=== PATIENT | female | born 1960 | race Caucasian/White ===

== ENCOUNTER 2018-12-11 20:33 | Emergency (ER) | payer OTHER, SELFPAY ==
--- OUTSIDE RECORDS SUMMARY | 2018-12-11 20:36 | XMS REPORT | Clinical Summary ---
:1960 Author Organization [facility] Address [address] [place] [address] Care Team Providers Name Role Phone Asked, No Pcp Primary Care Provider Unavailable Allergies No Known Allergies Medications Medication Sig Dispensed Refills Start Date End Date Status LORAZepam (ATIVAN) 1 Take 1 mg by mouth 0 Active MG tablet every 6 (six) hours as needed for anxiety. hydromorPHONE Take 2 mg by mouth 0 Active (DILAUDID) 2 MG tablet every 4 (four) hours as needed. gabapentin (NEURONTIN) Take 300 mg by 0 Active 300 mg capsule mouth 3 (three) times a day. miscellaneous medical 1 Units take as 1 each 0 06/19/2018 Active supply misc directed (for ambulation). DISPENSE WHEELCHAIR Active Problems Not on file Encounters Date Type Specialty Care Team Description 06/19/2018 Emergency Emergency Medicine Irene Rayo, Injury of head, initial encounter (Primary Dx); Abrasion of face, initial encounter; Fall, initial encounter; Contusion of face, initial encounter; Anemia, unspecified type; Thrombocytosis after 12/10/2017 Social History Tobacco Use Types Packs/Day Years Used Date Former Smoker Smokeless Tobacco: Never Used Alcohol Use Drinks/Week oz/Week Comments No Sex Assigned at Date Recorded Not on file Job Start Date Occupation Industry Not on file Not on file Not on file Travel History Travel Start Travel End No recent travel history available. Last Filed Vital Signs Vital Sign Reading Time Taken Blood Pressure 105/56 06/19/2018 3:45 PM CDT Pulse 89 06/19/2018 3:45 PM CDT Temperature 36.5 C (97.7 F) 06/19/2018 3:45 PM CDT Respiratory Rate 18 06/19/2018 3:45 PM CDT Oxygen Saturation 98% 06/19/2018 3:45 PM CDT Inhaled Oxygen Concentration - - Weight 34 kg (75 lb) 06/19/2018 11:58 AM CDT Height 162.6 cm (5' 4") 06/19/2018 11:58 AM CDT Body Mass Index 12.87 06/19/2018 11:58 AM CDT Plan of Treatment Health Maintenance Due Date Last Done Comments CERVICAL CANCER SCREENING 1980 BREAST CANCER SCREENING 2009 COLON CANCER SCREENING 2009 SHINGLES VACCINES (#1) 2009 INFLUENZA VACCINE 05/19/2018 Procedures Procedure Name Priority Date/Time Associated Comments Diagnosis CT CERVICAL SPINE WO STAT 06/19/2018 1:10 Results for this CONTRAST PM CDT procedure are in the results section. CT HEAD WO CONTRAST STAT 06/19/2018 1:09 Results for this PM CDT procedure are in the results section. XR PELVIS 1 OR 2 VW STAT 06/19/2018 1:02 Results for this PM CDT procedure are in the results section. ZZESTIMATED GFR STAT 06/19/2018 12:40 Results for this PM CDT procedure are in the results section. CREATINE KINASE, TOTAL STAT 06/19/2018 12:40 Results for this (CPK) PM CDT procedure are in the results section. TROPONIN STAT 06/19/2018 12:40 Results for this PM CDT procedure are in the results section. COMPREHENSIVE METABOLIC STAT 06/19/2018 12:40 Results for this PANEL PM CDT procedure are in the results section. PARTIAL THROMBOPLASTIN STAT 06/19/2018 12:40 Results for this TIME (PTT) PM CDT procedure are in the results section. PROTHROMBIN TIME WITH STAT 06/19/2018 12:40 Results for this INR PM CDT procedure are in the results section. HC COMPLETE BLD COUNT STAT 06/19/2018 12:40 Results for this W/AUTO DIFF PM CDT procedure are in the results section. ECG ED PRELIMINARY Routine 06/19/2018 12:17 Results for this INTERPRETATION PM CDT procedure are in the results section. ECG 12-LEAD STAT 06/19/2018 12:01 Results for this PM CDT procedure are in the results section. after 12/10/[address] Cervical Spine Wo Contrast (06/19/2018 1:10 PM CDT) Narrative Performed At EXAMINATION:CT CERVICAL SPINE WO CONTRAST [facility] CLINICAL HISTORY:fall injury COMPARISON:None. TECHNIQUE: Axial helical CT images throughout the cervical spine were performed without IV contrast. Sagittal and coronal reformatted images were generated. All CT images were acquired using low-dose technique with automated exposure control. FINDINGS: There is no evidence of acute fracture, traumatic subluxation, or dislocation. There is normal cervical lordosis and alignment. Vertebral bodies are preserved. There is no evidence of paraspinal hematoma. No significant cervical spondylosis is appreciated. 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 IMPRESSION: No acute cervical spine bony abnormality. [id number] Procedure Note Interface, Radiology Results Incoming - 06/19/2018 1:19 PM CDT EXAMINATION: CT CERVICAL SPINE WO CONTRAST CLINICAL HISTORY: fall injury COMPARISON: None. TECHNIQUE: Axial helical CT images throughout the cervical spine were performed without IV contrast. Sagittal and coronal reformatted images were generated. All CT images were acquired using low-dose technique with automated exposure control. FINDINGS: There is no evidence of acute fracture, traumatic subluxation, or dislocation. There is normal cervical lordosis and alignment. Vertebral bodies are preserved. There is no evidence of paraspinal hematoma. No significant cervical spondylosis is appreciated. 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 IMPRESSION: No acute cervical spine bony abnormality. [id number] Performing Organization Address City/State/Zipcode Phone Number [employer] [address] [place] [address] CT Head Wo Contrast (06/19/2018 1:09 PM CDT) Narrative Performed At EXAMINATION:[facility]:head injury COMPARISON:None. FINDINGS: There is no evidence of acute hemorrhage, mass lesion, or midline shift. The mendoza-white matter differentiation is preserved with no evidence of acute territorial infarction. Ventricles, sulci, and cisterns are age-appropriate in size and configuration. There is no extra-axial fluid collection. Visualized paranasal sinuses and mastoid air cells are clear. Bones, orbits, and soft tissues are unremarkable All CT images were acquired using low-dose technique with automated exposure control. IMPRESSION: No acute intracranial hemorrhage or mass effect. [id number] Procedure Note Interface, Radiology Results Incoming - 06/19/2018 1:16 PM CDT EXAMINATION: CT HEAD WO CONTRAST CLINICAL HISTORY: head injury COMPARISON: None. FINDINGS: There is no evidence of acute hemorrhage, mass lesion, or midline shift. The mendoza-white matter differentiation is preserved with no evidence of acute territorial infarction. Ventricles, sulci, and cisterns are age-appropriate in size and configuration. There is no extra-axial fluid collection. Visualized paranasal sinuses and mastoid air cells are clear. Bones, orbits, and soft tissues are unremarkable All CT images were acquired using low-dose technique with automated exposure control. IMPRESSION: No acute intracranial hemorrhage or mass effect. [id number] Performing Organization Address [facility] Phone Number [employer] [address] [place] [address] XR Pelvis 1 Or 2 Vw (06/19/2018 1:02 PM CDT) Narrative Performed At EXAMINATION:XR PELVIS 1 OR 2 VW [facility] CLINICAL HISTORY:fallfrail elderly COMPARISON:None. IMPRESSION: Minimal degenerative changes are present in the hips. There is no evidence of acute pelvic or hip fracture. There is no evidence of dislocation. Multiple phleboliths are noted in the pelvis. Procedure Note Interface, Radiology Results Incoming - 06/19/2018 1:07 PM CDT EXAMINATION: XR PELVIS 1 OR 2 VW CLINICAL HISTORY: fall frail elderly COMPARISON: None. IMPRESSION: Minimal degenerative changes are present in the hips. There is no evidence of acute pelvic or hip fracture. There is no evidence of dislocation. Multiple phleboliths are noted in the pelvis. Performing Organization Address [facility] Phone Number [facility] [address] [place] [address] Estimated GFR (06/19/2018 12:40 PM CDT) GFR Non Af Amer >90 mL/min/1.73 m2 [facility] PATHOLOGY AND GENOMIC MEDICINE GFR Af Amer >90 mL/min/1.73 m2 [facility] DEPARTMENT OF Comment: PATHOLOGY AND GENOMIC Chronic kidney disease: <60 mL/min/1.73m2 MEDICINE Kidney failure: <15 mL/min/1.73m2 The estimated GFR is calculated from the IDMS-traceable Modification of Diet in Renal Disease Equation. The accuracy of the calculation is poor when the creatinine is normal. Calculated values >90 mL/min/1.73m2 are not reported. This equation has not been validated in children (<18 years), women, the elderly (>70 years), or ethnic groups other than Caucasians and Americans. Specimen Plasma specimen Performing Organization Address City/State/Zipcode Phone Number [facility] DEPART[facility] OF PATHOLOGY [id number] [place] [address]. [place] [address] AND [employer] Troponin (06/19/2018 12:40 PM CDT) Troponin <0.30 0.00 - 0.30 ng/mL [facility] OF PATHOLOGY Comment: AND GENOMIC MEDICINE 0.11 - 1.49 ng/mlMay indicate increased risk of acute coronary syndrome. >=1.5 ng/mlConsistent with acute myocardial infarction. The diagnostic value of a single normal or non-diagnostic result is questionable.Serial samples at 2-6 hour intervals are required to rule out acute myocardial injury. Specimen Plasma specimen Performing Organization Address City/[facility] Phone Number [facility] DE[facility] OF PATHOLOGY [id number] [place] [address]. [place] [address] AND [employer] [facility] Partial thromboplastin time, activated (06/19/2018 12:40 PM CDT) PTT 37.6 (H) 23.0 - 36.0 sec [facility] DEPARTMENT OF Comment: PATHOLOGY AND [employer] PTT therapeutic range for unfractionated heparin is MEDICINE 61.0-112.0 seconds which corresponds to Anti-Xa 0.3-0.7 U/ml. Specimen Blood Performing Organization Address City/[facility]/Zipcode Phone Number [facility] DEPARTMENT OF PATHOLOGY [address] [place] [address] AND [employer] [facility] Prothrombin time with INR (06/19/2018 12:40 PM CDT) Prothrombin time 13.3 12.0 - 15.0 sec [facility] DEPART[facility] OF PATHOLOGY AND [employer] MEDICINE INR 1.0 [facility] DEPARTMENT OF Comment: PATHOLOGY AND GENOMIC The International Normalized Ratio (INR) is a therapeutic MEDICINE monitoring tool for patients who are stable on oral anticoagulant therapy. An INR of 2.0-3.0 is suggested for deep vein thrombosis/pulmonary embolism. Specimen Blood Performing Organization Address City/[facility]/Zipcode Phone Number [facility]MENT OF PATHOLOGY [id number] [place] [address]. [place] [address] AND [employer] CBC with platelet and differential (06/19/2018 12:40 PM CDT) WBC 12.3 (H) 4.5 - 11.0 k/uL [facility] PATHOLOGY AND GENOMIC MEDICINE RBC 2.66 (L) 4.20 - 5.50 m/uL [facility] PATHOLOGY AND GENOMIC MEDICINE HGB 7.9 (L) 12.0 - 16.0 g/dL [facility] OF PATHOLOGY AND GENOMIC MEDICINE HCT 24.8 (L) 37.0 - 47.0 % [facility] OF PATHOLOGY AND GENOMIC MEDICINE MCV 93.2 82.0 - 100.0 fL [facility] OF PATHOLOGY AND GENOMIC MEDICINE MCH 29.7 27.0 - 34.0 pg [facility] OF PATHOLOGY AND GENOMIC MEDICINE MCHC 31.9 31.0 - 37.0 g/dL [facility] OF PATHOLOGY AND GENOMIC MEDICINE RDW - SD 51.5 37.0 - 55.0 fL [facility] OF PATHOLOGY AND GENOMIC MEDICINE MPV 9.7 6.9 - 11.0 fL [facility] OF PATHOLOGY AND GENOMIC MEDICINE Platelet count 688 (H) 150 - 400 K/uL [facility] OF PATHOLOGY AND GENOMIC MEDICINE Nucleated RBC 0.00 /100 WBC [facility] OF PATHOLOGY AND GENOMIC MEDICINE Neutrophils 80.5 (H) 39.0 - 69.0 % [facility] OF PATHOLOGY AND GENOMIC MEDICINE Lymphocytes 9.2 (L) 25.0 - 45.0 % [facility] OF [facility]OLOGY AND GENOMIC MEDICINE Monocytes 6.5 0.0 - 10.0 % [facility] OF PATHOLOGY AND GENOMIC MEDICINE Eosinophils 2.8 0.0 - 5.0 % [facility] OF PATHOLOGY AND GENOMIC MEDICINE Basophils 0.6 0.0 - 1.0 % [facility] OF PATHOLOGY AND GENOMIC MEDICINE Immature granulocytes 0.4 0.0 - 1.0 % [facility] OF PATHOLOGY AND GENOMIC MEDICINE Specimen Blood Performing Organization Address [facility] Phone Number [facility] DE[facility] OF PATHOLOGY [address] [place] [address] AND [facility] Creatine kinase, total (CPK) (06/19/2018 12:40 PM CDT) Creatine kinase 40 26 - 192 U/L [facility] DEPART[facility] OF PATHOLOGY AND GENOMIC MEDICINE Specimen Plasma specimen Performing Organization Address [facility]/Zipcode Phone Number [facility] PATHOLOG[facility] [address] [place] [address] AND [facility] Comprehensive metabolic panel (06/19/2018 12:40 PM CDT) Sodium 133 (L) 135 - 148 mEq/L [facility] OF PATHOLOGY AND GENOMIC MEDICINE Potassium 4.5 3.5 - 5.0 mEq/L [facility] OF PATHOLOGY AND GENOMIC MEDICINE Chloride 95 (L) 98 - 112 mEq/L [facility] OF PATHOLOGY AND GENOMIC MEDICINE CO2 28 24 - 31 mEq/L [facility] OF PATHOLOGY AND GENOMIC MEDICINE Anion gap 10@ANIO 7 - 15 mEq/L [facility] OF PATHOLOGY AND GENOMIC MEDICINE BUN 13 6 - 20 mg/dL [facility]OLOGY AND GENOMIC MEDICINE Creatinine 0.5 0.5 - 0.9 mg/dL [facility] OF PATHOLOGY AND GENOMIC MEDICINE Glucose 107 (H) 65 - 99 mg/dL [facility] OF PATHOLOGY AND GENOMIC MEDICINE Calcium 9.2 8.3 - 10.2 mg/dL [facility] OF PATHOLOGY AND GENOMIC MEDICINE Protein 6.2 (L) 6.3 - 8.3 g/dL [facility] OF PATHOLOGY AND GENOMIC MEDICINE Albumin 2.9 (L) 3.5 - 5.0 g/dL [facility] OF PATHOLOGY AND GENOMIC MEDICINE A/G ratio 0.9 0.7 - 3.8 [facility]OLOGY AND GENOMIC MEDICINE Alkaline phosphatase 79 35 - 104 U/L [facility] OF PATHOLOGY AND GENOMIC MEDICINE AST 16 10 - 35 U/L [facility] OF PATHOLOGY AND GENOMIC MEDICINE ALT 8 5 - 50 U/L [facility] OF PATHOLOGY AND GENOMIC MEDICINE Total bilirubin <0.2 0.2 - 1.2 mg/dL [facility] OF PATHOLOGY AND GENOMIC MEDICINE Specimen Plasma specimen Performing Organization Address City/State/Zipcode Phone Number [facility] DEPARTMENT OF PATHOLOGY [address] [place] [address] AND [employer] MEDICINE ECG ED Preliminary Interpretation - NOT AN ORDER (06/19/2018 12:17 PM CDT) Narrative Performed At Perry Frenandez PA-C 06/19/20185:35 PM ECG ED Preliminary Interpretation - Not an Order Performed by: PERRY FERNANDEZ Authorized by: IRENE RAYO ECG reviewed by ED 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 Rate: ECG rate:97 ECG rate assessment: normal Rhythm: Rhythm: sinus rhythm QRS: QRS intervals:Normal Conduction: Conduction: normal ST segments: ST segments:Normal T waves: T waves: normal ECG 12 lead (06/19/2018 12:01 PM CDT) Ventricular rate 97 [facility] Atrial rate 97 [facility] DE interval 178 [facility] QRSD interval 76 [facility] QT interval 348 [facility] QTC interval 441 [facility] P axis 1 60 [facility] QRS axis 1 70 [facility] T wave axis 65 [facility] EKG impression Normal sinus rhythm-Possible Left atrial H MUSE enlargement-Borderline ECG-No previous ECGs available- Performing Organization Address City/State/[facility] Phone Number [facility] [address] [place] [address] after 12/10/2017 Insurance Payer Benefit Plan / Group Subscriber ID Type Phone Address [employer] [facility] xxxxxxxxx O Advance Directives Patient has advance care planning documents on file. For more information, please contact:Sky [address] [place] [address]
--- OUTSIDE RECORDS SUMMARY | 2018-12-11 20:36 | XMS REPORT ---
:1960 [facility] Organization [facility] Address [address] [place] [address] [place] [address] Care Team Providers Name Role Phone Unavailable Unavailable Unavailable Problems This patient has no known problems. Allergies, Adverse Reactions, Alerts This patient has no known allergies or adverse reactions. Medications This patient has no known medications.
--- NOTE | 2018-12-11 21:11 | RAD REPORT ---
EXAM DESCRIPTION: RAD - Chest Single View - 12/11/2018 9:04 pm CLINICAL HISTORY: possible tracheostomy dislodgement Chest pain. COMPARISON: Chest Pa And Lat (2 Views) dated 03/21/2017; Chest Single View dated 03/21/2017; Chest Singl e View dated 05/01/2016; CHEST SINGLE VIEW dated 06/05/2014; Neck Soft Tissue dated 12/11/2018 FINDINGS: Portable technique limits examination quality. The lungs are emphysematous with linear atelectasis in left lung base. The heart is normal in size. N o tracheostomy tube is clearly visualized on study.
--- NOTE | 2018-12-11 21:12 | RAD REPORT ---
EXAM DESCRIPTION: RAD - Neck Soft Tissue - 12/11/2018 9:04 pm CLINICAL HISTORY: eval tracheostomy Neck pain COMPARISON: No comparisons FINDINGS: Tracheostomy tubing is seen in the soft tissues of the anterior neck. The tip location is not clearly defined. Prevertebral soft tissues are normal in thickness. CT imaging of the neck would be recommended if further assessment is clinically needed.
--- NOTE | 2018-12-12 00:57 | ER ---
Nurse's Notes [facility] Name: Julissa Hicks Age: 58 yrs Sex: Female : 1960 Arrival Date: 12/11/2018 Time: 20:34 Bed 2 Private MD: Diagnosis: Esophageal Perforation of tracheostomy device Presentation: 12/11 20:43 Presenting complaint: EMS states: Patient was admitted to [facility] yesterday aj1 for IV therapy, she fell shortly after she arrived to the facility. They noticed this morning at 0930 that her "voicebox" was gone. A plastic tab is sticking out of the patient's stoma. Respirations are even and unlabored, patient denies shortness of breath. Transition of care: patient was not received from another setting of care. Onset of symptoms was December 11, 2018 at 09:30. Risk Assessment: Do you want to hurt yourself or someone else? Patient reports no desire to harm self or others. Initial Sepsis Screen: Does the patient meet any 2 criteria? No. Patient's initial sepsis screen is negative. Does the patient have a suspected source of infection? No. Patient's initial sepsis screen is negative. Care prior to arrival: None. 20:43 Method Of Arrival: EMS: [facility] aj1 20:43 Acuity: KHOA 3 aj1 Triage Assessment: 20:55 General: Appears in no apparent distress. comfortable, Behavior is calm, cooperative, aj1 appropriate for age. Pain: Complains of pain in face and chest. Neuro: Level of Consciousness is awake, alert. Cardiovascular: Patient's skin is warm and dry. Respiratory: Airway is patent Respiratory effort is even, unlabored, Respiratory pattern is regular, symmetrical. Historical: - Allergies: 20:55 No Known Allergies; aj1 - Home Meds: 20:55 Doxycycline Oral [Active]; gabapentin oral oral [Active]; hydromorphone Oral [Active]; aj1 Mylanta Double-Strength Oral [Active]; GlycoLax oral oral [Active]; meropenem intravenous intravenous [Active]; Senokot Oral [Active]; Tramadol Oral [Active]; - PMHx: 20:55 malignant neoplasm of larynx; COPD; subarachnoid bleed; aj1 - Immunization history:: Adult Immunizations up to date. - Social history:: Smoking status: unknown. - Ebola Screening: : No symptoms or risks identified at this time. - Family history:: not pertinent. - Hospitalizations: : No recent hospitalization is reported. Screenin:02 Abuse screen: Denies threats or abuse. Denies injuries from another. Nutritional aj1 screening: No deficits noted. Tuberculosis screening: No symptoms or risk factors identified. 22:04 Fall Risk Gait- Weak (10 pts.). tl2 Assessment: 21:02 General: Appears in no apparent distress. comfortable, Behavior is calm, cooperative, aj1 appropriate for age. Pain: Complains of pain in chest and face. Neuro: Level of Consciousness is awake, alert, obeys commands. Cardiovascular: Patient's skin is warm and dry. Respiratory: Airway is patent Respiratory effort is even, unlabored, Respiratory pattern is regular, symmetrical. GI: No signs and/or symptoms were reported involving the gastrointestinal system. : No signs and/or symptoms were reported regarding the genitourinary system. EENT: No signs and/or symptoms were reported regarding the EENT system. Derm: Skin is pink, warm \\T\\ dry. normal. Musculoskeletal: Circulation, motion, and sensation intact. 22:04 General: Appears in no apparent distress. comfortable, Behavior is calm, cooperative, tl2 appropriate for age. Pain: Complains of pain in face. Neuro: Level of Consciousness is awake, alert, obeys commands. Cardiovascular: Patient's skin is warm and dry. Respiratory: Airway is patent Respiratory effort is even, unlabored, Respiratory pattern is regular, symmetrical, tag like object sticking out of trach stoma. GI: No signs and/or symptoms were reported involving the gastrointestinal system. Derm: Skin is pink, warm \\T\\ dry. 23:00 Reassessment: Patient and/or family updated on plan of care and expected duration. Pain ea level reassessed. Patient is alert, oriented x 3, equal unlabored respirations, skin warm/dry/pink. 12/12 00:00 Reassessment: Patient and/or family updated on plan of care and expected duration. Pain ea level reassessed. Patient is alert, oriented x 3, equal unlabored respirations, skin warm/dry/pink. 01:20 Reassessment: Report called to Ana ASCENCIO at [facility]. ea 02:00 Reassessment: Patient appears in no apparent distress at this time. Patient and/or tl2 family updated on plan of care and expected duration. Pain level reassessed. Patient is alert, oriented x 3, equal unlabored respirations, skin warm/dry/pink. awaiting transport. Vital Signs: 12/11 20:55 BP 115 / 64; Pulse 56; Resp 20; Temp 98.4; Pulse Ox 98% on R/A; aj1 22:04 BP 111 / 65; Pulse 66; Resp 18; Pulse Ox 94% on R/A; tl2 22:57 BP 97 / 67; Pulse 60; Resp 18; Pulse Ox 97% on R/A; tl2 12/12 00:15 BP 93 / 67; Pulse 55; Resp 18; Pulse Ox 96% on R/A; tl2 02:00 BP 99 / 66; Pulse 57; Resp 18; Pulse Ox 96% on R/A; tl2 ED Course: 12/11 20:34 Patient arrived in ED. ds1 20:36 Grant Paul MD is Attending Physician. rn 20:42 Ana Rizo, SONU is Primary Nurse. aj1 20:49 Triage completed. aj1 20:55 Arm band placed on. aj1 21:02 Patient has correct armband on for positive identification. Bed in low position. Call aj1 light in reach. 21:02 No provider procedures requiring assistance completed. aj1 21:05 XRAY Neck Soft Tissue In Process Unspecified. EDMS 21:05 XRAY Chest (1 view) In Process Unspecified. EDMS 22:29 CT completed. Patient tolerated procedure well. Patient moved back from CT. kw1 12/12 01:22 Patient transferred, IV remains in place. ea 01:22 IV is patent, with fluids infusing freely, with good blood return, IV placed at nursing tl2 home for IV therapy. 18 g R upper arm. Administered Medications: 01:22 Drug: D5-NS 1000 ml Route: IV; Rate: 125 ml/hr; Site: right upper arm; tl2 02:07 Follow up: IV Status: Infusion continued upon transfer tl2 Outcome: 00:56 ER care complete, transfer ordered by . rn 01:21 Instructed on the need for transfer. ea 02:06 Transferred by ground EMS Transfer form completed. Note: Hayes Chapin tl2 02:06 Condition: stable 02:08 Patient left the ED. tl2 Signatures: Dispatcher [employer] EDMS Ana Rizo RN RN aj1 Mandi Blount ds1 Grant Paul MD MD rn Knox, Taylor, RN RN tl2 Nadiya Iraheta RN RN Yaritza Conroy kw1
--- NOTE | 2018-12-12 00:57 | EDPHYS ---
Physician Documentation [facility] Name: Julissa Hicks Age: 58 yrs Sex: Female : 1960 Arrival Date: 12/11/2018 Time: 20:34 Bed 2 Private MD: ED Physician Grant Paul HPI: 12/11 22:36 This 58 yrs old Female presents to ER via EMS with complaints of displacement rn of tracheostomy device. 22:36 Called by alf, told that since 0900 today had displacement of "voice box", rn patient reports mild throat pain but no SOB, doesnot know what happened.. Onset: The symptoms/episode began/occurred this morning. Severity of symptoms: At their worst the symptoms were mild in the emergency department the symptoms are unchanged. It is unknown whether or not the patient has had similar symptoms in the past. The patient has not recently seen a physician. Historical: - Allergies: 20:55 No Known Allergies; aj1 - Home Meds: 20:55 Doxycycline Oral [Active]; gabapentin oral oral [Active]; hydromorphone Oral [Active]; aj1 Mylanta Double-Strength Oral [Active]; GlycoLax oral oral [Active]; meropenem intravenous intravenous [Active]; Senokot Oral [Active]; Tramadol Oral [Active]; - PMHx: 20:55 malignant neoplasm of larynx; COPD; subarachnoid bleed; aj1 - Immunization history:: Adult Immunizations up to date. - Social history:: Smoking status: unknown. - Ebola Screening: : No symptoms or risks identified at this time. - Family history:: not pertinent. - Hospitalizations: : No recent hospitalization is reported. ROS: 22:36 Constitutional: Negative for fever, chills, and weight loss, Eyes: Negative for injury, rn pain, redness, and discharge, Neck: + neck pain, mild at stoma Cardiovascular: Negative for chest pain, palpitations, and edema, Respiratory: Negative for shortness of breath, cough, wheezing, and pleuritic chest pain, Abdomen/GI: Negative for abdominal pain, nausea, vomiting, diarrhea, and constipation, MS/Extremity: Negative for injury and deformity, Skin: Negative for injury, rash, and discoloration, Neuro: Negative for headache, weakness, numbness, tingling, and seizure. Exam: 22:36 Constitutional: Thin female, no acute distress Neck: + clear soft plastic device rn protruding from stoma with circular object in trachea, no respiratory distress Cardiovascular: Regular rate and rhythm, No pulse deficits. Respiratory: Lungs have equal breath sounds bilaterally, clear to auscultation. No increased work of breathing, no retractions or nasal flaring. Abdomen/GI: soft, non-tender Skin: Warm, dry MS/ Extremity: Pulses equal, no cyanosis. Neurovascular intact. Full, normal range of motion. Equal circumference. Neuro: Awake and alert, GCS 15 Vital Signs: 20:55 BP 115 / 64; Pulse 56; Resp 20; Temp 98.4; Pulse Ox 98% on R/A; aj1 22:04 BP 111 / 65; Pulse 66; Resp 18; Pulse Ox 94% on R/A; tl2 22:57 BP 97 / 67; Pulse 60; Resp 18; Pulse Ox 97% on R/A; tl2 12/12 00:15 BP 93 / 67; Pulse 55; Resp 18; Pulse Ox 96% on R/A; tl2 02:00 BP 99 / 66; Pulse 57; Resp 18; Pulse Ox 96% on R/A; tl2 MDM: 12/11 20:36 Patient medically screened. rn 12/12 00:42 ED course: Pt with erosion of tracheal object into esophagus, no ENT here, surgery done rn at [facility] per alf 2 months ago, arranging transfer for higher level of care and no specialty services. . 00:49 Differential Diagnosis tracheal/esophageal perforation. Data reviewed: vital signs, rn nurses notes, radiologic studies, CT scan, plain films, and as a result, I will admit patient. Counseling: I had a detailed discussion with the patient and/or guardian regarding: the historical points, exam findings, and any diagnostic results supporting the discharge/admit diagnosis, radiology results, the need to transfer to another facility. Admission orders: after a detailed discussion of the patient's condition and case, the admit orders are written by me. ED course: Pt accepted for transfer to [facility] for further eval.. 12/11 20:37 Order name: XRAY Neck Soft Tissue; Complete Time: 21:30 rn 12/11 20:37 Order name: XRAY Chest (1 view); Complete Time: 21:30 rn 12/11 21:55 Order name: CT Soft Tissue Neck W/contr rn 12/12 01:09 Order name: IV Start; Complete Time: 01:11 rn Administered Medications: 01:22 Drug: D5-NS 1000 ml Route: IV; Rate: 125 ml/hr; Site: right upper arm; tl2 02:07 Follow up: IV Status: Infusion continued upon transfer tl2 Disposition: 12/12/18 00:56 Transfer ordered to [facility]. Diagnosis is Esophageal Perforation of tracheostomy device. - Reason for transfer: Higher level of care. - Accepting physician is Dr. Rendon. - Condition is Stable. - Problem is new. - Symptoms have improved. Signatures: Dispatcher [employer] Ana Ta RN RN aj1 Grant Paul MD MD rn Knox, Taylor, RN RN tl2 Corrections: (The following items were deleted from the chart) 02:08 00:56 12/12/2018 00:56 Transfer ordered to [facility]. Diagnosis is Esophageal tl2 Perforation of tracheostomy device. Reason for transfer: Higher level of care. Accepting physician is Dr. Rendon. Condition is Stable. Problem is new. Symptoms have improved. rn
[2018-12-12] MEDS ORDERED: D5 0.9 NS 1,000 ML IV ONE (01:25)
[2018-12-12 02:19] VITALS: TEMP 98.4
[2018-12-12 02:23] VITALS: O2SAT 96
[2018-12-12 02:25] VITALS: BP 99/66
--- NOTE | 2018-12-13 11:06 | RAD REPORT ---
EXAM DESCRIPTION: CT - Soft Tissue Neck Wo Contr - 12/11/2018 10:45 pm CLINICAL HISTORY: 58 years Female no contrast, eval for tracheostomy displacement COMPARISON: None. TECHNIQUE: Contiguous axial images obtained through the neck without IV contrast. Reformatted images obtained. This exam was performed according to our department optimization program which includes automated exp osure control, adjustment of the mA and/or kv according to patient size and/or use of iterative recon struction technique. FINDINGS: There is a tracheostomy defect in the skin overlying the upper trachea. A portion of the t racheostomy tube projects through the skin defect. The other end of the tube projects into the upper esophagus. There are postsurgical changes from laryngectomy. There is soft tissue thickening and stranding in th e fatty tissues in the lower neck which may be postsurgical. CT following IV contrast could be obtain ed to better evaluate for residual tumor. There is fluid in the pharynx above the level of the surger y. There are atherosclerotic calcifications of the carotid bifurcations. Mild scarring in the upper lungs. Calcified granuloma in the left upper lung. Mucosal thickening and possibly small amount of fluid in the sphenoid sinuses. There is opacification of the left mastoid air cells. There are mild degenerative changes in the spine. At C3-4, there is central disc protrusion which res ults in moderate narrowing of the central spinal canal. IMPRESSION: There is a tracheostomy defect in the skin overlying the upper trachea. A portion of the tracheostomy tube projects through this defect. The other end of the tube projects into the upper es ophagus. The findings were discussed with Dr. Grant Paul at 12:01 AM. There are changes from previous laryngectomy. There is soft tissue thickening and stranding in the fa tty tissues in the lower neck which may be postsurgical. CT following IV contrast could be obtained t o better evaluate for residual tumor. Mucosal thickening possibly with a small amount of fluid in the sphenoid sinuses. Central disc protrusion at C3-4 with moderate narrowing of the spinal canal. Electronically signed by: Dayday Meyers MD 12/12/2018 12:06 AM [employer] Due to temporary technical issues with the PACS/Fluency reporting system, reports are being signed by the in house radiologist as a courtesy to ensure prompt reporting. The interpreting radiologist is f ully responsible for the content of the report.
== END 2018-12-12 02:08 | disposition short-term general hospital (02) ==
LOC: ER 20:33
DX: J95.09 Other tracheostomy complication (principal); C32.9 Malignant neoplasm of larynx, unspecified; J44.9 Chronic obstructive pulmonary disease, unspecified
CPT/HCPCS: 70360; 70490; 71045; 96365; 99285

== ENCOUNTER 2018-12-15 21:56 | Emergency (ER) | payer OTHER ==
--- OUTSIDE RECORDS SUMMARY | 2018-12-15 21:59 | XMS REPORT | Clinical Summary ---
:1960 Author Organization [facility] Address [address] [place] [address] Care Team Providers Name Role Phone Asked, [...] initial encounter; Anemia, unspecified type; Thrombocytosis after 12/14/2017 Social History Tobacco Use Types Packs/Day Years [...] procedure are in the results section. after 12/14/[address] Cervical Spine Wo Contrast (06/19/2018 [...] IMPRESSION: No acute cervical spine bony abnormality. [facility]-[id number] Procedure Note Interface, Radiology Results Incoming - [...] IMPRESSION: No acute cervical spine bony abnormality. [facility]-[id number] Performing Organization Address City/State/Zipcode Phone Number [facility] [address] [place] [address] CT Head Wo Contrast (06/19/2018 1:09 PM CDT) Narrative Performed At EXAMINATION:CT HEAD WO [facility]AST [facility] CLINICAL HISTORY:head injury COMPARISON:None. FINDINGS: There is [...] No acute intracranial hemorrhage or mass effect. [facility]-[id number] Procedure Note Interface, Radiology Results Incoming - [...] No acute intracranial hemorrhage or mass effect. [facility]-[id number] Performing Organization Address [facility] Phone Number [facility] [address] [place] [address] XR Pelvis 1 Or 2 Vw (06/19/2018 [...] noted in the pelvis. Performing Organization Address [facility] Phone Number [facility] [address] [place] [address] Estimated GFR (06/19/2018 12:40 PM CDT) GFR Non Af Amer >90 mL/min/1.73 m2 [facility] DEPARTMENT OF PATHOLOGY AND GENOMIC MEDICINE GFR Af Amer >90 mL/min/1.73 m2 [facility] DEPARTMENT OF Comment: PATHOLOGY AND GENOMIC [...] specimen Performing Organization Address City/State/Zipcode Phone Number [facility] DEPARTMENT OF PATHOLOGY [id number] [place] [address]. [place] [address] AND [employer] Troponin (06/19/2018 12:40 PM CDT) Troponin <0.30 0.00 - 0.30 ng/mL [facility] DEPARTMENT OF PATHOLOGY Comment: AND GENOMIC MEDICINE 0.11 - 1.49 ng/mlMay indicate increased risk of acute coronary syndrome. >=1.5 ng/mlConsistent with acute myocardial infarction. The diagnostic value of a single normal or non-diagnostic result is questionable.Serial samples at 2-6 hour intervals are required to rule out acute myocardial injury. Specimen Plasma specimen Performing Organization Address City/[facility] Phone Number [facility] DEPARTMENT OF PATHOLOGY [id number] [place] [address]. [place] [address] AND [employer] [facility] Partial thromboplastin time, activated (06/19/2018 12:40 PM CDT) PTT 37.6 (H) 23.0 - 36.0 sec [facility] DEPARTMENT OF Comment: PATHOLOGY AND [employer] PTT therapeutic range for unfractionated heparin is MEDICINE 61.0-112.0 seconds which corresponds to Anti-Xa 0.3-0.7 U/ml. Specimen Blood Performing Organization Address City/[facility]/Zipcode Phone Number [facility] DEPARTMENT OF PATHOLOGY [address] [facility] [place] [address] AND [employer] [facility] Prothrombin time with INR (06/19/2018 12:40 PM CDT) Prothrombin time 13.3 12.0 - 15.0 sec [facility] DEPARTMENT OF PATHOLOGY AND [employer] MEDICINE INR 1.0 [facility] DEPARTMENT OF Comment: PATHOLOGY AND GENOMIC The International Normalized Ratio (INR) is a therapeutic MEDICINE monitoring tool for patients who are stable on oral anticoagulant therapy. An INR of 2.0-3.0 is suggested for deep vein thrombosis/pulmonary embolism. Specimen Blood Performing Organization Address City/[facility]/Zipcode Phone Number [facility] DEPARTMENT OF PATHOLOGY [id number] [place] [address]. [place] [address] AND [employer] CBC with platelet and differential (06/19/2018 12:40 PM CDT) WBC 12.3 (H) 4.5 - 11.0 k/uL [facility] DEPARTMENT OF PATHOLOGY AND GENOMIC MEDICINE RBC 2.66 (L) 4.20 - 5.50 m/uL [facility] OF PATHOLOGY AND GENOMIC MEDICINE HGB 7.9 (L) 12.0 - 16.0 g/dL [facility] OF PATHOLOGY AND GENOMIC MEDICINE HCT 24.8 (L) 37.0 - 47.0 % [facility] OF PATHOLOGY AND GENOMIC MEDICINE MCV 93.2 82.0 - 100.0 fL [facility] OF PATHOLOGY AND GENOMIC MEDICINE MCH 29.7 27.0 - 34.0 pg [facility]PARTMENT OF PATHOLOGY AND GENOMIC MEDICINE MCHC 31.9 31.0 - 37.0 g/dL [facility] DEPARTMENT OF PATHOLOGY AND GENOMIC MEDICINE RDW - SD 51.5 37.0 - 55.0 fL [facility] DEPARTMENT OF PATHOLOGY AND GENOMIC MEDICINE MPV 9.7 6.9 - 11.0 fL [facility] OF PATHOLOGY AND GENOMIC MEDICINE Platelet count 688 (H) 150 - 400 K/uL [facility] DEPARTMENT OF PATHOLOGY AND GENOMIC MEDICINE Nucleated RBC 0.00 /100 WBC [facility] DEPARTMENT OF PATHOLOGY AND GENOMIC MEDICINE Neutrophils 80.5 (H) 39.0 - 69.0 % [facility] OF PATHOLOGY AND GENOMIC MEDICINE Lymphocytes 9.2 (L) 25.0 - 45.0 % [facility] OF PATHOLOGY AND GENOMIC MEDICINE Monocytes 6.5 0.0 - 10.0 % [facility] DEPART[facility] OF PATHOLOGY AND GENOMIC MEDICINE Eosinophils 2.8 0.0 - 5.0 % [facility] DEPART[facility] OF PATHOLOGY AND GENOMIC MEDICINE Basophils 0.6 0.0 - 1.0 % [facility] DEPARTMENT OF PATHOLOGY AND GENOMIC MEDICINE Immature granulocytes 0.4 0.0 - 1.0 % [facility] DEPARTMENT OF PATHOLOGY AND GENOMIC MEDICINE Specimen Blood Performing Organization Address [facility] Phone Number [facility] DEPARTMENT OF PATHOLOGY [address] [place] [address] AND [facility] Creatine kinase, total (CPK) (06/19/2018 12:40 PM CDT) Creatine kinase 40 26 - 192 U/L [facility] DEPARTMENT OF PATHOLOGY AND GENOMIC MEDICINE Specimen Plasma specimen Performing Organization Address [facility]/Zipcode Phone Number [facility] DEPARTMENT PATHOLOGY [address] [place] [address] AND [facility] Comprehensive metabolic panel (06/19/2018 12:40 PM CDT) Sodium 133 (L) 135 - 148 mEq/L [facility] OF PATHOLOGY AND GENOMIC MEDICINE Potassium 4.5 3.5 - 5.0 mEq/L [facility] DE[facility]MENT OF PATHOLOGY AND GENOMIC MEDICINE Chloride 95 (L) 98 - 112 mEq/L [facility] DEPARTMENT OF PATHOLOGY AND GENOMIC MEDICINE CO2 28 24 - 31 mEq/L [facility] OF PATHOLOGY AND GENOMIC MEDICINE Anion gap 10@ANIO 7 - 15 mEq/L [facility]PART[facility] OF PATHOLOGY AND GENOMIC MEDICINE BUN 13 6 - 20 mg/dL [facility] OF PATHOLOGY AND GENOMIC MEDICINE Creatinine 0.5 0.5 - 0.9 mg/dL [facility] OF PATHOLOGY AND GENOMIC MEDICINE Glucose 107 (H) 65 - 99 mg/dL [facility]PART[facility] OF PATHOLOGY AND GENOMIC MEDICINE Calcium 9.2 8.3 - 10.2 mg/dL [facility] OF PATHOLOGY AND GENOMIC MEDICINE Protein 6.2 (L) 6.3 - 8.3 g/dL [facility] OF PATHOLOGY AND GENOMIC MEDICINE Albumin 2.9 (L) 3.5 - 5.0 g/dL [facility]PART[facility] OF PATHOLOGY AND GENOMIC MEDICINE A/G ratio 0.9 0.7 - 3.8 [facility] OF PATHOLOGY AND GENOMIC MEDICINE Alkaline phosphatase 79 35 - 104 U/L [facility]PART[facility] OF PATHOLOGY AND GENOMIC MEDICINE AST 16 10 - 35 U/L [facility]PARTMENT OF PATHOLOGY AND GENOMIC MEDICINE ALT 8 5 - 50 U/L [facility]PART[facility] OF PATHOLOGY AND GENOMIC MEDICINE Total bilirubin <0.2 0.2 - 1.2 mg/dL [facility] DEPARTMENT OF PATHOLOGY AND GENOMIC MEDICINE Specimen Plasma specimen Performing Organization Address City/State/Zipcode Phone Number [facility] DEPARTMENT OF PATHOLOGY [address] [place] [address] AND [employer] [facility]IC[facility] ECG ED Preliminary Interpretation - NOT AN ORDER (06/19/2018 12:17 PM CDT) Narrative Performed At Perry Fernandez PA-C 06/19/20185:35 PM ECG ED Preliminary Interpretation - Not an Order Performed by: PERRY FERNANDEZ Authorized by: IRENE RAYO ECG reviewed by ED Physician in the absence of a dental receptionist: yes Rate: ECG rate:97 ECG rate assessment: normal Rhythm: Rhythm: sinus rhythm QRS: QRS intervals:Normal Conduction: Conduction: normal ST segments: ST segments:Normal T waves: T waves: normal ECG 12 lead (06/19/2018 12:01 PM CDT) Ventricular rate 97 [facility] Atrial rate 97 [facility] HI interval 178 [facility] QRSD interval 76 [facility] QT interval 348 [facility] QTC interval 441 [facility] P axis 1 60 [facility] QRS axis 1 70 [facility] T wave axis 65 [facility] EKG impression Normal sinus rhythm-Possible Left atrial H MUSE enlargement-Borderline ECG-No previous ECGs available- Performing Organization Address City/State/[facility] Phone Number [facility] [address] [place] [address] after 12/14/2017 Insurance Payer Benefit Plan / Group Subscriber ID Type Phone Address [facility] [id number] xxxxxxxxx O Advance Directives Patient has advance care planning documents on file. For more information, please contact:Sky Valencia[address] [place] [address]
--- OUTSIDE RECORDS SUMMARY | 2018-12-15 21:59 | XMS REPORT ---
:1960 [facility] Address [address] [place] [address] [place] [address] Care Team Providers Name Role Phone Unavailable Unavailable Unavailable Problems This patient has no known problems. Allergies, Adverse Reactions, Alerts This patient has no known allergies or adverse reactions. Medications This patient has no known medications.
[2018-12-15 22:34] LABS: Absolute Lymphocytes (CBC) 1.7 K/uL (0.7-4.9); Absolute Monocytes 0.8 K/uL (0.1-1.3); Absolute Neutrophil 5.5 K/uL (1.8-8.0); Basophils % 0.8 % (0-1.3); Eosinophils % 5.9 % (0-4.4); Hematocrit 34.9 % (36.0-45.0); Lymphocytes % 19.6 % (15.3-44.8); MPV 8.4 fL (7.6-11.3); Monocytes % 8.9 % (3.3-12.3); RBC Red Blood Cell Count 3.95 M/uL (3.86-4.86)
[2018-12-15 22:36] LABS: Protime INR 1.09
[2018-12-15 23:04] LABS: ALT/SGPT 19 U/L (12-78); AST/SGOT 27 U/L (15-37); Albumin 2.5 g/dL (3.4-5.0); Alkaline Phosphatase 58 U/L (45-117); BUN Blood Urea Nitrogen 7 mg/dL (7-18); Bicarbonate 24 mmol/L (21-32); Bilirubin Direct 0.1 mg/dL (0-0.2); Bilirubin Total 0.4 mg/dL (0.2-1.0); CKMB Creatine Kinase MB 2.8 ng/mL (0.3-3.6); Creatine Phosphokinase 206 U/L (26-192); Glucose Level 91 mg/dL (74-106); Lipase 44 U/L (73-393); NT PRO-BNP 71 pg/mL (<125); Protein, Total 5.7 g/dL (6.4-8.2); Sodium Level 143 mmol/L (136-145); Troponin (Emerg Dept Use Only) < 0.02 ng/mL (0.0-0.045)
[2018-12-15 23:05] LABS: Magnesium 1.3 mg/dL (1.8-2.4); Potassium 2.9 mmol/L (3.5-5.1)
[2018-12-16] MEDS ORDERED: POTASSIUM 25 MEQ EFFERV TAB ONE (00:55)
[2018-12-16] MEDS ORDERED: MAGNESIUM SULFATE 1 gm IVPB 1 GM/100 ML BAG IV ONE (00:55)
--- NOTE | 2018-12-16 01:52 | ER ---
Nurse's Notes [facility] Name: Julissa Hicks Age: 58 yrs Sex: Female : 1960 Arrival Date: 12/15/2018 Time: 21:57 Bed 2 Private MD: Diagnosis: Acute bronchitis;Hypokalemia;Hypomagnesemia Presentation: 12/15 21:58 Presenting complaint: EMS states: Per custodial staff, patient had O2 sat lp1 fluctuating the past few hours; On arrival of EMS, patient was 83% on 4L NC; Placed on NRB blow by to trach by EMS, O2 at 94-96%. Transition of care: patient was received from another setting of care (long-term care facility), [facility]. Onset of symptoms was December 15, 2018. Risk Assessment: Do you want to hurt yourself or someone else? Patient reports no desire to harm self or others. Initial Sepsis Screen: Does the patient meet any 2 criteria?. Care prior to arrival: Oxygen administered. via a non-rebreather mask. 21:58 Method Of Arrival: EMS: [facility] lp1 21:58 Acuity: KHOA 3 lp1 22:00 Initial Sepsis Screen: Does the patient have a suspected source of infection? No. lp1 Patient's initial sepsis screen is negative. Historical: - Allergies: 22:12 No Known Allergies; lp1 - Home Meds: 22:12 gabapentin 600 mg oral tab twice a day [Active]; GlycoLax 17 gram/dose oral powd once lp1 daily [Active]; Mylanta Double-Strength Oral 30 mL every 6 hours [Active]; Senokot 8.6 mg oral tab 2 tabs twice a day [Active]; tramadol 50 mg oral tab every 4 hours [Active]; - PMHx: 22:12 COPD; malignant neoplasm of larynx; subarachnoid bleed; ADD/ADHD; lp1 - PSHx: 22:12 Tracheostomy; lp1 - Immunization history:: Adult Immunizations unknown. - Social history:: Smoking status: unknown. - Ebola Screening: : No symptoms or risks identified at this time. Screenin:13 Abuse screen: Denies threats or abuse. Denies injuries from another. Nutritional lp1 screening: On Mechanical soft diet. Tuberculosis screening: No symptoms or risk factors identified. Fall Risk Total Modi Fall Scale indicates High Risk Score (45 or more points). Fall prevention measures have been instituted. Side Rails Up X 2 Frequent Obs/Assessments Occuring. Assessment: 22:15 General: Appears comfortable, Behavior is calm, cooperative, Respiratory at bedside to ed1 suction pt. . Pain: Denies pain. Neuro: Level of Consciousness is awake, alert, Oriented to unable to assess, pt unable to speak. Cardiovascular: Denies chest pain, Heart tones S1 S2 present Rhythm is regular. Respiratory: Airway via trache Respiratory effort is even, unlabored, Respiratory pattern is regular, symmetrical, Breath sounds are coarse bilaterally. 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 GI: Abdomen is non-distended, PEG tube in place, clamped. Site clean. Bowel sounds present X 4 quads. Abd is soft and non tender X 4 quads. : No signs and/or symptoms were reported regarding the genitourinary system. EENT: Oral mucosa is dry. Derm: Skin is intact, is fragile, is thin, with poor turgor Skin is dry, Skin is normal, Skin temperature is warm. Musculoskeletal: Circulation, motion, and sensation intact. 23:07 Reassessment: Patient appears in no apparent distress at this time. Patient and/or ed1 family updated on plan of care and expected duration. Pain level reassessed. Pt responsive to verbal stimuli. Pt unable to speak but nods head to yes and no questions. 12/16 00:22 Reassessment: Patient appears in no apparent distress at this time. Pt lying supine in ed1 bed, eyes closed. Resp even and unlabored. 01:20 Reassessment: Patient appears in no apparent distress at this time. No changes from ed1 previously documented assessment. Pt lying in bed, eyes closed, resp even and unlabored. 02:20 Reassessment: Received call from Lakisha at [facility], she stated that it would ed1 be around 5 or 5:30am before transportation arrives to pick out hand the pt. Pt currently resting in bed, eyes closed, resp even and unlabored. Cardiovascular: Rhythm is regular. 04:19 Reassessment: Patient appears in no apparent distress at this time. No changes from ed1 previously documented assessment. 06:12 Reassessment: Patient appears in no apparent distress at this time. Patient and/or ed1 family updated on plan of care and expected duration. Pain level reassessed. Pt unable to speak but nods to yes and no questions. Denies pain. Resp even and unlabored. Vital Signs: 12/15 22:05 BP 126 / 69; Pulse 64; Resp 13; Temp 97.9(A); Pulse Ox 98% on Non-rebreather mask; lp1 Weight 45.36 kg; Pain 0/10; 22:15 BP 115 / 66; Pulse 63; Resp 15; Pulse Ox 96% on R/A; Pain 0/10; ed1 23:07 BP 102 / 60; Pulse 65; Resp 13; Pulse Ox 93% on R/A; Pain 0/10; ed1 23:41 BP 93 / 74; Pulse 68; Resp 14; Pulse Ox 94% on R/A; mt 12/16 00:22 BP 109 / 69; Pulse 65; Resp 13; Pulse Ox 91% on R/A; ed1 01:20 BP 103 / 71; Pulse 62; Resp 13; Pulse Ox 91% on R/A; ed1 04:19 BP 94 / 64; Pulse 60; Resp 14; Pulse Ox 92% on R/A; ed1 06:12 BP 107 / 77; Pulse 64; Resp 17; Pulse Ox 93% on R/A; Pain 0/10; ed1 ED Course: 12/15 21:57 Patient arrived in ED. fc 21:58 Ganesh Abrams MD is Attending Physician. tw4 22:02 Triage completed. lp1 22:02 Arm band placed on left wrist. lp1 22:09 María Mckee, RN is Primary Nurse. ed1 22:24 Inserted saline lock: 22 gauge in right antecubital area, using aseptic technique. dc Blood collected. 22:38 Notified ED physician of a critical lab result(s). D-Dimer 750. ed1 22:41 XRAY CXR (1 view) In Process Unspecified. EDMS 23:04 Notified ED physician of a critical lab result(s). mag 1.3, potassium of 2.9. fc 23:09 Patient has correct armband on for positive identification. Placed in gown. Bed in low ed1 position. Call light in reach. Side rails up X2. on site services specialist on. Pulse ox on. NIBP on. 12/16 02:20 No apparent distress. Appears to be sleeping. Awaiting transportation. ed1 02:20 No provider procedures requiring assistance completed. ed1 04:19 No apparent distress. Appears to be sleeping. Awaiting transportation. ed1 04:21 Blood Culture Sent. ed1 04:21 Blood Culture Adult (2) Sent. ed1 04:53 Warm blanket given. Cleaned of incontinence. ed1 04:54 Awaiting transportation. ed1 06:12 IV discontinued, intact, bleeding controlled, No redness/swelling at site. Pressure ed1 dressing applied. Administered Medications: 00:54 CANCELLED (Other Intervention Used): Potassium Chloride 40 mEq PO once ed1 00:56 Drug: Magnesium Sulfate 1 grams Route: IVPB; Infused Over: 1 hrs; Site: right forearm; ed1 01:52 Follow up: Response: No adverse reaction; IV Status: Completed infusion ed1 00:56 Drug: Potassium Effervescent Tablet 50 mEq Route: PO; ed1 01:52 Follow up: Response: No adverse reaction ed1 Outcome: 01:51 Discharge ordered by . tw4 06:12 Discharged to correction. Report called to [facility] Transfer form completed. ed1 06:12 Condition: good 06:12 Discharge instructions given to correction, Instructed on discharge instructions, follow up and referral plans. medication usage, Demonstrated understanding of instructions, follow-up care, medications, Prescriptions given X 1. 06:17 Patient left the ED. ed1 Signatures: Dispatcher [employer] EDMS Raya Marino RN RN María Mckee RN RN ed1 Grace Tian RN RN lp1 Jodie Cartagena mt, Terrence, MD MD tw4 Corrections: (The following items were deleted from the chart) 12/15 22:13 22:05 BP 126 / 69; Pulse 64bpm; Resp 13bpm; Pulse Ox 98% Non-rebreather mask; 45.36 kg; lp1 Pain 0/10; lp1 23:06 22:15 GI: Abdomen is non-distended, Bowel sounds present X 4 quads. Abd is soft and non ed1 tender X 4 quads. ed1 23:14 21:58 Transition of care: patient was not received from another setting of care. lp1 lp1
--- NOTE | 2018-12-16 01:52 | EDPHYS ---
Physician Documentation [facility] Name: Julissa Hicks Age: 58 yrs Sex: Female : 1960 Arrival Date: 12/15/2018 Time: 21:57 Bed 2 Private MD: ED Physician Ganesh Abrams HPI: 12/16 02:35 This 58 yrs old Female presents to ER via EMS with complaints of Shortness Of tw4 Breath. 02:35 The patient has shortness of breath at rest. Onset: The symptoms/episode began/occurred tw4 today. Duration: The symptoms are chronic. The patient's shortness of breath has no apparent modifying factors. Associated signs and symptoms: Pertinent positives: productive cough. Severity of symptoms: At their worst the symptoms were moderate in the emergency department the symptoms have improved. Unable to obtain HPI due to a language barrier being present. patient is on ventilator. The patient has not experienced similar symptoms in the past. Historical: - Allergies: 12/15 22:12 No Known Allergies; lp1 - Home Meds: 22:12 gabapentin 600 mg oral tab twice a day [Active]; GlycoLax 17 gram/dose oral powd once lp1 daily [Active]; Mylanta Double-Strength Oral 30 mL every 6 hours [Active]; Senokot 8.6 mg oral tab 2 tabs twice a day [Active]; tramadol 50 mg oral tab every 4 hours [Active]; - PMHx: 22:12 COPD; malignant neoplasm of larynx; subarachnoid bleed; ADD/ADHD; lp1 - PSHx: 22:12 Tracheostomy; lp1 - Immunization history:: Adult Immunizations unknown. - Social history:: Smoking status: unknown. - Ebola Screening: : No symptoms or risks identified at this time. ROS: 12/16 02:35 Constitutional: Negative for fever, chills, and weight loss, Cardiovascular: Negative tw4 for chest pain, palpitations, and edema, Abdomen/GI: Negative for abdominal pain, nausea, vomiting, diarrhea, and constipation, Back: Negative for injury and pain, MS/Extremity: Negative for injury and deformity. Neuro: Negative for headache, weakness, numbness, tingling, and seizure. Exam: 02:35 Head/Face: Normocephalic, atraumatic. Chest/axilla: Normal chest wall appearance and tw4 motion. Nontender with no deformity. No lesions are appreciated. 02:35 Cardiovascular: Regular rate and rhythm with a normal S1 and S2. No gallops, murmurs, or rubs. Normal PMI, no JVD. No pulse deficits. 02:35 Abdomen/GI: Soft, non-tender, with normal bowel sounds. No distension or tympany. No guarding or rebound. No evidence of tenderness throughout. Back: No spinal tenderness. No costovertebral tenderness. Full range of motion. MS/ Extremity: Pulses equal, no cyanosis. Neurovascular intact. Full, normal range of motion. Neuro: Awake and alert, GCS 15, oriented to person, place, time, and situation. Cranial nerves II-XII grossly intact. Motor strength 5/5 in all extremities. Sensory grossly intact. Cerebellar exam normal. Normal gait. 02:35 Constitutional: The patient appears frail. 02:35 Neck: Trachea: trach stoma with foreign body present. 02:35 Respiratory: the patient does not display signs of respiratory distress. Vital Signs: 12/15 22:05 BP 126 / 69; Pulse 64; Resp 13; Temp 97.9(A); Pulse Ox 98% on Non-rebreather mask; lp1 Weight 45.36 kg; Pain 0/10; 22:15 BP 115 / 66; Pulse 63; Resp 15; Pulse Ox 96% on R/A; Pain 0/10; ed1 23:07 BP 102 / 60; Pulse 65; Resp 13; Pulse Ox 93% on R/A; Pain 0/10; ed1 23:41 BP 93 / 74; Pulse 68; Resp 14; Pulse Ox 94% on R/A; mt 12/16 00:22 BP 109 / 69; Pulse 65; Resp 13; Pulse Ox 91% on R/A; ed1 01:20 BP 103 / 71; Pulse 62; Resp 13; Pulse Ox 91% on R/A; ed1 04:19 BP 94 / 64; Pulse 60; Resp 14; Pulse Ox 92% on R/A; ed1 06:12 BP 107 / 77; Pulse 64; Resp 17; Pulse Ox 93% on R/A; Pain 0/10; ed1 MDM: 12/15 21:58 Patient medically screened. tw4 12/16 02:35 Differential diagnosis: Anemia Anxiety Reaction reactive airway disease, Sepsis. tw4 Antibiotic administration: Not indicated. Data reviewed: vital signs, nurses notes. Data interpreted: Pulse oximetry: Interpretation: normal. Counseling: I had a detailed discussion with the patient and/or guardian regarding: the historical points, exam findings, and any diagnostic results supporting the discharge/admit diagnosis. Special discussion: I discussed with the patient/guardian in detail that at this point there is no indication for admission to the hospital. It is understood, however, that if the symptoms persist or worsen the patient needs to return immediately for re-evaluation. 12/15 22:09 Order name: Blood Culture Adult (2) 12/15 22:09 Order name: BMP 12/15 22:09 Order name: CBC with Diff 12/15 22:09 Order name: Ckmb 12/15 22:09 Order name: CPK 12/15 22:09 Order name: D-Dimer 12/15 22:09 Order name: Hepatic Function 12/15 22:09 Order name: Lipase 12/15 22:09 Order name: Magnesium 12/15 22:09 Order name: NT PRO-BNP 12/15 22:09 Order name: PT-INR 12/15 22:09 Order name: Ptt, Activated 12/15 22:09 Order name: Troponin (emerg Dept Use Only) 12/15 22:10 Order name: Blood Culture [facility] 12/15 22:09 Order name: XRAY CXR (1 view) 12/15 22:09 Order name: EKG; Complete Time: 22:10 12/15 22:09 Order name: Cardiac monitoring; Complete Time: 22:25 12/15 22:09 Order name: EKG - Nurse/Tech; Complete Time: 22:25 12/15 22:09 Order name: IV Saline Lock; Complete Time: 22:25 12/15 22:09 Order name: Labs collected and sent; Complete Time: 22:25 12/15 22:09 Order name: O2 Per Protocol; Complete Time: 22:25 12/15 22:09 Order name: O2 Sat Monitoring; Complete Time: 22:25 tw Administered Medications: 00:54 CANCELLED (Other Intervention Used): Potassium Chloride 40 mEq PO once ed1 00:56 Drug: Magnesium Sulfate 1 grams Route: IVPB; Infused Over: 1 hrs; Site: right forearm; ed1 01:52 Follow up: Response: No adverse reaction; IV Status: Completed infusion ed1 00:56 Drug: Potassium Effervescent Tablet 50 mEq Route: PO; ed1 01:52 Follow up: Response: No adverse reaction ed1 Disposition: 12/16/18 01:51 Discharged to Home. Impression: Acute bronchitis, Hypokalemia, Hypomagnesemia. - Condition is Stable. - Discharge Instructions: Acute Bronchitis, Adult, Hypomagnesemia, Hypokalemia. - Prescriptions for Zithromax Z- Giovani 250 mg Oral Tablet - take 1 tablet by ORAL route as directed for 5 days Day 1 - take two (2) tablets one time. Day 2, 3, 4 , 5 take one (1) tablet once daily.; 6 tablet. - Medication Reconciliation Form, Thank You Letter, Antibiotic Education, Prescription Opioid Use form. - Follow up: Private Physician; When: Today; Reason: Recheck today's complaints, Continuance of care. - Problem is new. - Symptoms have improved. Signatures: Dispatcher [employer] EDMS María Mckee RN RN ed1 Grace Tian RN RN lp1 Ganesh Abrams MD MD tw4 Corrections: (The following items were deleted from the chart) 00:54 00:37 Potassium Chloride Liquid 40 mEq PO once ordered. ed1 ed1 02:13 01:51 12/16/2018 01:51 Discharged to Home. Impression: Acute bronchitis. Condition is tw4 Stable. Forms are Medication Reconciliation Form, Thank You Letter, Antibiotic Education, Prescription Opioid Use. Follow up: Private Physician; When: Today; Reason: Recheck today's complaints, Continuance of care. Problem is new. Symptoms have improved. tw4 06:17 02:13 12/16/2018 01:51 Discharged to Home. Impression: Acute bronchitis; Hypokalemia; ed1 Hypomagnesemia. Condition is Stable. Discharge Instructions: Acute Bronchitis, Adult. Prescriptions for Zithromax Z-Giovani 250 mg Oral Tablet - take 1 tablet by ORAL route as directed for 5 days Day 1 - take two (2) tablets one time. Day 2, 3, 4 , 5 take one (1) tablet once daily.; 6 tablet. and Forms are Medication Reconciliation Form, Thank You Letter, Antibiotic Education, Prescription Opioid Use. Follow up: Private Physician; When: Today; Reason: Recheck today's complaints, Continuance of care. Problem is new. Symptoms have improved. tw4
[2018-12-16 06:29] VITALS: TEMP 97.9
[2018-12-16 06:41] VITALS: BP 107/77; O2SAT 93
--- NOTE | 2018-12-16 08:04 | RAD REPORT ---
EXAM DESCRIPTION: Michael Single View12/15/2018 10:41 pm CLINICAL HISTORY: Shortness of breath COMPARISON: December 11 FINDINGS: A few areas of subsegmental atelectasis are present within the lung bases. The upper lobes appear clear of acute infiltrate. The heart is normal size
--- NOTE | 2018-12-16 08:44 | EKG ---
Test Date: 2018-12-15 Test Time: 22:22:59 Executive Compensation Analyst: LORE MEASUREMENT RESULTS: Intervals: Rate: 72 SC: 210 QRSD: 76 QT: 430 QTc: 470 [place]: P: 39 SC: 210 QRS: 47 T: 68 INTERPRETIVE STATEMENTS: Sinus rhythm with 1st degree AV block with occasional premature ventricular complexes Otherwise normal ECG Compared to ECG 03/22/2017 06:30:02 Ventricular premature complex(es) now present First degree AV block now present Sinus arrhythmia no longer present Electronically Signed On 12-16-18 08:43:42 ACCOUNTING REPRESENTATIVE by Jalen Causey
== END 2018-12-16 06:17 | disposition home or self-care (01) ==
LOC: ER 21:56
DX: J20.9 Acute bronchitis, unspecified (principal); E87.6 Hypokalemia; E83.42 Hypomagnesemia; J44.9 Chronic obstructive pulmonary disease, unspecified; Z85.21 Personal history of malignant neoplasm of larynx; Z99.11 Dependence on respirator [ventilator] status
CPT/HCPCS: 36415; 71045; 80048; 80076; 82550; 82553; 83690; 83735; 83880; 84484; 85025; 85379; 85610; 85730; 87040; 93005; 96365; 99285; J3475

== ENCOUNTER 2018-12-20 10:40 | Emergency (ER) | payer OTHER ==
--- OUTSIDE RECORDS SUMMARY | 2018-12-20 10:43 | XMS REPORT | Clinical Summary ---
:1960 Author Organization [facility] Address [address] [place] [address] Care Team Providers Name Role Phone Asked, [...] initial encounter; Anemia, unspecified type; Thrombocytosis after 12/19/2017 Social History Tobacco Use Types Packs/Day Years [...] procedure are in the results section. after 12/19/[address] Cervical Spine Wo Contrast (06/19/2018 [...] IMPRESSION: No acute cervical spine bony abnormality. [facility]-[id number] Procedure Note Interface, Radiology Results Incoming - [...] IMPRESSION: No acute cervical spine bony abnormality. [facility]-[id number] Performing Organization Address City/State/Zipcode Phone Number [facility] [address] [place] [address] CT Head Wo Contrast (06/19/2018 1:09 PM CDT) Narrative Performed At [facility]AMINATION[facility]:head injury COMPARISON:None. FINDINGS: There [...] No acute intracranial hemorrhage or mass effect. [facility]-[id number] Procedure Note Interface, Radiology Results Incoming - [...] No acute intracranial hemorrhage or mass effect. [facility]-[id number] Performing Organization Address [facility] Phone Number [facility] [address] [place] [address] XR Pelvis 1 Or 2 Vw (06/19/2018 [...] noted in the pelvis. Performing Organization Address [facility] Phone Number [facility] [address] [place] [address] Estimated GFR (06/19/2018 12:40 PM CDT) GFR Non Af Amer >90 mL/min/1.73 m2 [facility]PART[facility] OF PATHOLOGY AND GENOMIC MEDICINE GFR Af Amer >90 mL/min/1.73 m2 [facility] DEPARTMENT OF Comment: PATHOLOGY AND GENOMIC [...] specimen Performing Organization Address City/State/Zipcode Phone Number [facility] DEPARTMENT OF PATHOLOGY [id number] [place] [address]. [place] [address] AND [id number] Troponin (06/19/2018 12:40 PM CDT) Troponin <0.30 0.00 - 0.30 ng/mL [facility] DEPARTMENT OF PATHOLOGY Comment: AND GENOMIC MEDICINE 0.11 - 1.49 ng/mlMay indicate increased risk of acute coronary syndrome. >=1.5 ng/mlConsistent with acute myocardial infarction. The diagnostic value of a single normal or non-diagnostic result is questionable.Serial samples at 2-6 hour intervals are required to rule out acute myocardial injury. Specimen Plasma specimen Performing Organization Address City/[facility] Phone Number [facility] PATHOLOGY [id number] [place] [address]. [place] [address] AND L2C [facility] Partial thromboplastin time, activated (06/19/2018 12:40 PM CDT) PTT 37.6 (H) 23.0 - 36.0 sec [facility] DEPARTMENT OF Comment: PATHOLOGY AND L2C PTT therapeutic range for unfractionated heparin is MEDICINE 61.0-112.0 seconds which corresponds to Anti-Xa 0.3-0.7 U/ml. Specimen Blood Performing Organization Address City/[facility]/Zipcode Phone Number [facility] DEPARTMENT OF PATHOLOGY [address] [place] [address] AND L2C [facility] Prothrombin time with INR (06/19/2018 12:40 PM CDT) Prothrombin time 13.3 12.0 - 15.0 sec [facility] DEPARTMENT OF PATHOLOGY AND L2C MEDICINE INR 1.0 [facility] DEPARTMENT OF Comment: PATHOLOGY AND GENOMIC The International Normalized Ratio (INR) is a therapeutic MEDICINE monitoring tool for patients who are stable on oral anticoagulant therapy. An INR of 2.0-3.0 is suggested for deep vein thrombosis/pulmonary embolism. Specimen Blood Performing Organization Address City/[facility]/Zipcode Phone Number [facility] OF PATHOLOGY [id number] [place] [address]. [place] [address] AND [id number] CBC with platelet and differential (06/19/2018 12:40 PM CDT) WBC 12.3 (H) 4.5 - 11.0 k/uL [facility] PATHOLOGY AND GENOMIC MEDICINE RBC 2.66 (L) 4.20 - 5.50 m/uL [facility]OLOGY AND GENOMIC MEDICINE HGB 7.9 (L) 12.0 - 16.0 g/dL [facility]OLOGY AND GENOMIC MEDICINE HCT 24.8 (L) 37.0 - 47.0 % [facility] PATHOLOGY AND GENOMIC MEDICINE MCV 93.2 82.0 - 100.0 fL [facility]OLOGY AND GENOMIC MEDICINE MCH 29.7 27.0 - 34.0 pg [facility] OF PATHOLOGY AND GENOMIC MEDICINE MCHC 31.9 31.0 - 37.0 g/dL [facility] OF PATHOLOGY AND GENOMIC MEDICINE RDW - SD 51.5 37.0 - 55.0 fL [facility] OF PATHOLOGY AND GENOMIC MEDICINE MPV 9.7 6.9 - 11.0 fL [facility]OLOGY AND GENOMIC MEDICINE Platelet count 688 (H) 150 - 400 K/uL [facility] OF PATHOLOGY AND GENOMIC MEDICINE Nucleated RBC 0.00 /100 WBC [facility] OF PATHOLOGY AND GENOMIC MEDICINE Neutrophils 80.5 (H) 39.0 - 69.0 % [facility] OF PATHOLOGY AND GENOMIC MEDICINE Lymphocytes 9.2 (L) 25.0 - 45.0 % [facility]OLOGY AND GENOMIC MEDICINE Monocytes 6.5 0.0 - 10.0 % [facility] OF PATHOLOGY AND GENOMIC MEDICINE Eosinophils 2.8 0.0 - 5.0 % [facility] OF PATHOLOGY AND GENOMIC MEDICINE Basophils 0.6 0.0 - 1.0 % [facility] OF PATHOLOGY AND GENOMIC MEDICINE Immature granulocytes 0.4 0.0 - 1.0 % [facility] OF PATHOLOGY AND GENOMIC MEDICINE Specimen Blood Performing Organization Address [facility] Phone Number [facility] PATHOLOGY [address] [place] [address] AND [facility] Creatine kinase, total (CPK) (06/19/2018 12:40 PM CDT) Creatine kinase 40 26 - 192 U/L [facility] OF PATHOLOGY AND GENOMIC MEDICINE Specimen Plasma specimen Performing Organization Address [facility]/Zipcode Phone Number [facility] DEPART[facility] PATHOLOGY [address] [place] [address] AND [facility] Comprehensive metabolic panel (06/19/2018 12:40 PM CDT) Sodium 133 (L) 135 - 148 mEq/L [facility] OF PATHOLOGY AND GENOMIC MEDICINE Potassium 4.5 3.5 - 5.0 mEq/L [facility] OF PATHOLOGY AND GENOMIC MEDICINE Chloride 95 (L) 98 - 112 mEq/L [facility] OF PATHOLOGY AND GENOMIC MEDICINE CO2 28 24 - 31 mEq/L [facility] OF [facility]OLOGY AND GENOMIC MEDICINE Anion gap 10@ANIO 7 - 15 mEq/L [facility] OF PATHOLOGY AND GENOMIC MEDICINE BUN 13 6 - 20 mg/dL [facility] OF [facility]OLOGY AND GENOMIC MEDICINE Creatinine 0.5 0.5 - 0.9 mg/dL [facility] OF PATHOLOGY AND GENOMIC MEDICINE Glucose 107 (H) 65 - 99 mg/dL [facility] OF PATHOLOGY AND GENOMIC MEDICINE Calcium 9.2 8.3 - 10.2 mg/dL [facility] OF PATHOLOGY AND GENOMIC MEDICINE Protein 6.2 (L) 6.3 - 8.3 g/dL [facility] OF PATHOLOGY AND GENOMIC MEDICINE Albumin 2.9 (L) 3.5 - 5.0 g/dL [facility] OF PATHOLOGY AND GENOMIC MEDICINE A/G ratio 0.9 0.7 - 3.8 [facility] OF PATHOLOGY AND GENOMIC MEDICINE Alkaline phosphatase 79 35 - 104 U/L [facility] OF PATHOLOGY AND GENOMIC MEDICINE AST 16 10 - 35 U/L [facility] OF PATHOLOGY AND GENOMIC MEDICINE ALT 8 5 - 50 U/L [facility] OF PATHOLOGY AND GENOMIC MEDICINE Total bilirubin <0.2 0.2 - 1.2 mg/dL [facility]PART[facility] OF PATHOLOGY AND GENOMIC MEDICINE Specimen Plasma specimen Performing Organization Address City/State/Zipcode Phone Number [facility] DEPARTMENT OF PATHOLOGY [address] [place] [address] AND L2C MEDICINE ECG ED Preliminary Interpretation - NOT AN ORDER (06/19/2018 12:17 PM CDT) Narrative Performed At Perry Fernandez PA-C 06/19/20185:35 PM ECG ED Preliminary Interpretation - Not an Order Performed by: PERRY FERNANDEZ Authorized by: IRENE RAYO ECG reviewed by ED Physician in the absence of a flitch hanger: yes Rate: ECG rate:97 ECG rate assessment: normal Rhythm: Rhythm: sinus rhythm QRS: QRS intervals:Normal Conduction: Conduction: normal ST segments: ST segments:Normal T waves: T waves: normal ECG 12 lead (06/19/2018 12:01 PM CDT) Ventricular rate 97 [facility] Atrial rate 97 [facility] ID interval 178 [facility] QRSD interval 76 [facility] QT interval 348 [facility] QTC interval 441 [facility] P axis 1 60 [facility] QRS axis 1 70 [facility] T wave axis 65 [facility] EKG impression Normal sinus rhythm-Possible Left atrial H MUSE enlargement-Borderline ECG-No previous ECGs available- Performing Organization Address City/State/[facility] Phone Number [facility] [address] [place] [address] after 12/19/2017 Insurance Payer Benefit Plan / Group Subscriber ID Type Phone Address [facility] [employer] [facility] xxxxxxxxx O Advance Directives Patient has advance care planning documents on file. For more information, please contact:Sky Valencia[address] [place] [address]
--- OUTSIDE RECORDS SUMMARY | 2018-12-20 10:43 | XMS REPORT ---
:1960 Author Organization [facility] Address [address] [place] [address] [place] [address] Care Team Providers Name Role Phone Unavailable Unavailable Unavailable Problems This patient has no known problems. Allergies, Adverse Reactions, Alerts This patient has no known allergies or adverse reactions. Medications This patient has no known medications.
--- NOTE | 2018-12-20 11:42 | RAD REPORT ---
EXAM DESCRIPTION: CT - [id number] - 12/20/2018 11:27 am CLINICAL HISTORY: Trauma, head and neck injury. PAIN COMPARISON: Soft Tissue Neck Wo Contr dated 12/11/2018; Soft Tissue Neck W/Contr dated 05/01/2016 TECHNIQUE: Axial 5 mm thick images of the head were obtained. Axial 2 mm thick images of the cervical spine were obtained with sagittal and coronal reconstruction images generated and reviewed. All CT scans are performed using dose optimization technique as appropriate and may include automated exposure control or mA/KV adjustment according to patient size. FINDINGS: CT HEAD WITHOUT CONTRAST: A large acute on chronic subdural hematoma seen along the left convexity measuring up to 20 mm in thi ckness.There is [id number] midline shift present of approximately 14 mm. A left frontal scalp hematoma is seen.No calvarial fracture present. Mild fluid is seen in right sphe noid sinus and left maxillary sinus. Fluid is also present in the left mastoid air cell. CT CERVICAL SPINE WITHOUT CONTRAST: No fracture or subluxation.No prevertebral soft tissues swelling is identified. Tracheostomy noted. IMPRESSION: A large acute on chronic left-sided subdural hematoma with significant [id number] mid line shift as detailed. The findings were discussed with Dr. Willson in the ER 11:36 a.m. 12/20/2018 by telephone.
--- NOTE | 2018-12-20 11:59 | ER ---
Nurse's Notes [facility] Name: Julissa Hicks Age: 58 yrs Sex: Female : 1960 Arrival Date: 12/20/2018 Time: 10:44 Bed 15 Private MD: Katie Murray F Diagnosis: Traumatic subdural hemorrhage Presentation: 12/20 10:47 Presenting complaint: EMS states: CALLED TO [facility] FOR PT FALL. PT HAS ls4 HEMATOMA TO LEFT FOREHEAD. DENIES LOSS OF CONCIOUS. PT ALERT AND ORIENTED X 3. EMS REPORTS LOW O2 SATURATION UPON ARRIVAL. PT HAS HISTORY OF LARNYX CA AND COPD. Care prior to arrival: Medication(s) given: Albuterol Neb x 1, Mechanism of Injury: Fall from standing position. Trauma event details: Injury occurred in the [facility], Injury occurred: [facility]. 10:47 Acuity: KHOA 3 ls4 10:47 Method Of Arrival: EMS: [facility] ls4 13:33 Transition of care: [facility]. Onset of symptoms was December 20, ls4 2018. Risk Assessment: Do you want to hurt yourself or someone else? Patient reports no desire to harm self or others. Initial Sepsis Screen: Does the patient meet any 2 criteria? No. Patient's initial sepsis screen is negative. Does the patient have a suspected source of infection? No. Patient's initial sepsis screen is negative. Triage Assessment: 12:42 General: Appears in no apparent distress. Neuro: Level of Consciousness is awake, ls4 alert, obeys commands, Oriented to person, place, time, situation, Dry Room Attendant are equal bilaterally Moves all extremities. Respiratory: Airway is patent suctioned tracheostomy, large amount of thick green mucous removed. pt respiratory status improved. GI: No deficits noted. Injury Description: Bruise sustained to forehead. Trauma Activation: Consult Physician: ED Physician; Name: COLTON; Notified At: ; Arrived At: Physician: General Surgeon; Name: ; Notified At: ; Arrived At: Physician: Radiology; Name: ; Notified At: ; Arrived At: Physician: Respiratory; Name: ; Notified At: ; Arrived At: Physician: Lab; Name: ; Notified At: ; Arrived At: Historical: - Allergies: 10:59 No Known Allergies; ls4 - PMHx: 10:59 ADD/ADHD; COPD; malignant neoplasm of larynx; subarachnoid bleed; ls4 - PSHx: 10:59 Tracheostomy; ls4 - Immunization history: Last tetanus immunization: - up to date. - Social history:: Patient/guardian denies using alcohol, street drugs, The patient lives with family, Smoking status: Patient uses tobacco products, FORMERLY . - Family history:: not pertinent. - Ebola Screening: : Patient negative for fever greater than or equal to 101.5 degrees Fahrenheit, and additional compatible Ebola Virus Disease symptoms Patient denies exposure to infectious person Patient denies travel to an Ebola-affected area in the 21 days before illness onset. Screenin:51 Abuse screen: Denies threats or abuse. Denies injuries from another. Tuberculosis ls4 screening: No symptoms or risk factors identified. 13:34 Nutritional screening: No deficits noted. Fall Risk None identified. ls4 Primary Survey: 10:51 NO uncontrolled hemorrhage observed. Breathing/Chest: Respiratory pattern: regular, ls4 Respiratory effort: spontaneous, unlabored, Breath sounds: diminished, bilaterally. rales, bilaterally. Chest inspection: symmetrical rise and fall of the chest. Circulation: Pulses: palpable right radial artery, right dorsalis pedis artery, left radial artery and left dorsalis pedis artery. Disability Alert. Exposure/Environment: There is no evidence of uncontrolled external bleeding. Obvious injury(ies) are noted at this time: HEMATOMA HEAD. 13:32 Reassessment Breathing/Chest Respiratory pattern Regular Respiratory effort Spontaneous ls4 Unlabored. Secondary Survey: 12:41 HEENT: No deficits noted. Gastrointestinal: No deficits noted. : No deficits noted. ls4 Musculoskeletal: Circulation, motion, and sensation intact. Capillary refill < 3 seconds, Range of motion: intact in all extremities, Swelling present in forehead. Assessment: 10:51 General: Appears in no apparent distress. Behavior is calm, cooperative. Pain: ls4 Complains of pain in forehead Pain currently is 5 out of 10 on a pain scale. Neuro: No deficits noted. Respiratory: Airway is patent Respiratory effort is even, unlabored. Musculoskeletal: No deficits noted. 11:15 Neuro: Level of Consciousness is awake, alert, obeys commands, Oriented to person, ls4 place, time, situation. 11:45 Neuro: Level of Consciousness is awake, alert, obeys commands, Dry Room Attendant are equal ls4 bilaterally Moves all extremities. 12:45 Reassessment: No changes from previously documented assessment. Patient and/or family ls4 updated on plan of care and expected duration. Pain level reassessed. Patient is alert, oriented x 3, equal unlabored respirations, skin warm/dry/pink. 13:52 General: Appears in no apparent distress. Behavior is calm, cooperative. Neuro: Level ls4 of Consciousness is awake, alert, obeys commands, Oriented to person, place, time, situation. Vital Signs: 11:00 BP 123 / 77; Pulse 85; Resp 20; Temp 98.0; Pulse Ox 81% on Nebulizer Mask; Pain 5/10; ls4 12:00 BP 128 / 78; Pulse 85; Resp 20; Temp 98.1; Pulse Ox 94% on 3% Nebulizer Mask; Pain 0/10;ls4 13:00 BP 126 / 77; Pulse 84; Resp 20; Temp 98.1; Pulse Ox 93% on 3% Nebulizer Mask; Pain 3/10;ls4 14:10 BP 122 / 76; Pulse 82; Resp 16; Temp 98.3(O); Pulse Ox 94% on 4% Nebulizer Mask; Pain ls4 3/10; 12:00 MASK PLACED OVER TRACHEOSTOMY ls4 Andriy Coma Score: 10:51 Eye Response: spontaneous(4). Verbal Response: oriented(5). Motor Response: obeys ls4 commands(6). Total: 15. Trauma Score (Adult): 10:51 Eye Response: spontaneous(1); Verbal Response: oriented(1); Motor Response: obeys ls4 commands(2); Systolic BP: > 89 mm Hg(4); Respiratory Rate: 10 to 29 per min(4); [place] Score: 15; Trauma Score: 12 ED Course: 10:44 Patient arrived in ED. ls4 10:45 Katie Murray MD is Private Physician. ls4 10:46 Violeta Almeida, SONU is Primary Nurse. ls4 10:51 Triage completed. ls4 10:51 Patient has correct armband on for positive identification. Bed in low position. Call ls4 light in reach. Side rails up X 1. 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 Pulse ox on. NIBP on. 10:51 Oxygen administration administration via face mask PT SUCTIONED. OXYGEN SATURATION ls4 IMPROVED AND PT STATES SHE FEELS BETTER AFTER SUCTIONING. O2 via PT O2 78 PER CENT UPON EMS ARRIVAL. 10:51 Patient maintains SpO2 saturation greater than 95% on room air. ls4 10:52 Arm band placed on. ls4 11:03 Rose Willson MD is Attending Physician. ma2 11:27 CT Head C Spine In Process Unspecified. EDMS 11:27 CT completed. Patient tolerated procedure well. Patient moved to CT via stretcher. jg6 Patient moved back from CT. 12:30 EKG done, by biomedical technician. reviewed by Rose Willson MD. at1 12:44 Initial lab(s) drawn, by me, sent to lab. Inserted saline lock: 20 gauge in right ls4 forearm, using aseptic technique. Blood collected. 13:06 No provider procedures requiring assistance completed. ls4 13:18 Lab(s) recollected, by me, sent to lab. dh3 13:35 Thermoregulation: warm blanket given to patient. ls4 14:37 Patient transferred, IV remains in place. ls4 Administered Medications: No medications were administered Intake: 10:51 PO: 0ml; Total: 0ml. ls4 Output: 10:51 Urine: 0ml; Total: 0ml. ls4 Outcome: 11:59 ER care complete, transfer ordered by . ma2 13:24 Transferred Note: report called to [facility]. [phone] DR HERNANDEZ 7 ls4 [place] [id number] BED 2 13:34 PT TRANSFER TO [facility] Patient's length of stay extended due to ls4 13:35 Condition: unchanged ls4 14:38 Patient left the ED. ls4 Signatures: Dispatcher [employer] EDMS Cassandra Morocho, terrazzo roller EKG Tat1 Olga Wilson dh3 Rose Willson MD MD ma2 Garcia, Jessica jg6 Violeta Almeida RN RN ls4 Corrections: (The following items were deleted from the chart) 13:04 10:51 BP 123 / 77; Pulse 85bpm; Resp 20bpm; Pulse Ox 81% Nebulizer Mask; Pain 5/10; ls4 ls4 13:05 12:00 BP 123 / 77; Pulse 85bpm; Resp 20bpm; Pulse Ox 81% Nebulizer Mask; Temp 98.0F; ls4 Pain 5/10; ls4 13:50 12:00 BP 128 / 78; Pulse 85bpm; Resp 20bpm; Pulse Ox 94% RA; Temp 98.1F; Pain 0/10; ls4 ls4
--- NOTE | 2018-12-20 11:59 | EDPHYS ---
Physician Documentation [facility] Name: Julissa Hicks Age: 58 yrs Sex: Female : 1960 Arrival Date: 12/20/2018 Time: 10:44 Bed 15 Private MD: Katie Murray F ED Physician Rose Willson HPI: 12/20 11:54 This 58 yrs old Female presents to ER via EMS with complaints of Fall Injury. ma2 11:54 Onset: The symptoms/episode began/occurred suddenly, 2 hour(s) ago. Associated ma2 injuries: The patient sustained injury to the head. Severity of symptoms: At their worst the symptoms were moderate, in the emergency department the symptoms are unchanged. The patient has experienced a previous episode. fell hit her left forehead has scalp hematoma, no neck pain or any other symptoms . Historical: - Allergies: 10:59 No Known Allergies; ls4 - PMHx: 10:59 ADD/ADHD; COPD; malignant neoplasm of larynx; subarachnoid bleed; ls4 - PSHx: 10:59 Tracheostomy; ls4 - Immunization history: Last tetanus immunization: - up to date. - Social history:: Patient/guardian denies using alcohol, street drugs, The patient lives with family, Smoking status: Patient uses tobacco products, FORMERLY . - Family history:: not pertinent. - Ebola Screening: : Patient negative for fever greater than or equal to 101.5 degrees Fahrenheit, and additional compatible Ebola Virus Disease symptoms Patient denies exposure to infectious person Patient denies travel to an Ebola-affected area in the 21 days before illness onset. ROS: 11:54 Constitutional: Negative for fever, chills, and weight loss. ma2 11:54 ENT: Positive for injury or acute deformity, contusion, Negative for foreign body sensation, difficulty swallowing, hoarseness. 11:54 All other systems are negative. Exam: 11:54 Constitutional: This is a well developed, well nourished patient who is awake, alert, ma2 and in no acute distress. 11:54 Chest/axilla: Normal chest wall appearance and motion. Nontender with no deformity. No lesions are appreciated. Cardiovascular: Regular rate and rhythm with a normal S1 and S2. No gallops, murmurs, or rubs. Normal PMI, no JVD. No pulse deficits. Respiratory: Lungs have equal breath sounds bilaterally, clear to auscultation and percussion. No rales, rhonchi or wheezes noted. No increased work of breathing, no retractions or nasal flaring. Abdomen/GI: Soft, non-tender, with normal bowel sounds. No distension or tympany. No guarding or rebound. No evidence of tenderness throughout. Back: No spinal tenderness. No costovertebral tenderness. Full range of motion. MS/ Extremity: Pulses equal, no cyanosis. Neurovascular intact. Full, normal range of motion. Neuro: Awake and alert, GCS 15, oriented to person, place, time, and situation. Cranial nerves II-XII grossly intact. Motor strength 5/5 in all extremities. Sensory grossly intact. Cerebellar exam normal. Normal gait. 11:54 Head/face: Noted is contusion, that is superficial, of the forehead. 11:54 ENT: Mouth: has trach d/t laryngeal cancer . Vital Signs: 11:00 BP 123 / 77; Pulse 85; Resp 20; Temp 98.0; Pulse Ox 81% on Nebulizer Mask; Pain 5/10; ls4 12:00 BP 128 / 78; Pulse 85; Resp 20; Temp 98.1; Pulse Ox 94% on 3% Nebulizer Mask; Pain 0/10;ls4 13:00 BP 126 / 77; Pulse 84; Resp 20; Temp 98.1; Pulse Ox 93% on 3% Nebulizer Mask; Pain 3/10;ls4 14:10 BP 122 / 76; Pulse 82; Resp 16; Temp 98.3(O); Pulse Ox 94% on 4% Nebulizer Mask; Pain ls4 3/10; 12:00 MASK PLACED OVER TRACHEOSTOMY ls4 Andriy Coma Score: 10:51 Eye Response: spontaneous(4). Verbal Response: oriented(5). Motor Response: obeys ls4 commands(6). Total: 15. Trauma Score (Adult): 10:51 Eye Response: spontaneous(1); Verbal Response: oriented(1); Motor Response: obeys ls4 commands(2); Systolic BP: > 89 mm Hg(4); Respiratory Rate: 10 to 29 per min(4); Coventry Score: 15; Trauma Score: 12 MDM: 11:03 Patient medically screened. mn2 11:54 Differential diagnosis: abrasion, closed head injury, contusion, multiple trauma, ma2 sprain, strain. Data reviewed: vital signs, nurses notes, lab test result(s), radiologic studies. Counseling: I had a detailed discussion with the patient and/or guardian regarding: the historical points, exam findings, and any diagnostic results supporting the discharge/admit diagnosis, the presence of at least one elevated blood pressure reading (>120/80) during this emergency department visit, the need to transfer to another facility. ED course: has large 2 cm left subural w 17 mm shift, she is aox4 with no deficit or headache, plt pending not taking blood thinners, bp wnl, will transfer for higher level of care as no NSGY available here.. accepted by dr. Garcia. 12/20 11:04 Order name: Basic Metabolic Panel [facility] 12/20 11:04 Order name: CBC with Diff [facility] 12/20 11:04 Order name: CT Head C Spine; Complete Time: 11:51 [facility] 12/20 11:04 Order name: Creatinine for Radiology [facility] 12/20 11:04 Order name: Type And Screen [facility] 12/20 11:04 Order name: Labs collected and sent; Complete Time: 13:19 [facility] 12/20 12:55 Order name: Labs - recollect needed; Complete Time: 13:19 bd Administered Medications: No medications were administered Disposition: 12/20/18 11:59 Transfer ordered to [facility]. Diagnosis is Traumatic subdural hemorrhage. - Reason for transfer: Higher level of care. - Accepting physician is Dr. Garcia. - Condition is Critical. - Problem is new. - Symptoms are unchanged. Critical care time excluding procedures: 11:54 Critical care time: Bedside Care: 20 minutes, Consultation: 10 minutes, Family ma2 Intervention: 10 minutes. Total time: 40 minutes Signatures: Dispatcher [employer] EDMS Petra Matias Mohammad, MD MD ma2 Violeta Almeida, RN RN ls4 Corrections: (The following items were deleted from the chart) 14:38 11:59 12/20/2018 11:59 Transfer ordered to [facility]. Diagnosis is ls4 Traumatic subdural hemorrhage. Reason for transfer: Higher level of care. Accepting physician is Dr. Garcia. Condition is Critical. Problem is new. Symptoms are unchanged. ma2
[2018-12-20 12:53] LABS: Absolute Lymphocytes (CBC) 0.9 K/uL (0.7-4.9); Absolute Monocytes 1.2 K/uL (0.1-1.3); Absolute Neutrophil 12.8 K/uL (1.8-8.0); Basophils % 0.6 % (0-1.3); Eosinophils % 0.3 % (0-4.4); Hematocrit 33.5 % (36.0-45.0); Lymphocytes % 6.3 % (15.3-44.8); MPV 8.6 fL (7.6-11.3); Monocytes % 7.9 % (3.3-12.3); RBC Red Blood Cell Count 3.81 M/uL (3.86-4.86)
[2018-12-20 13:46] LABS: Potassium 3.9 mmol/L (3.5-5.1)
[2018-12-20 15:06] VITALS: BP 122/76; TEMP 98.3; O2SAT 94
--- NOTE | 2018-12-21 06:46 | EKG ---
Test Date: 2018-12-20 Test Time: 12:14:20 Post Doctoral Fellow: SHELDON MEASUREMENT RESULTS: Intervals: Rate: 90 NJ: 146 QRSD: 80 QT: 370 QTc: 452 Ironside: P: 39 NJ: 146 QRS: 47 T: 40 INTERPRETIVE STATEMENTS: Sinus rhythm with occasional premature ventricular complexes Possible Left atrial enlargement Borderline ECG Compared to ECG 12/15/2018 22:22:59 First degree AV block no longer present Electronically Signed On 12-21-18 06:45:35 [employer] by Gee Esquivel
== END 2018-12-20 14:38 | disposition short-term general hospital (02) ==
LOC: ER 10:40
DX: S00.03XA Contusion of scalp, initial encounter (principal); S06.5X9A Traumatic subdural hemorrhage with loss of consciousness of unspecified duration, initial encounter; W19.XXXA Unspecified fall, initial encounter; F90.9 Attention-deficit hyperactivity disorder, unspecified type; J44.9 Chronic obstructive pulmonary disease, unspecified; Z87.891 Personal history of nicotine dependence
CPT/HCPCS: 36415; 70450; 72125; 80048; 85025; 86850; 86900; 86901; 93005; 99285

== ENCOUNTER 2019-03-02 15:53 | Inpatient (IN) | payer OTHER ==
--- OUTSIDE RECORDS SUMMARY | 2019-03-02 15:57 | XMS REPORT | Clinical Summary ---
:1960 Author Organization [facility] Address [address] [place] [address] Care Team Providers Name Role Phone Asked, [...] initial encounter; Anemia, unspecified type; Thrombocytosis after 03/01/2018 Social History Tobacco Use Types Packs/Day Years [...] 2009 SHINGLES VACCINES (#1) 2009 INFLUENZA VACCINE 05/19/2019 Procedures Procedure Name Priority Date/Time Associated Comments [...] procedure are in the results section. after 03/01/[address] Cervical Spine Wo Contrast (06/19/2018 [...] IMPRESSION: No acute cervical spine bony abnormality. [facility]-[id number] Procedure Note Interface, Radiology Results Incoming - [...] IMPRESSION: No acute cervical spine bony abnormality. [id number] Performing Organization Address City/State/Zipcode Phone Number [facility] [address] [place] [address] CT Head Wo Contrast (06/19/2018 1:09 PM CDT) Narrative Performed At [facility]AMIN[facility] CL[facility]ICAL H[facility]ORY:head injury COMPARISON:None. FINDINGS: There is [...] No acute intracranial hemorrhage or mass effect. [facility]-[id number] Procedure Note Interface, Radiology Results Incoming - [...] No acute intracranial hemorrhage or mass effect. [facility]-[id number] Performing Organization Address [facility] Phone Number [facility] [address] [place] [address] XR Pelvis 1 Or 2 Vw (06/19/2018 [...] noted in the pelvis. Performing Organization Address [facility] Phone Number [facility] [address] [place] [address] Estimated GFR (06/19/2018 12:40 PM CDT) GFR Non Af Amer >90 mL/min/1.73 m2 [facility] DEPARTMENT OF PATHOLOGY AND GENOMIC MEDICINE GFR Af Amer >90 mL/min/1.73 m2 [facility] DEPARTMENT OF Comment: PATHOLOGY AND GENOMIC Chronic [...] specimen Performing Organization Address City/State/Zipcode Phone Number [facility] DEPARTMENT OF PATHOLOGY [id number] [place] [address]. [place] [address] AND [employer] Troponin (06/19/2018 12:40 PM CDT) Troponin <0.30 0.00 - 0.30 ng/mL [facility] DEPARTMENT OF PATHOLOGY Comment: AND GENOMIC MEDICINE 0.11 - 1.49 ng/mlMay indicate increased risk of acute coronary syndrome. >=1.5 ng/mlConsistent with acute myocardial infarction. The diagnostic value of a single normal or non-diagnostic result is questionable.Serial samples at 2-6 hour intervals are required to rule out acute myocardial injury. Specimen Plasma specimen Performing Organization Address City/[facility] Phone Number [facility] DEPARTMENT OF PATHOLOGY [id number] [place] [address]. [place] [address] AND [employer] [facility] Partial thromboplastin time, activated (06/19/2018 12:40 PM CDT) PTT 37.6 (H) 23.0 - 36.0 sec [facility] DEPARTMENT OF Comment: PATHOLOGY AND [employer] PTT therapeutic range for unfractionated heparin is MEDICINE 61.0-112.0 seconds which corresponds to Anti-Xa 0.3-0.7 U/ml. Specimen Blood Performing Organization Address City/[facility]/Zipcode Phone Number [facility] DEPARTMENT OF PATHOLOGY [address] [facility] [place] [address] AND [employer] [facility] Prothrombin time with INR (06/19/2018 12:40 PM CDT) Prothrombin time 13.3 12.0 - 15.0 sec [facility] DEPARTMENT OF PATHOLOGY AND [employer] MEDICINE INR 1.0 [facility] DEPARTMENT OF Comment: PATHOLOGY AND GENOMIC The International Normalized Ratio (INR) is a therapeutic MEDICINE monitoring tool for patients who are stable on oral anticoagulant therapy. An INR of 2.0-3.0 is suggested for deep vein thrombosis/pulmonary embolism. Specimen Blood Performing Organization Address City/[facility]/Zipcode Phone Number [facility] DEPARTMENT OF PATHOLOGY [id number] [place] [address]. [place] [address] AND [employer] CBC with platelet and differential (06/19/2018 12:40 PM CDT) WBC 12.3 (H) 4.5 - 11.0 k/uL [facility] DEPARTMENT OF PATHOLOGY AND GENOMIC MEDICINE RBC 2.66 (L) 4.20 - 5.50 m/uL [facility] DEPARTMENT OF PATHOLOGY AND GENOMIC MEDICINE HGB 7.9 (L) 12.0 - 16.0 g/dL [facility] DEPARTMENT OF PATHOLOGY AND GENOMIC MEDICINE HCT 24.8 (L) 37.0 - 47.0 % [facility] DEPARTMENT OF PATHOLOGY AND GENOMIC MEDICINE MCV 93.2 82.0 - 100.0 fL [facility] DEPARTMENT OF PATHOLOGY AND GENOMIC MEDICINE MCH 29.7 27.0 - 34.0 pg [facility] DEPARTMENT OF PATHOLOGY AND GENOMIC MEDICINE MCHC 31.9 31.0 - 37.0 g/dL [facility] DEPARTMENT OF PATHOLOGY AND GENOMIC MEDICINE RDW - SD 51.5 37.0 - 55.0 fL [facility] DEPARTMENT OF PATHOLOGY AND GENOMIC MEDICINE MPV 9.7 6.9 - 11.0 fL [facility] DEPARTMENT OF PATHOLOGY AND GENOMIC MEDICINE Platelet count 688 (H) 150 - 400 K/uL [facility] DEPARTMENT OF PATHOLOGY AND GENOMIC MEDICINE Nucleated RBC 0.00 /100 WBC [facility] DEPARTMENT OF PATHOLOGY AND GENOMIC MEDICINE Neutrophils 80.5 (H) 39.0 - 69.0 % [facility] DEPARTMENT OF PATHOLOGY AND GENOMIC MEDICINE Lymphocytes 9.2 (L) 25.0 - 45.0 % [facility] DEPARTMENT OF PATHOLOGY AND GENOMIC MEDICINE Monocytes 6.5 0.0 - 10.0 % [facility] DEPARTMENT OF PATHOLOGY AND GENOMIC MEDICINE Eosinophils 2.8 0.0 - 5.0 % [facility] DEPARTMENT OF PATHOLOGY AND GENOMIC MEDICINE Basophils 0.6 0.0 - 1.0 % [facility] DEPARTMENT OF PATHOLOGY AND GENOMIC MEDICINE Immature granulocytes 0.4 0.0 - 1.0 % [facility] DEPARTMENT OF PATHOLOGY AND GENOMIC MEDICINE Specimen Blood Performing Organization Address [facility] Cent[facility]ode Phone Number [facility] DEPARTMENT OF PATHOLOGY [address] [place] [address] AND [facility] Creatine kinase, total (CPK) (06/19/2018 12:40 PM CDT) Creatine kinase 40 26 - 192 U/L [facility] DEPARTMENT OF PATHOLOGY AND GENOMIC MEDICINE Specimen Plasma specimen Performing Organization Address [facility]/Zipcode Phone Number [facility] DEPARTMENT PATHOLOGY [address] [place] [address] AND [facility] Comprehensive metabolic panel (06/19/2018 12:40 PM CDT) Sodium 133 (L) 135 - 148 mEq/L [facility] DEPARTMENT OF PATHOLOGY AND GENOMIC MEDICINE Potassium 4.5 3.5 - 5.0 mEq/L [facility] DEPARTMENT OF PATHOLOGY AND GENOMIC MEDICINE Chloride 95 (L) 98 - 112 mEq/L [facility] DEPARTMENT OF PATHOLOGY AND GENOMIC MEDICINE CO2 28 24 - 31 mEq/L [facility] DEPARTMENT OF PATHOLOGY AND GENOMIC MEDICINE Anion gap 10@ANIO 7 - 15 mEq/L [facility] DEPARTMENT OF PATHOLOGY AND GENOMIC MEDICINE BUN 13 6 - 20 mg/dL [facility] DEPARTMENT OF PATHOLOGY AND GENOMIC MEDICINE Creatinine 0.5 0.5 - 0.9 mg/dL [facility] DEPARTMENT OF PATHOLOGY AND GENOMIC MEDICINE Glucose 107 (H) 65 - 99 mg/dL [facility] DEPARTMENT OF PATHOLOGY AND GENOMIC MEDICINE Calcium 9.2 8.3 - 10.2 mg/dL [facility] DEPARTMENT OF PATHOLOGY AND GENOMIC MEDICINE Protein 6.2 (L) 6.3 - 8.3 g/dL [facility] DEPARTMENT OF PATHOLOGY AND GENOMIC MEDICINE Albumin 2.9 (L) 3.5 - 5.0 g/dL [facility] DEPARTMENT OF PATHOLOGY AND GENOMIC MEDICINE A/G ratio 0.9 0.7 - 3.8 [facility] DEPARTMENT OF PATHOLOGY AND GENOMIC MEDICINE Alkaline phosphatase 79 35 - 104 U/L [facility] DEPARTMENT OF PATHOLOGY AND GENOMIC MEDICINE AST 16 10 - 35 U/L [facility] DEPARTMENT OF PATHOLOGY AND GENOMIC MEDICINE ALT 8 5 - 50 U/L [facility] DEPARTMENT OF PATHOLOGY AND GENOMIC MEDICINE Total bilirubin <0.2 0.2 - 1.2 mg/dL [facility] DEPARTMENT OF PATHOLOGY AND GENOMIC MEDICINE Specimen Plasma specimen Performing Organization Address City/State/Zipcode Phone Number [facility] DEPARTMENT OF PATHOLOGY [address] [place] [address] AND [employer] MEDICINE ECG ED Preliminary Interpretation - NOT AN ORDER (06/19/2018 12:17 PM CDT) Narrative Performed At Perry Fernandez PA-C 06/19/20185:35 PM ECG ED Preliminary Interpretation - Not an Order Performed by: PERRY FERNANDEZ Authorized by: IRENE RAYO ECG reviewed by ED Physician in the absence of a in service educator: yes Rate: ECG rate:97 ECG rate assessment: normal Rhythm: Rhythm: sinus rhythm QRS: QRS intervals:Normal Conduction: Conduction: normal ST segments: ST segments:Normal T waves: T waves: normal ECG 12 lead (06/19/2018 12:01 PM CDT) Ventricular rate 97 [facility] Atrial rate 97 [facility] VT interval 178 [facility] QRSD interval 76 [facility] QT interval 348 [facility] QTC interval 441 [facility] P axis 1 60 [facility] QRS axis 1 70 [facility] T wave axis 65 [facility] EKG impression Normal sinus rhythm-Possible Left atrial H MUSE enlargement-Borderline ECG-No previous ECGs available- Performing Organization Address City/State/[facility]ode Phone Number [facility] MUSE [address] [place] [address] after 03/01/2018 Insurance Payer Benefit Plan / Group Subscriber ID Type Phone Address [facility] xxxxxxxxx O Advance Directives Patient has advance care planning documents on file. For more information, please contact:Sky Valencia[address] [place] [address]
--- OUTSIDE RECORDS SUMMARY | 2019-03-02 15:58 | XMS REPORT | Clinical Summary ---
:1960 Author Organization [facility] Address [address] [place] [address] Care Team Providers Name Role Phone Pcp, No Primary Care Provider Unavailable Allergies No Known Allergies Medications Medication Sig Dispensed Refills Start Date End Date Status albuterol HFA Inhale 2 puffs 0 01/22/2018 Active (PROVENTIL HFA) 90 by mouth via mcg/actuation inhaler every inhaler 4 (four) hours as needed . docusate sodium Take 100 mg by 0 11/17/2017 Active (COLACE) 100 MG mouth. capsule gabapentin Take 900 mg by 0 11/15/2018 Active (NEURONTIN) 300 MG mouth 3 capsule (three) times daily . HYDROmorphone Take 4 mg by 0 11/15/2018 Active (DILAUDID) 4 MG mouth every 6 tablet (six) hours as needed . fluticasone-salmete Inhale 1 puff 0 01/22/2018 Active rol (ADVAIR DISKUS) by mouth via 250-50 mcg/dose inhaler 2 diskus inhaler (two) times daily . food supplemt, Take 2 0 07/23/2017 Active lactose-reduced Packages by (BOOST) 0.04 gram- mouth 2 (two) 1 kcal/mL Liqd times daily . polyethylene glycol Add lukewarm 0 11/30/2018 Active (GOLYTELY,NULYTELY) drinking water [id number] to the fill -5.86 gram solution gaurang (4 liters) and shake. Drink as directed by your doctor.. mirtazapine Take 15 mg by 0 10/18/2018 Active (REMERON) 15 MG mouth nightly tablet . lactulose Take 20 g by 0 11/15/2018 Active (CONSTULOSE) 10 mouth as gram/15 mL solution needed . LORazepam (ATIVAN) Take 1 mg by 0 11/15/2018 12/29/2018 Discontinued 1 MG tablet mouth every 8 (eight) hours as needed . levoFLOXacin Take 1 tablet 7 tablet 0 12/29/2018 01/05/2019 (LEVAQUIN) 500 MG (500 mg total) tablet by mouth daily for 7 days. 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, init 12/21/2018 Subdural hematoma 12/20/2018 Encounters Date Type Specialty Care Team Description 01/19/2019 Hospital Encounter Radiology L[place]in[place], Subdural hematoma Kenan Green (HCC) LIVESTOCK [place] 01/07/2019 Outside Orders Central [place], Subdural hematoma Scheduling Kenan Green (HCC) (Primary Dx) [facility]STOCK [place] 12/22/2018 Anesthesia Event Jay Sheikh MD 12/22/2018 Surgery Virtual, Surgeon PROCEDURE DONE OUTSIDE OR 12/22/2018 Orders Only General Internal Medicine 12/21/2018 Anesthesia Event Griselda Courtney CRNA 12/21/2018 Surgery Mayte, CRANIOTOMY MD Oswaldo 12/20/2018 - Hospital Encounter Intensive Care Dereck Garcia, Subdural hematoma (HCC); 12/29/2018 Chean 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 Last Filed Vital Signs Vital Sign Reading Time Taken Blood Pressure 116/68 12/29/2018 10:35 AM CDT Pulse 97 12/29/2018 1:15 PM CDT Temperature 36.7 C (98.1 F) 12/29/2018 10:35 AM CDT Respiratory Rate 14 12/29/2018 1:15 PM CDT Oxygen Saturation 99% 12/29/2018 1:15 PM CDT Inhaled Oxygen Concentration 28% 12/29/2018 9:11 AM CDT Weight 44.5 kg (98 lb 1.7 oz) 12/29/2018 5:00 AM CDT Height 160 cm (5' 3") 12/20/2018 4:09 PM SERVICE CONSULTANT Body Mass Index 17.38 12/29/2018 5:00 AM CDT Plan of Treatment Not on file Implants Implanted Type Area Leather Scraper Device Shelf Model / Identifier Expiration Serial / Date Lot Plt Str Un3 2h W/Tab [id number] - [id number] Fracture/Fix Left: DANNY: CRANIOM [id number] / Implanted: Qty: 3 on 12/21/2018 by Oswaldo Hu MD [facility] Head AXILLOFACIAL / Scr Un3 [place] Self Drl 1.5x4mm [id number] - [id number] Fracture/Fix Left: DANNY:CRANIOM [id number] / Implanted: Qty: 6 on 12/21/2018 by Oswaldo Hu MD [facility] Head AXILLOFACIAL / Cath Lumen Evd Bactisealclr [id number] - [id number] IMPLANTS Left: J &J: CODMAN & 06/18/2019 [id number] / Implanted: Qty: 1 on 12/21/2018 by Oswaldo Hu MD Head SHURTLE / [id number] Procedures Procedure Name Priority Date/Time Associated Comments Diagnosis CT BRAIN WITHOUT IV Routine 01/19/2019 11:10 Subdural hematoma Results for this CONTRAST AM CDT (HCC) procedure are in the results section. RHYTHM STRIP - SCAN 12/31/2018 12:21 PM CDT CBC W/PLT COUNT & Routine 12/29/2018 4:51 Results for this AUTO DIFFERENTIAL AM CDT procedure are in the results section. MAGNESIUM Routine 12/29/2018 4:51 Results for this AM CDT procedure are in the results section. CBC W/PLT COUNT & Routine 12/29/2018 4:51 Results for this AUTO DIFFERENTIAL AM CDT procedure are in the results section. PHOSPHORUS Routine 12/29/2018 4:51 Results for this AM CDT procedure are in the results section. CALCIUM, IONIZED Routine 12/29/2018 4:51 Results for this AM CDT procedure are in the results section. BASIC METABOLIC PANEL Routine 12/29/2018 4:51 Results for this (7) AM CDT procedure are in the results section. MAGNESIUM Routine 12/27/2018 4:11 Results for this AM CDT procedure are in the results section. PHOSPHORUS Routine 12/27/2018 4:11 Results for this AM CDT procedure are in the results section. CALCIUM, IONIZED Routine 12/27/2018 4:11 Results for this AM CDT procedure are in the results section. BASIC METABOLIC PANEL Routine 12/27/2018 4:11 Results for this (7) AM CDT procedure are in the results section. CBC W/PLT COUNT & Routine 12/26/2018 4:52 Results for this AUTO DIFFERENTIAL AM CDT procedure are in the results section. BASIC METABOLIC PANEL Routine 12/26/2018 4:52 Results for this (7) AM CDT procedure are in the results section. CBC W/PLT COUNT & Routine 12/26/2018 4:52 Results for this AUTO DIFFERENTIAL AM CDT procedure are in the results section. CALCIUM, IONIZED Routine 12/26/2018 4:52 Results for this AM CDT procedure are in the results section. CT BRAIN WITHOUT IV Routine 12/26/2018 12:37 Results for this CONTRAST AM SERVICE CONSULTANT procedure are in the results section. POCT-GLUCOSE METER Routine 12/25/2018 6:15 Results for this PM SERVICE CONSULTANT procedure are in the results section. SPUTUM CULTURE + GRAM Routine 12/25/2018 5:25 Results for this STAIN PM SERVICE CONSULTANT procedure are in the results section. XR CHEST 1 VIEW WALLY 12/25/2018 11:42 Results for this PORTABLE/BEDSIDE AM SERVICE CONSULTANT procedure are in the results section. POCT-GLUCOSE METER Routine 12/25/2018 8:25 Results for this AM SERVICE CONSULTANT procedure are in the results section. CBC W/PLT COUNT & Routine 12/25/2018 8:23 Results for this AUTO DIFFERENTIAL AM SERVICE CONSULTANT procedure are in the results section. BASIC METABOLIC PANEL Routine 12/25/2018 8:23 Results for this (7) AM SERVICE CONSULTANT procedure are in the results section. CBC W/PLT COUNT & Routine 12/25/2018 8:23 Results for this AUTO DIFFERENTIAL AM SERVICE CONSULTANT procedure are in the results section. POCT-GLUCOSE METER Routine 12/24/2018 5:09 Results for this PM SERVICE CONSULTANT procedure are in the results section. MAGNESIUM Routine 12/24/2018 4:19 Results for this PM SERVICE CONSULTANT procedure are in the results section. POTASSIUM Routine 12/24/2018 4:19 Results for this PM SERVICE CONSULTANT procedure are in the results section. POCT-GLUCOSE METER Routine 12/24/2018 12:08 Results for this PM SERVICE CONSULTANT procedure are in the results section. POCT-GLUCOSE METER Routine 12/24/2018 7:48 Results for this AM SERVICE CONSULTANT procedure are in the results section. CBC W/PLT COUNT & Routine 12/24/2018 4:29 Results for this AUTO DIFFERENTIAL AM SERVICE CONSULTANT procedure are in the results section. PHOSPHORUS Routine 12/24/2018 4:29 Results for this AM SERVICE CONSULTANT procedure are in the results section. MAGNESIUM Routine 12/24/2018 4:29 Results for this AM SERVICE CONSULTANT procedure are in the results section. CBC W/PLT COUNT & Routine 12/24/2018 4:29 Results for this AUTO DIFFERENTIAL AM SERVICE CONSULTANT procedure are in the results section. BASIC METABOLIC PANEL Routine 12/24/2018 4:29 Results for this (7) AM SERVICE CONSULTANT procedure are in the results section. CT BRAIN WITHOUT IV Routine 12/24/2018 2:45 Results for this CONTRAST AM SERVICE CONSULTANT procedure are in the results section. POCT-GLUCOSE METER Routine 12/23/2018 9:58 Results for this PM SERVICE CONSULTANT procedure are in the results section. POCT-GLUCOSE METER Routine 12/23/2018 5:42 Results for this PM SERVICE CONSULTANT procedure are in the results section. POCT-GLUCOSE METER Routine 12/23/2018 12:04 Results for this PM SERVICE CONSULTANT procedure are in the results section. POCT-GLUCOSE METER Routine 12/23/2018 6:23 Results for this AM SERVICE CONSULTANT procedure are in the results section. CBC W/PLT COUNT & Routine 12/23/2018 3:05 Results for this AUTO DIFFERENTIAL AM SERVICE CONSULTANT procedure are in the results section. BASIC METABOLIC PANEL Routine 12/23/2018 3:05 Results for this (7) AM SERVICE CONSULTANT procedure are in the results section. CBC W/PLT COUNT & Routine 12/23/2018 3:05 Results for this AUTO DIFFERENTIAL AM SERVICE CONSULTANT procedure are in the results section. POCT-GLUCOSE METER Routine 12/23/2018 12:51 Results for this AM SERVICE CONSULTANT procedure are in the results section. TRANSFUSION SERVICE 12/22/2018 6:26 REPORT - SCAN PM SERVICE CONSULTANT POCT-GLUCOSE METER Routine 12/22/2018 6:17 Results for this PM SERVICE CONSULTANT procedure are in the results section. NV EMBOLIZATION Routine 12/22/2018 3:55 Results for this EXTENSIVE PM SERVICE CONSULTANT procedure are in the results section. POCT-GLUCOSE METER Routine 12/22/2018 12:35 Results for this PM SERVICE CONSULTANT procedure are in the results section. BASIC METABOLIC PANEL Routine 12/22/2018 12:34 Results for this (7) PM SERVICE CONSULTANT procedure are in the results section. PROCEDURE DONE 12/22/2018 12:00 Subdural hematoma OUTSIDE OR PM SERVICE CONSULTANT (HCC) Special Needs REQ:12PM ECG 12-LEAD Routine 12/22/2018 11:58 AM SERVICE CONSULTANT Procedure Note - Interface, External Ris In - 12/22/2018 12:04 PM SERVICE CONSULTANT Ventricular Rate 57 BPM Atrial Rate 57 BPM P-R Interval 186 ms QRS Duration 74 ms Q-T Interval 450 ms QTC Calculation(Bazett) 438 ms P [place] 39 degrees R [place] 39 degrees T [place] 53 degrees Sinus bradycardia Otherwise normal ECG No previous ECGs available ECG 12-LEAD Routine 12/22/2018 11:58 AM Results for this SERVICE CONSULTANT procedure are in the results section. ECG 12-LEAD Routine 12/22/2018 11:38 AM Results for this SERVICE CONSULTANT procedure are in the results section. ECG 12-LEAD Routine 12/22/2018 11:37 AM Results for this SERVICE CONSULTANT procedure are in the results section. PT/APTT STAT 12/22/2018 7:50 AM Results for this SERVICE CONSULTANT procedure are in the results section. POCT-GLUCOSE METER Routine 12/22/2018 6:43 AM Results for this SERVICE CONSULTANT procedure are in the results section. CT BRAIN WITHOUT IV Routine 12/22/2018 5:22 AM Results for this CONTRAST SERVICE CONSULTANT procedure are in the results section. CBC W/PLT COUNT & Routine 12/22/2018 3:49 AM Results for this AUTO DIFFERENTIAL SERVICE CONSULTANT procedure are in the results section. BASIC METABOLIC PANEL Routine 12/22/2018 3:49 AM Results for this (7) SERVICE CONSULTANT procedure are in the results section. CBC W/PLT COUNT & Routine 12/22/2018 3:49 AM Results for this AUTO DIFFERENTIAL SERVICE CONSULTANT procedure are in the results section. POCT-GLUCOSE METER Routine 12/22/2018 3:48 AM Results for this SERVICE CONSULTANT procedure are in the results section. POCT-GLUCOSE METER Routine 12/21/2018 5:49 PM Results for this SERVICE CONSULTANT procedure are in the results section. TISSUE EXAM AP Routine 12/21/2018 3:32 PM Results for this SERVICE CONSULTANT procedure are in the results section. CRANIOTOMY 12/21/2018 1:35 PM Subdural hematoma SERVICE CONSULTANT (HCC) Special Needs REQ TF POCT-GLUCOSE METER Routine 12/21/2018 12:23 PM SERVICE CONSULTANT POCT-GLUCOSE METER Routine 12/21/2018 7:49 AM SERVICE CONSULTANT POCT-GLUCOSE METER Routine 12/21/2018 5:38 AM SERVICE CONSULTANT ABORH, MANUAL STAT 12/21/2018 3:38 AM SERVICE CONSULTANT CBC W/PLT COUNT & AUTO Routine 12/21/2018 3:14 AM SERVICE CONSULTANT Results for this DIFFERENTIAL procedure are in the results section. TYPE AND SCREEN, AUTOMATED Routine 12/21/2018 3:14 AM SERVICE CONSULTANT CBC W/PLT COUNT & AUTO Routine 12/21/2018 3:14 AM SERVICE CONSULTANT Results for this DIFFERENTIAL procedure are in the results section. PHOSPHORUS Routine 12/21/2018 3:14 AM SERVICE CONSULTANT MAGNESIUM Routine 12/21/2018 3:14 AM SERVICE CONSULTANT BASIC METABOLIC PANEL (7) Routine 12/21/2018 3:[address] BRAIN WITHOUT IV Routine 12/21/2018 12:53 AM SERVICE CONSULTANT Results for this CONTRAST procedure are in the results section. POCT-GLUCOSE METER Routine 12/20/2018 11:56 PM SERVICE CONSULTANT POCT-GLUCOSE METER Routine 12/20/2018 6:49 PM SERVICE CONSULTANT BASIC METABOLIC PANEL (7) Routine 12/20/2018 5:01 PM SERVICE CONSULTANT PHOSPHORUS Routine 12/20/2018 5:01 PM SERVICE CONSULTANT MAGNESIUM Routine 12/20/2018 5:01 PM SERVICE CONSULTANT APTT Routine 12/20/2018 5:01 PM SERVICE CONSULTANT PROTHROMBIN TIME/INR Routine 12/20/2018 5:01 PM SERVICE CONSULTANT HEPATIC FUNCTION PANEL Routine 12/20/2018 5:01 PM SERVICE CONSULTANT after 03/01/[address] Brain without IV Contrast (01/19/2019 11:10 AM CDT)Only the most recent of5 resultswithin the time period is included. Specimen Narrative Performed At FINAL REPORT [facility] CT Head without contrast CLINICAL HISTORY: S06.5X9A TECHNIQUE: Contiguous axial CT images through the head without contrast. This exam was performed according to the departmental dose optimization program which includes automated exposure control, adjustment of the mA and/or kV according to the patient size, and/or use of an iterative reconstruction technique. COMPARISON: 12/26/2018 FINDINGS: A high left cerebral craniotomy is again seen with near complete resolution of the underlying subdural hematoma which now measures 0.3 cm in maximal thickness, previously 1.3 cm. Previous mass effect and rightward midline shift has resolved. Generalized sulcal prominence is again seen without hydrocephalus. There are atherosclerotic calcifications of the intracranial circulation. Pneumocephalus has resolved. Air-fluid level is again seen in the right sphenoid sinus. Note is again seen in the left tympanomastoid air cells. IMPRESSION: Since 12/26/2018, the left cerebral hemispheric subdural hematoma has nearly completely resolved. Midline shift has resolved. Signed: Mt Valente MD Report Verified Date/Time:01/19/2019 11:41:54 Reading Location: [facility] [id number] Neuro Reading Room Procedure Note Interface, External Ris In - 01/19/2019 11:44 AM CDT FINAL REPORT CT Head without contrast CLINICAL HISTORY: S06.5X9A TECHNIQUE: Contiguous axial CT images through the head without contrast. This exam was performed according to the departmental dose optimization program which includes automated exposure control, adjustment of the mA and/or kV according to the patient size, and/or use of an iterative reconstruction technique. COMPARISON: 12/26/2018 FINDINGS: A high left cerebral craniotomy is again seen with near complete resolution of the underlying subdural hematoma which now measures 0.3 cm in maximal thickness, previously 1.3 cm. Previous mass effect and rightward midline shift has resolved. Generalized sulcal prominence is again seen without hydrocephalus. There are atherosclerotic calcifications of the intracranial circulation. Pneumocephalus has resolved. Air-fluid level is again seen in the right sphenoid sinus. Note is again seen in the left tympanomastoid air cells. IMPRESSION: Since 12/26/2018, the left cerebral hemispheric subdural hematoma has nearly completely resolved. Midline shift has resolved. Signed: tM Valente MD Report Verified Date/Time: 01/19/2019 11:41:54 Reading Location: [facility] [id number] Neuro Reading Room Performing Organization Address City/[facility]/Zipcode Phone Number GE RIS RHYTHM STRIP - SCAN (12/31/2018 12:21 PM CDT) Narrative Performed At Calcium, Ionized (12/29/2018 4:51 AM CDT)Only the most recent of3 resultswithin the time period is included. Calcium, Ion 1.08 (L) 1.12 - 1.27 mmol/L [facility] pH, Blood 7.47 [facility] Specimen Blood Performing Organization Address [facility]/[place] Phone Number [address] [address] CENTER CBC with platelet count + automated diff (12/29/2018 4:51 AM CDT)Only the most recent of7 resultswithin the time period is included. WBC 9.7 3.5 - 10.5 K/L [facility] RBC 3.14 (L) 3.93 - 5.22 M/L [facility] Hemoglobin 8.8 (L) 11.2 - 15.7 GM/DL [facility] Hematocrit 27.5 (L) 34.1 - 44.9 % [facility] MCV 87.6 79.4 - 94.8 fL [facility] MCH 28.0 25.6 - 32.2 pg [facility] MCHC 32.0 (L) 32.2 - 35.5 GM/DL [facility] RDW 18.3 (H) 11.7 - 14.4 % [facility] Platelets 585 (H) 150 - 450 K/CU MM [facility] MPV 9.3 (L) 9.4 - 12.3 fL [facility] nRBC 0 0 - 0 /100 WBC [facility] % Neutros 68 % [facility] % Lymphs 16 % [facility] % Monos 9 % [facility] % Eos 4 % [facility] % Baso 1 % [facility] # Neutros 6.54 (H) 1.56 - 6.13 K/L [facility] # Lymphs 1.55 1.18 - 3.74 K/L [facility] # Monos 0.87 (H) 0.24 - 0.36 K/L [facility] # Eos 0.40 (H) 0.04 - 0.36 K/L [facility] # Baso 0.06 0.01 - 0.08 K/L [facility] Immature Granulocytes-Relative 2 (H) 0 - 1 % [facility] Specimen Blood Performing Organization Address City/State/Zipcode Phone Number [address] [address] CENTER Phosphorus (12/29/2018 4:51 AM CDT)Only the most recent of5 resultswithin the time period is included. Phosphorus 4.3 2.3 - 4.7 mg/dL [facility] Specimen Blood Performing Organization Address City/State/Zipcode Phone Number [address] [address] CENTER Magnesium (12/29/2018 4:51 AM CDT)Only the most recent of6 resultswithin the time period is included. Magnesium 1.9 1.6 - 2.6 mg/dL [facility] Specimen Blood Performing Organization Address City/[facility]/Zipcode Phone Number [address] [address] [place] Basic Metabolic Panel (12/29/2018 4:51 AM CDT)Only the most recent of10 resultswithin the time period is included. Sodium 135 (L) 136 - 145 meq/L [facility] Potassium 4.4 3.5 - 5.1 meq/L [facility] Chloride 98 98 - 107 meq/L [facility] CO2 27 22 - 29 meq/L [facility] BUN 11 7 - 21 mg/dL [facility] Creatinine 0.67 0.57 - 1.25 mg/dL [facility] Glucose 89 70 - 105 mg/dL [facility] Calcium 9.8 8.4 - 10.2 mg/dL [facility] EGFR 90Comment: ESTIMATED GFR IS mL/min/1.73 sq m [facility] NOT ACCURATE CREATININE [facility] CENTER CLEARANCE IN PREDICTING GLOMERULAR FILTRATION RATE. ESTIMATED GFR IS NOT APPLICABLE FOR DIALYSIS PATIENTS. Specimen Blood Performing Organization Address [facility]/[employer] Phone Number [address] [address] [phone] [place] POC-Glucose meter (12/25/2018 6:15 PM SERVICE CONSULTANT)Only the most recent of20 resultswithin the time period is included. POC-Glucose Meter 137 (H)Comment: TESTED AT 70 - 110 mg/dL [facility] [address] [place] [id number] Specimen Blood Performing Organization Address City/[facility]/Zipcode Phone Number [address] [address] [place] Sputum Culture + Gram Stain (12/25/2018 5:25 PM SERVICE CONSULTANT) Result PSEUDOMONAS AERUGINOSA (A) [facility] Result SERRATIA MARCESCENS [facility] (A)Comment: of a second type MEDICAL CENTER Gram Stain Result 2+ White blood cells seen [facility] Gram Stain Result 0-5 epithelial cells [facility] Gram Stain Result <1+ gram negative rods [facility] Gram Stain Result 2+ yeast [facility] Specimen Sputum Narrative Performed At 2+ [facility] 1+ Normal respiratory anita present Organism Antibiotic Method Susceptibility Pseudomonas aeruginosa Amikacin <=8: Susceptible Pseudomonas aeruginosa Aztreonam 4: Susceptible Pseudomonas aeruginosa Cefepime <=4: Susceptible Pseudomonas aeruginosa Ceftazidime <=1: Susceptible Pseudomonas aeruginosa Ciprofloxacin <=0.5: Susceptible Pseudomonas aeruginosa Gentamicin <=2: Susceptible Pseudomonas aeruginosa Imipenem 2: Susceptible Pseudomonas aeruginosa Levofloxacin <=1: Susceptible Pseudomonas aeruginosa Meropenem <=0.5: Susceptible Pseudomonas aeruginosa Piperacillin <=16: Susceptible Pseudomonas aeruginosa Piperacillin + Tazobactam <=8: Susceptible Pseudomonas aeruginosa Tobramycin <=2: Susceptible Serratia marcescens Amikacin <=2: Susceptible Serratia marcescens Aztreonam <=1: Susceptible Serratia marcescens Cefepime <=1: Susceptible Serratia marcescens Cefoxitin 16: Resistant Serratia marcescens Ceftazidime <=1: Susceptible Serratia marcescens Ceftriaxone <=1: Susceptible Serratia marcescens Ertapenem <=0.5: Susceptible Serratia marcescens Gentamicin <=1: Susceptible Serratia marcescens Levofloxacin <=0.12: Susceptible Serratia marcescens Meropenem <=0.25: Susceptible Serratia marcescens Tetracycline 4: Susceptible Serratia marcescens Tobramycin <=1: Susceptible Serratia marcescens Trimethoprim + Sulfamethoxazole <=20: Susceptible Performing Organization Address City/State/Zipcode Phone Number [facility] [address] [place] [address] CENTER XR chest 1 view portable / bedside (12/25/2018 11:42 AM SERVICE CONSULTANT) Specimen Narrative Performed At FINAL REPORT [facility] Chest, AP view. History: Bronchitis. Comparison: None available. Discussion:The cardiomediastinal silhouette and pulmonary vasculature are within normal limits. The lungs are clear without evidence of consolidation or effusion.There are no acute osseous abnormalities. The soft tissues are unremarkable. IMPRESSION: No acute cardiopulmonary abnormality. Signed: Phillip Cintron MD Report Verified Date/Time:12/25/2018 14:28:42 Reading Location: [address] Transitional Reading Room Procedure Note Interface, External Ris In - 12/25/2018 2:30 PM SERVICE CONSULTANT FINAL REPORT Chest, AP view. History: Bronchitis. Comparison: None available. Discussion: The cardiomediastinal silhouette and pulmonary vasculature are within normal limits. The lungs are clear without evidence of consolidation or effusion. There are no acute osseous abnormalities. The soft tissues are unremarkable. IMPRESSION: No acute cardiopulmonary abnormality. Signed: Phillip Cintron MD Report Verified Date/Time: 12/25/2018 14:28:42 Reading Location: [address] Transitional Reading Room Performing Organization Address City/[facility]/Zipcode Phone Number [facility] Potassium (12/24/2018 4:19 PM SERVICE CONSULTANT) Potassium 3.9 3.5 - 5.1 meq/L [facility] Specimen Blood Narrative Performed At Check Serum Potassium level 2 hours after [facility] oral potassium replacement completed or 30 min after intravenous potassium replacement. 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 Diagnostic cerebral and cervical angiogram 3. 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 She was found to have a left sided chronic subdural hematoma with mass effect. However, she had no neurological deficits. She underwent a left mini craniotomy for evacuation of this mixed density subdural hematoma one day prior. The encounter clot is largely liquid, but there were significant membranes associated with the lesion that cannot be safely resected. This residual lesions demonstrated on a postop CT scan. The indications for the procedure as well as the risks, benefits and alternatives to the procedure were discussed with the patient and the family. The risks discussed included but were not limited to stroke, intracranial hemorrhage, injury to the cervical femoral or aortic vessels, contrast reaction, blindness, SDH recurrence, kidney toxicity, groin hematoma, weakness paralysis and even .They demonstrated understanding of the risk benefit profile and agreed to proceed. PROCEDURE: Following explanation of the benefits, risks and alternatives for the procedure, informed consent was obtained from the patient.The risks including but not limited to stroke, intracranial hemorrhage, vascular injury to the cervical or femoral vessels and groin hematoma were discussed.A time-out was performed. The right groin was prepped in the usual sterile fashion using Chloroprep, and sterilely draped. Local anesthesia was given. A single wall puncture of the right femoral artery was performed and a 6 Macedonian short sheath was inserted into the right common femoral artery and maintained on heparinized flush. Using coaxial technique a 5 Macedonian Envoy catheter was advanced into the descending aorta then into the aortic arch, and with the aid of the roadmapping, digital fluoroscopy, and careful guidewire manipulation the left common carotid, left external carotid arteries were catheterized. Upon each successive selective catheterization, digital subtraction angiography using the appropriate rate and volume of contrast in multiple projections was performed. After diagnostic angiography of the right carotid system, selective roadmap was performed of the right external carotid artery. Under roadmap guidance, an SL 10 microcatheter was advanced over a Synchro standard microwire into the proximal internal maxillary artery and then into the middle meningeal artery. Both a standard straight SL 10 and a 90 degree angled SL 10 microcatheter were used. The microcatheter tip was positioned just proximal to the bifurcation of the anterior and posterior divisions of the middle meningeal artery. A microinjection was then performed assuring good location in the target vessel. There was no orbital supply from the middle meningeal artery. Microparticles diluted in contrast was then carefully infused under subtracted roadmap. Contour 150-250um embolization particles were used. The embolization was visualized under live fluoroscopy to fill the target distal branches. The injection was intermittently halted to check for reflux. When flow stasis was obtained, the microcatheter was retracted very slightly. Coil embolization was performed with a total of 4 coils in the proximal middle meningeal artery. A follow-up angiogram was performed showing complete obliteration of the middle meningeal artery. Follow-up angiograms were performed showing no untoward events and occlusion of the MMA. The catheters were removed. Hemostasis achieved with a 6 Macedonian AngioSeal and manual compression. The patient tolerated the procedure well. The patient was transferred to the recovery area (neurological intensive care unit) to be monitored as per protocol. FINDINGS: RIGHT COMMON FEMORAL ARTERY (DSA - PA, LATERAL - ILIAC) The sheath enters above the femoral bifurcation. The femoral artery and bifurcation are widely patent without evidence of ulceration or stenosis. LEFT COMMON CAROTID ARTERY (DSA - PA, LATERAL - CERVICAL) The origins of the left internal and external carotid arteries are widely patent without evidence of ulceration or stenosis. LEFT COMMON CAROTID ARTERY (DSA - PA, LATERAL - HEAD) There is no spontaneous crossfilling across the anterior communicating artery. A medium size posterior communicating artery is seen. No vascular malformations, stenosis, or vasospasm is observed. No significant abnormalities are seen in the capillary and venous phases. The venous phase demonstrates patent transverse and sigmoid sinuses. LEFT EXTERNAL CAROTID ARTERY (DSA - PA, LATERAL, SELECTIVE - HEAD) The visualized portions of the external carotid artery and its branches are normal without evidence of ulceration or stenosis. This distal injection visualizes the superficial temporal artery, the internal maxillary artery, middle meningeal artery. Middle meningeal artery arises as the first proximal branch of the internal maxillary artery. The distal branches, anterior and posterior, of the middle meningeal artery are seen distal to the characteristic right angle turn at the skull base. The middle meningeal artery has a small, diminutive diameter. No major orbital anastomoses are seen at the distal external carotid circulation. LEFT MIDDLE MENINGEAL ARTERY (DSA - PA, LATERAL, SELECTIVE - HEAD) The entire course of the middle meningeal artery is partially visualized, starting from the skull base but then tapering off. The distal branches are not visualized. IMPRESSION 1. 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 Diagnostic cerebral and cervical angiogram 3. 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 She was found to have a left sided chronic subdural hematoma with mass effect. However, she had no neurological deficits. She underwent a left mini craniotomy for evacuation of this mixed density subdural hematoma one day prior. The encounter clot is largely liquid, but there were significant membranes associated with the lesion that cannot be safely resected. This residual lesions demonstrated on a postop CT scan. The indications for the procedure as well as the risks, benefits and alternatives to the procedure were discussed with the patient and the family. The risks discussed included but were not limited to stroke, intracranial hemorrhage, injury to the cervical femoral or aortic vessels, contrast reaction, blindness, SDH recurrence, kidney toxicity, groin hematoma, weakness paralysis and even . They demonstrated understanding of the risk benefit profile and agreed to proceed. PROCEDURE: Following explanation of the benefits, risks and alternatives for the procedure, informed consent was obtained from the patient. The risks including but not limited to stroke, intracranial hemorrhage, vascular injury to the cervical or femoral vessels and groin hematoma were discussed. A time-out was performed. The right groin was prepped in the usual sterile fashion using Chloroprep, and sterilely draped. Local anesthesia was given. A single wall puncture of the right femoral artery was performed and a 6 Macedonian short sheath was inserted into the right common femoral artery and maintained on heparinized flush. Using coaxial technique a 5 Macedonian Envoy catheter was advanced into the descending aorta then into the aortic arch, and with the aid of the roadmapping, digital fluoroscopy, and careful guidewire manipulation the left common carotid, left external carotid arteries were catheterized. Upon each successive selective catheterization, digital subtraction angiography using the appropriate rate and volume of contrast in multiple projections was performed. After diagnostic angiography of the right carotid system, selective roadmap was performed of the right external carotid artery. Under roadmap guidance, an SL 10 microcatheter was advanced over a Synchro standard microwire into the proximal internal maxillary artery and then into the middle meningeal artery. Both a standard straight SL 10 and a 90 degree angled SL 10 microcatheter were used. The microcatheter tip was positioned just proximal to the bifurcation of the anterior and posterior divisions of the middle meningeal artery. A microinjection was then performed assuring good location in the target vessel. There was no orbital supply from the middle meningeal artery. Microparticles diluted in contrast was then carefully infused under subtracted roadmap. Contour 150-250um embolization particles were used. The embolization was visualized under live fluoroscopy to fill the target distal branches. The injection was intermittently halted to check for reflux. When flow stasis was obtained, the microcatheter was retracted very slightly. Coil embolization was performed with a total of 4 coils in the proximal middle meningeal artery. A follow-up angiogram was performed showing complete obliteration of the middle meningeal artery. Follow-up angiograms were performed showing no untoward events and occlusion of the MMA. The catheters were removed. Hemostasis achieved with a 6 Macedonian AngioSeal and manual compression. The patient tolerated the procedure well. The patient was transferred to the recovery area (neurological intensive care unit) to be monitored as per protocol. FINDINGS: RIGHT COMMON FEMORAL ARTERY (DSA - PA, LATERAL - ILIAC) The sheath enters above the femoral bifurcation. The femoral artery and bifurcation are widely patent without evidence of ulceration or stenosis. LEFT COMMON CAROTID ARTERY (DSA - PA, LATERAL - CERVICAL) The origins of the left internal and external carotid arteries are widely patent without evidence of ulceration or stenosis. LEFT COMMON CAROTID ARTERY (DSA - PA, LATERAL - HEAD) There is no spontaneous crossfilling across the anterior communicating artery. A medium size posterior communicating artery is seen. No vascular malformations, stenosis, or vasospasm is observed. No significant abnormalities are seen in the capillary and venous phases. The venous phase demonstrates patent transverse and sigmoid sinuses. LEFT EXTERNAL CAROTID ARTERY (DSA - PA, LATERAL, SELECTIVE - HEAD) The visualized portions of the external carotid artery and its branches are normal without evidence of ulceration or stenosis. This distal injection visualizes the superficial temporal artery, the internal maxillary artery, middle meningeal artery. Middle meningeal artery arises as the first proximal branch of the internal maxillary artery. The distal branches, anterior and posterior, of the middle meningeal artery are seen distal to the characteristic right angle turn at the skull base. The middle meningeal artery has a small, diminutive diameter. No major orbital anastomoses are seen at the distal external carotid circulation. LEFT MIDDLE MENINGEAL ARTERY (DSA - PA, LATERAL, SELECTIVE - HEAD) The entire course of the middle meningeal artery is partially visualized, starting from the skull base but then tapering off. The distal branches are not visualized. IMPRESSION 1. Complete particle and coil embolization of the left middle meningeal artery Signed: Jaci Zuniga MD Report Verified Date/Time: 12/31/2018 06:47:20 Reading Location: [facility] Y026 Neuro Angio Reading Room Performing Organization Address City/State/[facility] Phone Number GE RIS ECG 12 lead (12/22/2018 11:58 AM SERVICE CONSULTANT)Only the most recent of3 resultswithin the time period is included. Specimen Narrative Performed At Ventricular Rate 57 BPM GE MUSE Atrial Rate 57 BPM P-R Interval 186 ms QRS Duration 74 ms Q-T Interval 450 ms QTC Calculation(Bazett) 438 ms P [place] 39 degrees R [place] 39 degrees T [place] 53 degrees Sinus bradycardia Otherwise normal ECG No previous ECGs available Confirmed by Florentin KELLY BASANT ([id number]) on 12/22/2018 2:25:58 PM Procedure Note Interface, External Ris In - 12/22/2018 2:26 PM SERVICE CONSULTANT Ventricular Rate 57 BPM Atrial Rate 57 BPM P-R Interval 186 ms QRS Duration 74 ms Q-T Interval 450 ms QTC Calculation(Bazett) 438 ms P [place] 39 degrees R [place] 39 degrees T [place] 53 degrees Sinus bradycardia Otherwise normal ECG No previous ECGs available Confirmed by Florentin KELLY BASANT ([id number]) on 12/22/2018 2:25:58 PM Performing Organization Address City/State/Zipcode Phone Number GE MUSE PT/aPTT (12/22/2018 7:50 AM SERVICE CONSULTANT) Protime 13.1 11.7 - 14.7 seconds [facility] INR 1.0 <=5.9 [facility] PTT 35.5 22.5 - 36.0 seconds [facility] Specimen Blood Narrative Performed At RECOMMENDED COUMADIN/WARFARIN INR THERAPY [facility] RANGES STANDARD DOSE: 2.0 - 3.0 Includes: PROPHYLAXIS for venous thrombosis, systemic embolization; TREATMENT for venous thrombosis and/or pulmonary embolus. HIGH RISK: Target INR is 2.5-3.5 for patients with mechanical heart valves. Performing Organization Address [facility]/[place] Phone Number [address] [address] [phone] CENTER Tissue Exam (12/21/2018 3:32 PM SERVICE CONSULTANT) Case Report Surgical Pathology Report Case: [id number] [facility] Authorizing Provider:Oswaldo Hu MDCollected: 12/21/2018 1532 [facility] Ordering Location: [place] [address] ICUReceived: 12/22/2018 0801 Pathologist: Ad Carlson MD Specimen:Soft Tissue, Other, left subdural clot DIAGNOSIS BRAIN, SUBDURAL REGION, LEFT, CRANIOTOMY AND EVACUATION: [facility] GRANULATION TISSUE AND FIBRIN, CONSISTENT WITH ORGANIZING [facility] Signing Pathologist Direct Phone Line: [phone] CPT Code(s) 65675 [facility] CLINICAL HISTORY Left subdural hematoma [facility] SPECIMEN SOURCE Left subdural clot [facility] GROSS DESCRIPTION The specimen is received in [facility] a formalin-filled container [facility] labeled with the patient's information and labeled "left subdural clot" and consists of three fragments of red-brown soft tissue measuring 0.5 to 0.6 cm, submitted entirely in A1. CG/ew MICROSCOPIC DESCRIPTION Performed [facility] Specimen Tissue Performing Organization Address [facility]/[place] Phone Number [address] [address] CENTER [place]H, manual (12/21/2018 3:38 AM SERVICE CONSULTANT) ABO Grouping O [facility] Rh Factor NEG [facility] Specimen Blood Performing Organization Address City/[facility]/[place] Phone Number [address] [address] Type and screen, automated (12/21/2018 3:14 AM SERVICE CONSULTANT) ABO/RH AUTOMATED (BEAKER) O NEGATIVE [facility] Ab Scrn NEGATIVE [facility] Specimen Blood Performing Organization Address [facility]/[place] Phone Number [address] [address] aPTT (12/20/2018 5:01 PM SERVICE CONSULTANT) PTT 37.3 (H) 22.5 - 36.0 seconds [facility] Specimen Blood Performing Organization Address [facility]/[place] Phone Number [address] [address] CENTER Prothrombin time/INR (12/20/2018 5:01 PM SERVICE CONSULTANT) Protime 13.8 11.7 - 14.7 seconds [facility] INR 1.1 <=5.9 [facility] Specimen Blood Narrative Performed At RECOMMENDED COUMADIN/WARFARIN INR THERAPY [facility] RANGES STANDARD DOSE: 2.0 - 3.0 Includes: PROPHYLAXIS for venous thrombosis, systemic embolization; TREATMENT for venous thrombosis and/or pulmonary embolus. HIGH RISK: Target INR is 2.5-3.5 for patients with mechanical heart valves. Performing Organization Address City/[facility]/[place] Phone Number [address] [phone] [place] Hepatic function panel (12/20/2018 5:01 PM SERVICE CONSULTANT) Protein, Total 7.5Comment: Specimen 6.0 - 8.3 gm/dL [facility] slightly hemolyzed [facility] Albumin 3.8Comment: Specimen 3.5 - 5.0 g/dL [facility] slightly hemolyzed [facility] Total Bilirubin 0.7Comment: Specimen 0.2 - 1.2 mg/dL [facility] hemolyzed [facility] Bilirubin, Direct 0.4Comment: Specimen 0.1 - 0.5 mg/dL [facility] hemolyzed [facility] Alkaline Phosphatase 74 40 - 150 U/L [facility] AST 30Comment: Specimen 5 - 34 U/L [facility] slightly hemolyzed [facility] ALT 15Comment: Specimen 6 - 55 U/L [facility] hemolyzed [facility] Specimen Blood Performing Organization Address City/State/[place] Phone Number [facility] MEDICAL [address] [place], [place] [phone] [place] after 03/01/2018 Insurance Payer Benefit Plan / Group Subscriber ID Type Phone Address MEDICAID - MEDICAID MEDICAID [employer] xxxxxxxxx Medicaid [facility] CARE Non-Contracted Advance Directives For more information, please contact:[facility] [place], [place] [phone] Code Status Date Activated Date Inactivated Comments Full Code 12/22/2018 4:42 PM 12/29/2018 4:08 PM This code status was determined by: Patient Partial Code 12/20/2018 4:24 PM 12/20/2018 4:24 PM This code status was determined by: Patient Drug Protocol After Arrest Occurs? No Mechanical Ventilation with Intubation? No Bag/Mask? No Internal/External Pacemaker? No Transfer to Critical Care? Yes Chest Compressions? No Defibrillation/Cardioversion? No Partial Code 12/20/2018 4:24 PM 12/20/2018 4:24 PM This code status was determined by: Patient Drug Protocol After Arrest Occurs? No Mechanical Ventilation with Intubation? No Bag/Mask? No Internal/External Pacemaker? No Transfer to Critical Care? Yes Chest Compressions? No Defibrillation/Cardioversion? No
--- OUTSIDE RECORDS SUMMARY | 2019-03-02 16:00 | XMS REPORT ---
:1960 [facility] [address] [place] [address] Care Team Providers Name Role Phone MARISMARIA LTIANA HERNANDEZCASEANDRESSA RODRIGUESCHRISPEGGY Unavailable Unavailable Problems This patient has no known problems. Allergies, Adverse Reactions, Alerts This patient has no known allergies or adverse reactions. Medications This patient has no known medications. Results Test Description Test Time Test Comments Text Results Atomic Results Result Comments CT, BRAIN, WITHOUT 2019-01-19 11:41:00 FINAL REPORT PATIENT ID: CONTRAST [id number] CT Head without contrast CLINICAL HISTORY: S06.5X9A [...] resolved. Midline shift has resolved. 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 Diagnostic cerebral and cervical angiogram3. Embolization of left middle meningeal artery with particles and coil ANESTHESIA: General COMPLICATIONS: None ESTIMATED BLOOD LOSS: Minimal INDICATIONS:This is a 58 year old woman with [...] femoral artery was performed and a 6 Beninese short sheath was inserted into the right common femoral artery and maintained on heparinized flush. Using coaxial technique a 5 Beninese Envoy catheter was advanced into the descending [...] were removed. Hemostasis achieved with a 6 Beninese AngioSeal and manual compression. The patient tolerated [...] off. The distal branches are not visualized. IMPRESSION1. Complete particle and coil embolization of the left middle meningeal artery Signed: Jaci Roberts MDReport Verified Date/Time: 12/31/2018 06:47:20 Reading Location: [facility] Y026 Neuro Angio Reading Room W/PLT COUNT & AUTO DIFFERENTIAL 2018-12-29 06:02:00 Test Item Value Reference Range Comments WHITE BLOOD CELL COUNT (BEAKER) (test skoc=487) 9.7 K/ L 3.5-10.5 RED BLOOD CELL COUNT (BEAKER) (test ckjy=546) 3.14 M/ L 3.93-5.22 HEMOGLOBIN (BEAKER) (test msok=418) 8.8 GM/DL 11.2-15.7 HEMATOCRIT (BEAKER) (test ashh=253) 27.5 % 34.1-44.9 MEAN CORPUSCULAR VOLUME (BEAKER) (test etgt=194) 87.6 fL 79.4-94.8 MEAN CORPUSCULAR HEMOGLOBIN (BEAKER) (test toga=930) 28.0 pg 25.6-32.2 MEAN CORPUSCULAR HEMOGLOBIN CONC (BEAKER) (test wwuf=797) 32.0 GM/DL 32.2- 35.5 RED CELL DISTRIBUTION WIDTH (BEAKER) (test tyhx=681) 18.3 % 11.7-14.4 PLATELET COUNT (BEAKER) (test mrwf=889) 585 K/CU MM 150-450 MEAN PLATELET VOLUME (BEAKER) (test jlkg=775) 9.3 fL 9.4-12.3 NUCLEATED RED BLOOD CELLS (BEAKER) (test icnl=160) 0 /100 WBC 0-0 NEUTROPHILS RELATIVE PERCENT (BEAKER) (test qztb=532) 68 % LYMPHOCYTES RELATIVE PERCENT (BEAKER) (test wozz=719) 16 % MONOCYTES RELATIVE PERCENT (BEAKER) (test obbp=981) 9 % EOSINOPHILS RELATIVE PERCENT (BEAKER) (test deqr=376) 4 % BASOPHILS RELATIVE PERCENT (BEAKER) (test qrsv=784) 1 % NEUTROPHILS ABSOLUTE COUNT (BEAKER) (test ocqs=839) 6.54 K/ L 1.56-6.13 LYMPHOCYTES ABSOLUTE COUNT (BEAKER) (test wnak=849) 1.55 K/ L 1.18-3.74 MONOCYTES ABSOLUTE COUNT (BEAKER) (test ptoy=566) 0.87 K/ L 0.24-0.36 EOSINOPHILS ABSOLUTE COUNT (BEAKER) (test qido=375) 0.40 K/ L 0.04-0.36 BASOPHILS ABSOLUTE COUNT (BEAKER) (test gvec=533) 0.06 K/ L 0.01-0.08 IMMATURE GRANULOCYTES-RELATIVE PERCENT (BEAKER) (test 2 % 0-1 rmia=5594) [id number] 05:45:00 Test Item Value Reference Range Comments PHOSPHORUS (BEAKER) (test gvzm=048) 4.3 mg/dL 2.3-4.7 [id number] 05:45:00 Test Item Value Reference Range Comments MAGNESIUM (BEAKER) (test pgia=483) 1.9 mg/dL 1.6-2.6 BASIC METABOLIC [id number] 05:45:00 Test Item Value Reference Range Comments SODIUM (BEAKER) (test 135 meq/L 136-145 aowa=186) POTASSIUM (BEAKER) (test 4.4 meq/L 3.5-5.1 ylzu=716) CHLORIDE (BEAKER) (test 98 meq/L 98-107 bdsj=975) CO2 (BEAKER) (test 27 meq/L 22-29 oevf=337) BLOOD UREA NITROGEN 11 mg/dL 7-21 (BEAKER) (test qnso=762) CREATININE (BEAKER) (test 0.67 mg/dL 0.57-1.25 jwub=553) GLUCOSE RANDOM (BEAKER) 89 mg/dL 70-105 (test ehah=965) CALCIUM (BEAKER) (test 9.8 mg/dL 8.4-10.2 vjjo=516) EGFR (BEAKER) (test 90 mL/min/1.73 sq m ESTIMATED GFR IS NOT mfud=4645) ACCURATE CREATININE CLEARANCE IN PREDICTING GLOMERULAR FILTRATION RATE. ESTIMATED GFR IS NOT APPLICABLE FOR DIALYSIS PATIENTS. CALCIUM, [id number] 05:31:00 Test Item Value Reference Range Comments CALCIUM IONIZED (BEAKER) (test rxzg=464) 1.08 mmol/L 1.12-1.27 PH, BLOOD (BEAKER) (test ymil=5185) 7.47 SPUTUM CULTURE + GRAM [id number] 10:36:00 Test Item Value Reference Range Comments CULTURE (BEAKER) (test PSEUDOMONAS 4+ Pseudomonas pjeo=6573) AERUGINOSA aeruginosa Amikacin (test code=1) Susceptible 0-16 , Resistant <0 or >16 Aztreonam (test code=32) Susceptible 0-8 , Resistant <0 or >8 Cefepime (test code=51) Susceptible 0-8 , Resistant <0 or >8 Ceftazidime (test Susceptible 0-8 , code=27) Resistant <0 or >8 Ciprofloxacin (test Susceptible 0-1 , code=7) Resistant <0 or >1 Gentamicin (test code=18) Susceptible 0-4 , Resistant <0 or >4 Imipenem (test code=19) Susceptible 0-2 , Resistant <0 or >2 Levofloxacin (test Susceptible 0-2 , code=22) Resistant <0 or >2 Meropenem (test code=34) Susceptible 0-2 , Resistant <0 or >2 Piperacillin (test Susceptible 0-16 , code=24) Resistant <0 or >16 Piperacillin + Tazobactam Susceptible 0-16 , (test code=29) Resistant <0 or >16 Tobramycin (test code=25) Susceptible 0-4 , Resistant <0 or >4 CULTURE (BEAKER) (test SERRATIA MARCESCENS 3+ Serratia havx=0812) marcescensof a second type Amikacin (test code=1) Aztreonam (test code=32) Cefepime (test code=51) Cefoxitin (test code=68) Ceftazidime (test code=27) Ceftriaxone (test code=52) Ertapenem (test code=38) Gentamicin (test code=18) Levofloxacin (test code=22) Meropenem (test code=34) Nitrofurantoin (test code=23) Tetracycline (test code=2) Tobramycin (test code=25) Trimethoprim + Sulfamethoxazole (test code=47) GRAM STAIN RESULT 2+ White blood cells (BEAKER) (test vjvw=9146) seen GRAM STAIN RESULT 0-5 epithelial cells (BEAKER) (test rpeo=461878) GRAM STAIN RESULT <1+ gram negative (BEAKER) (test rods emup=118335) GRAM STAIN RESULT 2+ yeast (BEAKER) (test tgxi=590160) 2+ yeast1+ Normal respiratory anita presentCALCIUM, [id number] 05:30:00 Test Item Value Reference Range Comments CALCIUM IONIZED (BEAKER) (test repi=729) 1.16 mmol/L 1.12-1.27 PH, BLOOD (BEAKER) (test yyrs=6240) 7.35 [id number] 05:02:00 Test Item Value Reference Range Comments PHOSPHORUS (BEAKER) (test evkj=103) 3.2 mg/dL 2.3-4.7 [id number] 05:02:00 Test Item Value Reference Range Comments MAGNESIUM (BEAKER) (test fepl=214) 1.7 mg/dL 1.6-2.6 BASIC METABOLIC [id number] 05:02:00 Test Item Value Reference Range Comments SODIUM (BEAKER) (test 136 meq/L 136-145 sdyl=779) POTASSIUM (BEAKER) (test 4.7 meq/L 3.5-5.1 xtdd=573) CHLORIDE (BEAKER) (test 100 meq/L 98-107 vrot=661) CO2 (BEAKER) (test 30 meq/L 22-29 vdan=480) BLOOD UREA NITROGEN 11 mg/dL 7-21 (BEAKER) (test lpcc=903) CREATININE (BEAKER) (test 0.65 mg/dL 0.57-1.25 fbst=705) GLUCOSE RANDOM (BEAKER) 91 mg/dL 70-105 (test hfxr=882) CALCIUM (BEAKER) (test 9.4 mg/dL 8.4-10.2 xvel=492) EGFR (BEAKER) (test 93 mL/min/1.73 sq m ESTIMATED GFR IS NOT wbvg=9257) ACCURATE CREATININE CLEARANCE IN PREDICTING GLOMERULAR FILTRATION RATE. ESTIMATED GFR IS NOT APPLICABLE FOR DIALYSIS PATIENTS. CALCIUM, [id number] 05:46:00 Test Item Value Reference Range Comments CALCIUM IONIZED (BEAKER) (test ptwz=747) 1.16 mmol/L 1.12-1.27 PH, BLOOD (BEAKER) (test mttt=2084) 7.39 BASIC METABOLIC [id number] 05:26:00 Test Item Value Reference Range Comments SODIUM (BEAKER) (test 136 meq/L 136-145 xbov=507) POTASSIUM (BEAKER) (test 4.6 meq/L 3.5-5.1 libl=846) CHLORIDE (BEAKER) (test 101 meq/L 98-107 wjoe=542) CO2 (BEAKER) (test 28 meq/L 22-29 piyy=430) BLOOD UREA NITROGEN 9 mg/dL 7-21 (BEAKER) (test lehs=397) CREATININE (BEAKER) (test 0.63 mg/dL 0.57-1.25 weis=429) GLUCOSE RANDOM (BEAKER) 103 mg/dL 70-105 (test pgxi=335) CALCIUM (BEAKER) (test 9.3 mg/dL 8.4-10.2 bveh=816) EGFR (BEAKER) (test 97 mL/min/1.73 sq m ESTIMATED GFR IS NOT uphn=1830) ACCURATE CREATININE CLEARANCE IN PREDICTING GLOMERULAR FILTRATION RATE. ESTIMATED GFR IS NOT APPLICABLE FOR DIALYSIS PATIENTS. CBC W/PLT COUNT & AUTO [id number] 05:10:00 Test Item Value Reference Range Comments WHITE BLOOD CELL COUNT (BEAKER) (test pvlb=471) 10.7 K/ L 3.5-10.5 RED BLOOD CELL COUNT (BEAKER) (test jksv=589) 3.16 M/ L 3.93-5.22 HEMOGLOBIN (BEAKER) (test fdhl=617) 9.0 GM/DL 11.2-15.7 HEMATOCRIT (BEAKER) (test dtnq=036) 27.6 % 34.1-44.9 MEAN CORPUSCULAR VOLUME (BEAKER) (test sjoh=006) 87.3 fL 79.4-94.8 MEAN CORPUSCULAR HEMOGLOBIN (BEAKER) (test 28.5 pg 25.6-32.2 oebg=993) MEAN CORPUSCULAR HEMOGLOBIN CONC (BEAKER) (test 32.6 GM/DL 32.2-35.5 oxqm=695) RED CELL DISTRIBUTION WIDTH (BEAKER) (test 18.2 % 11.7-14.4 wnww=247) PLATELET COUNT (BEAKER) (test aygy=045) 478 K/CU MM 150-450 MEAN PLATELET VOLUME (BEAKER) (test xxvn=924) 9.8 fL 9.4-12.3 NUCLEATED RED BLOOD CELLS (BEAKER) (test 0 /100 WBC 0-0 rlyv=299) NEUTROPHILS RELATIVE PERCENT (BEAKER) (test 70 % surx=854) LYMPHOCYTES RELATIVE PERCENT (BEAKER) (test 17 % wmhw=842) MONOCYTES RELATIVE PERCENT (BEAKER) (test 8 % nfoo=833) EOSINOPHILS RELATIVE PERCENT (BEAKER) (test 3 % zfyo=053) BASOPHILS RELATIVE PERCENT (BEAKER) (test 1 % sthe=270) NEUTROPHILS ABSOLUTE COUNT (BEAKER) (test 7.51 K/ L 1.56-6.13 vbce=697) LYMPHOCYTES ABSOLUTE COUNT (BEAKER) (test 1.86 K/ L 1.18-3.74 sioh=485) MONOCYTES ABSOLUTE COUNT (BEAKER) (test 0.86 K/ L 0.24-0.36 cjxx=258) EOSINOPHILS ABSOLUTE COUNT (BEAKER) (test 0.33 K/ L 0.04-0.36 fmmh=050) BASOPHILS ABSOLUTE COUNT (BEAKER) (test 0.07 K/ L 0.01-0.08 aztl=481) IMMATURE GRANULOCYTES-RELATIVE PERCENT (BEAKER) 1 % 0-1 (test eyez=5483) CT, BRAIN, WITHOUT [id number] 01:51:00FINAL REPORT EXAM: CT head without contrast. CLINICAL HISTORY: Sub-dural hemorrhage COMPARISON: Head CT 12/24/2018. TECHNIQUE: CT images of the head were obtained without intravenous contrast. This exam was performed according to our departmental dose optimization program which includes automated exposure control, adjustment of the mA and/or kV according to patient's size and/or use of iterative reconstructive technique. FINDINGS: The patient is again noted to be status post left parietal craniotomy for subdural hematoma evacuation. There has been interval removal of subduraldrain. There is a left convexity mixed density subdural collection containing small foci of air which measures up to 14 mm in maximum thickness, not significantly changed. There is associated mild parenchymal mass effect with partial effacement of the left lateral ventricle. There is a xsoq-xb-cbiiy midline shift measuring 6 mm at the level of the septum pellucidum (previously measured 8 mm). There is no hydrocephalus or large demarcated acute territorial infarct. The basal cisterns are patent. Thevisualized orbits are normal. There is a left mastoid effusion. There is mild right sphenoid sinus and left maxillary sinus mucosal thickening. There are small calcifications in the left maxillary and left sphenoid sinuses which may represent acute sinusitis in the proper clinical setting. There are age- indeterminate bilateral nasal bone fractures, mildly displaced on the left. There is left parietalscalp surgical skin bruce. 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 IMPRESSION: Postsurgical changes as described.Interval removal of left convexity subdural drainGrossly stable size of left convexity mixed density subdural hematoma. Associated mass effect. Mildly scfsjhtngxbxd-af-onuwu midline shift. Signed: Gideon Stephens Verified Date/Time: 12/26/2018 01:51:10Reading Location: [address] Body Reading Room Electronically signed by: GIDEON STEPHENS MD on 2018 01:51 AMPOCT-GLUCOSE [id number] 18:19:00 Test Item Value Reference Range Comments POC-GLUCOSE METER (BEAKER) 137 mg/dL 70-110 TESTED AT [address] (test wlsb=5002) [facility] [address] RAD, CHEST, 1 VIEW, NON [id number] 14:28:00Reason for exam:->C/f PNA/ bronchitisShould this be performed at the bedside?->YesFINAL REPORT Chest, AP view. History: Bronchitis. Comparison: None available. Discussion: The cardiomediastinal silhouette and pulmonary vasculature are within normal limits. The lungs are clear without evidence of consolidation or effusion. There are no acute osseous abnormalities. The soft tissues are unremarkable. IMPRESSION: No acute cardiopulmonary abnormality. Signed: Phillip Cintronort Verified Date/Time: 12/25/2018 14:28:42 Reading Location: [place] [id number] Transitional Reading Room BASIC METABOLIC [id number] 09:01:00 Test Item Value Reference Range Comments SODIUM (BEAKER) (test 133 meq/L 136-145 prwz=669) POTASSIUM (BEAKER) (test 4.2 meq/L 3.5-5.1 whyg=945) CHLORIDE (BEAKER) (test 98 meq/L 98-107 isal=155) CO2 (BEAKER) (test 27 meq/L 22-29 dgnt=671) BLOOD UREA NITROGEN 7 mg/dL 7-21 (BEAKER) (test pkxd=076) CREATININE (BEAKER) (test 0.68 mg/dL 0.57-1.25 rnep=538) GLUCOSE RANDOM (BEAKER) 88 mg/dL 70-105 (test lcmz=111) CALCIUM (BEAKER) (test 9.1 mg/dL 8.4-10.2 gkcd=053) EGFR (BEAKER) (test 89 mL/min/1.73 sq m ESTIMATED GFR IS NOT krgf=1395) ACCURATE CREATININE CLEARANCE IN PREDICTING GLOMERULAR FILTRATION RATE. ESTIMATED GFR IS NOT APPLICABLE FOR DIALYSIS PATIENTS. CBC W/PLT COUNT & AUTO [id number] 08:51:00 Test Item Value Reference Range Comments WHITE BLOOD CELL COUNT (BEAKER) (test pywv=105) 14.7 K/ L 3.5-10.5 RED BLOOD CELL COUNT (BEAKER) (test exlc=386) 3.68 M/ L 3.93-5.22 HEMOGLOBIN (BEAKER) (test qnnf=772) 10.5 GM/DL 11.2-15.7 HEMATOCRIT (BEAKER) (test nbwd=944) 32.3 % 34.1-44.9 MEAN CORPUSCULAR VOLUME (BEAKER) (test ytxt=701) 87.8 fL 79.4-94.8 MEAN CORPUSCULAR HEMOGLOBIN (BEAKER) (test 28.5 pg 25.6-32.2 olyr=866) MEAN CORPUSCULAR HEMOGLOBIN CONC (BEAKER) (test 32.5 GM/DL 32.2-35.5 ixwf=532) RED CELL DISTRIBUTION WIDTH (BEAKER) (test 18.2 % 11.7-14.4 ojwm=338) PLATELET COUNT (BEAKER) (test rqqh=868) 563 K/CU MM 150-450 MEAN PLATELET VOLUME (BEAKER) (test vxja=393) 9.6 fL 9.4-12.3 NUCLEATED RED BLOOD CELLS (BEAKER) (test 0 /100 WBC 0-0 dgnn=381) NEUTROPHILS RELATIVE PERCENT (BEAKER) (test 77 % jyot=783) LYMPHOCYTES RELATIVE PERCENT (BEAKER) (test 12 % oivm=660) MONOCYTES RELATIVE PERCENT (BEAKER) (test 9 % keev=030) EOSINOPHILS RELATIVE PERCENT (BEAKER) (test 2 % tsgf=388) BASOPHILS RELATIVE PERCENT (BEAKER) (test 0 % fpja=144) NEUTROPHILS ABSOLUTE COUNT (BEAKER) (test 11.32 K/ L 1.56-6.13 zepi=565) LYMPHOCYTES ABSOLUTE COUNT (BEAKER) (test 1.77 K/ L 1.18-3.74 kxtg=675) MONOCYTES ABSOLUTE COUNT (BEAKER) (test 1.25 K/ L 0.24-0.36 fqrr=444) EOSINOPHILS ABSOLUTE COUNT (BEAKER) (test 0.25 K/ L 0.04-0.36 tyfr=132) BASOPHILS ABSOLUTE COUNT (BEAKER) (test 0.06 K/ L 0.01-0.08 otla=938) IMMATURE GRANULOCYTES-RELATIVE PERCENT (BEAKER) 0 % 0-1 (test shrr=6012) POCT-GLUCOSE [id number] 08:26:00 Test Item Value Reference Range Comments POC-GLUCOSE METER (BEAKER) 100 mg/dL 70-110 TESTED AT [address] (test fhwn=6995) [place] [address] POCT-GLUCOSE [id number] 17:11:00 Test Item Value Reference Range Comments POC-GLUCOSE METER (BEAKER) 141 mg/dL 70-110 TESTED AT [address] (test rwil=0321) [place] [address] [id number] 16:51:00 Test Item Value Reference Range Comments POTASSIUM (BEAKER) (test qxxe=803) 3.9 meq/L 3.5-5.1 Check Serum Potassium level 2 hours after oral potassium replacement completed or 30 min after intravenous potassium replacement.[id number] 16:51:00 Test Item Value Reference Range Comments MAGNESIUM (BEAKER) (test uvjd=669) 2.0 mg/dL 1.6-2.6 Check Serum Potassium level 2 hours after oral potassium replacement completed or 30 min after intravenous potassium replacement.POCT-GLUCOSE [id number] 13:05:00 Test Item Value Reference Range Comments POC-GLUCOSE METER (BEAKER) 142 mg/dL 70-110 TESTED AT [facility] [address] (test ufkc=3592) [facility] [address] POCT-GLUCOSE [id number] 07:51:00 Test Item Value Reference Range Comments POC-GLUCOSE METER (BEAKER) 100 mg/dL 70-110 TESTED AT [facility] [address] (test wclc=6263) [facility] [address] [id number] 05:07:00 Test Item Value Reference Range Comments PHOSPHORUS (BEAKER) (test enxk=652) 3.0 mg/dL 2.3-4.7 [id number] 05:07:00 Test Item Value Reference Range Comments MAGNESIUM (BEAKER) (test fefn=233) 1.7 mg/dL 1.6-2.6 BASIC METABOLIC [id number] 05:07:00 Test Item Value Reference Range Comments SODIUM (BEAKER) (test 135 meq/L 136-145 ojwm=983) POTASSIUM (BEAKER) (test 3.6 meq/L 3.5-5.1 sbgn=463) CHLORIDE (BEAKER) (test 103 meq/L 98-107 zlrs=633) CO2 (BEAKER) (test 25 meq/L 22-29 sxqq=094) BLOOD UREA NITROGEN 7 mg/dL 7-21 (BEAKER) (test djvz=155) CREATININE (BEAKER) (test 0.63 mg/dL 0.57-1.25 vkqa=684) GLUCOSE RANDOM (BEAKER) 114 mg/dL 70-105 (test vqwg=601) CALCIUM (BEAKER) (test 8.7 mg/dL 8.4-10.2 cmdy=332) EGFR (BEAKER) (test 97 mL/min/1.73 sq m ESTIMATED GFR IS NOT brgw=1902) ACCURATE CREATININE CLEARANCE IN PREDICTING GLOMERULAR FILTRATION RATE. ESTIMATED GFR IS NOT APPLICABLE FOR DIALYSIS PATIENTS. CBC W/PLT COUNT & AUTO [id number] 04:52:00 Test Item Value Reference Range Comments WHITE BLOOD CELL COUNT (BEAKER) (test qljk=449) 11.1 K/ L 3.5-10.5 RED BLOOD CELL COUNT (BEAKER) (test piyz=550) 3.34 M/ L 3.93-5.22 HEMOGLOBIN (BEAKER) (test jskk=302) 9.4 GM/DL 11.2-15.7 HEMATOCRIT (BEAKER) (test flvz=327) 28.9 % 34.1-44.9 MEAN CORPUSCULAR VOLUME (BEAKER) (test ftaz=673) 86.5 fL 79.4-94.8 MEAN CORPUSCULAR HEMOGLOBIN (BEAKER) (test 28.1 pg 25.6-32.2 kjyt=603) MEAN CORPUSCULAR HEMOGLOBIN CONC (BEAKER) (test 32.5 GM/DL 32.2-35.5 qyou=162) RED CELL DISTRIBUTION WIDTH (BEAKER) (test 18.2 % 11.7-14.4 qsbt=894) PLATELET COUNT (BEAKER) (test bvqm=383) 477 K/CU MM 150-450 MEAN PLATELET VOLUME (BEAKER) (test ccuf=955) 9.9 fL 9.4-12.3 NUCLEATED RED BLOOD CELLS (BEAKER) (test 0 /100 WBC 0-0 esax=287) NEUTROPHILS RELATIVE PERCENT (BEAKER) (test 76 % pmdz=270) LYMPHOCYTES RELATIVE PERCENT (BEAKER) (test 12 % velb=387) MONOCYTES RELATIVE PERCENT (BEAKER) (test 10 % jlnv=428) EOSINOPHILS RELATIVE PERCENT (BEAKER) (test 2 % elty=311) BASOPHILS RELATIVE PERCENT (BEAKER) (test 1 % sbnr=251) NEUTROPHILS ABSOLUTE COUNT (BEAKER) (test 8.40 K/ L 1.56-6.13 ppjk=189) LYMPHOCYTES ABSOLUTE COUNT (BEAKER) (test 1.28 K/ L 1.18-3.74 acxp=974) MONOCYTES ABSOLUTE COUNT (BEAKER) (test 1.07 K/ L 0.24-0.36 asfz=519) EOSINOPHILS ABSOLUTE COUNT (BEAKER) (test 0.24 K/ L 0.04-0.36 tdok=166) BASOPHILS ABSOLUTE COUNT (BEAKER) (test 0.05 K/ L 0.01-0.08 aeei=663) IMMATURE GRANULOCYTES-RELATIVE PERCENT (BEAKER) 1 % 0-1 (test xrjx=1907) CT, BRAIN, WITHOUT [id number] 03:07:00FINAL REPORT CT Head without contrast CLINICAL HISTORY: Sub-dural hemorrhage TECHNIQUE: Contiguous axial images through the head without contrast. This exam was performed according to the departmental dose optimization program which includes automated exposure control, adjustment of the mA and/or kV according to the patient size, and/or use of an iterative reconstruction technique. COMPARISON: CT head dated 12/22/2018. FINDINGS:Postsurgical changes of a left frontoparietal craniotomy for drainage of a left ureteral convex to the subdural hematoma. Unchanged positioning of the subdural drain. Stable pneumocephalus tracking along the left cerebral convexly. Unchanged thickness of the extra-axial fluid measuring up to 10 mm. Persistent mass effect on the adjacent parenchyma leftlateral ventricle with stable 8 mm of rightward midline shift. No new intracranial hematoma is identified. No large territory infarction. Basilar cisterns are patent. Mild chronic microvascular ischemic changes. . Air-fluid level in the left maxillary and right sphenoid sinus. Left mastoid air cell effusion. 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 Postsurgical changes of the left scalp. Intraorbital contents are unremarkable. IMPRESSION:Unchanged appearance of the left cerebral convexly subdural hematoma status post drainage with stable mass effect and midline shift when compared study dated 12/22/2018. Signed: Conner Proctor Verified Date/Time: 12/24/2018 03:07:47 Reading Location: [address] Reading Room Electronically signed by: CONNER PROCTOR MD on 2018 03:07 AMPOCT-GLUCOSE [id number] 22:00:00 Test Item Value Reference Range Comments POC-GLUCOSE METER (BEAKER) 186 mg/dL 70-110 TESTED AT [address] (test ermw=4396) [facility] [address] POCT-GLUCOSE [id number] 21:49:00 Test Item Value Reference Range Comments POC-GLUCOSE METER (BEAKER) 137 mg/dL 70-110 TESTED AT [address] (test iirp=3419) [facility] [id number] TISSUE [id number] 18:03:00Surgical Pathology Report Case: [id number] Authorizing Provider: Oswaldo Hu MD Collected: 12/21/2018 1532 Ordering Location: [place] [address] ICU Received: 2018 0801 Pathologist: Ad Carlson MD Specimen: Soft Tissue, Other, left subdural clot BRAIN, SUBDURAL REGION, LEFT, CRANIOTOMY AND EVACUATION:GRANULATION TISSUE AND FIBRIN, CONSISTENT WITH ORGANIZING HEMATOMA Signing Pathologist Direct Phone Line: [phone] signed by Ad Carlson MD on 12/23/2018 at 6:03 [id number] subdural hematoma Left subdural clotThe specimen is receivedin a formalin-filled container labeled with the patient's information and labeled "left subdural clot" and consists of three fragments of red-brown soft tissue measuring 0.5 to 0.6 cm, submitted entirely in A1. CG/ew PerformedPOCT-GLUCOSE [id number] 12:15:00 Test Item Value Reference Range Comments POC-GLUCOSE METER (BEAKER) 154 mg/dL 70-110 TESTED AT [address] (test swdw=8162) [facility] [address] POCT-GLUCOSE [id number] 08:25:00 Test Item Value Reference Range Comments POC-GLUCOSE METER (BEAKER) 109 mg/dL 70-110 TESTED AT [address] (test ldmw=6566) [facility] [id number] CBC W/PLT COUNT & AUTO [id number] 03:51:00 Test Item Value Reference Range Comments WHITE BLOOD CELL COUNT (BEAKER) (test vziw=041) 10.2 K/ L 3.5-10.5 RED BLOOD CELL COUNT (BEAKER) (test vvjn=117) 3.65 M/ L 3.93-5.22 HEMOGLOBIN (BEAKER) (test cnnz=306) 10.2 GM/DL 11.2-15.7 HEMATOCRIT (BEAKER) (test srua=582) 32.2 % 34.1-44.9 MEAN CORPUSCULAR VOLUME (BEAKER) (test nbqf=488) 88.2 fL 79.4-94.8 MEAN CORPUSCULAR HEMOGLOBIN (BEAKER) (test 27.9 pg 25.6-32.2 wfdo=046) MEAN CORPUSCULAR HEMOGLOBIN CONC (BEAKER) (test 31.7 GM/DL 32.2-35.5 oeow=430) RED CELL DISTRIBUTION WIDTH (BEAKER) (test 18.0 % 11.7-14.4 zqgt=921) PLATELET COUNT (BEAKER) (test blqo=264) 543 K/CU MM 150-450 MEAN PLATELET VOLUME (BEAKER) (test ceys=392) 10.3 fL 9.4-12.3 NUCLEATED RED BLOOD CELLS (BEAKER) (test 0 /100 WBC 0-0 otcd=217) NEUTROPHILS RELATIVE PERCENT (BEAKER) (test 75 % mjsf=886) LYMPHOCYTES RELATIVE PERCENT (BEAKER) (test 12 % taqm=789) MONOCYTES RELATIVE PERCENT (BEAKER) (test 9 % xojx=685) EOSINOPHILS RELATIVE PERCENT (BEAKER) (test 4 % soyg=790) BASOPHILS RELATIVE PERCENT (BEAKER) (test 1 % veiu=740) NEUTROPHILS ABSOLUTE COUNT (BEAKER) (test 7.56 K/ L 1.56-6.13 omak=502) LYMPHOCYTES ABSOLUTE COUNT (BEAKER) (test 1.19 K/ L 1.18-3.74 mrpv=080) MONOCYTES ABSOLUTE COUNT (BEAKER) (test 0.95 K/ L 0.24-0.36 kggd=473) EOSINOPHILS ABSOLUTE COUNT (BEAKER) (test 0.37 K/ L 0.04-0.36 jdjf=051) BASOPHILS ABSOLUTE COUNT (BEAKER) (test 0.05 K/ L 0.01-0.08 pyom=814) IMMATURE GRANULOCYTES-RELATIVE PERCENT (BEAKER) 0 % 0-1 (test jcuj=5456) BASIC METABOLIC [id number] 03:47:00 Test Item Value Reference Range Comments SODIUM (BEAKER) (test 135 meq/L 136-145 zvpw=538) POTASSIUM (BEAKER) (test 3.8 meq/L 3.5-5.1 mrvy=949) CHLORIDE (BEAKER) (test 104 meq/L 98-107 vhzr=136) CO2 (BEAKER) (test 23 meq/L 22-29 tdwy=684) BLOOD UREA NITROGEN 5 mg/dL 7-21 (BEAKER) (test sxhg=003) CREATININE (BEAKER) (test 0.68 mg/dL 0.57-1.25 qslq=168) GLUCOSE RANDOM (BEAKER) 118 mg/dL 70-105 (test sdpn=992) CALCIUM (BEAKER) (test 8.8 mg/dL 8.4-10.2 nueh=074) EGFR (BEAKER) (test 89 mL/min/1.73 sq m ESTIMATED GFR IS NOT sbtb=9471) ACCURATE CREATININE CLEARANCE IN PREDICTING GLOMERULAR FILTRATION RATE. ESTIMATED GFR IS NOT APPLICABLE FOR DIALYSIS PATIENTS. POCT-GLUCOSE [id number] 01:02:00 Test Item Value Reference Range Comments POC-GLUCOSE METER (BEAKER) 82 mg/dL 70-110 TESTED AT [address] (test sdrq=3335) [place] [address] POCT-GLUCOSE [id number] 19:58:00 Test Item Value Reference Range Comments POC-GLUCOSE METER (BEAKER) 75 mg/dL 70-110 TESTED AT [address] (test jitc=7971) [place] [address] BASIC METABOLIC [id number] 13:29:00 Test Item Value Reference Range Comments SODIUM (BEAKER) (test 134 meq/L 136-145 kflb=458) POTASSIUM (BEAKER) (test 3.9 meq/L 3.5-5.1 Specimen slightly xcsx=586) hemolyzed CHLORIDE (BEAKER) (test 107 meq/L 98-107 ytbq=547) CO2 (BEAKER) (test 19 meq/L 22-29 ufqk=446) BLOOD UREA NITROGEN 5 mg/dL 7-21 (BEAKER) (test gqfj=665) CREATININE (BEAKER) (test 0.61 mg/dL 0.57-1.25 Specimen slightly shkb=826) hemolyzed GLUCOSE RANDOM (BEAKER) 87 mg/dL 70-105 (test jglk=515) CALCIUM (BEAKER) (test 7.4 mg/dL 8.4-10.2 lulb=340) EGFR (BEAKER) (test 100 mL/min/1.73 sq m ESTIMATED GFR IS NOT essv=2931) ACCURATE CREATININE CLEARANCE IN PREDICTING GLOMERULAR FILTRATION RATE. ESTIMATED GFR IS NOT APPLICABLE FOR DIALYSIS PATIENTS. POCT-GLUCOSE [id number] 12:37:00 Test Item Value Reference Range Comments POC-GLUCOSE METER (BEAKER) 85 mg/dL 70-110 TESTED AT [address] (test mwwg=5215) [place] [address] [id number] 08:07:00 Test Item Value Reference Range Comments PROTIME (BEAKER) (test wtsc=952) 13.1 seconds 11.7-14.7 INR (BEAKER) (test ejrz=765) 1.0 <=5.9 PARTIAL THROMBOPLASTIN TIME (BEAKER) (test 35.5 seconds 22.5-36.0 yhno=865) RECOMMENDED COUMADIN/WARFARIN INR THERAPY RANGESSTANDARD DOSE: 2.0 - 3.0 Includes: PROPHYLAXIS forvenous thrombosis, systemic embolization; TREATMENT for venous thrombosis and/or pulmonary embolus.HIGH RISK: Target INR is 2.5-3.5 for patients with mechanical heart valves.POCT-GLUCOSE [id number] 06:58:00 Test Item Value Reference Range Comments POC-GLUCOSE METER (BEAKER) 87 mg/dL 70-110 TESTED AT [facility] [address] [facility] (test zwdp=0647) [facility] [address] CT, BRAIN, WITHOUT [id number] 06:57:00FINAL REPORT CT, BRAIN, WITHOUT CONTRAST CLINICAL INDICATION: Post hemicraniectomy COMPARISON: December 21, 2018 TECHNIQUE: Noncontrast axial CT imaging of the brain and skull. DOSE REDUCTION: Dose modulation, iterative reconstruction, and/or weight-based adjustment of the mA/kV was utilized to reduce the radiation dose to as low as reasonably achievable. FINDINGS:Interval drainage of previously described left cerebral convexity subdural hematoma placement subdural catheter. Decreased extra-axial fluid with residual fluid measuring up to 10 mm. There is decreased mass effect with resolution of subfalcine herniation and decreased midline shift, 8 mm on current exam (formerly 15 mm). No new intracranial hemorrhage. No hydrocephalus. Orbits are within normal limits. Right sphenoid sinus is nearly opacified. Sphenoid outflow tract is clear. Remainder of the paranasal sinuses are predominantly clear. IMPRESSION: Decreased mass effect and decreased midline shift status post drainage of left cerebral convexity subdural hematoma. Signed: Jose Ryan MDReport Verified Date/Time: 12/22/2018 06:57:56 Reading Location: [address] Neuro Reading Room 06: 57 AMBASIC METABOLIC [id number] 04:23:00 Test Item Value Reference Range Comments SODIUM (BEAKER) (test 134 meq/L 136-145 jjop=123) POTASSIUM (BEAKER) (test 4.3 meq/L 3.5-5.1 npon=643) CHLORIDE (BEAKER) (test 106 meq/L 98-107 unte=278) CO2 (BEAKER) (test 19 meq/L 22-29 lbsv=742) BLOOD UREA NITROGEN 7 mg/dL 7-21 (BEAKER) (test fdga=098) CREATININE (BEAKER) (test 0.64 mg/dL 0.57-1.25 uzcf=774) GLUCOSE RANDOM (BEAKER) 77 mg/dL 70-105 (test zlcn=728) CALCIUM (BEAKER) (test 8.2 mg/dL 8.4-10.2 mvrx=098) EGFR (BEAKER) (test 95 mL/min/1.73 sq m ESTIMATED GFR IS NOT yuiy=8061) ACCURATE CREATININE CLEARANCE IN PREDICTING GLOMERULAR FILTRATION RATE. ESTIMATED GFR IS NOT APPLICABLE FOR DIALYSIS PATIENTS. CBC W/PLT COUNT & AUTO [id number] 04:19:00 Test Item Value Reference Range Comments WHITE BLOOD CELL COUNT (BEAKER) (test rsci=869) 8.6 K/ L 3.5-10.5 RED BLOOD CELL COUNT (BEAKER) (test ktzc=260) 3.42 M/ L 3.93-5.22 HEMOGLOBIN (BEAKER) (test posn=469) 9.6 GM/DL 11.2-15.7 HEMATOCRIT (BEAKER) (test kewd=100) 30.3 % 34.1-44.9 MEAN CORPUSCULAR VOLUME (BEAKER) (test crgm=088) 88.6 fL 79.4-94.8 MEAN CORPUSCULAR HEMOGLOBIN (BEAKER) (test 28.1 pg 25.6-32.2 vkbx=349) MEAN CORPUSCULAR HEMOGLOBIN CONC (BEAKER) (test 31.7 GM/DL 32.2-35.5 ewlu=000) RED CELL DISTRIBUTION WIDTH (BEAKER) (test 18.3 % 11.7-14.4 fqff=966) PLATELET COUNT (BEAKER) (test inbv=821) 513 K/CU MM 150-450 MEAN PLATELET VOLUME (BEAKER) (test bvuo=356) 10.0 fL 9.4-12.3 NUCLEATED RED BLOOD CELLS (BEAKER) (test 0 /100 WBC 0-0 ydfl=425) NEUTROPHILS RELATIVE PERCENT (BEAKER) (test 69 % pbyc=505) LYMPHOCYTES RELATIVE PERCENT (BEAKER) (test 17 % liuk=833) MONOCYTES RELATIVE PERCENT (BEAKER) (test 9 % hsiq=057) EOSINOPHILS RELATIVE PERCENT (BEAKER) (test 3 % ipdc=344) BASOPHILS RELATIVE PERCENT (BEAKER) (test 1 % scye=774) NEUTROPHILS ABSOLUTE COUNT (BEAKER) (test 5.94 K/ L 1.56-6.13 mtvv=268) LYMPHOCYTES ABSOLUTE COUNT (BEAKER) (test 1.48 K/ L 1.18-3.74 tpja=517) MONOCYTES ABSOLUTE COUNT (BEAKER) (test 0.81 K/ L 0.24-0.36 oktw=675) EOSINOPHILS ABSOLUTE COUNT (BEAKER) (test 0.28 K/ L 0.04-0.36 dejh=307) BASOPHILS ABSOLUTE COUNT (BEAKER) (test 0.07 K/ L 0.01-0.08 axgk=158) IMMATURE GRANULOCYTES-RELATIVE PERCENT (BEAKER) 0 % 0-1 (test erls=0362) POCT-GLUCOSE [id number] 03:51:00 Test Item Value Reference Range Comments POC-GLUCOSE METER (BEAKER) 87 mg/dL 70-110 TESTED AT [address] (test eaqn=5835) [place] [id number] POCT-GLUCOSE [id number] 17:54:00 Test Item Value Reference Range Comments POC-GLUCOSE METER (BEAKER) 83 mg/dL 70-110 TESTED AT [address] (test ouua=2604) [place] [address] POCT-GLUCOSE [id number] 12:33:00 Test Item Value Reference Range Comments POC-GLUCOSE METER (BEAKER) 87 mg/dL 70-110 TESTED AT [address] (test bbqp=9675) [place] [id number] POCT-GLUCOSE [id number] 07:50:00 Test Item Value Reference Range Comments POC-GLUCOSE METER (BEAKER) 84 mg/dL 70-110 TESTED AT [address] (test agwg=1225) [place] [address] POCT-GLUCOSE [id number] 06:16:00 Test Item Value Reference Range Comments POC-GLUCOSE METER (BEAKER) 79 mg/dL 70-110 TESTED AT [address] (test wome=0617) [place] [address] [id number] 03:54:00 Test Item Value Reference Range Comments PHOSPHORUS (BEAKER) (test xvlc=334) 3.0 mg/dL 2.3-4.7 Once on admission and Daily AM afterwardsOnce on admission and Daily AM afterwardsOnce on admission and Daily AM [id number] 03:54:00 Test Item Value Reference Range Comments MAGNESIUM (BEAKER) (test jpse=688) 1.7 mg/dL 1.6-2.6 Once on admission and Daily AM afterwardsOnce on admission and Daily AM afterwardsOnce on admission and Daily AM afterwardsBASIC METABOLIC [id number] 03:54:00 Test Item Value Reference Range Comments SODIUM (BEAKER) (test 137 meq/L 136-145 hxci=987) POTASSIUM (BEAKER) (test 3.9 meq/L 3.5-5.1 gfjq=125) CHLORIDE (BEAKER) (test 104 meq/L 98-107 thie=876) CO2 (BEAKER) (test 24 meq/L 22-29 ymhw=153) BLOOD UREA NITROGEN 10 mg/dL 7-21 (BEAKER) (test wjsn=448) CREATININE (BEAKER) (test 0.65 mg/dL 0.57-1.25 gcyy=713) GLUCOSE RANDOM (BEAKER) 77 mg/dL 70-105 (test ynzs=764) CALCIUM (BEAKER) (test 9.7 mg/dL 8.4-10.2 ahjt=186) EGFR (BEAKER) (test 93 mL/min/1.73 sq m ESTIMATED GFR IS NOT jgkg=6025) ACCURATE CREATININE CLEARANCE IN PREDICTING GLOMERULAR FILTRATION RATE. ESTIMATED GFR IS NOT APPLICABLE FOR DIALYSIS PATIENTS. Once on admission and Daily AM afterwardsOnce on admission and Daily AM afterwardsOnce on admission and Daily AM afterwardsCBC W/PLT COUNT & AUTO [id number] 03:36:00 Test Item Value Reference Range Comments WHITE BLOOD CELL COUNT (BEAKER) (test cwlo=670) 10.9 K/ L 3.5-10.5 RED BLOOD CELL COUNT (BEAKER) (test yftv=191) 3.77 M/ L 3.93-5.22 HEMOGLOBIN (BEAKER) (test fhpp=793) 10.5 GM/DL 11.2-15.7 HEMATOCRIT (BEAKER) (test fxis=885) 32.9 % 34.1-44.9 MEAN CORPUSCULAR VOLUME (BEAKER) (test fpex=184) 87.3 fL 79.4-94.8 MEAN CORPUSCULAR HEMOGLOBIN (BEAKER) (test 27.9 pg 25.6-32.2 fvfi=684) MEAN CORPUSCULAR HEMOGLOBIN CONC (BEAKER) (test 31.9 GM/DL 32.2-35.5 dgxw=904) RED CELL DISTRIBUTION WIDTH (BEAKER) (test 18.2 % 11.7-14.4 gmqn=941) PLATELET COUNT (BEAKER) (test sopi=606) 581 K/CU MM 150-450 MEAN PLATELET VOLUME (BEAKER) (test mojz=120) 10.0 fL 9.4-12.3 NUCLEATED RED BLOOD CELLS (BEAKER) (test 0 /100 WBC 0-0 oyss=857) NEUTROPHILS RELATIVE PERCENT (BEAKER) (test 74 % ctem=831) LYMPHOCYTES RELATIVE PERCENT (BEAKER) (test 16 % hstl=952) MONOCYTES RELATIVE PERCENT (BEAKER) (test 8 % eynx=650) EOSINOPHILS RELATIVE PERCENT (BEAKER) (test 2 % vbqn=717) BASOPHILS RELATIVE PERCENT (BEAKER) (test 1 % wzbt=896) NEUTROPHILS ABSOLUTE COUNT (BEAKER) (test 8.10 K/ L 1.56-6.13 zpnx=142) LYMPHOCYTES ABSOLUTE COUNT (BEAKER) (test 1.72 K/ L 1.18-3.74 vjfx=054) MONOCYTES ABSOLUTE COUNT (BEAKER) (test 0.86 K/ L 0.24-0.36 wzlc=290) EOSINOPHILS ABSOLUTE COUNT (BEAKER) (test 0.16 K/ L 0.04-0.36 skgn=977) BASOPHILS ABSOLUTE COUNT (BEAKER) (test 0.06 K/ L 0.01-0.08 qbwp=965) IMMATURE GRANULOCYTES-RELATIVE PERCENT (BEAKER) 0 % 0-1 (test wtma=8370) CT, BRAIN, WITHOUT [id number] 01:21:00FINAL REPORT CT, BRAIN, WITHOUT CONTRAST CLINICAL INDICATION: Sub-dural hemorrhage COMPARISON: None TECHNIQUE: Noncontrast axial CT imaging of the brain and skull. DOSE REDUCTION: Dose modulation, iterative reconstruction, and/or weight -based adjustment of the mA/kV was utilized to reduce the radiation dose to as low as reasonably achievable. FINDINGS:Left frontal scalp contusion without subjacent calvarial fracture. 1.8 cm mixed density (isoattenuating and hypoattenuating) left cerebral convexity subdural hematoma with consequent subfalcine herniation, 1.4 cm rightward midline shift, and left uncal medialization. No hydrocephalus. Entrapment of the right lateral ventricle due to subfalcine herniation and midline shift. Orbits are within normal limits. No obstructive paranasal sinus disease. IMPRESSION: Subacute and chronic appearing left cerebral convexity subdural hematoma as per above. Neurosurgery has been consulted and is and aware of hematoma time of this dictation. Signed: Jose Ryan MDReport Verified Date/Time: 12/21/2018 01: 21:22 Reading Location: [address] Neuro Reading Room POCT-GLUCOSE [id number] 00:17:00 Test Item Value Reference Range Comments POC-GLUCOSE METER (BEAKER) 82 mg/dL 70-110 TESTED AT [address] (test gmbr=4216) [place] [address] POCT-GLUCOSE [id number] 18:53:00 Test Item Value Reference Range Comments POC-GLUCOSE METER (BEAKER) 101 mg/dL 70-110 TESTED AT [address] (test dagz=5066) [place] [address] [id number] 17:31:00 Test Item Value Reference Range Comments MAGNESIUM (BEAKER) (test 1.8 mg/dL 1.6-2.6 Specimen slightly hemolyzed fmjz=049) [id number] 17:31:00 Test Item Value Reference Range Comments PHOSPHORUS (BEAKER) (test 3.5 mg/dL 2.3-4.7 Specimen slightly hemolyzed tphf=123) BASIC METABOLIC [id number] 17:31:00 Test Item Value Reference Range Comments SODIUM (BEAKER) (test 137 meq/L 136-145 ejcv=210) POTASSIUM (BEAKER) (test 3.9 meq/L 3.5-5.1 Specimen slightly ajhv=137) hemolyzed CHLORIDE (BEAKER) (test 101 meq/L 98-107 xvhx=909) CO2 (BEAKER) (test 24 meq/L 22-29 xust=378) BLOOD UREA NITROGEN 11 mg/dL 7-21 (BEAKER) (test ehvr=039) CREATININE (BEAKER) (test 0.66 mg/dL 0.57-1.25 Specimen slightly huzo=137) hemolyzed GLUCOSE RANDOM (BEAKER) 102 mg/dL 70-105 (test teat=359) CALCIUM (BEAKER) (test 10.0 mg/dL 8.4-10.2 vpdq=122) EGFR (BEAKER) (test 92 mL/min/1.73 sq m ESTIMATED GFR IS NOT tkdp=0520) ACCURATE CREATININE CLEARANCE IN PREDICTING GLOMERULAR FILTRATION RATE. ESTIMATED GFR IS NOT APPLICABLE FOR DIALYSIS PATIENTS. HEPATIC FUNCTION [id number] 17:31:00 Test Item Value Reference Range Comments TOTAL PROTEIN (BEAKER) (test 7.5 gm/dL 6.0-8.3 Specimen slightly hemolyzed ucle=067) ALBUMIN (BEAKER) (test 3.8 g/dL 3.5-5.0 Specimen slightly hemolyzed tmta=3287) BILIRUBIN TOTAL (BEAKER) (test 0.7 mg/dL 0.2-1.2 Specimen slightly hemolyzed cxzc=778) BILIRUBIN DIRECT (BEAKER) (test 0.4 mg/dL 0.1-0.5 Specimen slightly hemolyzed ovcb=304) ALKALINE PHOSPHATASE (BEAKER) 74 U/L 40-150 (test advq=430) AST (SGOT) (BEAKER) (test 30 U/L 5-34 Specimen slightly hemolyzed tqtw=247) ALT (SGPT) (BEAKER) (test 15 U/L 6-55 Specimen slightly hemolyzed yxuf=698) PROTHROMBIN [id number] 17:24:00 Test Item Value Reference Range Comments PROTIME (BEAKER) (test ufub=723) 13.8 seconds 11.7-14.7 INR (BEAKER) (test zwhq=437) 1.1 <=5.9 RECOMMENDED COUMADIN/WARFARIN INR THERAPY RANGESSTANDARD DOSE: 2.0 - 3.0 Includes: PROPHYLAXIS forvenous thrombosis, systemic embolization; TREATMENT for venous thrombosis and/or pulmonary embolus.HIGH RISK: Target INR is 2.5-3.5 for patients with mechanical heart valves.[id number] 17:24:00 Test Item Value Reference Range Comments PARTIAL THROMBOPLASTIN TIME (BEAKER) (test 37.3 seconds 22.5-36.0 reao=266)
[2019-03-02 16:36] LABS: Absolute Lymphocytes (CBC) 2.4 K/uL (0.7-4.9); Absolute Monocytes 0.7 K/uL (0.1-1.3); Absolute Neutrophil 4.2 K/uL (1.8-8.0); Basophils % 1.9 % (0-1.3); Eosinophils % 2.7 % (0-4.4); Hematocrit 30.5 % (36.0-45.0); Lymphocytes % 31.9 % (15.3-44.8); MPV 8.1 fL (7.6-11.3); Monocytes % 8.7 % (3.3-12.3); RBC Red Blood Cell Count 3.65 M/uL (3.86-4.86)
[2019-03-02] MEDS ORDERED: NA CHLORIDE 0.9% 1,000 ML ONE (16:39)
[2019-03-02 16:45] LABS: Magnesium 2.1 mg/dL (1.8-2.4); Phosphorus 3.5 mg/dL (2.5-4.9); Potassium 3.8 mmol/L (3.5-5.1)
[2019-03-02 17:07] LABS: ALT/SGPT 26 U/L (12-78); AST/SGOT 32 U/L (15-37); Alkaline Phosphatase 95 U/L (45-117); Bilirubin Direct < 0.1 mg/dL (0-0.2); Bilirubin Total 0.2 mg/dL (0.2-1.0); Protein, Total 8.1 g/dL (6.4-8.2)
--- NOTE | 2019-03-02 17:21 | ER ---
Nurse's Notes [facility] Name: Julissa Hicks Age: 58 yrs Sex: Female : 1960 Arrival Date: 03/02/2019 Time: 15:57 Bed 20 Private MD: Diagnosis: Abnormal weight loss;Aphagia and dysphagia Presentation: 03/02 15:59 Presenting complaint: Patient states: I was sent here for a PEG tube placement by Dr. derek Medina. Transition of care: patient was not received from another setting of care. Onset of symptoms was March 02, 2019. Risk Assessment: Do you want to hurt yourself or someone else? Patient reports no desire to harm self or others. Initial Sepsis Screen: Does the patient meet any 2 criteria? No. Patient's initial sepsis screen is negative. Does the patient have a suspected source of infection? No. Patient's initial sepsis screen is negative. Care prior to arrival: None. 15:59 Method Of Arrival: Ambulatory la1 15:59 Acuity: KHOA 3 la1 Triage Assessment: 16:03 General: Appears in no apparent distress. uncomfortable, Behavior is calm, cooperative, hj appropriate for age. 16:07 Pain: Denies pain. hj Historical: - Allergies: 16:00 No Known Allergies; la1 - Home Meds: 16:09 gabapentin 600 mg Oral tab twice a day [Active]; GlycoLax 17 gram/dose Oral powd once hj daily [Active]; Hydromorphone Oral [Active]; Mylanta Double-Strength Oral 30 mL every 6 hours [Active]; Senokot 8.6 mg Oral tab 2 tabs twice a day [Active]; tramadol 50 mg Oral tab every 4 hours [Active]; - PMHx: 16:00 ADD/ADHD; COPD; malignant neoplasm of larynx; subarachnoid bleed; la1 - PSHx: 16:09 Tracheostomy; hj - Immunization history:: Adult Immunizations up to date. - Social history:: Smoking status: unknown. - Ebola Screening: : No symptoms or risks identified at this time. Screenin:03 Abuse screen: Denies threats or abuse. Denies injuries from another. Nutritional hj screening: No deficits noted. Tuberculosis screening: No symptoms or risk factors identified. Fall Risk None identified. Assessment: 16:09 General: Appears in no apparent distress. uncomfortable, slender, Behavior is hj cooperative, appropriate for age, anxious. Pain: Denies pain. Neuro: Level of Consciousness is awake, alert, obeys commands, Oriented to person, place, time, situation, Appropriate for age. Cardiovascular: Capillary refill < 3 seconds Patient's skin is warm and dry. Respiratory: Airway via trache Respiratory effort is even, unlabored, Respiratory pattern is regular, symmetrical. GI: No signs and/or symptoms were reported involving the gastrointestinal system. : No signs and/or symptoms were reported regarding the genitourinary system. EENT: EENT: Throat with trach;. Derm: No signs and/or symptoms reported regarding the dermatologic system. Musculoskeletal: No signs and/or symptoms reported regarding the musculoskeletal system. 17:55 Reassessment: Patient and/or family updated on plan of care and expected duration. Pain hj level reassessed. Patient is alert, oriented x 3, equal unlabored respirations, skin warm/dry/pink. awaiting room placement; hospitalist in room;. 18:20 Reassessment: Patient and/or family updated on plan of care and expected duration. Pain hj level reassessed. Patient is alert, oriented x 3, equal unlabored respirations, skin warm/dry/pink. awaiting room placement;. 18:37 Reassessment: Patient and/or family updated on plan of care and expected duration. Pain hj level reassessed. Patient is alert, oriented x 3, equal unlabored respirations, skin warm/dry/pink. Patient states feeling better. Patient states symptoms have improved. 19:56 General: Appears in no apparent distress. uncomfortable, slender, Behavior is calm, ed1 cooperative. Pain: Denies pain. Neuro: Level of Consciousness is awake, alert, obeys commands, Oriented to person, place, time, situation. Cardiovascular: Denies chest pain, Heart tones S1 S2 present. Respiratory: Airway is patent Respiratory effort is even, unlabored, Respiratory pattern is regular, symmetrical, Breath sounds are clear bilaterally. GI: Parent/caregiver reports the patient having pt vomiting, sent here for PEG tube placement. : No signs and/or symptoms were reported regarding the genitourinary system. Derm: Skin is fragile, is thin, with poor turgor Skin is dry, Skin is normal, Skin temperature is warm. Musculoskeletal: Circulation, motion, and sensation intact. Range of motion: intact in all extremities. Vital Signs: 16:00 Pulse 75; Resp 16; Temp 98.2; Pulse Ox 96% on R/A; Weight 47.17 kg; Height 5 ft. 3 in. la1 (160.02 cm); Pain 0/10; 16:02 BP 129 / 80; la1 16:10 BP 126 / 81; Pulse 80; Resp 18; Pulse Ox 100% on R/A; hj 17:08 BP 107 / 75; Pulse 78; Resp 18; Pulse Ox 100% on R/A; hj 17:56 BP 112 / 64; Pulse 75; Resp 18; Pulse Ox 100% on R/A; hj 18:20 BP 119 / 68; Pulse 74; Resp 18; Pulse Ox 98% on R/A; hj 18:37 BP 115 / 60; Pulse 77; Resp 18; Pulse Ox 99% on R/A; hj 19:56 BP 124 / 67; Pulse 77; Resp 18; Temp 97.3(TE); Pulse Ox 99% on R/A; Pain 4/10; ed1 16:00 Body Mass Index 18.42 (47.17 kg, 160.02 cm) la1 ED Course: 15:57 Patient arrived in ED. mr 15:59 Triage completed. la1 16:00 Arm band placed on left wrist. la1 16:02 Alpesh Ordonez, SONU is Primary Nurse. hj 16:03 Patient has correct armband on for positive identification. Placed in gown. Bed in low hj position. Call light in reach. Side rails up X 1. Adult w/ patient. 16:04 Neto Craig NP is PHCP. pm1 16:04 Grant Paul MD is Attending Physician. pm1 16:20 Initial lab(s) drawn, by md, sent to lab. Inserted saline lock: 22 gauge in right hj antecubital area, using aseptic technique. Blood collected. 17:18 Stephen Eller DO is Hospitalizing Provider. pm1 19:06 Primary Nurse role handed off by Alpesh Ordonez, SONU ed1 19:06 María Mckee RN is Primary Nurse. ed1 21:00 No provider procedures requiring assistance completed. Patient admitted, IV remains in ed1 place. intact, No redness/swelling at site. Administered Medications: 16:30 Drug: NS 0.9% 1000 ml Route: IV; Rate: 100 ml/hr; Site: right antecubital; 17:45 Follow up: IV Status: Infusion continued upon admission hj 21:00 Follow up: IV Status: Infusion continued upon admission ed1 17:44 Drug: morphine 2 mg Route: IVP; Site: right antecubital; 17:50 Follow up: Response: No adverse reaction; Pain is decreased Outcome: 17:20 Decision to Hospitalize by Provider. pm1 21:00 Admitted to Med/surg accompanied by tech, via stretcher, with chart, Report called to ed1 SONU Barron 21:00 Condition: stable 21:00 Discharge instructions given to patient, Instructed on the need for admit, Demonstrated understanding of instructions. 21:01 Patient left the ED. ed1 Signatures: Rozina Montana Erika RN RN ed1 Hollis Palafox RN RN la1 Alpesh Ordonez RN RN eNto Craig, FEEDMOBILE DRIVER FEEDMOBILE DRIVER pm1 Corrections: (The following items were deleted from the chart) 18:38 18:20 BP 119 / 68; Pulse 74bpm; Resp 18bpm; Pulse Ox 98% 2 lpm Nasal Cannula; [facility]
--- NOTE | 2019-03-02 17:22 | EDPHYS ---
Physician Documentation [facility] Name: Julissa Hicks Age: 58 yrs Sex: Female : 1960 Arrival Date: 03/02/2019 Time: 15:57 Bed 20 Private MD: ED Physician Grant Paul HPI: 03/02 16:14 This 58 yrs old Female presents to ER via Ambulatory with complaints of PEG pm1 Tube Placement. 16:14 Patient here for admission to the hospital for placement of PEG tube. 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 Patient is able to drink and eat a little bit but has been having weight loss and vomiting due to stricture. Patient was evaluated by Dr. Zendejas who attempted to perform a EGD but was not able to see past the larynx due to stricture. Patient saw Dr. Medina yesterday who offered PEG tube placement. Historical: - Allergies: 16:00 No Known Allergies; la1 - Home Meds: 16:09 gabapentin 600 mg Oral tab twice a day [Active]; GlycoLax 17 gram/dose Oral powd once hj daily [Active]; Hydromorphone Oral [Active]; Mylanta Double-Strength Oral 30 mL every 6 hours [Active]; Senokot 8.6 mg Oral tab 2 tabs twice a day [Active]; tramadol 50 mg Oral tab every 4 hours [Active]; - PMHx: 16:00 ADD/ADHD; COPD; malignant neoplasm of larynx; subarachnoid bleed; la1 - PSHx: 16:09 Tracheostomy; hj - Immunization history:: Adult Immunizations up to date. - Social history:: Smoking status: unknown. - Ebola Screening: : No symptoms or risks identified at this time. ROS: 16:14 Eyes: Negative for injury, pain, redness, and discharge, ENT: Negative for injury, pm1 pain, and discharge, Neck: Negative for injury, pain, and swelling, Cardiovascular: Negative for chest pain, palpitations, and edema, Respiratory: Negative for shortness of breath, cough, wheezing, and pleuritic chest pain. 16:14 Back: Negative for injury and pain, : Negative for injury, bleeding, discharge, and swelling, MS/Extremity: Negative for injury and deformity, Skin: Negative for injury, rash, and discoloration, Neuro: Negative for headache, weakness, numbness, tingling, and seizure. 16:14 Constitutional: Positive for weight loss, Negative for body aches, chills, fever. 16:14 Abdomen/GI: Positive for occasional vomiting with eating, Negative for abdominal pain, diarrhea, constipation. Exam: 16:15 Head/Face: Normocephalic, atraumatic. Eyes: Pupils equal round and reactive to light, pm1 extra-ocular motions intact. Lids and lashes normal. Conjunctiva and sclera are non-icteric and not injected. Cornea within normal limits. Periorbital areas with no swelling, redness, or edema. ENT: Nares patent. No nasal discharge, no septal abnormalities noted. Tympanic membranes are normal and external auditory canals are clear. Oropharynx with no redness, swelling, or masses, exudates, or evidence of obstruction, uvula midline. Mucous membranes moist. 16:15 Chest/axilla: Normal chest wall appearance and motion. Nontender with no deformity. No lesions are appreciated. Cardiovascular: Regular rate and rhythm with a normal S1 and S2. No gallops, murmurs, or rubs. Normal PMI, no JVD. No pulse deficits. Respiratory: Lungs have equal breath sounds bilaterally, clear to auscultation and percussion. No rales, rhonchi or wheezes noted. No increased work of breathing, no retractions or nasal flaring. Abdomen/GI: Soft, non-tender, with normal bowel sounds. No distension or tympany. No guarding or rebound. No evidence of tenderness throughout. Back: No spinal tenderness. No costovertebral tenderness. Full range of motion. Skin: Warm, dry with normal turgor. Normal color with no rashes, no lesions, and no evidence of cellulitis. MS/ Extremity: Pulses equal, no cyanosis. Neurovascular intact. Full, normal range of motion. 16:15 Constitutional: The patient appears in no acute distress, alert, awake, comfortable, non-diaphoretic, non-toxic, well developed, well groomed, emaciated. 16:15 Neck: Trachea: tracheostomy present. ROM/movement: is normal. 16:15 Neuro: Orientation: is normal, Motor: moves all fours. Vital Signs: 16:00 Pulse 75; Resp 16; Temp 98.2; Pulse Ox 96% on R/A; Weight 47.17 kg; Height 5 ft. 3 in. la1 (160.02 cm); Pain 0/10; 16:02 BP 129 / 80; la1 16:10 BP 126 / 81; Pulse 80; Resp 18; Pulse Ox 100% on R/A; hj 17:08 BP 107 / 75; Pulse 78; Resp 18; Pulse Ox 100% on R/A; hj 17:56 BP 112 / 64; Pulse 75; Resp 18; Pulse Ox 100% on R/A; hj 18:20 BP 119 / 68; Pulse 74; Resp 18; Pulse Ox 98% on R/A; hj 18:37 BP 115 / 60; Pulse 77; Resp 18; Pulse Ox 99% on R/A; hj 19:56 BP 124 / 67; Pulse 77; Resp 18; Temp 97.3(TE); Pulse Ox 99% on R/A; Pain 4/10; ed1 16:00 Body Mass Index 18.42 (47.17 kg, 160.02 cm) la1 MDM: 16:05 Patient medically screened. pm1 16:22 Data reviewed: vital signs. Data interpreted: Pulse oximetry: on room air is 100 %. pm1 Interpretation: normal. 17:18 Counseling: I had a detailed discussion with the patient and/or guardian regarding: the pm1 historical points, exam findings, and any diagnostic results supporting the discharge/admit diagnosis, lab results, the need for further work-up and treatment in the hospital. 03/02 16:13 Order name: Basic Metabolic Panel pm1 03/02 16:13 Order name: CBC with Diff; Complete Time: 16:55 pm1 03/02 16:13 Order name: Magnesium; Complete Time: 16:55 pm1 03/02 16:13 Order name: Phosphorus; Complete Time: 16:55 pm1 03/02 16:14 Order name: Basic Metabolic Panel; Complete Time: 16:55 EDMS 03/02 16:28 Order name: LFT's; Complete Time: 17:14 pm1 03/02 16:13 Order name: IV Saline Lock; Complete Time: 16:24 pm1 03/02 16:13 Order name: Labs collected and sent; Complete Time: 16:24 pm1 03/02 17:44 Order name: NPO; Complete Time: 17:45 pm1 Administered Medications: 16:30 Drug: NS 0.9% 1000 ml Route: IV; Rate: 100 ml/hr; Site: right antecubital; 17:45 Follow up: IV Status: Infusion continued upon admission hj 21:00 Follow up: IV Status: Infusion continued upon admission ed1 17:44 Drug: morphine 2 mg Route: IVP; Site: right antecubital; 17:50 Follow up: Response: No adverse reaction; Pain is decreased Disposition: 03/02/19 17:20 Hospitalization ordered by Stephen Eller for Observation. Preliminary diagnosis are Aphagia and dysphagia, Abnormal weight loss. - Bed requested for Telemetry/MedSurg (observation). - Status is Observation. ed1 - Condition is Stable. - Problem is new. - Symptoms have improved. UTI on Admission? No Addendum: 03/07/2019 07:57 Co-signature as Attending Physician, Grant Paul MD. r n Signatures: Dispatcher [employer] EDMS Grant Paul MD MD rn Martinez, Eric em1 María Mckee RN RN ed1 Hollis Palafox RN RN la1 Alpesh Ordonez RN RN Neto Craig, GREASE REFINING SUPERVISOR GREASE REFINING SUPERVISOR pm1 Corrections: (The following items were deleted from the chart) 03/02 18:56 17:20 Hospitalization Ordered by Stephen Eller DO for Observation. Preliminary em1 diagnosis is Aphagia and dysphagiaAbnormal weight loss. Bed requested for Telemetry/MedSurg (observation). Status is Observation. Condition is Stable. Problem is new. Symptoms have improved. UTI on Admission? No. pm1 21:01 18:56 03/02/2019 17:20 Hospitalization Ordered by Stephen Eller DO for Observation. ed1 Preliminary diagnosis is Aphagia and dysphagiaAbnormal weight loss. Bed requested for Telemetry/MedSurg (observation). Status is Observation. Condition is Stable. Problem is new. Symptoms have improved. UTI on Admission? No. em1
[2019-03-02] MEDS ORDERED: MORPHINE 2 MG/ML SYR ONE (18:02)
--- NOTE | 2019-03-02 18:14 | P.HP ---
Certification for Inpatient Patient admitted to: Inpatient With expected LOS: >2 Midnights Patient will require the following post-hospital care: Other ([facility] placement) Practitioner: I am a practitioner with admitting privileges, knowledge of patient current condition, hospital course, and medical plan of care. Services: Services provided to patient in accordance with Admission requirements found in Title 42 Section 412.3 of the Code of Federal Regulations Patient History Date of Service: 03/02/19 Primary Care Provider: [facility] physician Reason for admission: Dysphagia, malnutrition History of Present Illness: 58-year-old female presented to the emergency room from the assisted due to malnutrition and dysphagia. Information came from the ER physician and surgeon. Patient with history of cancer of the larynx, COPD, GERD and recent subarachnoid bleed in December of 2018. Since that time patient has been having worsening dysphagia and malnutrition. Patient has had failure to thrive. Patient has had poor oral intake and decreasing weight. Early this week patient had EGD by GI. GI was not able to pass the scope be on the lower next. GI recommended surgery evaluation for open PEG tube placement. Patient with trauma and abdominal surgery in the past. GI spoke to surgery concerning plan of care. Due to the worsening malnutrition and dysphagia patient was admitted for treatment. When I saw the patient in the ER, she appeared stable. CBC shows white count of 7.7. Hemoglobin 10. Sodium 138, potassium 3.8. GFR 63. Patient admitted for further evaluation and placement of PEG tube. 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 - Family History Father -: Cancer - Social History Smoking Status: Light Tobacco smoker (1-9 cigarettes/day) Counseled patient to stop smoking for: less than 10 minutes Smoking therapy provided: Yes Patient receptive to therapy: Yes Alcohol use: Yes CD- Drugs: No Caffeine use: Yes Place of Residence: [facility] Review of Systems General: Weakness, Malaise, As per HPI Eyes: Unremarkable Respiratory: As per HPI Cardiovascular: Unremarkable Gastrointestinal: As per HPI Genitourinary: Unremarkable Musculoskeletal: Unremarkable Integumentary: Unremarkable Neurological: As per HPI Lymphatics: Unremarkable Physical Examination - Physical Exam General: Alert, In no apparent distress, Oriented x3, Cooperative, Other ( Muscle wasting throughout the body.) HEENT: Atraumatic, Normocephalic, Other (Dry mucous membranes) Neck: Other (History of surgery to the larynx, voice box in place) Respiratory: Clear to auscultation bilaterally, Normal air movement Cardiovascular: Normal pulses, Regular rate/rhythm Gastrointestinal: Normal bowel sounds, Soft and benign, Non-distended, No tenderness, No masses, No rebound, No guarding Musculoskeletal: No erythema, No tenderness, No warmth Integumentary: No tenderness/swelling, No erythema, No warmth, No cyanosis Neurological: Normal speech, Normal strength at 5/5 x4 extr, Normal tone, Normal affect - Studies Laboratory Data (last 24 hrs) 03/02/19 16:20: Total Bilirubin 0.2, AST 32, ALT 26, Alkaline Phosphatase 95 03/02/19 16:20: WBC 7.7 D, Hgb 10.0 L, Hct 30.5 L, Plt Count 539 H 03/02/19 16:20: Sodium 138, Potassium 3.8, BUN 11, Creatinine 0.91, Glucose 98, Phosphorus 3.5, Magnesium 2.1 D Assessment and Plan - Plan Impression: Dysphagia, malnutrition, failure to thrive secondary to cancer of the larynx complicated due to unsuccessful endoscopic PEG tube placement COPD GERD Tobacco abuse Anemia of chronic disease History of subarachnoid bleed 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 Case discussed with surgery. Surgery has discuss case with GI. GI was not successful in placing endoscopic PEG tube. Due to failure to thrive, malnutrition and dysphagia patient will require open PEG tube placement. Patient with history of splenectomy due to trauma in the past. Surgery may be difficult. Will start IV fluids. Keep the patient NPO after midnight in preparation for surgery. Will continue with her COPD/GERD medication. Tobacco cessation addressed in detail. Will evaluate her anemia. Monitor lab closely. Will consult dietary for further recommendations as the patient will need to start PEG tube feeds after placement. Continue to monitor closely. Anticipate discharge in 5-7 days as per surgery. Discharge Plan: [facility] Plan to discharge in: Greater than 2 days - Advance Directives Does patient have a Living Will: No Does patient have a Durable POA for Healthcare: No - Code Status/Comfort Care Code Status Assessed: Yes (Patient is full code.) Time Spent Managing Pts Care (In Minutes): 55
[2019-03-02] MEDS ORDERED: IPRATROPIUM BROM 0.5MG/2.5ML NEB PRN (20:15)
[2019-03-02] MEDS ORDERED: ACETAMINOPHEN 500 MG TAB PO PRN (20:15)
[2019-03-02] MEDS ORDERED: ONDANSETRON 4 MG/2 ML VIAL IV PRN (20:15)
[2019-03-02] MEDS: ARFORMOTEROL TARTRATE 15 MCG/2 ML VIAL.NEB NEB SCH (20:15)
[2019-03-02] MEDS ORDERED: ACETAMINOPHEN 650MG/RECT SUPP RECT PRN (20:15)
[2019-03-02] MEDS ORDERED: TRAMADOL HCL 50 MG TAB PO PRN (20:15)
[2019-03-02] MEDS ORDERED: ALBUTEROL 2.5 MG/3 ML NEB SOL NEB PRN (20:15)
[2019-03-02] MEDS: GABAPENTIN 300 MG CAP PO SCH (21:00)
[2019-03-02 21:05] LABS: Thyroid Stimulating Hormone 86.3 uIU/mL (0.360-3.740)
[2019-03-02] MEDS: D5 0.9 NS 1,000 ML IV SCH (21:48)
[2019-03-02] MEDS: FAMOTIDINE 20 MG/2 ML VIAL IV SCH (21:49)
[2019-03-02] MEDS: MORPHINE 2 MG/ML SYR IV PRN (22:04)
[2019-03-02] MEDS ORDERED: LORAZEPAM 0.5 MG TABLET PO PRN (22:50)
[2019-03-03 01:33] LABS: Urine Appearance CLEAR; Urine Bilirubin NEGATIVE (NEG); Urine Blood NEGATIVE (NEG); Urine Color YELLOW; Urine Glucose NEGATIVE (NEG); Urine Microscopic Reflex NO UMIC; Urine Protein NEGATIVE (NEG); Urine Specific Gravity 1.015 (1.005-1.030); Urine Urobilinogen 0.2 mg/dL (0.2-1.0)
[2019-03-03 02:09] VITALS: BMI 18.6
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
[2019-03-03] MEDS: MORPHINE 2 MG/ML SYR IV PRN ×3 (03:50→20:28)
[2019-03-03 06:39] LABS: Absolute Lymphocytes (CBC) 1.8 K/uL (0.7-4.9); Absolute Monocytes 0.7 K/uL (0.1-1.3); Absolute Neutrophil 6.4 K/uL (1.8-8.0); Basophils % 0.8 % (0-1.3); Eosinophils % 2.5 % (0-4.4); Hematocrit 32.3 % (36.0-45.0); Lymphocytes % 19.6 % (15.3-44.8); MPV 8.3 fL (7.6-11.3); Monocytes % 8.1 % (3.3-12.3); RBC Red Blood Cell Count 3.85 M/uL (3.86-4.86)
[2019-03-03 06:57] LABS: Albumin 3.8 g/dL (3.4-5.0); Bilirubin Total 0.3 mg/dL (0.2-1.0); Magnesium 1.9 mg/dL (1.8-2.4); Potassium 3.5 mmol/L (3.5-5.1); Protein, Total 7.9 g/dL (6.4-8.2)
[2019-03-03] MEDS ORDERED: KCL 20 MEQ/100 mL IVPB 20 MEQ/100 ML BAG IV SCH (08:00)
[2019-03-03] MEDS: ARFORMOTEROL TARTRATE 15 MCG/2 ML VIAL.NEB NEB SCH ×2 (08:08→20:10)
[2019-03-03] MEDS: NICOTINE 21 MG/PAT TD SCH (09:14)
[2019-03-03] MEDS: FAMOTIDINE 20 MG/2 ML VIAL IV SCH ×2 (09:15→20:32)
[2019-03-03] MEDS: GABAPENTIN 300 MG CAP PO SCH ×2 (09:15→20:35)
[2019-03-03] MEDS: HYDROCODONE/APAP 7.5/325 MG TAB PO PRN (09:15)
[2019-03-03] MEDS ORDERED: Ringers Lactate 1,000 ML IV ONE (10:08)
[2019-03-03] MEDS: D5 0.9 NS 1,000 ML IV SCH (10:42)
[2019-03-03] MEDS: LORazepam 2 MG/ML VIAL IV PRN ×2 (12:43→21:38)
--- NOTE | 2019-03-03 12:45 | EKG ---
Test Date: 2019-03-02 Test Time: 23:45:18 Time Signal Wirer: HEMA MEASUREMENT RESULTS: Intervals: Rate: 80 OK: 178 QRSD: 82 QT: 414 QTc: 477 [place]: P: 50 OK: 178 QRS: 57 T: 42 INTERPRETIVE STATEMENTS: Normal sinus rhythm Normal ECG Compared to ECG 12/20/2018 12:14:20 Ventricular premature complex(es) no longer present Electronically Signed On 03-03-19 12:44:13 CDT by Jalen Causey
--- NOTE | 2019-03-03 13:36 | P.PN ---
Subjective Date of Service: 03/03/19 Primary Care Provider: group home physician Chief Complaint: Dysphagia, malnutrition Subjective: Other (Doing well. After the patient was seen early this morning nurse report that the patient got out of bed and fell. This caused a skin tear to her left forearm. No evidence of trauma to head.) Physical Examination - Vital Signs Temperature: 97.4 F Blood Pressure: 123/80 Pulse: 80 Respirations: 16 Pulse Ox (%): 100 - Physical Exam General: Alert, In no apparent distress, Oriented x3, Cooperative HEENT: Atraumatic Neck: Supple Respiratory: Clear to auscultation bilaterally, Normal air movement Cardiovascular: Normal pulses, Regular rate/rhythm Musculoskeletal: Other (Large skin tear to the left forearm region) - Studies Laboratory Data (last 24 hrs) 03/02/19 16:20: Total Bilirubin 0.2, AST 32, ALT 26, Alkaline Phosphatase 95 03/02/19 16:20: WBC 7.7 D, Hgb 10.0 L, Hct 30.5 L, Plt Count 539 H 03/02/19 16:20: Sodium 138, Potassium 3.8, BUN 11, Creatinine 0.91, Glucose 98, Phosphorus 3.5, Magnesium 2.1 D Medications List Reviewed: Yes Assessment & Plan Discharge Plan: Skilled Nursing Plan to discharge in: Greater than 2 days Physician Review Additional Text: Impression: Dysphagia, malnutrition, failure to thrive secondary to cancer of the larynx complicated due to unsuccessful endoscopic PEG tube placement Fall with large skin tear to the left forearm COPD GERD Tobacco abuse Anemia of chronic disease History of subarachnoid bleed 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 Case discussed with surgery. Fall with large skin tear to the left forearm: Will have wound care evaluate and treat. Patient will likely need topical antibiotic and Tegaderm. Will obtain CT without contrast of head in light of her history of subarachnoid bleed. Patient appears normal. No trauma to head noted COPD: Continue medication GERD: Continue medication Tobacco abuse: Provide nicotine patch. Tobacco cessation addressed in detail. Anemia of chronic disease: Will monitor closely. History of subarachnoid bleed: Patient with fall. No trauma to head noted. Will obtain CT will without contrast of her head to evaluate. Patient appropriate at this time. 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 Time Spent Managing Pts Care (In Minutes): 55
--- NOTE | 2019-03-03 14:17 | RAD REPORT ---
EXAM DESCRIPTION: CT - Head Brain Wo Cont - 03/03/2019 2:06 pm CLINICAL HISTORY: Fall with head injury. History subarachnoid bleed COMPARISON: December 2018 TECHNIQUE: Computed axial tomography of the head was obtained. IV contrast was not requested. All CT scans are performed using dose optimization technique as appropriate and may include automated exposure control or mA/KV adjustment according to patient size. FINDINGS: Left craniotomy. The left subdural hematoma has been evacuated. The ventricles are normal in caliber. There is no shift of the midline structures. No acute intracranial bleed Fluid within the left maxillary and sphenoid sinuses IMPRESSION: No acute abnormality is displayed
--- NOTE | 2019-03-03 20:33 | PN ---
Complaint is dysphagia, odynophagia, weakness, need for a gastrostomy tube. The patient was admitted yesterday, today was scheduled for surgery. Before that, the patient fell, and the primary doctor i s doing workup for that fall. At this time, the patient is awake and alert, in no distress. She thi nks she just tripped. Abdomen is benign. Still need for the gastrostomy tube. Some abrasions to th e forearm present. The patient right now is on her way for a workup including CAT scans. We are goi ng to put the surgical intervention on hold until we have the green light from the medical service to proceed with this intervention, so the case was canceled for today. COREY/ASHOK Voice ID: [id number] Report ID: [id number]
[2019-03-03] MEDS: MUPIROCIN 2% OINT 22GM TUBE TOP SCH (23:25)
[2019-03-04] MEDS: HYDROCODONE/APAP 7.5/325 MG TAB PO PRN (00:30)
[2019-03-04] MEDS: D5 0.9 NS 1,000 ML IV SCH ×2 (05:43→12:15)
[2019-03-04] MEDS: MORPHINE 2 MG/ML SYR IV PRN (05:59)
[2019-03-04 06:17] LABS: Absolute Monocytes 0.6 K/uL (0.1-1.3); Basophils % 1.6 % (0-1.3); Eosinophils % 3.6 % (0-4.4); Hematocrit 32.3 % (36.0-45.0); Lymphocytes % 21.7 % (15.3-44.8); MPV 8.4 fL (7.6-11.3); Monocytes % 6.6 % (3.3-12.3); RBC Red Blood Cell Count 3.86 M/uL (3.86-4.86)
[2019-03-04] MEDS: LORazepam 2 MG/ML VIAL IV PRN ×2 (06:27→21:57)
[2019-03-04 06:36] LABS: Albumin 3.5 g/dL (3.4-5.0); Bilirubin Total 0.3 mg/dL (0.2-1.0); Magnesium 2.1 mg/dL (1.8-2.4); Potassium 3.8 mmol/L (3.5-5.1); Protein, Total 7.4 g/dL (6.4-8.2)
[2019-03-04] MEDS: ARFORMOTEROL TARTRATE 15 MCG/2 ML VIAL.NEB NEB SCH ×2 (08:25→20:00)
[2019-03-04] MEDS: GABAPENTIN 300 MG CAP PO SCH (08:41)
[2019-03-04] MEDS: MUPIROCIN 2% OINT 22GM TUBE TOP SCH ×2 (08:53→21:00)
[2019-03-04] MEDS: NICOTINE 21 MG/PAT TD SCH (08:54)
[2019-03-04] MEDS: FAMOTIDINE 20 MG/2 ML VIAL IV SCH ×2 (08:54→21:57)
[2019-03-04] MEDS ORDERED: KCL 20 MEQ/100 mL IVPB 20 MEQ/100 ML BAG IV SCH (09:00)
--- NOTE | 2019-03-04 09:06 | P.PN ---
Subjective Date of Service: 03/04/19 Primary Care Provider: assisted physician Chief Complaint: Dysphagia, malnutrition Subjective: Doing well Physical Examination - Vital Signs Temperature: 97.5 F Blood Pressure: 134/78 Pulse: 83 Respirations: 16 Pulse Ox (%): 97 - Physical Exam General: Alert, In no apparent distress, Cooperative HEENT: Atraumatic Neck: Supple Respiratory: Clear to auscultation bilaterally, Normal air movement Cardiovascular: Normal pulses, Regular rate/rhythm Gastrointestinal: Normal bowel sounds, Soft and benign, Non-distended Integumentary: Other (Left arm the bandaged) Neurological: Normal affect - Studies Medications List Reviewed: Yes Assessment & Plan Discharge Plan: Group Home Plan to discharge in: Greater than 2 days Physician Review Additional Text: Impression: Dysphagia, malnutrition, failure to thrive secondary to cancer of the larynx complicated due to unsuccessful endoscopic PEG tube placement Fall with large skin tear to the left forearm COPD GERD Tobacco abuse Hypothyroidism Anemia of chronic disease History of subarachnoid bleed 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 Patient will have PEG tube placement. After surgery will need to wait on when PEG tube feeds can be restarted. At which point nutrition will need to be involved to help coordinate nutritional needs. Once stable over the next 3-5 days, then the patient can return to the shelter with continued PEG tube feeds. Social work will help in this process. Case discussed with social work. I will turn the service over to Dr. Gibson tomorrow. I will go over the plan of care with her. Fall with large skin tear to the left forearm: Patient was treated by wound care. Wound care discussed. Continue with wound care orders. Dressing to be changed every [address] head unremarkable. Fall precautions in place. Bed alarm in place. COPD: Continue medication GERD: Continue medication Tobacco abuse: Provide nicotine patch. Tobacco cessation addressed in detail. Hypothyroidism: Tsh reviewed. Patient is severely hypothyroid. This appears to be new diagnosis. Will start IV medication then will transition to oral. Anemia of chronic disease: Will check iron and B12 studies. Likely deficient. If deficient will start supplementation. Will monitor closely. History of subarachnoid bleed: Patient with fall in the hospital. No trauma to head noted. CT scan head unremarkable. Patient will require physical therapy after surgery. 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 Time Spent Managing Pts Care (In Minutes): 55
[2019-03-04 09:48] LABS: Ferritin 13.3 ng/mL (8-388)
[2019-03-04] MEDS ORDERED: MORPHINE 4 MG/ML SYR IV ONE (12:00)
[2019-03-04] MEDS ORDERED: LIDOCAINE 1% MPF 5 ML VIAL ONE (12:17)
[2019-03-04] MEDS ORDERED: ROCURONIUM 50 MG/5 ML VIAL IV ONE (12:17)
[2019-03-04] MEDS ORDERED: MIDAZOLAM HCL 2 MG/2 ML INJ ONE (12:17)
[2019-03-04] MEDS ORDERED: PROPOFOL 200 MG/20 ML VIAL IV ONE (12:17)
[2019-03-04] MEDS ORDERED: FENTANYL CITR 250 MCG/5 ML ONE (12:19)
[2019-03-04] MEDS ORDERED: SUCCINYLCHOLINE 20 MG/ML (10 ML) IV ONE (12:24)
[2019-03-04] MEDS ORDERED: Ringers Lactate 1,000 ML IV ONE (13:25)
[2019-03-04] MEDS ORDERED: CEFOXITIN/SWI 1gm 1 GM/10 ML SYR IV ONE (14:00)
[2019-03-04] MEDS ORDERED: NS 0.9% VIAL 10 ML ONE (14:12)
[2019-03-04] MEDS ORDERED: EPHEDRINE SULF 50 MG/ML VIAL ONE (14:12)
[2019-03-04] MEDS ORDERED: GLYCOPYRROLATE 0.2 MG/ML SYR ONE (15:00)
[2019-03-04] MEDS ORDERED: NEOSTIGMINE 1 MG/ML -10 ML VIAL ONE (15:02)
[2019-03-04] MEDS ORDERED: ONDANSETRON 4 MG/2 ML VIAL ONE (15:02)
[2019-03-04] MEDS ORDERED: DEXAMETHASONE 4 MG/ML VIAL ONE (15:02)
[2019-03-04] MEDS ORDERED: MORPHINE 4 MG/ML SYR IV PRN (15:08)
[2019-03-04] MEDS ORDERED: BUPIVACAINE 0.5% PF 10 ML VIAL ONE (15:10)
--- NOTE | 2019-03-04 15:16 | P.BOP ---
Preoperative diagnosis: dysphagia, odynophagia, failure to thrive, laryngeal cancer, tracheostomy Postoperative diagnosis: same Primary procedure: Exploratory laparotomy, extensive lysis of adhesions, Secondary procedure: open placement of gastrostomy tube Estimated blood loss: <10cc Specimen: none Findings: extensive intrabdominal adhesion from previous trauma laparotomy and splene Anesthesia: General Complications: None Implants: 22F g tube Transferred to: Recovery Room Condition: Good
[2019-03-04] MEDS: MORPHINE 4 MG/ML SYR ONE ×2 (15:35→15:49)
[2019-03-04] MEDS ORDERED: MORPHINE 4 MG/ML SYR ONE (16:08)
[2019-03-04] MEDS ORDERED: HYDROMORPHONE HCL 1 MG/ML INJ ONE (16:40)
[2019-03-04] MEDS ORDERED: CEFOXITIN/SWI 1gm 1 GM/10 ML SYR IVP SCH (17:00)
[2019-03-04] MEDS ORDERED: CEFOXITIN SODIUM 1 GM/VIAL IVPB SCH (18:00)
[2019-03-04] MEDS ORDERED: JEVITY 1.5 CAL LIQUID 1,000 ML BOT FT SCH (21:00)
--- NOTE | 2019-03-05 01:56 | OP ---
Date of Procedure: 03/04/2019 Surgeon: Alpesh Medina MD Preoperative Diagnoses: Dysphagia; odynophagia; failure to thrive; laryngeal cancer, status post lar yngectomy; tracheostomy; history of trauma with emergent laparotomy and splenectomy; unable to eat. Postoperative Diagnoses: Dysphagia; odynophagia; failure to thrive; laryngeal cancer, status post la ryngectomy; tracheostomy; history of trauma with emergent laparotomy and splenectomy; unable to eat. Procedure Performed: Exploratory laparotomy, extensive lysis of adhesions, and open placement of a g astrostomy tube. Anesthesia: General plus local. Implant: A 22-Yi G-tube. Findings: Patient has extensive intraabdominal adhesions. We have to consider this patient had a tr aumatic event with an emergent laparotomy and a splenectomy. Patient also had previous PEG tube plac ement that led us into a lot of scar tissue present around the stomach and that had to be down in ord er for us to put a new gastrostomy tube. Indications: This is the case of a 58-year-old patient with laryngectomy, laryngeal cancer, inabilit y to eat. I was called by the GI doctor since he believed the patient does not have enough space to have nutrition properly. He does not feel comfortable doing a PEG tube due to previous surgeries and this patient's emergent surgeries, though an open gastrostomy tube was requested and the patient agr eed. The benefits, alternatives, and risks were explained to the patient which include but are not l imited to infection, bleeding, damage to adjacent structures, anesthesia complication, and an inabili ty to put the tubes, CO, even . She also understands this might not relieve any symptoms and sh e might need more than one surgical intervention. She understood, signed a consent. We explained to the patient also we may encounter extensive adhesions since the patient had previous surgeries inclu ding emergent surgery. She signed a consent. The patient was booked for yesterday, [facility] had some diet even though she was advised not to do so and the case had to be post poned. She was explained the importance in the future to be compliant with treatment. The patient w as brought to the operating room, placed in supine position. Anesthesia was done without complicatio n. Abdominal area was prepped and draped in a sterile fashion. A midline incision was done. Once w e had midline incision, we immediately noticed extensive adhesions in the abdomen. So carefully, we spent a significant amount of time, probably almost a half of the time just doing lysis of adhesions using the LigaSure. The patient had adhesions not only from the previous traumatic surgery but also from a previous PEG. We were able to clear the area of the stomach that we noticed that we could put a gastrostomy tube in. I placed a pursestring around the area to be incised. Incision was done. A PEG tube was placed through the abdominal wall and placed into this area after 2 pursestrings were a pplied over the region. The pursestrings were tied. The balloon was inflated. There was no leakage . The rest of the tissue left from the pursestring was used to secure the stomach and the anterior a bdominal wall, and that was tied. The area of the lysis of adhesions was checked, intact. The bowel seems to be intact from that laparotomy evaluation. At that moment, I proceeded then to close the a bdomen with #2 nylon. Secured the G-tube with 3-0 nylon and closed with bruce. Sponge count and i nstrument counts were correct. The patient tolerated the procedure well. The patient is on her way to recovery in stable condition. COREY/ASHOK Voice ID: [id number] Report ID: [id number]
[2019-03-05] MEDS: MORPHINE 2 MG/ML SYR IV PRN ×5 (02:11→23:29)
[2019-03-05] MEDS: D5 0.9 NS 1,000 ML IV SCH ×2 (04:15→14:55)
[2019-03-05] MEDS ORDERED: LEVOTHYROXINE SODIUM 100 MCG VIAL IV SCH (06:00)
[2019-03-05] MEDS: ARFORMOTEROL TARTRATE 15 MCG/2 ML VIAL.NEB NEB SCH ×2 (07:45→20:05)
[2019-03-05 08:07] LABS: Absolute Lymphocytes (CBC) 1.6 K/uL (0.7-4.9); Absolute Monocytes 0.8 K/uL (0.1-1.3); Absolute Neutrophil 10.2 K/uL (1.8-8.0); Basophils % 0.3 % (0-1.3); Eosinophils % 0.3 % (0-4.4); Hematocrit 32.9 % (36.0-45.0); Lymphocytes % 12.7 % (15.3-44.8); MPV 8.2 fL (7.6-11.3); Monocytes % 6.7 % (3.3-12.3); RBC Red Blood Cell Count 3.91 M/uL (3.86-4.86)
[2019-03-05 08:24] LABS: Albumin 3.6 g/dL (3.4-5.0); Bilirubin Total 0.4 mg/dL (0.2-1.0); Magnesium 1.7 mg/dL (1.8-2.4); Potassium 3.8 mmol/L (3.5-5.1); Protein, Total 8.2 g/dL (6.4-8.2)
[2019-03-05] MEDS ORDERED: Magnesium Sulfate 2gm IVPB 2 G/50 ML BAG IV ONE (09:04)
[2019-03-05] MEDS: KCL 20 MEQ/100 mL IVPB 20 MEQ/100 ML BAG IV SCH ×2 (09:36→14:18)
[2019-03-05] MEDS: MUPIROCIN 2% OINT 22GM TUBE TOP SCH ×2 (09:37→20:57)
[2019-03-05] MEDS: NICOTINE 21 MG/PAT TD SCH (09:37)
[2019-03-05] MEDS: FAMOTIDINE 20 MG/2 ML VIAL IV SCH ×2 (09:37→20:54)
[2019-03-05] MEDS ORDERED: MAGNESIUM SULFATE 1 gm IVPB 1 GM/100 ML BAG IV ONE (10:00)
[2019-03-05] MEDS ORDERED: LABETALOL 20 MG/4ML SYRINGE IV PRN (10:35)
--- NOTE | 2019-03-05 10:40 | P.PN ---
Subjective Date of Service: 03/05/19 Primary Care Provider: [facility] physician Chief Complaint: Dysphagia, malnutrition pt is having low grade fever with leukocytosis Bcx ,UA,CXR ordered and will recieve 1 dose of IV abx and adjust based on results of cx and CXR s/p peg tube placment yesterday 03/04/19 ,keep NPo for 3 days as per sx recommendations electrolytes replaced BP noted high will start on labetolol IV prn Review of Systems is unable to be obtained (pt is non communicative) Physical Examination - Vital Signs Temperature: 100.4 F Blood Pressure: 160/90 Pulse: 98 Respirations: 18 Pulse Ox (%): 88 - Physical Exam General: Alert, Oriented x3 HEENT: Atraumatic, Normocephalic, PERRLA Neck: Supple, JVD not distended Respiratory: Clear to auscultation bilaterally, Normal air movement Cardiovascular: No edema, Normal pulses, Regular rate/rhythm, Normal S1 S2 Gastrointestinal: Normal bowel sounds, Non-distended, Tenderness Musculoskeletal: No clubbing, No swelling, No erythema, No warmth Integumentary: No rashes - Studies Medications List Reviewed: Yes Assessment And Plan - Current Problems (Diagnosis) (1) Failure to thrive Onset Date: 03/23/17 Current Visit: No Status: Acute Qualifiers: Failure to thrive age range: in adult Qualified Code(s): R62.7 - Adult failure to thrive (2) Nicotine dependence Onset Date: 03/23/17 Current Visit: No Status: Acute Qualifiers: Nicotine product type: cigarettes Substance use status: uncomplicated Qualified Code(s): F17.210 - Nicotine dependence, cigarettes, uncomplicated (3) Dysphagia Onset Date: 03/23/17 Current Visit: Yes Status: Chronic - Plan Dysphagia, malnutrition, failure to thrive laryngeal cancer sp unsuccessful peg tube placement s/p peg tube by sx keep NPO for now as per sx IV meds dietitian consult fever and leukocytosis f/up bcx and cxr ,UA,Ux IV abx Fall with large skin tear to the left forearm wound care dressing change q3days fall precautions hypokalemia and hypomagensemia replaced COPD currently not in exacerbation continue nebulizers HTN could bue due to abdominal pain will start on labetolo prn bacuse pt is NPo will continue to monitor hypothyrodism on IV thyroxine 12.5 mcg daily for now and will transition to PO once peg tube feeding is resumed recheck tsh in 4-6 weeks Tobacco abuse on nicotine patch Anemia of chronic disease History of splenectomy related to trauma History of subarachnoid bleed: Patient with fall in the hospital. No trauma to head noted. CT scan head unremarkable. Patient will require physical therapy after surgery. dvt ppx scds Plan to discharge in: Greater than 2 days Critical Care: No
[2019-03-05] MEDS ORDERED: VANCOMYCIN 1.25 GM in NA CHLORIDE 0.9% 250 ML IVPB ONE (11:00)
--- NOTE | 2019-03-05 11:14 | RAD REPORT ---
EXAM DESCRIPTION: Michael Single View03/05/2019 11:07 am CLINICAL HISTORY: Chest pain COMPARISON: November 2018 FINDINGS: Mild right basilar opacity. Left lung appears clear The heart is normal size IMPRESSION: Mild right basilar opacity likely represents pneumonia
--- NOTE | 2019-03-05 11:16 | RAD REPORT ---
EXAM DESCRIPTION: RAD - Abdomen Single View - 03/05/2019 11:07 am CLINICAL HISTORY: Abdominal pain FINDINGS: Gastrostomy tube overlies the left upper quadrant. Air is present within nondilated large and small bowel in a nonspecific fashion.
[2019-03-05] MEDS ORDERED: PIPER/TAZO/NS 3.375gm 3.375 GM/100 ML BAG IVPB ONE (12:00)
[2019-03-05] MEDS ORDERED: SODIUM CHLORIDE 0.9% 10ML INJ IV PRN (12:06)
[2019-03-05] MEDS ORDERED: VANCOMYCIN 1.25 GM in NA CHLORIDE 0.9% 250 ML IVPB SCH (15:00)
[2019-03-05] MEDS: LORazepam 2 MG/ML VIAL IV PRN (21:16)
[2019-03-06] MEDS: D5 0.9 NS 1,000 ML IV SCH ×2 (04:13→17:25)
[2019-03-06] MEDS: MORPHINE 2 MG/ML SYR IV PRN ×5 (05:44→22:29)
[2019-03-06] MEDS: LEVOTHYROXINE SODIUM 100 MCG VIAL IV SCH (05:45)
[2019-03-06 06:34] LABS: Absolute Lymphocytes (CBC) 1.7 K/uL (0.7-4.9); Absolute Monocytes 1.1 K/uL (0.1-1.3); Absolute Neutrophil 16.3 K/uL (1.8-8.0); Basophils % 0.3 % (0-1.3); Hematocrit 29.1 % (36.0-45.0); MPV 8.7 fL (7.6-11.3); Monocytes % 5.7 % (3.3-12.3); RBC Red Blood Cell Count 3.52 M/uL (3.86-4.86)
[2019-03-06 06:59] LABS: Albumin 2.8 g/dL (3.4-5.0); Bilirubin Total 0.5 mg/dL (0.2-1.0); Potassium 3.3 mmol/L (3.5-5.1); Protein, Total 7.2 g/dL (6.4-8.2)
[2019-03-06] MEDS: KCL 20 MEQ/100 mL IVPB 20 MEQ/100 ML BAG IV SCH ×2 (07:25→09:38)
[2019-03-06] MEDS: ARFORMOTEROL TARTRATE 15 MCG/2 ML VIAL.NEB NEB SCH ×2 (08:15→20:00)
[2019-03-06] MEDS: NICOTINE 21 MG/PAT TD SCH (09:36)
[2019-03-06] MEDS: FAMOTIDINE 20 MG/2 ML VIAL IV SCH ×2 (09:37→22:35)
[2019-03-06] MEDS: MUPIROCIN 2% OINT 22GM TUBE TOP SCH ×2 (09:38→22:35)
[2019-03-06] MEDS: LORazepam 2 MG/ML VIAL IV PRN ×2 (10:50→23:05)
--- NOTE | 2019-03-06 11:08 | P.PN ---
Subjective Date of Service: 03/06/19 Primary Care Provider: retirement physician Chief Complaint: Dysphagia, malnutrition pt seen and examined labs reviewed wbc trending up CXR showing right lower lobe PNA Review of Systems is unable to be obtained (pt is non verbal) Physical Examination - Vital Signs Temperature: 98.8 F Blood Pressure: 113/62 Pulse: 103 Respirations: 20 Pulse Ox (%): 97 - Physical Exam General: Alert, In no apparent distress, Oriented x3 Neck: Supple, JVD not distended Respiratory: Clear to auscultation bilaterally, Normal air movement Cardiovascular: No edema, Regular rate/rhythm, Normal S1 S2 Gastrointestinal: Normal bowel sounds, Soft and benign, Non-distended Musculoskeletal: No swelling, No erythema Integumentary: No rashes - Studies Medications List Reviewed: Yes Assessment And Plan - Current Problems (Diagnosis) (1) Failure to thrive Onset Date: 03/23/17 Current Visit: No Status: Acute Qualifiers: Failure to thrive age range: in adult Qualified Code(s): R62.7 - Adult failure to thrive (2) Nicotine dependence Onset Date: 03/23/17 Current Visit: No Status: Acute Qualifiers: Nicotine product type: cigarettes Substance use status: uncomplicated Qualified Code(s): F17.210 - Nicotine dependence, cigarettes, uncomplicated (3) Dysphagia Onset Date: 03/23/17 Current Visit: Yes Status: Chronic - Plan Dysphagia, malnutrition, failure to thrive laryngeal cancer sp unsuccessful peg tube placement s/p peg tube by sx keep NPO for now as per sx IV meds dietitian consult hospital acquired pneumonia IV vancomycin and zosyn f/up Bcx Fall with large skin tear to the left forearm wound care dressing change q3days fall precautions hypokalemia and hypomagensemia replaced COPD currently not in exacerbation continue nebulizers HTN could bue due to abdominal pain will start on labetolo prn bacuse pt is NPo will continue to monitor hypothyrodism on IV thyroxine 12.5 mcg daily for now and will transition to PO once peg tube feeding is resumed recheck tsh in 4-6 weeks Tobacco abuse on nicotine patch Anemia of chronic disease History of splenectomy related to trauma History of subarachnoid bleed: Patient with fall in the hospital. No trauma to head noted. CT scan head unremarkable. Patient will require physical therapy after surgery. dvt ppx scds Physician Review Additional Text: Impression: Dysphagia, malnutrition, failure to thrive secondary to cancer of the larynx complicated due to unsuccessful endoscopic PEG tube placement Fall with large skin tear to the left forearm COPD GERD Tobacco abuse Hypothyroidism Anemia of chronic disease History of subarachnoid bleed 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 Patient will have PEG tube placement. After surgery will need to wait on when PEG tube feeds can be restarted. At which point nutrition will need to be involved to help coordinate nutritional needs. Once stable over the next 3-5 days, then the patient can return to the correction with continued PEG tube feeds. Social work will help in this process. Case discussed with social work. I will turn the service over to Dr. Gibson tomorrow. I will go over the plan of care with her. Fall with large skin tear to the left forearm: Patient was treated by wound care. Wound care discussed. Continue with wound care orders. Dressing to be changed every [address] head unremarkable. Fall precautions in place. Bed alarm in place. COPD: Continue medication GERD: Continue medication Tobacco abuse: Provide nicotine patch. Tobacco cessation addressed in detail. Hypothyroidism: Tsh reviewed. Patient is severely hypothyroid. This appears to be new diagnosis. Will start IV medication then will transition to oral. Anemia of chronic disease: Will check iron and B12 studies. Likely deficient. If deficient will start supplementation. Will monitor closely. History of subarachnoid bleed: Patient with fall in the hospital. No trauma to head noted. CT scan head unremarkable. Patient will require physical therapy after surgery. 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
[2019-03-06] MEDS: VANCOMYCIN 750 MG in NA CHLORIDE 0.9% 150 ML IVPB SCH (17:23)
[2019-03-06] MEDS: PIPER/TAZO/NS 3.375gm 3.375 GM/100 ML BAG IVPB SCH (18:11)
[2019-03-06] MEDS ORDERED: VANCOMYCIN 1.5 GM in NA CHLORIDE 0.9% 500 ML IVPB SCH (21:00)
[2019-03-07] MEDS: PIPER/TAZO/NS 3.375gm 3.375 GM/100 ML BAG IVPB SCH ×3 (00:50→18:06)
[2019-03-07] MEDS: MORPHINE 2 MG/ML SYR IV PRN ×3 (02:12→10:16)
[2019-03-07] MEDS: LEVOTHYROXINE SODIUM 100 MCG VIAL IV SCH (05:04)
[2019-03-07] MEDS: D5 0.9 NS 1,000 ML IV SCH ×2 (05:04→20:15)
[2019-03-07 06:23] LABS: Albumin 2.9 g/dL (3.4-5.0); Bilirubin Total 0.4 mg/dL (0.2-1.0); Magnesium 2.2 mg/dL (1.8-2.4); Potassium 3.3 mmol/L (3.5-5.1); Protein, Total 6.7 g/dL (6.4-8.2)
[2019-03-07 06:24] LABS: Absolute Lymphocytes (CBC) 1.4 K/uL (0.7-4.9); Absolute Monocytes 0.8 K/uL (0.1-1.3); Absolute Neutrophil 8.5 K/uL (1.8-8.0); Basophils % 0.3 % (0-1.3); Lymphocytes % 13.1 % (15.3-44.8); MPV 8.5 fL (7.6-11.3); Monocytes % 7.7 % (3.3-12.3); RBC Red Blood Cell Count 2.92 M/uL (3.86-4.86)
[2019-03-07] MEDS: KCL 20 MEQ/100 mL IVPB 20 MEQ/100 ML BAG IV SCH ×2 (06:39→10:08)
[2019-03-07] MEDS: LORazepam 2 MG/ML VIAL IV PRN ×2 (08:01→21:54)
[2019-03-07] MEDS: NICOTINE 21 MG/PAT TD SCH (08:01)
[2019-03-07] MEDS: FAMOTIDINE 20 MG/2 ML VIAL IV SCH ×2 (08:01→21:52)
[2019-03-07] MEDS: MUPIROCIN 2% OINT 22GM TUBE TOP SCH ×2 (08:02→21:00)
[2019-03-07] MEDS: ARFORMOTEROL TARTRATE 15 MCG/2 ML VIAL.NEB NEB SCH ×2 (08:20→19:55)
--- NOTE | 2019-03-07 10:34 | P.PN ---
Subjective Date of Service: 03/07/19 Primary Care Provider: [facility] physician Chief Complaint: Dysphagia, malnutrition Patient seen and examined at bedside with RN. Chart reviewed. Case discussed with general surgery. Patient currently inquiring about able to eat pending. Patient educated on not having anything by mouth. NG tube to be access today per surgery. Dietary and speech consults are pending at this time Review of Systems 10-point ROS is otherwise unremarkable Physical Examination - Vital Signs Temperature: 98.3 F Blood Pressure: 132/73 Pulse: 92 Respirations: 16 Pulse Ox (%): 98 - Physical Exam General: Alert, In no apparent distress, Oriented x3 Respiratory: Clear to auscultation bilaterally, Normal air movement Cardiovascular: Regular rate/rhythm, Normal S1 S2 Gastrointestinal: Normal bowel sounds, Other (G tube in place) Musculoskeletal: No tenderness Integumentary: No rashes Neurological: Normal tone, Normal affect Lymphatics: No axilla or inguinal lymphadenopathy - Studies Medications List Reviewed: Yes Assessment And Plan - Current Problems (Diagnosis) (1) Dysphagia Onset Date: 03/23/17 Current Visit: Yes Status: Chronic Plan: Dysphagia most likely secondary to laryngeal cancer -status post PEG tube placement by surgery 03/04/19 -currently patient NPO per surgery's recommendations -dietary and speech therapy consulted -general surgery consulted appreciated recommendations at this time -will access G-tube for feedings today (2) Failure to thrive Onset Date: 03/23/17 Current Visit: No Status: Acute Plan: Most likely secondary to dysphagia secondary to laryngeal cancer -speech and dietary consulted today Qualifiers: Failure to thrive age range: in adult Qualified Code(s): R62.7 - Adult failure to thrive (3) Right lower lobe pneumonia Onset Date: 03/23/17 Current Visit: No Status: Acute Plan: Most likely aspiration pneumonia versus hospital-acquired pneumonia -currently white blood cell count trending down -on IV vancomycin and Zosyn -will followup with blood culture at this time Qualifiers: Pneumonia type: due to unspecified organism Qualified Code(s): J18.1 - Lobar pneumonia, unspecified organism (4) Fall Current Visit: Yes Status: Acute Plan: Status post mechanical fall -PTOT consulted -fall precautions given -patient with History of subarachnoid bleed-No trauma to head noted. CT scan head unremarkable. Qualifiers: Encounter type: initial encounter Qualified Code(s): W19.XXXA - Unspecified fall, initial encounter (5) Skin laceration Current Visit: Yes Status: Acute Plan: Most likely secondary to fall -Large skin tear to the left forearm -wound care and dressing change q3days (6) Laryngeal cancer Current Visit: Yes Status: Chronic Plan: History of laryngeal cancer (7) Nicotine dependence Onset Date: 03/23/17 Current Visit: No Status: Chronic Qualifiers: Nicotine product type: cigarettes Substance use status: uncomplicated Qualified Code(s): F17.210 - Nicotine dependence, cigarettes, uncomplicated - Plan Patient currently awaiting clinical improvement at this time. Dietary and speech have been consulted. Awaiting further recommendations regarding feedings. Will follow up with general surgery as well. Discharge Plan: Home Plan to discharge in: Greater than 2 days - Code Status/Comfort Care Code Status Assessed: Yes Critical Care: No
--- NOTE | 2019-03-07 13:49 | RAD REPORT ---
EXAM DESCRIPTION: RAD - Barium Swallow Modified - 03/07/2019 1:40 pm CLINICAL HISTORY: Dysphagia, pneumonia COMPARISON: None. TECHNIQUE: The patient was given liquid, semi-solid and solid forms of barium. Lateral view fluorosc opic imaging was performed in conjunction with speech pathology service. FINDINGS: Cineloop acquisitions: 13 Fluoro time: 3 minutes 59 seconds Pharyngeal residue, severe with tsp puree, mild with thin Esophageal stricture at C3-C6, decreased esophageal peristalsis IMPRESSION: Modified barium swallow as detailed above and fully detailed on speech pathology report.
[2019-03-07] MEDS: JEVITY 1.5 CAL LIQUID 1,000 ML BOT FT SCH ×2 (15:36→21:55)
[2019-03-07] MEDS: VANCOMYCIN 750 MG in NA CHLORIDE 0.9% 150 ML IVPB SCH (18:05)
[2019-03-07] MEDS ORDERED: ACETAMINOPHEN 500 MG TAB PO PRN (18:23)
[2019-03-07 22:17] VITALS: O2SAT 94
[2019-03-07] MEDS ORDERED: KCL 20 MEQ/100 mL IVPB 20 MEQ/100 ML BAG IV SCH (23:00)
[2019-03-07] MEDS ORDERED: POTASSIUM 25 MEQ EFFERV TAB PO ONE (23:02)
[2019-03-08] MEDS: PIPER/TAZO/NS 3.375gm 3.375 GM/100 ML BAG IVPB SCH ×2 (00:21→10:15)
[2019-03-08] MEDS: LORazepam 2 MG/ML VIAL IV PRN (05:24)
[2019-03-08 05:59] LABS: Potassium 3.4 mmol/L (3.5-5.1)
[2019-03-08] MEDS: KCL 20 MEQ/100 mL IVPB 20 MEQ/100 ML BAG IV SCH ×2 (07:29→10:10)
[2019-03-08] MEDS: ARFORMOTEROL TARTRATE 15 MCG/2 ML VIAL.NEB NEB SCH (08:00)
[2019-03-08] MEDS: MUPIROCIN 2% OINT 22GM TUBE TOP SCH (09:00)
[2019-03-08] MEDS: NICOTINE 21 MG/PAT TD SCH (10:05)
[2019-03-08] MEDS: D5 0.9 NS 1,000 ML IV SCH (10:09)
[2019-03-08] MEDS: FAMOTIDINE 20 MG/2 ML VIAL IV SCH (10:09)
[2019-03-08] MEDS: JEVITY 1.5 CAL LIQUID 1,000 ML BOT FT SCH (10:18)
--- NOTE | 2019-03-08 10:24 | P.DS ---
Admission Date: 03/02/19 Discharge Date: 03/08/19 Primary Care Provider: detention physician Disposition: TRANSFER TO [facility] Discharge Condition: FAIR Reason for Admission: Dysphagia, malnutrition Consultations: GI and general surgery Procedures: PEG tube - Problems (1) Dysphagia Onset Date: 03/23/17 Current Visit: Yes Status: Chronic Qualifiers: Dysphagia type: esophageal phase Qualified Code(s): R13.10 - Dysphagia, unspecified (2) Failure to thrive Onset Date: 03/23/17 Current Visit: No Status: Acute Qualifiers: Failure to thrive age range: in adult Qualified Code(s): R62.7 - Adult failure to thrive (3) Right lower lobe pneumonia Onset Date: 03/23/17 Current Visit: No Status: Acute Qualifiers: Pneumonia type: due to unspecified organism Qualified Code(s): J18.1 - Lobar pneumonia, unspecified organism (4) Fall Current Visit: Yes Status: Acute Qualifiers: Encounter type: initial encounter Qualified Code(s): W19.XXXA - Unspecified fall, initial encounter (5) Skin laceration Current Visit: Yes Status: Acute (6) Laryngeal cancer Current Visit: Yes Status: Chronic (7) Nicotine dependence Onset Date: 03/23/17 Current Visit: No Status: Chronic Qualifiers: Nicotine product type: cigarettes Substance use status: uncomplicated Qualified Code(s): F17.210 - Nicotine dependence, cigarettes, uncomplicated Brief History of Present Illness: 58-year-old female presented to the emergency room from the sn[facility] due to malnutrition and dysphagia. Information came from the ER physician and surgeon. Patient with history of cancer of the larynx, COPD, GERD and recent subarachnoid bleed in December of 2018. Since that time patient has been having worsening dysphagia and malnutrition. Patient has had failure to thrive. Patient has had poor oral intake and decreasing weight. Early this week patient had EGD by GI. GI was not able to pass the scope be on the lower next. GI recommended surgery evaluation for open PEG tube placement. Patient with trauma and abdominal surgery in the past. GI spoke to surgery concerning plan of care. Due to the worsening malnutrition and dysphagia patient was admitted for treatment. When I saw the patient in the ER, she appeared stable. CBC shows white count of 7.7. Hemoglobin 10. Sodium 138, potassium 3.8. GFR 63. Patient admitted for further evaluation and placement of PEG tube. Hospital Course: Overall during the hospital stay patient remained stable Patient was initially admitted to the hospital for dysphagia, failure to thrive and malnutrition after GI has evaluated patient for possible PEG tube placement. GI was unsuccessful placing the PEG tube via endoscopy as you were not able to pass the scope beyond the esophageal stricture. Patient thus was admitted to the hospital for open PEG tube placement given the history of laryngeal cancer and dysphagia along with failure to thrive. Patient had modified barium swallow done here in the hospital which was consistent with severe dysphagia secondary to esophageal stricture he most likely secondary to his radiation related adverse effect. General surgery was consulted who performed open PEG tube placement successfully. Patient was started on Jevity per dietary is recommendation. Patient's primary means of nutrition is PEG tube now with plate of the through mouth with only thin liquids and ice chips. Patient did well overall post PEG tube placement and thus was discharged back to snf under stable condition. Patient also was found to have possible aspiration pneumonia while here in the hospital and thus was given oral clindamycin to be given through the PEG tube when she goes back to the snf for total of 7 days. Patient was asked to follow up with GI in 2 weeks post discharge. Vital Signs/Physical Exam: Temp Pulse Resp BP Pulse Ox 98.9 F 99 H 18 125/81 92 03/08/19 08:00 03/08/19 08:00 03/08/19 08:00 03/08/19 08:00 03/08/19 08:00 General: Alert, Oriented x2, Cachectic, Demented Neck: Other Respiratory: Normal air movement, Expiratory wheezes Cardiovascular: Regular rate/rhythm, Normal S1 S2 Gastrointestinal: Normal bowel sounds, No tenderness Musculoskeletal: No tenderness Integumentary: No rashes Neurological: Normal tone, Normal affect, Abnormal speech Lymphatics: No axilla or inguinal lymphadenopathy Laboratory Data at Discharge: WBC 10.9 K/uL (4.3-10.9) D 03/07/19 05:45 Hgb 8.0 g/dL (12.0-15.0) L 03/07/19 05:45 Hct 24.0 % (36.0-45.0) L D 03/07/19 05:45 Plt Count 404 K/uL (152-406) 03/07/19 05:45 Sodium 140 mmol/L (136-145) 03/08/19 05:17 Potassium 3.4 mmol/L (3.5-5.1) L 03/08/19 05:17 BUN 6 mg/dL (7-18) L 03/08/19 05:17 Creatinine 0.72 mg/dL (0.55-1.3) 03/08/19 05:17 Glucose 107 mg/dL (74-106) H 03/08/19 05:17 Phosphorus 3.5 mg/dL (2.5-4.9) 03/02/19 16:20 Magnesium 2.2 mg/dL (1.8-2.4) 03/07/19 05:45 Total Bilirubin 0.4 mg/dL (0.2-1.0) 03/07/19 05:45 AST 20 U/L (15-37) 03/07/19 05:45 ALT 15 U/L (12-78) 03/07/19 05:45 Alkaline Phosphatase 78 U/L (45-117) 03/07/19 05:45 Home Medications: Docusate Sodium 100 mg PO BID 03/02/19 Gabapentin [Gralise] 600 mg PO BID 03/02/19 Hydrocodone/Acetaminophen [[place] 10-325 Tablet] 1 each PO TID 03/02/19 Ipratropium/Albuterol Sulfate [Iprat-Albut 0.5-3(2.5) mg/3 ml] 3 ml IH Q8H PRN 03/02/19 LORazepam [Ativan*] 0.5 mg PO Q8H PRN 03/02/19 Ondansetron [Zofran (Odt)*] 4 mg PO Q8H PRN 03/02/19 Pantoprazole Sodium [Protonix] 40 mg PO DAILY 03/02/19 Polyethylene Glycol 1450 500 gm MC DAILY 03/02/19 Senosides [Senokot*] 1 tab PO BID 03/02/19 Tramadol HCl [Ultram] 50 mg PO Q6H PRN 03/02/19 Clindamycin HCl 300 mg PO DAILY #7 capsule 03/08/19 New Medications: Clindamycin HCl 300 mg PO DAILY #7 capsule Patient Discharge Instructions: Please followup with GI and general surgery in about 1-2 weeks post discharge. No new medication. Dietary changes: Dietitian consult received. RD assessed pt on Thursday (03/04) with recommendations below. Please see Dietitian note written on (03/04) for full assessment. 1.) PO diet as tolerated. 2.) Jevity 1.5 (237ml) FT TID (may need to increase to QID depending on pt's oral intake). 3.) Flush with additional 30 -60ml water before and after each feeding. 4.) only pain liquids and ice chips allowed through p.o. intake Diet: For dietary show recommendation
[2019-03-08] MEDS ORDERED: VANCOMYCIN 750 MG in NA CHLORIDE 0.9% 150 ML IVPB SCH (11:00)
[2019-03-08 12:24] VITALS: BP 123/64; TEMP 99
--- NOTE | 2019-03-08 13:16 | P.PN ---
Subjective Date of Service: 03/08/19 Primary Care Provider: correction physician Chief Complaint: Dysphagia, malnutrition, s/p open gastrostomy tube Subjective: Tolerating diet, Ambulating, Improving Review of Systems 10-point ROS is otherwise unremarkable Physical Examination - Vital Signs Temperature: 99.0 F Blood Pressure: 123/64 Pulse: 105 Respirations: 18 Pulse Ox (%): 98 - Physical Exam General: Alert, Oriented x3, Cooperative HEENT: PERRLA, EOMI Gastrointestinal: Soft and benign (incision intact. 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 Patient will have PEG tube placement. After surgery will need to wait on when PEG tube feeds can be restarted. At which point nutrition will need to be involved to help coordinate nutritional needs. Once stable over the next 3-5 days, then the patient can return to [facility] with continued PEG tube feeds. Social work will help in this process. Case discussed with social work. I will turn the service over to Dr. Gibson tomorrow. I will go over the plan of care with her. Fall with large skin tear to the left forearm: Patient was treated by wound care. Wound care discussed. Continue with wound care orders. Dressing to be changed every [address] head unremarkable. Fall precautions in place. Bed alarm in place. COPD: Continue medication GERD: Continue medication Tobacco abuse: Provide nicotine patch. Tobacco cessation addressed in detail. Hypothyroidism: Tsh reviewed. Patient is severely hypothyroid. This appears to be new diagnosis. Will start IV medication then will transition to oral. Anemia of chronic disease: Will check iron and B12 studies. Likely deficient. If deficient will start supplementation. Will monitor closely. History of subarachnoid bleed: Patient with fall in the hospital. No trauma to head noted. CT scan head unremarkable. Patient will require physical therapy after surgery. 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
== END 2019-03-08 13:21 | DRG 326 ==
LOC: ER 15:53 → ERHOLD 18:05 → 2ND 20:09
PROVIDERS: ADMIT Family Medicine; ATTEND Family Medicine
PROC: 0DH60UZ Insertion of Feeding Device into Stomach, Open Approach (ICD-10-PCS; 2019-03-04)
PROC: 0DNW0ZZ Release Peritoneum, Open Approach (ICD-10-PCS; principal; 2019-03-04 12:30)
DX: K22.2 Esophageal obstruction (principal); J69.0 Pneumonitis due to inhalation of food and vomit; E46 Unspecified protein-calorie malnutrition; Z68.1 Body mass index [BMI] 19.9 or less, adult; R13.10 Dysphagia, unspecified; J44.9 Chronic obstructive pulmonary disease, unspecified; R62.7 Adult failure to thrive; C32.9 Malignant neoplasm of larynx, unspecified; S51.812A Laceration without foreign body of left forearm, initial encounter; K21.9 Gastro-esophageal reflux disease without esophagitis; E87.6 Hypokalemia; E83.42 Hypomagnesemia; E03.9 Hypothyroidism, unspecified; D63.8 Anemia in other chronic diseases classified elsewhere; F17.210 Nicotine dependence, cigarettes, uncomplicated; Y84.2 Radiological procedure and radiotherapy as the cause of abnormal reaction of the patient, or of later complication, without mention of misadventure at the time of the procedure; W19.XXXA Unspecified fall, initial encounter
CPT/HCPCS: 36415; 70450; 71045; 74018; 74230; 80048; 80053; 80076; 80202; 81003; 82607; 82728; 83540; 83735; 84100; 84132; 84439; 84443; 84466; 85025; 87040; 87086; 87088; 87205; 92610; 92611; 93005; 94640; 96361; 96365; 96367; 96374; 97110; 97116; 97163; 97530; 99251; 99285; J0330; J1170; J2250; J2270; J2405; J2543; J2704; J2710; J3010; J3475; J7030; J7605

== ENCOUNTER 2019-04-26 13:10 | Emergency (ER) | payer OTHER ==
--- OUTSIDE RECORDS SUMMARY | 2019-04-26 13:13 | XMS REPORT | Clinical Summary ---
:1960 Author Organization [facility] Address [address] [place] [address] Care Team Providers Name Role Phone Asked, [...] initial encounter; Anemia, unspecified type; Thrombocytosis after 04/25/2018 Social History Tobacco Use Types Packs/Day Years [...] Health Maintenance Due Date Last Done Comments BREAST CANCER SCREENING 2009 COLONOSCOPY SCREENING 2009 SHINGLES VACCINES (#1) 2009 INFLUENZA [...] procedure are in the results section. after 04/25/[address] Cervical Spine Wo Contrast (06/19/2018 1:10 PM CDT) Specimen Narrative Performed At EXAMINATION:CT CERVICAL SPINE WO [...] IMPRESSION: No acute cervical spine bony abnormality. [facility]-[id number] Procedure Note Interface, Radiology Results Incoming - [...] IMPRESSION: No acute cervical spine bony abnormality. [facility]-[id number] Performing Organization Address City/State/Zipcode Phone Number [facility] [address] [place] [address] CT Head Wo Contrast (06/19/2018 1:09 PM CDT) Specimen Narrative Performed At EXAMINATION:[facility]:head [facility] COMPARISON:None. FINDINGS: There [...] No acute intracranial hemorrhage or mass effect. [facility]-[id number] Procedure Note Interface, Radiology Results Incoming - [...] No acute intracranial hemorrhage or mass effect. [id number] Performing Organization Address [facility] Phone Number [facility] [address] [place] [address] XR Pelvis 1 Or 2 Vw (06/19/2018 1:02 PM CDT) Specimen Narrative Performed At EXAMINATION:XR PELVIS 1 OR [...] pelvis. Performing Organization Address [facility] Phone Number [facility] [address] [place] [address] Estimated GFR (06/19/2018 12:40 PM CDT) GFR Non Af Amer >90 mL/min/1.73 [facility] DEPARTMENT OF m2 PATHOLOGY AND GENOMIC MEDICINE GFR Af Amer >90 mL/min/1.73 [facility] DEPARTMENT OF Comment: m2 PATHOLOGY AND Chronic kidney disease: <60 mL/min/1.73m2 GENOMIC MEDICINE Kidney failure: <15 mL/min/1.73m2 The estimated [...] Americans. Specimen Plasma specimen Performing Organization Address City/[facility]/Zipcode Phone Number [facility] DEPARTMENT OF PATHOLOGY [address] [place] [address]. [place] [address] AND ih[employer] [facility] Troponin (06/19/2018 12:40 PM CDT) Pathologist [facility] Troponin <0.30 0.00 - 0.30 [facility] DEPARTMENT OF Comment: ng/mL PATHOLOGY AND 0.11 - 1.49 ng/mlMay indicate increased risk of acute GENOMIC MEDICINE coronary syndrome. >=1.5 ng/mlConsistent with acute myocardial infarction. The diagnostic value of a single normal or non-diagnostic result is questionable.Serial samples at 2-6 hour intervals are required to rule out acute myocardial injury. Specimen Plasma specimen Performing Organization Address [facility] Phone Number [facility] DEPARTMENT OF PATHOLOGY [address] [place] [address]. [place] [address] AND [place] [facility] Partial thromboplastin time, activated (06/19/2018 12:40 PM CDT) [facility] PTT 37.6 (H) 23.0 - 36.0 [facility] DEPARTMENT OF Comment: sec PATHOLOGY AND PTT therapeutic range for unfractionated heparin is [facility] MEDICINE 61.0-112.0 seconds which corresponds to Anti-Xa 0.3-0.7 U/ml. Specimen Blood Performing Organization Address City/[facility]/Zipcode Phone Number [facility] DEPARTMENT OF PATHOLOGY [address] [place] [address]. [place] [address] AND [place] [facility] Prothrombin time with INR (06/19/2018 12:40 PM CDT) Pathologist [facility] Prothrombin time 13.3 12.0 - 15.0 [facility] DEPARTMENT sec OF PATHOLOGY AND [employer] MEDICINE INR 1.0 [facility] DEPARTMENT Comment: OF PATHOLOGY AND The International Normalized Ratio (INR) is a therapeutic GENOMIC MEDICINE monitoring tool for patients who are stable on oral anticoagulant therapy. An INR of 2.0-3.0 is suggested for deep vein thrombosis/pulmonary embolism. Specimen Blood Performing Organization Address City/[facility]/Zipcode Phone Number [facility] DEPARTMENT OF PATHOLOGY [address] [place] [address]. [place] [address] AND [place] [facility] CBC with platelet and differential (06/19/2018 12:40 PM CDT) WBC 12.3 (H) 4.5 - 11.0 k/uL [facility] DEPARTMENT OF PATHOLOGY AND GENOMIC MEDICINE RBC 2.66 (L) 4.20 - 5.50 [facility] DEPARTMENT OF m/uL PATHOLOGY AND GENOMIC MEDICINE HGB 7.9 (L) 12.0 - 16.0 [facility] DEPARTMENT OF g/dL PATHOLOGY AND GENOMIC MEDICINE HCT 24.8 (L) 37.0 - 47.0 % [facility] DEPARTMENT OF PATHOLOGY AND GENOMIC MEDICINE MCV 93.2 82.0 - 100.0 fL [facility] DEPARTMENT OF PATHOLOGY AND GENOMIC MEDICINE MCH 29.7 27.0 - 34.0 pg [facility] DEPARTMENT OF PATHOLOGY AND GENOMIC MEDICINE MCHC 31.9 31.0 - 37.0 [facility] DEPARTMENT OF g/dL PATHOLOGY AND GENOMIC MEDICINE RDW - SD 51.5 37.0 - 55.0 fL [facility] DEPARTMENT OF PATHOLOGY AND GENOMIC MEDICINE MPV 9.7 6.9 - 11.0 fL [facility] DEPARTMENT OF PATHOLOGY AND GENOMIC MEDICINE Platelet count 688 (H) 150 - 400 K/uL [facility] DEPARTMENT OF PATHOLOGY AND GENOMIC MEDICINE Nucleated RBC 0.00 /100 WBC [facility] DEPARTMENT OF PATHOLOGY AND GENOMIC MEDICINE Neutrophils 80.5 (H) 39.0 - 69.0 % [facility] DEPARTMENT OF PATHOLOGY AND GENOMIC MEDICINE Lymphocytes 9.2 (L) 25.0 - 45.0 % [facility] DEPARTMENT OF PATHOLOGY AND GENOMIC MEDICINE Monocytes 6.5 0.0 - 10.0 % [facility] DEPARTMENT OF PATHOLOGY AND GENOMIC MEDICINE Eosinophils 2.8 0.0 - 5.0 % [facility] DEPARTMENT OF PATHOLOGY AND GENOMIC MEDICINE Basophils 0.6 0.0 - 1.0 % [facility] DEPARTMENT OF PATHOLOGY AND GENOMIC MEDICINE Immature granulocytes 0.4 0.0 - 1.0 % [facility] DEPARTMENT OF PATHOLOGY AND GENOMIC MEDICINE Specimen Blood Performing Organization Address [facility]/Zipcode Phone Number [facility] DEPARTMENT OF PATHOLOGY [address] [place] [phone] AND [employer] MEDICINE Creatine kinase, total (CPK) (06/19/2018 12:40 PM CDT) Creatine kinase 40 26 - 192 U/L [facility] DEPARTMENT OF PATHOLOGY AND GENOMIC MEDICINE Specimen Plasma specimen Performing Organization Address [facility]/Zipcode Phone Number [facility] DEPARTMENT PATHOLOGY [address] [place] [address] AND [employer] MEDICINE Comprehensive metabolic panel (06/19/2018 12:40 PM CDT) Sodium 133 (L) 135 - 148 mEq/L [facility] DEPARTMENT OF PATHOLOGY AND GENOMIC MEDICINE Potassium 4.5 3.5 - 5.0 mEq/L [facility] DEPARTMENT OF PATHOLOGY AND GENOMIC MEDICINE Chloride 95 (L) 98 - 112 mEq/L [facility] DEPARTMENT OF PATHOLOGY AND GENOMIC MEDICINE CO2 28 24 - 31 mEq/L [facility] DEPARTMENT OF PATHOLOGY AND GENOMIC MEDICINE Anion gap 10@ANIO 7 - 15 mEq/L [facility] DEPARTMENT OF PATHOLOGY AND GENOMIC MEDICINE BUN 13 6 - 20 mg/dL [facility] DEPARTMENT OF PATHOLOGY AND GENOMIC MEDICINE Creatinine 0.5 0.5 - 0.9 mg/dL [facility] DEPARTMENT OF PATHOLOGY AND GENOMIC MEDICINE Glucose 107 (H) 65 - 99 mg/dL [facility] DEPARTMENT OF PATHOLOGY AND GENOMIC MEDICINE Calcium 9.2 8.3 - 10.2 [facility] DEPARTMENT mg/dL PATHOLOGY AND GENOMIC MEDICINE Protein 6.2 (L) 6.3 - 8.3 g/dL [facility] DEPARTMENT OF PATHOLOGY AND GENOMIC MEDICINE Albumin 2.9 (L) 3.5 - 5.0 g/dL [facility] DEPARTMENT OF PATHOLOGY AND GENOMIC MEDICINE A/G ratio 0.9 0.7 - 3.8 [facility] DEPARTMENT OF PATHOLOGY AND GENOMIC MEDICINE Alkaline phosphatase 79 35 - 104 U/L [facility] DEPARTMENT OF PATHOLOGY AND GENOMIC MEDICINE AST 16 10 - 35 U/L [facility] DEPARTMENT OF PATHOLOGY AND GENOMIC MEDICINE ALT 8 5 - 50 U/L [facility] DEPARTMENT OF PATHOLOGY AND GENOMIC MEDICINE Total bilirubin <0.2 0.2 - 1.2 mg/dL [facility] DEPARTMENT OF PATHOLOGY AND GENOMIC MEDICINE Specimen Plasma specimen Performing Organization Address City/State/Zipcode Phone Number [facility] DEPARTMENT OF PATHOLOGY [address] [place] [address] AND GENOMIC MEDICINE ECG ED Preliminary Interpretation - NOT AN ORDER (06/19/2018 12:17 PM CDT) Narrative Performed At Perry Fernandez PA-C 06/19/20185:35 PM ECG ED Preliminary Interpretation - Not an Order Performed by: PERRY FERNANDEZ Authorized by: IRENE RAYO ECG reviewed by ED Physician in the absence of a cot assembler: yes Rate: ECG rate:97 ECG rate assessment: normal Rhythm: Rhythm: sinus rhythm QRS: QRS intervals:Normal Conduction: Conduction: normal ST segments: ST segments:Normal T waves: T waves: normal ECG 12 lead (06/19/2018 12:01 PM CDT) Ventricular rate 97 [facility] Atrial rate 97 [facility] OH interval 178 [facility] QRSD interval 76 [facility] QT interval 348 [facility] QTC interval 441 [facility] P axis 1 60 [facility] QRS axis 1 70 [facility] T wave axis 65 [facility] EKG impression Normal sinus [facility] rhythm-Possible Left atrial enlargement-Borderline ECG-No previous ECGs available-Electronicall y Signed By Onelia ORTEGA, Skye (2013) on 06/22/2018 8:02:29 PM Specimen Performing Organization Address City/State/Zipcode Phone Number [facility] MUSE [address] [place] [address] after 04/25/2018 Advance Directives Patient has advance care planning documents on file. For more information, please contact:Sky Valencia[address] [place] [address]
--- OUTSIDE RECORDS SUMMARY | 2019-04-26 13:15 | XMS REPORT | Clinical Summary ---
:1960 Author Organization [facility] LevelSt[facility] CenterShopalytic Seed[facility] Address [address] [place] [address] Care Team Providers Name Role Phone Pcp, [...] Radiology [place]in[place], Subdural hematoma Kenan Green (HCC) DECK MOLDER 01/07/2019 Outside Orders [facility] [place], Subdural hematoma Scheduling Kenan Green (HCC) (Primary Dx) DECK MOLDER 12/22/2018 Anesthesia Event Jay Sheikh MD 12/22/2018 Surgery Virtual, Surgeon PROCEDURE DONE OUTSIDE OR 12/22/2018 Orders Only General Internal Medicine 12/21/2018 Anesthesia Event Griselda Courtney CRNA 12/21/2018 Surgery Mayte, CRANIOTOMY MD Oswaldo 12/20/2018 - Hospital Encounter Intensive Care Dereck Garcia, Subdural hematoma (HCC); 12/29/2018 Chean Unsp 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, init ([facility]); MD Jaxon Essential hypertension; Clint Gillette, Laryngeal carcinoma ([facility]); Hyponatremia; Tracheostomy dependent (HCC); Tracheitis; Ineffective airway clearance 12/20/2018 Travel after 04/25/2018 Social History Tobacco Use Types [...] 160 cm (5' 3") 12/20/2018 4:09 PM CERTIFIED MEDICAL TECHNICIAN ASSISTANT Body Mass Index 17.38 12/29/2018 5:00 AM CDT Plan of Treatment Not on file Implants Implanted Type Area Fabricator Foam Rubber Device Shelf Model / Identifier Expiration Serial / Date Lot Plt Str Un3 2h W/Tab [id number] - [id number] Fracture/Fix Left: DANNY: CRANIOM [id number] / Implanted: Qty: 3 on 12/21/2018 by Oswaldo Hu MD [facility] [place] Head AXILLOFACIAL / Scr Un3 Enterprise Self Drl 1.5x4mm [id number] - [id number] Fracture/Fix Left: DANNY:CRANIOM [id number] / Implanted: Qty: 6 on 12/21/2018 by Oswaldo Hu MD [facility] [place] Head AXILLOFACIAL / Cath Lumen Evd Bactisealclr [id number] - [id number] IMPLANTS Left: J &J: CODMAN & 06/18/2019 [...] 12/26/2018 12:37 Results for this CONTRAST AM CERTIFIED MEDICAL TECHNICIAN ASSISTANT procedure are in the results section. POCT-GLUCOSE METER Routine 12/25/2018 6:15 Results for this PM CERTIFIED MEDICAL TECHNICIAN ASSISTANT procedure are in the results section. SPUTUM CULTURE + GRAM Routine 12/25/2018 5:25 Results for this STAIN PM CERTIFIED MEDICAL TECHNICIAN ASSISTANT procedure are in the results section. XR CHEST 1 VIEW WALLY 12/25/2018 11:42 Results for this PORTABLE/BEDSIDE AM CERTIFIED MEDICAL TECHNICIAN ASSISTANT procedure are in the results section. POCT-GLUCOSE METER Routine 12/25/2018 8:25 Results for this AM CERTIFIED MEDICAL TECHNICIAN ASSISTANT procedure are in the results section. CBC W/PLT COUNT & Routine 12/25/2018 8:23 Results for this AUTO DIFFERENTIAL AM CERTIFIED MEDICAL TECHNICIAN ASSISTANT procedure are in the results section. BASIC METABOLIC PANEL Routine 12/25/2018 8:23 Results for this (7) AM CERTIFIED MEDICAL TECHNICIAN ASSISTANT procedure are in the results section. CBC W/PLT COUNT & Routine 12/25/2018 8:23 Results for this AUTO DIFFERENTIAL AM CERTIFIED MEDICAL TECHNICIAN ASSISTANT procedure are in the results section. POCT-GLUCOSE METER Routine 12/24/2018 5:09 Results for this PM CERTIFIED MEDICAL TECHNICIAN ASSISTANT procedure are in the results section. MAGNESIUM Routine 12/24/2018 4:19 Results for this PM CERTIFIED MEDICAL TECHNICIAN ASSISTANT procedure are in the results section. POTASSIUM Routine 12/24/2018 4:19 Results for this PM CERTIFIED MEDICAL TECHNICIAN ASSISTANT procedure are in the results section. POCT-GLUCOSE METER Routine 12/24/2018 12:08 Results for this PM CERTIFIED MEDICAL TECHNICIAN ASSISTANT procedure are in the results section. POCT-GLUCOSE METER Routine 12/24/2018 7:48 Results for this AM CERTIFIED MEDICAL TECHNICIAN ASSISTANT procedure are in the results section. CBC W/PLT COUNT & Routine 12/24/2018 4:29 Results for this AUTO DIFFERENTIAL AM CERTIFIED MEDICAL TECHNICIAN ASSISTANT procedure are in the results section. PHOSPHORUS Routine 12/24/2018 4:29 Results for this AM CERTIFIED MEDICAL TECHNICIAN ASSISTANT procedure are in the results section. MAGNESIUM Routine 12/24/2018 4:29 Results for this AM CERTIFIED MEDICAL TECHNICIAN ASSISTANT procedure are in the results section. CBC W/PLT COUNT & Routine 12/24/2018 4:29 Results for this AUTO DIFFERENTIAL AM CERTIFIED MEDICAL TECHNICIAN ASSISTANT procedure are in the results section. BASIC METABOLIC PANEL Routine 12/24/2018 4:29 Results for this (7) AM CERTIFIED MEDICAL TECHNICIAN ASSISTANT procedure are in the results section. CT BRAIN WITHOUT IV Routine 12/24/2018 2:45 Results for this CONTRAST AM CERTIFIED MEDICAL TECHNICIAN ASSISTANT procedure are in the results section. POCT-GLUCOSE METER Routine 12/23/2018 9:58 Results for this PM CERTIFIED MEDICAL TECHNICIAN ASSISTANT procedure are in the results section. POCT-GLUCOSE METER Routine 12/23/2018 5:42 Results for this PM CERTIFIED MEDICAL TECHNICIAN ASSISTANT procedure are in the results section. POCT-GLUCOSE METER Routine 12/23/2018 12:04 Results for this PM CERTIFIED MEDICAL TECHNICIAN ASSISTANT procedure are in the results section. POCT-GLUCOSE METER Routine 12/23/2018 6:23 Results for this AM CERTIFIED MEDICAL TECHNICIAN ASSISTANT procedure are in the results section. CBC W/PLT COUNT & Routine 12/23/2018 3:05 Results for this AUTO DIFFERENTIAL AM CERTIFIED MEDICAL TECHNICIAN ASSISTANT procedure are in the results section. BASIC METABOLIC PANEL Routine 12/23/2018 3:05 Results for this (7) AM CERTIFIED MEDICAL TECHNICIAN ASSISTANT procedure are in the results section. CBC W/PLT COUNT & Routine 12/23/2018 3:05 Results for this AUTO DIFFERENTIAL AM CERTIFIED MEDICAL TECHNICIAN ASSISTANT procedure are in the results section. POCT-GLUCOSE METER Routine 12/23/2018 12:51 Results for this AM CERTIFIED MEDICAL TECHNICIAN ASSISTANT procedure are in the results section. TRANSFUSION SERVICE 12/22/2018 6:26 REPORT - SCAN PM CERTIFIED MEDICAL TECHNICIAN ASSISTANT POCT-GLUCOSE METER Routine 12/22/2018 6:17 Results for this PM CERTIFIED MEDICAL TECHNICIAN ASSISTANT procedure are in the results section. NV EMBOLIZATION Routine 12/22/2018 3:55 Results for this EXTENSIVE PM CERTIFIED MEDICAL TECHNICIAN ASSISTANT procedure are in the results section. POCT-GLUCOSE METER Routine 12/22/2018 12:35 Results for this PM CERTIFIED MEDICAL TECHNICIAN ASSISTANT procedure are in the results section. BASIC METABOLIC PANEL Routine 12/22/2018 12:34 Results for this (7) PM CERTIFIED MEDICAL TECHNICIAN ASSISTANT procedure are in the results section. PROCEDURE DONE 12/22/2018 12:00 Subdural hematoma OUTSIDE OR PM CERTIFIED MEDICAL TECHNICIAN ASSISTANT (HCC) Special Needs REQ:12PM ECG 12-LEAD Routine 12/22/2018 11:58 AM CERTIFIED MEDICAL TECHNICIAN ASSISTANT Procedure Note - Interface, External Ris In - 12/22/2018 12:04 PM CERTIFIED MEDICAL TECHNICIAN ASSISTANT Ventricular Rate 57 BPM Atrial Rate 57 BPM P-R Interval 186 ms QRS Duration 74 ms Q-T Interval 450 ms QTC Calculation(Bazett) 438 ms P Enterprise 39 degrees R Enterprise 39 degrees T Enterprise 53 degrees Sinus bradycardia Otherwise normal ECG No previous ECGs available ECG 12-LEAD Routine 12/22/2018 11:58 AM Results for this CERTIFIED MEDICAL TECHNICIAN ASSISTANT procedure are in the results section. ECG 12-LEAD Routine 12/22/2018 11:38 AM Results for this CERTIFIED MEDICAL TECHNICIAN ASSISTANT procedure are in the results section. ECG 12-LEAD Routine 12/22/2018 11:37 AM Results for this CERTIFIED MEDICAL TECHNICIAN ASSISTANT procedure are in the results section. PT/APTT STAT 12/22/2018 7:50 AM Results for this CERTIFIED MEDICAL TECHNICIAN ASSISTANT procedure are in the results section. POCT-GLUCOSE METER Routine 12/22/2018 6:43 AM Results for this CERTIFIED MEDICAL TECHNICIAN ASSISTANT procedure are in the results section. CT BRAIN WITHOUT IV Routine 12/22/2018 5:22 AM Results for this CONTRAST CERTIFIED MEDICAL TECHNICIAN ASSISTANT procedure are in the results section. CBC W/PLT COUNT & Routine 12/22/2018 3:49 AM Results for this AUTO DIFFERENTIAL CERTIFIED MEDICAL TECHNICIAN ASSISTANT procedure are in the results section. BASIC METABOLIC PANEL Routine 12/22/2018 3:49 AM Results for this (7) CERTIFIED MEDICAL TECHNICIAN ASSISTANT procedure are in the results section. CBC W/PLT COUNT & Routine 12/22/2018 3:49 AM Results for this AUTO DIFFERENTIAL CERTIFIED MEDICAL TECHNICIAN ASSISTANT procedure are in the results section. POCT-GLUCOSE METER Routine 12/22/2018 3:48 AM Results for this CERTIFIED MEDICAL TECHNICIAN ASSISTANT procedure are in the results section. POCT-GLUCOSE METER Routine 12/21/2018 5:49 PM Results for this CERTIFIED MEDICAL TECHNICIAN ASSISTANT procedure are in the results section. TISSUE EXAM AP Routine 12/21/2018 3:32 PM Results for this CERTIFIED MEDICAL TECHNICIAN ASSISTANT procedure are in the results section. CRANIOTOMY 12/21/2018 1:35 PM Subdural hematoma CERTIFIED MEDICAL TECHNICIAN ASSISTANT (HCC) Special Needs REQ TF POCT-GLUCOSE METER Routine 12/21/2018 12:23 PM CERTIFIED MEDICAL TECHNICIAN ASSISTANT POCT-GLUCOSE METER Routine 12/21/2018 7:49 AM CERTIFIED MEDICAL TECHNICIAN ASSISTANT POCT-GLUCOSE METER Routine 12/21/2018 5:38 AM CERTIFIED MEDICAL TECHNICIAN ASSISTANT ABORH, MANUAL STAT 12/21/2018 3:38 AM CERTIFIED MEDICAL TECHNICIAN ASSISTANT CBC W/PLT COUNT & AUTO Routine 12/21/2018 3:14 AM CERTIFIED MEDICAL TECHNICIAN ASSISTANT Results for this DIFFERENTIAL procedure are in the results section. TYPE AND SCREEN, AUTOMATED Routine 12/21/2018 3:14 AM CERTIFIED MEDICAL TECHNICIAN ASSISTANT CBC W/PLT COUNT & AUTO Routine 12/21/2018 3:14 AM CERTIFIED MEDICAL TECHNICIAN ASSISTANT Results for this DIFFERENTIAL procedure are in the results section. PHOSPHORUS Routine 12/21/2018 3:14 AM CERTIFIED MEDICAL TECHNICIAN ASSISTANT MAGNESIUM Routine 12/21/2018 3:14 AM CERTIFIED MEDICAL TECHNICIAN ASSISTANT BASIC METABOLIC PANEL (7) Routine 12/21/2018 3:14 AM CERTIFIED MEDICAL TECHNICIAN ASSISTANT CT BRAIN WITHOUT IV Routine 12/21/2018 12:53 AM CERTIFIED MEDICAL TECHNICIAN ASSISTANT Results for this CONTRAST procedure are in the results section. POCT-GLUCOSE METER Routine 12/20/2018 11:56 PM CERTIFIED MEDICAL TECHNICIAN ASSISTANT POCT-GLUCOSE METER Routine 12/20/2018 6:49 PM CERTIFIED MEDICAL TECHNICIAN ASSISTANT BASIC METABOLIC PANEL (7) Routine 12/20/2018 5:01 PM CERTIFIED MEDICAL TECHNICIAN ASSISTANT PHOSPHORUS Routine 12/20/2018 5:01 PM CERTIFIED MEDICAL TECHNICIAN ASSISTANT MAGNESIUM Routine 12/20/2018 5:01 PM CERTIFIED MEDICAL TECHNICIAN ASSISTANT APTT Routine 12/20/2018 5:01 PM CERTIFIED MEDICAL TECHNICIAN ASSISTANT PROTHROMBIN TIME/INR Routine 12/20/2018 5:01 PM CERTIFIED MEDICAL TECHNICIAN ASSISTANT HEPATIC FUNCTION PANEL Routine 12/20/2018 5:01 PM CERTIFIED MEDICAL TECHNICIAN ASSISTANT after 04/25/[address] Brain without IV Contrast (01/19/2019 11:10 AM CDT)Only the most recent of5 resultswithin the time period is included. Specimen Narrative Performed At FINAL REPORT [facility] CT Head without contrast CLINICAL HISTORY: [...] MD Report Verified Date/Time:01/19/2019 11:41:54 Reading Location: [facility] C0[facility] Neuro Reading Room Procedure Note Interface, External [...] resolved. Signed: Mt Valente MD Report Verified Date/Time: 01/19/2019 11:41:54 Reading Location: [facility] C013V Neuro Reading Room Performing Organization Address City/[facility]/Zipcode Phone Number GE RIS RHYTHM STRIP - SCAN (12/31/2018 12:21 PM CDT) Narrative Performed At Calcium, Ionized (12/29/2018 4:51 AM CDT)Only the most recent of3 resultswithin the time period is included. Calcium, Ion 1.08 (L) 1.12 - 1.27 mmol/L [facility] pH, Blood 7.47 [facility] Specimen Blood Performing Organization Address [facility] Phone Number [address] [address] CENTER CBC with platelet count + automated diff (12/29/2018 4:51 AM CDT)Only the most recent of7 resultswithin the time period is included. WBC 9.7 3.5 - 10.5 K/L [facility] RBC 3.14 (L) 3.93 - 5.22 M/L [facility] Hemoglobin 8.8 (L) 11.2 - 15.7 GM/DL [facility] Hematocrit 27.5 (L) 34.1 - 44.9 % [facility] MCV 87.6 79.4 - 94.8 fL [facility] MCH 28.0 25.6 - 32.2 pg [facility] MCHC 32.0 (L) 32.2 - 35.5 GM/DL [facility] RDW 18.3 (H) 11.7 - 14.4 % [facility] Platelets 585 (H) 150 - 450 K/CU MM [facility] MPV 9.3 (L) 9.4 - 12.3 fL [facility] nRBC 0 0 - 0 /100 WBC [facility] % Neutros 68 % [facility] % Lymphs 16 % [facility] % Monos 9 % [facility] % Eos 4 % [facility] % Baso 1 % [facility] # Neutros 6.54 (H) 1.56 - 6.13 K/L [facility] # Lymphs 1.55 1.18 - 3.74 K/L [facility] # Monos 0.87 (H) 0.24 - 0.36 K/L [facility] # Eos 0.40 (H) 0.04 - 0.36 K/L [facility] # Baso 0.06 0.01 - 0.08 K/L [facility] Immature Granulocytes-Relative 2 (H) 0 - 1 % [facility] Specimen Blood Performing Organization Address City/State/Zipcode Phone Number [address] [address] CENTER Phosphorus (12/29/2018 4:51 AM CDT)Only the most recent of5 resultswithin the time period is included. Phosphorus 4.3 2.3 - 4.7 mg/dL [facility] Specimen Blood Performing Organization Address City/State/Zipcode Phone Number [address] [address] [phone] CENTER Magnesium (12/29/2018 4:51 AM CDT)Only the most recent of6 resultswithin the time period is included. Magnesium 1.9 1.6 - 2.6 mg/dL [facility] Specimen Blood Performing Organization Address City/[facility]/Zipcode Phone Number [address] [address] [place] Basic Metabolic Panel (12/29/2018 4:51 AM CDT)Only the most recent of10 resultswithin the time period is included. Sodium 135 (L) 136 - 145 meq/L [facility] Potassium 4.4 3.5 - 5.1 meq/L [facility] Chloride 98 98 - 107 meq/L [facility] CO2 27 22 - 29 meq/L [facility] BUN 11 7 - 21 mg/dL [facility] Creatinine 0.67 0.57 - 1.25 mg/dL [facility] Glucose 89 70 - 105 mg/dL [facility] Calcium 9.8 8.4 - 10.2 mg/dL [facility] EGFR 90Comment: ESTIMATED GFR IS mL/min/1.73 sq m [facility] NOT ACCURATE CREATININE [facility] CLEARANCE IN PREDICTING GLOMERULAR FILTRATION RATE. ESTIMATED GFR IS NOT APPLICABLE FOR DIALYSIS PATIENTS. Specimen Blood Performing Organization Address [facility] Hospitalcoct Phone Number [address] [address] [phone] [place] POC-Glucose meter (12/25/2018 6:15 PM CERTIFIED MEDICAL TECHNICIAN ASSISTANT)Only the most recent of20 resultswithin the time period is included. POC-Glucose Meter 137 (H)Comment: TESTED AT 70 - 110 mg/dL [facility] [address] [place] [address] Specimen Blood Performing Organization Address City/[facility]/Zipcode Phone Number [address] [address] [place] Sputum Culture + Gram Stain (12/25/2018 5:25 PM CERTIFIED MEDICAL TECHNICIAN ASSISTANT) Result 4+ Pseudomonas aeruginosa (A) [facility] Result 3+ Serratia marcescens [facility] (A)Comment: of a second type [facility] Gram Stain Result 2+ White blood cells seen [facility] Gram Stain Result 0-5 epithelial cells [facility] Gram Stain Result <1+ gram negative rods [facility] Gram Stain Result 2+ yeast [facility] Specimen Sputum Narrative Performed At 2+ [facility] 1+ Normal respiratory anita present Organism Antibiotic [...] Susceptible Performing Organization Address City/State/Zipcode Phone Number [facility] [address] [place] [address] [phone] CENTER XR chest 1 view portable / bedside (12/25/2018 11:42 AM CERTIFIED MEDICAL TECHNICIAN ASSISTANT) Specimen Narrative Performed At FINAL REPORT GE [facility] Chest, AP view. History: Bronchitis. Comparison: None available. Discussion:The cardiomediastinal silhouette and pulmonary vasculature are within normal limits. The lungs are clear without evidence of consolidation or effusion.There are no acute osseous abnormalities. The soft tissues are unremarkable. IMPRESSION: No acute cardiopulmonary abnormality. Signed: Phillip Cintron MD Report Verified Date/Time:12/25/2018 14:28:42 Reading Location: [address] Transitional Reading Room Procedure Note Interface, External Ris In - 12/25/2018 2:30 PM CERTIFIED MEDICAL TECHNICIAN ASSISTANT FINAL REPORT Chest, AP view. History: Bronchitis. Comparison: None available. Discussion: The cardiomediastinal silhouette and pulmonary vasculature are within normal limits. The lungs are clear without evidence of consolidation or effusion. There are no acute osseous abnormalities. The soft tissues are unremarkable. IMPRESSION: No acute cardiopulmonary abnormality. Signed: Phillip Cintron MD Report Verified Date/Time: 12/25/2018 14:28:42 Reading Location: [address] Transitional Reading Room Performing Organization Address City/[facility]/Zipcode Phone Number [facility] Potassium (12/24/2018 4:19 PM CERTIFIED MEDICAL TECHNICIAN ASSISTANT) Potassium 3.9 3.5 - 5.1 meq/L [facility] Specimen Blood Narrative Performed At Check Serum Potassium level 2 hours after [facility] oral potassium replacement completed or 30 min after intravenous potassium replacement. Performing Organization Address City/[facility]/Zipcode Phone Number [facility] MEDICAL [address] [place] [address] [phone] CENTER TRANSFUSION SERVICE REPORT - SCAN (12/22/2018 6:26 PM CERTIFIED MEDICAL TECHNICIAN ASSISTANT) Narrative Performed At NV Embolization Extensive (12/22/2018 3:55 PM CERTIFIED MEDICAL TECHNICIAN ASSISTANT) Specimen Narrative Performed At FINAL REPORT [facility] DATE: December 22, 2018 ATTENDING: Jaci Zuniga MD AOC DIRECTOR COMBAT OPERATIONS OFFICER: Merlin Novak PREOPERATIVE DIAGNOSIS: Left chronic subdural [...] femoral artery was performed and a 6 Kyrgyz short sheath was inserted into the right common femoral artery and maintained on heparinized flush. Using coaxial technique a 5 Kyrgyz Envoy catheter was advanced into the descending [...] were removed. Hemostasis achieved with a 6 Kyrgyz AngioSeal and manual compression. The patient tolerated [...] MD Report Verified Date/Time:12/31/2018 06:47:20 Reading Location: [facility] Y026 Neuro Angio Reading Room Procedure Note Interface, External Ris In - 12/31/2018 6:49 AM CDT FINAL REPORT DATE: December 22, 2018 ATTENDING: Jaci Zuniga MD AOC DIRECTOR COMBAT OPERATIONS OFFICER: Merlin Novak PREOPERATIVE DIAGNOSIS: Left chronic subdural [...] femoral artery was performed and a 6 Kyrgyz short sheath was inserted into the right common femoral artery and maintained on heparinized flush. Using coaxial technique a 5 Kyrgyz Envoy catheter was advanced into the descending [...] were removed. Hemostasis achieved with a 6 Kyr[place]z AngioSeal and manual compression. The patient tolerated [...] Report Verified Date/Time: 12/31/2018 06:47:20 Reading Location: [facility] Y026 Neuro Angio Reading Room Performing Organization Address City/State/Zipcode Phone Number GE RIS ECG 12 lead (12/22/2018 11:58 AM CERTIFIED MEDICAL TECHNICIAN ASSISTANT)Only the most recent of3 resultswithin the time period is included. Specimen Narrative Performed At Ventricular Rate 57 BPM GE MUSE Atrial Rate 57 BPM P-R Interval 186 ms QRS Duration 74 ms Q-T Interval 450 ms QTC Calculation(Bazett) 438 ms P Enterprise 39 degrees R Enterprise 39 degrees T Enterprise 53 degrees Sinus bradycardia Otherwise normal ECG No previous ECGs available Confirmed by Florentin KELLY BASANT ([id number]) on 12/22/2018 2:25:58 PM Procedure Note Interface, External Ris In - 12/22/2018 2:26 PM CERTIFIED MEDICAL TECHNICIAN ASSISTANT Ventricular Rate 57 BPM Atrial Rate 57 BPM P-R Interval 186 ms QRS Duration 74 ms Q-T Interval 450 ms QTC Calculation(Bazett) 438 ms P Enterprise 39 degrees R Enterprise 39 degrees T Enterprise 53 degrees Sinus bradycardia Otherwise normal ECG No previous ECGs available Confirmed by Florentin KELLY BASANT ([id number]) on 12/22/2018 2:25:58 PM Performing Organization Address City/[facility]/Zipcode Phone Number GE MUSE PT/aPTT (12/22/2018 7:50 AM CERTIFIED MEDICAL TECHNICIAN ASSISTANT) Protime 13.1 11.7 - 14.7 seconds [facility] INR 1.0 <=5.9 [facility] PTT 35.5 22.5 - 36.0 seconds [facility] Specimen Blood Narrative Performed At RECOMMENDED COUMADIN/WARFARIN INR THERAPY [facility] RANGES STANDARD DOSE: 2.0 - 3.0 Includes: PROPHYLAXIS for venous thrombosis, systemic embolization; TREATMENT for venous thrombosis and/or pulmonary embolus. HIGH RISK: Target INR is 2.5-3.5 for patients with mechanical heart valves. Performing Organization Address [facility] Phone Number [address] [address] CENTER Tissue Exam (12/21/2018 3:32 PM CERTIFIED MEDICAL TECHNICIAN ASSISTANT) Case Report Surgical Pathology Report Case: [id number] [facility] Authorizing Provider:Oswaldo Hu MDCollected: 12/21/2018 [facility] CENTER Ordering Location: [place] [address] ICUReceived: 12/22/2018 0801 Pathologist: Ad Carlson MD Specimen:Soft Tissue, Other, left subdural clot DIAGNOSIS BRAIN, SUBDURAL REGION, LEFT, CRANIOTOMY AND EVACUATION: [facility] GRANULATION TISSUE AND FIBRIN, CONSISTENT WITH ORGANIZING HEMATOMA [facility] Signing Pathologist Direct Phone Line: [phone] CPT Code(s) 36829 [facility] CLINICAL HISTORY Left subdural hematoma [facility] SPECIMEN SOURCE Left subdural clot [facility] GROSS DESCRIPTION The specimen is received in [facility] a formalin-filled container [facility] labeled with the patient's information and labeled "left subdural clot" and consists of three fragments of red-brown soft tissue measuring 0.5 to 0.6 cm, submitted entirely in A1. CG/ew MICROSCOPIC DESCRIPTION Performed [facility] Specimen Tissue Performing Organization Address [facility] Phone Number [address] [address] [phone] CENTER ABORH, manual (12/21/2018 3:38 AM CERTIFIED MEDICAL TECHNICIAN ASSISTANT) ABO Grouping O [facility] Rh Factor NEG [facility] Specimen Blood Performing Organization Address [facility] Phone Number [address] [address] [phone] Type and screen, automated (12/21/2018 3:14 AM CERTIFIED MEDICAL TECHNICIAN ASSISTANT) ABO/RH AUTOMATED (BEAKER) O NEGATIVE [facility] Ab Scrn NEGATIVE [facility] Specimen Blood Performing Organization Address [facility] Phone Number [address] [address] aPTT (12/20/2018 5:01 PM CERTIFIED MEDICAL TECHNICIAN ASSISTANT) PTT 37.3 (H) 22.5 - 36.0 seconds [facility] Specimen Blood Performing Organization Address [facility] Phone Number [address] [address] [phone] CENTER Prothrombin time/INR (12/20/2018 5:01 PM CERTIFIED MEDICAL TECHNICIAN ASSISTANT) Protime 13.8 11.7 - 14.7 seconds [facility] INR 1.1 <=5.9 [facility] Specimen Blood Narrative Performed At RECOMMENDED COUMADIN/WARFARIN INR THERAPY [facility] RANGES STANDARD DOSE: 2.0 - 3.0 Includes: PROPHYLAXIS for venous thrombosis, systemic embolization; TREATMENT for venous thrombosis and/or pulmonary embolus. HIGH RISK: Target INR is 2.5-3.5 for patients with mechanical heart valves. Performing Organization Address [facility] Phone Number [address] [address] [place] Hepatic function panel (12/20/2018 5:01 PM CERTIFIED MEDICAL TECHNICIAN ASSISTANT) Protein, Total 7.5Comment: Specimen 6.0 - 8.3 gm/dL [facility] slightly hemolyzed [facility] Albumin 3.8Comment: Specimen 3.5 - 5.0 g/dL [facility] slightly hemolyzed [facility] Total Bilirubin 0.7Comment: Specimen 0.2 - 1.2 mg/dL [facility] Bilirubin, Direct 0.4Comment: Specimen 0.1 - 0.5 mg/dL [facility] hemolyzed [facility] Alkaline Phosphatase 74 40 - 150 U/L [facility] AST 30Comment: Specimen 5 - 34 U/L [facility] slightly hemolyzed [facility] ALT 15Comment: Specimen 6 - 55 U/L [facility] hemolyzed [facility] Specimen Blood Performing Organization Address [facility] Phone Number [facility] [address] [place] [address] [place] after 04/25/2018 Insurance Payer Benefit Plan / Group Subscriber ID Type Phone Address MEDICAID - MEDICAID MEDICAID [employer] xxxxxxxxx Medicaid MGD CARE Non-Contracted Advance Directives For more information, please contact:[address] [phone] Code Status Date Activated Date Inactivated Comments [...]
--- OUTSIDE RECORDS SUMMARY | 2019-04-26 13:16 | XMS REPORT ---
:1960 [facility] Address [address] [place] [address] [place] [address] Care Team Providers Name Role Phone KIARATIANA HERNANDEZ CASEANDRESSA WEEKS Unavailable Unavailable Problems This patient has no known problems. Allergies, Adverse Reactions, Alerts This patient has no known allergies or adverse reactions. Medications This patient has no known medications. Results Test Description Test Time Test Comments Text Results Atomic Results Result Comments CT, BRAIN, WITHOUT 2019-01-19 11:41:00 FINAL REPORT PATIENT ID: CONTRAST [id number] CT Head without contrast CLINICAL HISTORY: S06.5X9A [...] resolved. Midline shift has resolved. Signed: [place] Verified Date/Time: 01/19/2019 11:41:54 Reading Location: [facility] C013V Neuro Reading Room , EMBOLIZATION, 2018-12-31 06:47:00 Reason for FINAL REPORT PATIENT ID: EXTENSIVE exam:->left MMA [id number] DATE: December embolization for SDH 2018 ATTENDING: Jaci Roberts MD PHARMACY COORDINATOR: Merlin Novak PREOPERATIVE DIAGNOSIS: Left chronic subdural [...] femoral artery was performed and a 6 Nigerien short sheath was inserted into the right common femoral artery and maintained on heparinized flush. Using coaxial technique a 5 Nigerien Envoy catheter was advanced into the descending [...] were removed. Hemostasis achieved with a 6 Nigerien AngioSeal and manual compression. The patient tolerated [...] MDReport Verified Date/Time: 12/31/2018 06:47:20 Reading Location: [facility] Y026 Neuro Angio Reading Room W/PLT COUNT & AUTO DIFFERENTIAL 2018-12-29 06:02:00 Test Item Value Reference Range Comments WHITE BLOOD CELL COUNT (BEAKER) (test nqih=456) 9.7 K/ L 3.5-10.5 RED BLOOD CELL COUNT (BEAKER) (test owus=526) 3.14 M/ L 3.93-5.22 HEMOGLOBIN (BEAKER) (test takz=968) 8.8 GM/DL 11.2-15.7 HEMATOCRIT (BEAKER) (test sroa=526) 27.5 % 34.1-44.9 MEAN CORPUSCULAR VOLUME (BEAKER) (test tbjf=734) 87.6 fL 79.4-94.8 MEAN CORPUSCULAR HEMOGLOBIN (BEAKER) (test evsz=524) 28.0 pg 25.6-32.2 MEAN CORPUSCULAR HEMOGLOBIN CONC (BEAKER) (test ciur=870) 32.0 GM/DL 32.2- 35.5 RED CELL DISTRIBUTION WIDTH (BEAKER) (test obir=120) 18.3 % 11.7-14.4 PLATELET COUNT (BEAKER) (test fgfd=883) 585 K/CU MM 150-450 MEAN PLATELET VOLUME (BEAKER) (test gild=045) 9.3 fL 9.4-12.3 NUCLEATED RED BLOOD CELLS (BEAKER) (test taze=761) 0 /100 WBC 0-0 NEUTROPHILS RELATIVE PERCENT (BEAKER) (test ygwi=792) 68 % LYMPHOCYTES RELATIVE PERCENT (BEAKER) (test eucu=326) 16 % MONOCYTES RELATIVE PERCENT (BEAKER) (test izfk=110) 9 % EOSINOPHILS RELATIVE PERCENT (BEAKER) (test ohda=943) 4 % BASOPHILS RELATIVE PERCENT (BEAKER) (test omvk=841) 1 % NEUTROPHILS ABSOLUTE COUNT (BEAKER) (test zidh=770) 6.54 K/ L 1.56-6.13 LYMPHOCYTES ABSOLUTE COUNT (BEAKER) (test niss=362) 1.55 K/ L 1.18-3.74 MONOCYTES ABSOLUTE COUNT (BEAKER) (test wvdh=309) 0.87 K/ L 0.24-0.36 EOSINOPHILS ABSOLUTE COUNT (BEAKER) (test vhqx=345) 0.40 K/ L 0.04-0.36 BASOPHILS ABSOLUTE COUNT (BEAKER) (test sskl=913) 0.06 K/ L 0.01-0.08 IMMATURE GRANULOCYTES-RELATIVE PERCENT (BEAKER) (test 2 % 0-1 eqlj=3110) [id number] 05:45:00 Test Item Value Reference Range Comments PHOSPHORUS (BEAKER) (test oiiy=564) 4.3 mg/dL 2.3-4.7 [id number] 05:45:00 Test Item Value Reference Range Comments MAGNESIUM (BEAKER) (test duwg=855) 1.9 mg/dL 1.6-2.6 BASIC METABOLIC [id number] 05:45:00 Test Item Value Reference Range Comments SODIUM (BEAKER) (test 135 meq/L 136-145 ltfx=367) POTASSIUM (BEAKER) (test 4.4 meq/L 3.5-5.1 rtau=679) CHLORIDE (BEAKER) (test 98 meq/L 98-107 grar=556) CO2 (BEAKER) (test 27 meq/L 22-29 risi=517) BLOOD UREA NITROGEN 11 mg/dL 7-21 (BEAKER) (test ifcq=278) CREATININE (BEAKER) (test 0.67 mg/dL 0.57-1.25 qshi=120) GLUCOSE RANDOM (BEAKER) 89 mg/dL 70-105 (test kxss=843) CALCIUM (BEAKER) (test 9.8 mg/dL 8.4-10.2 zagd=294) EGFR (BEAKER) (test 90 mL/min/1.73 sq m ESTIMATED GFR IS NOT hypf=2136) ACCURATE CREATININE CLEARANCE IN PREDICTING GLOMERULAR FILTRATION RATE. ESTIMATED GFR IS NOT APPLICABLE FOR DIALYSIS PATIENTS. CALCIUM, [id number] 05:31:00 Test Item Value Reference Range Comments CALCIUM IONIZED (BEAKER) (test geya=480) 1.08 mmol/L 1.12-1.27 PH, BLOOD (BEAKER) (test ljjo=1200) 7.47 SPUTUM CULTURE + GRAM [id number] 10:36:00 Test Item Value Reference Range Comments CULTURE (BEAKER) (test PSEUDOMONAS 4+ Pseudomonas mwlz=4013) AERUGINOSA aeruginosa Amikacin (test code=1) Susceptible 0-16 [...] CULTURE (BEAKER) (test SERRATIA MARCESCENS 3+ Serratia wepq=3181) marcescensof a second type Amikacin (test code=1) Aztreonam (test code=32) Cefepime (test code=51) Cefoxitin (test code=68) Ceftazidime (test code=27) Ceftriaxone (test code=52) Ertapenem (test code=38) Gentamicin (test code=18) Levofloxacin (test code=22) Meropenem (test code=34) Nitrofurantoin (test code=23) Tetracycline (test code=2) Tobramycin (test code=25) Trimethoprim + Sulfamethoxazole (test code=47) GRAM STAIN RESULT 2+ White blood cells (BEAKER) (test rmsj=4929) seen GRAM STAIN RESULT 0-5 epithelial cells (BEAKER) (test yezo=943910) GRAM STAIN RESULT <1+ gram negative (BEAKER) (test rods gyrj=625640) GRAM STAIN RESULT 2+ yeast (BEAKER) (test zrux=909813) 2+ yeast1+ Normal respiratory anita presentCALCIUM, [id number] 05:30:00 Test Item Value Reference Range Comments CALCIUM IONIZED (BEAKER) (test qeeq=657) 1.16 mmol/L 1.12-1.27 PH, BLOOD (BEAKER) (test aari=6272) 7.35 [id number] 05:02:00 Test Item Value Reference Range Comments PHOSPHORUS (BEAKER) (test fqea=123) 3.2 mg/dL 2.3-4.7 [id number] 05:02:00 Test Item Value Reference Range Comments MAGNESIUM (BEAKER) (test glfj=197) 1.7 mg/dL 1.6-2.6 BASIC METABOLIC [id number] 05:02:00 Test Item Value Reference Range Comments SODIUM (BEAKER) (test 136 meq/L 136-145 ergm=825) POTASSIUM (BEAKER) (test 4.7 meq/L 3.5-5.1 aavf=542) CHLORIDE (BEAKER) (test 100 meq/L 98-107 ryfw=895) CO2 (BEAKER) (test 30 meq/L 22-29 fjwv=133) BLOOD UREA NITROGEN 11 mg/dL 7-21 (BEAKER) (test icfy=813) CREATININE (BEAKER) (test 0.65 mg/dL 0.57-1.25 ncxf=856) GLUCOSE RANDOM (BEAKER) 91 mg/dL 70-105 (test wnhh=778) CALCIUM (BEAKER) (test 9.4 mg/dL 8.4-10.2 eqvs=173) EGFR (BEAKER) (test 93 mL/min/1.73 sq m ESTIMATED GFR IS NOT tynq=4434) ACCURATE CREATININE CLEARANCE IN PREDICTING GLOMERULAR FILTRATION RATE. ESTIMATED GFR IS NOT APPLICABLE FOR DIALYSIS PATIENTS. CALCIUM, [id number] 05:46:00 Test Item Value Reference Range Comments CALCIUM IONIZED (BEAKER) (test ywhi=612) 1.16 mmol/L 1.12-1.27 PH, BLOOD (BEAKER) (test kyjo=7944) 7.39 BASIC METABOLIC [id number] 05:26:00 Test Item Value Reference Range Comments SODIUM (BEAKER) (test 136 meq/L 136-145 yfbx=603) POTASSIUM (BEAKER) (test 4.6 meq/L 3.5-5.1 dlwo=522) CHLORIDE (BEAKER) (test 101 meq/L 98-107 vvxe=955) CO2 (BEAKER) (test 28 meq/L 22-29 tevv=183) BLOOD UREA NITROGEN 9 mg/dL 7-21 (BEAKER) (test chro=213) CREATININE (BEAKER) (test 0.63 mg/dL 0.57-1.25 oame=586) GLUCOSE RANDOM (BEAKER) 103 mg/dL 70-105 (test adep=814) CALCIUM (BEAKER) (test 9.3 mg/dL 8.4-10.2 uqvo=987) EGFR (BEAKER) (test 97 mL/min/1.73 sq m ESTIMATED GFR IS NOT hlic=9468) ACCURATE CREATININE CLEARANCE IN PREDICTING GLOMERULAR FILTRATION RATE. ESTIMATED GFR IS NOT APPLICABLE FOR DIALYSIS PATIENTS. CBC W/PLT COUNT & AUTO [id number] 05:10:00 Test Item Value Reference Range Comments WHITE BLOOD CELL COUNT (BEAKER) (test hzep=826) 10.7 K/ L 3.5-10.5 RED BLOOD CELL COUNT (BEAKER) (test xkay=588) 3.16 M/ L 3.93-5.22 HEMOGLOBIN (BEAKER) (test gxfc=442) 9.0 GM/DL 11.2-15.7 HEMATOCRIT (BEAKER) (test itug=013) 27.6 % 34.1-44.9 MEAN CORPUSCULAR VOLUME (BEAKER) (test rlqs=130) 87.3 fL 79.4-94.8 MEAN CORPUSCULAR HEMOGLOBIN (BEAKER) (test 28.5 pg 25.6-32.2 phmt=937) MEAN CORPUSCULAR HEMOGLOBIN CONC (BEAKER) (test 32.6 GM/DL 32.2-35.5 nmem=632) RED CELL DISTRIBUTION WIDTH (BEAKER) (test 18.2 % 11.7-14.4 uutd=061) PLATELET COUNT (BEAKER) (test vfyu=383) 478 K/CU MM 150-450 MEAN PLATELET VOLUME (BEAKER) (test rgxi=905) 9.8 fL 9.4-12.3 NUCLEATED RED BLOOD CELLS (BEAKER) (test 0 /100 WBC 0-0 sudj=736) NEUTROPHILS RELATIVE PERCENT (BEAKER) (test 70 % pkos=199) LYMPHOCYTES RELATIVE PERCENT (BEAKER) (test 17 % nneg=076) MONOCYTES RELATIVE PERCENT (BEAKER) (test 8 % mypp=991) EOSINOPHILS RELATIVE PERCENT (BEAKER) (test 3 % iifa=038) BASOPHILS RELATIVE PERCENT (BEAKER) (test 1 % tuen=461) NEUTROPHILS ABSOLUTE COUNT (BEAKER) (test 7.51 K/ L 1.56-6.13 ekym=014) LYMPHOCYTES ABSOLUTE COUNT (BEAKER) (test 1.86 K/ L 1.18-3.74 bbdw=392) MONOCYTES ABSOLUTE COUNT (BEAKER) (test 0.86 K/ L 0.24-0.36 cjhv=301) EOSINOPHILS ABSOLUTE COUNT (BEAKER) (test 0.33 K/ L 0.04-0.36 ygar=495) BASOPHILS ABSOLUTE COUNT (BEAKER) (test 0.07 K/ L 0.01-0.08 qbln=456) IMMATURE GRANULOCYTES-RELATIVE PERCENT (BEAKER) 1 % 0-1 (test vusq=8626) CT, BRAIN, WITHOUT [id number] 01:51:00FINAL REPORT EXAM: CT head without contrast. [...] the left lateral ventricle. There is a hidv-xw-knjvx midline shift measuring 6 mm at the [...] density subdural hematoma. Associated mass effect. Mildly iykmiemnexnty-qq-lokew midline shift. Signed: Gideon Stephensort Verified Date/Time: 12/26/2018 01:51:10Reading Location: [address] Body Reading Room Electronically signed by: GIDEON STEPHENS MD on 2018 01:51 AMPOCT-GLUCOSE [id number] 18:19:00 Test Item Value Reference Range Comments POC-GLUCOSE METER (BEAKER) 137 mg/dL 70-110 TESTED AT [address] (test byuh=7139) [facility] [address] RAD, CHEST, 1 VIEW, NON [id number] 14:28:00Reason for exam:->C/f PNA/ bronchitisShould this be [...] Cintronort Verified Date/Time: 12/25/2018 14:28:42 Reading Location: [place] [id number] Transitional Reading Room BASIC METABOLIC [id number] 09:01:00 Test Item Value Reference Range Comments SODIUM (BEAKER) (test 133 meq/L 136-145 jqhb=912) POTASSIUM (BEAKER) (test 4.2 meq/L 3.5-5.1 vlax=350) CHLORIDE (BEAKER) (test 98 meq/L 98-107 fdiv=687) CO2 (BEAKER) (test 27 meq/L 22-29 llns=404) BLOOD UREA NITROGEN 7 mg/dL 7-21 (BEAKER) (test ipkg=013) CREATININE (BEAKER) (test 0.68 mg/dL 0.57-1.25 eauk=735) GLUCOSE RANDOM (BEAKER) 88 mg/dL 70-105 (test yuqe=109) CALCIUM (BEAKER) (test 9.1 mg/dL 8.4-10.2 vsev=547) EGFR (BEAKER) (test 89 mL/min/1.73 sq m ESTIMATED GFR IS NOT dors=0796) ACCURATE CREATININE CLEARANCE IN PREDICTING GLOMERULAR FILTRATION RATE. ESTIMATED GFR IS NOT APPLICABLE FOR DIALYSIS PATIENTS. CBC W/PLT COUNT & AUTO [id number] 08:51:00 Test Item Value Reference Range Comments WHITE BLOOD CELL COUNT (BEAKER) (test cqtb=568) 14.7 K/ L 3.5-10.5 RED BLOOD CELL COUNT (BEAKER) (test bobg=123) 3.68 M/ L 3.93-5.22 HEMOGLOBIN (BEAKER) (test whkb=741) 10.5 GM/DL 11.2-15.7 HEMATOCRIT (BEAKER) (test cgni=410) 32.3 % 34.1-44.9 MEAN CORPUSCULAR VOLUME (BEAKER) (test ajrm=003) 87.8 fL 79.4-94.8 MEAN CORPUSCULAR HEMOGLOBIN (BEAKER) (test 28.5 pg 25.6-32.2 vdmi=372) MEAN CORPUSCULAR HEMOGLOBIN CONC (BEAKER) (test 32.5 GM/DL 32.2-35.5 bvwc=473) RED CELL DISTRIBUTION WIDTH (BEAKER) (test 18.2 % 11.7-14.4 ykxl=892) PLATELET COUNT (BEAKER) (test azdh=055) 563 K/CU MM 150-450 MEAN PLATELET VOLUME (BEAKER) (test penl=264) 9.6 fL 9.4-12.3 NUCLEATED RED BLOOD CELLS (BEAKER) (test 0 /100 WBC 0-0 tzyn=669) NEUTROPHILS RELATIVE PERCENT (BEAKER) (test 77 % gprf=073) LYMPHOCYTES RELATIVE PERCENT (BEAKER) (test 12 % bpnh=212) MONOCYTES RELATIVE PERCENT (BEAKER) (test 9 % swif=713) EOSINOPHILS RELATIVE PERCENT (BEAKER) (test 2 % xdpf=973) BASOPHILS RELATIVE PERCENT (BEAKER) (test 0 % pwjz=342) NEUTROPHILS ABSOLUTE COUNT (BEAKER) (test 11.32 K/ L 1.56-6.13 fizr=406) LYMPHOCYTES ABSOLUTE COUNT (BEAKER) (test 1.77 K/ L 1.18-3.74 emrc=589) MONOCYTES ABSOLUTE COUNT (BEAKER) (test 1.25 K/ L 0.24-0.36 kbgd=755) EOSINOPHILS ABSOLUTE COUNT (BEAKER) (test 0.25 K/ L 0.04-0.36 pwqy=016) BASOPHILS ABSOLUTE COUNT (BEAKER) (test 0.06 K/ L 0.01-0.08 hyqx=397) IMMATURE GRANULOCYTES-RELATIVE PERCENT (BEAKER) 0 % 0-1 (test zajw=3802) POCT-GLUCOSE [id number] 08:26:00 Test Item Value Reference Range Comments POC-GLUCOSE METER (BEAKER) 100 mg/dL 70-110 TESTED AT [address] (test elqk=9617) [place] [address] POCT-GLUCOSE [id number] 17:11:00 Test Item Value Reference Range Comments POC-GLUCOSE METER (BEAKER) 141 mg/dL 70-110 TESTED AT [address] (test xdgx=6290) [place] [address] [id number] 16:51:00 Test Item Value Reference Range Comments POTASSIUM (BEAKER) (test pcnq=852) 3.9 meq/L 3.5-5.1 Check Serum Potassium level 2 hours after oral potassium replacement completed or 30 min after intravenous potassium replacement.[id number] 16:51:00 Test Item Value Reference Range Comments MAGNESIUM (BEAKER) (test jroy=736) 2.0 mg/dL 1.6-2.6 Check Serum Potassium level 2 hours after oral potassium replacement completed or 30 min after intravenous potassium replacement.POCT-GLUCOSE [id number] 13:05:00 Test Item Value Reference Range Comments POC-GLUCOSE METER (BEAKER) 142 mg/dL 70-110 TESTED AT [facility] [address] (test ttmg=1413) [facility] [address] POCT-GLUCOSE [id number] 07:51:00 Test Item Value Reference Range Comments POC-GLUCOSE METER (BEAKER) 100 mg/dL 70-110 TESTED AT [facility] [address] (test htzu=9039) [facility] [address] [id number] 05:07:00 Test Item Value Reference Range Comments PHOSPHORUS (BEAKER) (test rdks=578) 3.0 mg/dL 2.3-4.7 [id number] 05:07:00 Test Item Value Reference Range Comments MAGNESIUM (BEAKER) (test mtcu=183) 1.7 mg/dL 1.6-2.6 BASIC METABOLIC [id number] 05:07:00 Test Item Value Reference Range Comments SODIUM (BEAKER) (test 135 meq/L 136-145 iibl=192) POTASSIUM (BEAKER) (test 3.6 meq/L 3.5-5.1 bcev=946) CHLORIDE (BEAKER) (test 103 meq/L 98-107 vbsj=985) CO2 (BEAKER) (test 25 meq/L 22-29 qfwb=862) BLOOD UREA NITROGEN 7 mg/dL 7-21 (BEAKER) (test xeii=616) CREATININE (BEAKER) (test 0.63 mg/dL 0.57-1.25 ljwu=779) GLUCOSE RANDOM (BEAKER) 114 mg/dL 70-105 (test cyrm=639) CALCIUM (BEAKER) (test 8.7 mg/dL 8.4-10.2 ldhd=231) EGFR (BEAKER) (test 97 mL/min/1.73 sq m ESTIMATED GFR IS NOT ggxe=3516) ACCURATE CREATININE CLEARANCE IN PREDICTING GLOMERULAR FILTRATION RATE. ESTIMATED GFR IS NOT APPLICABLE FOR DIALYSIS PATIENTS. CBC W/PLT COUNT & AUTO [id number] 04:52:00 Test Item Value Reference Range Comments WHITE BLOOD CELL COUNT (BEAKER) (test jxsd=813) 11.1 K/ L 3.5-10.5 RED BLOOD CELL COUNT (BEAKER) (test breb=451) 3.34 M/ L 3.93-5.22 HEMOGLOBIN (BEAKER) (test okzc=867) 9.4 GM/DL 11.2-15.7 HEMATOCRIT (BEAKER) (test ubzp=019) 28.9 % 34.1-44.9 MEAN CORPUSCULAR VOLUME (BEAKER) (test aljt=671) 86.5 fL 79.4-94.8 MEAN CORPUSCULAR HEMOGLOBIN (BEAKER) (test 28.1 pg 25.6-32.2 fhti=518) MEAN CORPUSCULAR HEMOGLOBIN CONC (BEAKER) (test 32.5 GM/DL 32.2-35.5 fkff=989) RED CELL DISTRIBUTION WIDTH (BEAKER) (test 18.2 % 11.7-14.4 nfaf=895) PLATELET COUNT (BEAKER) (test qydr=458) 477 K/CU MM 150-450 MEAN PLATELET VOLUME (BEAKER) (test ytyv=606) 9.9 fL 9.4-12.3 NUCLEATED RED BLOOD CELLS (BEAKER) (test 0 /100 WBC 0-0 nyqq=188) NEUTROPHILS RELATIVE PERCENT (BEAKER) (test 76 % idau=669) LYMPHOCYTES RELATIVE PERCENT (BEAKER) (test 12 % sjid=530) MONOCYTES RELATIVE PERCENT (BEAKER) (test 10 % zrxz=773) EOSINOPHILS RELATIVE PERCENT (BEAKER) (test 2 % qwbz=512) BASOPHILS RELATIVE PERCENT (BEAKER) (test 1 % uqfp=149) NEUTROPHILS ABSOLUTE COUNT (BEAKER) (test 8.40 K/ L 1.56-6.13 ukqe=098) LYMPHOCYTES ABSOLUTE COUNT (BEAKER) (test 1.28 K/ L 1.18-3.74 qwei=557) MONOCYTES ABSOLUTE COUNT (BEAKER) (test 1.07 K/ L 0.24-0.36 cddl=352) EOSINOPHILS ABSOLUTE COUNT (BEAKER) (test 0.24 K/ L 0.04-0.36 njei=620) BASOPHILS ABSOLUTE COUNT (BEAKER) (test 0.05 K/ L 0.01-0.08 eiou=345) IMMATURE GRANULOCYTES-RELATIVE PERCENT (BEAKER) 1 % 0-1 (test qqzb=6650) CT, BRAIN, WITHOUT [id number] 03:07:00FINAL REPORT CT Head without contrast CLINICAL [...] Proctor Verified Date/Time: 12/24/2018 03:07:47 Reading Location: [address] Reading Room Electronically signed by: CONNER PROCTOR MD on 2018 03:07 AMPOCT-GLUCOSE [id number] 22:00:00 Test Item Value Reference Range Comments POC-GLUCOSE METER (BEAKER) 186 mg/dL 70-110 TESTED AT [address] (test zvww=4345) [facility] [address] POCT-GLUCOSE [id number] 21:49:00 Test Item Value Reference Range Comments POC-GLUCOSE METER (BEAKER) 137 mg/dL 70-110 TESTED AT [address] (test bvra=0251) [facility] [address] TISSUE [id number] 18:03:00Surgical Pathology Report Case: [id number] Authorizing Provider: Oswaldo Hu MD Collected: 12/21/2018 1532 Ordering Location: [place] [address] ICU Received: 2018 0801 Pathologist: Ad Carlson MD Specimen: Soft Tissue, Other, left subdural clot BRAIN, SUBDURAL REGION, LEFT, CRANIOTOMY AND EVACUATION:GRANULATION TISSUE AND FIBRIN, CONSISTENT WITH ORGANIZING HEMATOMA Signing Pathologist Direct Phone Line: [phone] signed by Ad Carlson MD on 12/23/2018 at 6:03 [id number] subdural hematoma Left subdural clotThe specimen is receivedin a formalin-filled container labeled with the patient's information and labeled "left subdural clot" and consists of three fragments of red-brown soft tissue measuring 0.5 to 0.6 cm, submitted entirely in A1. CG/ew PerformedPOCT-GLUCOSE [id number] 12:15:00 Test Item Value Reference Range Comments POC-GLUCOSE METER (BEAKER) 154 mg/dL 70-110 TESTED AT [address] (test xnlf=5681) [facility] [address] POCT-GLUCOSE [id number] 08:25:00 Test Item Value Reference Range Comments POC-GLUCOSE METER (BEAKER) 109 mg/dL 70-110 TESTED AT [address] (test lcdo=2242) [facility] [address] CBC W/PLT COUNT & AUTO [id number] 03:51:00 Test Item Value Reference Range Comments WHITE BLOOD CELL COUNT (BEAKER) (test uylz=524) 10.2 K/ L 3.5-10.5 RED BLOOD CELL COUNT (BEAKER) (test ybij=272) 3.65 M/ L 3.93-5.22 HEMOGLOBIN (BEAKER) (test lreg=376) 10.2 GM/DL 11.2-15.7 HEMATOCRIT (BEAKER) (test msnw=105) 32.2 % 34.1-44.9 MEAN CORPUSCULAR VOLUME (BEAKER) (test qegb=447) 88.2 fL 79.4-94.8 MEAN CORPUSCULAR HEMOGLOBIN (BEAKER) (test 27.9 pg 25.6-32.2 kuty=461) MEAN CORPUSCULAR HEMOGLOBIN CONC (BEAKER) (test 31.7 GM/DL 32.2-35.5 tamn=546) RED CELL DISTRIBUTION WIDTH (BEAKER) (test 18.0 % 11.7-14.4 xmki=661) PLATELET COUNT (BEAKER) (test roin=047) 543 K/CU MM 150-450 MEAN PLATELET VOLUME (BEAKER) (test ydrs=932) 10.3 fL 9.4-12.3 NUCLEATED RED BLOOD CELLS (BEAKER) (test 0 /100 WBC 0-0 sdag=259) NEUTROPHILS RELATIVE PERCENT (BEAKER) (test 75 % cwem=489) LYMPHOCYTES RELATIVE PERCENT (BEAKER) (test 12 % bqxh=285) MONOCYTES RELATIVE PERCENT (BEAKER) (test 9 % uszi=567) EOSINOPHILS RELATIVE PERCENT (BEAKER) (test 4 % clft=348) BASOPHILS RELATIVE PERCENT (BEAKER) (test 1 % cyit=278) NEUTROPHILS ABSOLUTE COUNT (BEAKER) (test 7.56 K/ L 1.56-6.13 xuao=577) LYMPHOCYTES ABSOLUTE COUNT (BEAKER) (test 1.19 K/ L 1.18-3.74 dkub=605) MONOCYTES ABSOLUTE COUNT (BEAKER) (test 0.95 K/ L 0.24-0.36 gsyn=807) EOSINOPHILS ABSOLUTE COUNT (BEAKER) (test 0.37 K/ L 0.04-0.36 rtje=988) BASOPHILS ABSOLUTE COUNT (BEAKER) (test 0.05 K/ L 0.01-0.08 hagb=489) IMMATURE GRANULOCYTES-RELATIVE PERCENT (BEAKER) 0 % 0-1 (test htsm=0803) BASIC METABOLIC [id number] 03:47:00 Test Item Value Reference Range Comments SODIUM (BEAKER) (test 135 meq/L 136-145 rxgq=031) POTASSIUM (BEAKER) (test 3.8 meq/L 3.5-5.1 fyop=142) CHLORIDE (BEAKER) (test 104 meq/L 98-107 ussq=879) CO2 (BEAKER) (test 23 meq/L 22-29 igeb=065) BLOOD UREA NITROGEN 5 mg/dL 7-21 (BEAKER) (test htgs=468) CREATININE (BEAKER) (test 0.68 mg/dL 0.57-1.25 mnii=552) GLUCOSE RANDOM (BEAKER) 118 mg/dL 70-105 (test szre=305) CALCIUM (BEAKER) (test 8.8 mg/dL 8.4-10.2 weym=307) EGFR (BEAKER) (test 89 mL/min/1.73 sq m ESTIMATED GFR IS NOT diva=1925) ACCURATE CREATININE CLEARANCE IN PREDICTING GLOMERULAR FILTRATION RATE. ESTIMATED GFR IS NOT APPLICABLE FOR DIALYSIS PATIENTS. POCT-GLUCOSE [id number] 01:02:00 Test Item Value Reference Range Comments POC-GLUCOSE METER (BEAKER) 82 mg/dL 70-110 TESTED AT [address] (test wlwy=5856) [place] [address] POCT-GLUCOSE [id number] 19:58:00 Test Item Value Reference Range Comments POC-GLUCOSE METER (BEAKER) 75 mg/dL 70-110 TESTED AT [address] (test nbch=7829) [place] [address] BASIC METABOLIC [id number] 13:29:00 Test Item Value Reference Range Comments SODIUM (BEAKER) (test 134 meq/L 136-145 jcxn=264) POTASSIUM (BEAKER) (test 3.9 meq/L 3.5-5.1 Specimen slightly eygb=281) hemolyzed CHLORIDE (BEAKER) (test 107 meq/L 98-107 wmiq=665) CO2 (BEAKER) (test 19 meq/L 22-29 anjt=790) BLOOD UREA NITROGEN 5 mg/dL 7-21 (BEAKER) (test mmkz=962) CREATININE (BEAKER) (test 0.61 mg/dL 0.57-1.25 Specimen slightly otzl=808) hemolyzed GLUCOSE RANDOM (BEAKER) 87 mg/dL 70-105 (test zfzs=616) CALCIUM (BEAKER) (test 7.4 mg/dL 8.4-10.2 krdc=353) EGFR (BEAKER) (test 100 mL/min/1.73 sq m ESTIMATED GFR IS NOT jqkl=9380) ACCURATE CREATININE CLEARANCE IN PREDICTING GLOMERULAR FILTRATION RATE. ESTIMATED GFR IS NOT APPLICABLE FOR DIALYSIS PATIENTS. POCT-GLUCOSE [id number] 12:37:00 Test Item Value Reference Range Comments POC-GLUCOSE METER (BEAKER) 85 mg/dL 70-110 TESTED AT [address] (test lovq=2683) [place] [address] [id number] 08:07:00 Test Item Value Reference Range Comments PROTIME (BEAKER) (test xkqq=980) 13.1 seconds 11.7-14.7 INR (BEAKER) (test xlzg=358) 1.0 <=5.9 PARTIAL THROMBOPLASTIN TIME (BEAKER) (test 35.5 seconds 22.5-36.0 dron=917) RECOMMENDED COUMADIN/WARFARIN INR THERAPY RANGESSTANDARD DOSE: 2.0 - 3.0 Includes: PROPHYLAXIS forvenous thrombosis, systemic embolization; TREATMENT for venous thrombosis and/or pulmonary embolus.HIGH RISK: Target INR is 2.5-3.5 for patients with mechanical heart valves.POCT-GLUCOSE [id number] 06:58:00 Test Item Value Reference Range Comments POC-GLUCOSE METER (BEAKER) 87 mg/dL 70-110 [facility] [address] [facility] (test tves=4801) [facility] [address] [address], BRAIN, WITHOUT [id number] 06:57:00FINAL REPORT CT, BRAIN, WITHOUT CONTRAST CLINICAL [...] MDReport Verified Date/Time: 12/22/2018 06:57:56 Reading Location: [address] Neuro Reading Room 06: 57 AMBASIC METABOLIC [id number] 04:23:00 Test Item Value Reference Range Comments SODIUM (BEAKER) (test 134 meq/L 136-145 oiwh=718) POTASSIUM (BEAKER) (test 4.3 meq/L 3.5-5.1 pmau=014) CHLORIDE (BEAKER) (test 106 meq/L 98-107 hzza=178) CO2 (BEAKER) (test 19 meq/L 22-29 uvts=473) BLOOD UREA NITROGEN 7 mg/dL 7-21 (BEAKER) (test orzj=134) CREATININE (BEAKER) (test 0.64 mg/dL 0.57-1.25 nadm=825) GLUCOSE RANDOM (BEAKER) 77 mg/dL 70-105 (test bvsy=826) CALCIUM (BEAKER) (test 8.2 mg/dL 8.4-10.2 rzvb=444) EGFR (BEAKER) (test 95 mL/min/1.73 sq m ESTIMATED GFR IS NOT ylel=4247) ACCURATE CREATININE CLEARANCE IN PREDICTING GLOMERULAR FILTRATION RATE. ESTIMATED GFR IS NOT APPLICABLE FOR DIALYSIS PATIENTS. CBC W/PLT COUNT & AUTO [id number] 04:19:00 Test Item Value Reference Range Comments WHITE BLOOD CELL COUNT (BEAKER) (test luvn=491) 8.6 K/ L 3.5-10.5 RED BLOOD CELL COUNT (BEAKER) (test ufor=721) 3.42 M/ L 3.93-5.22 HEMOGLOBIN (BEAKER) (test mzgc=994) 9.6 GM/DL 11.2-15.7 HEMATOCRIT (BEAKER) (test djci=661) 30.3 % 34.1-44.9 MEAN CORPUSCULAR VOLUME (BEAKER) (test nedc=344) 88.6 fL 79.4-94.8 MEAN CORPUSCULAR HEMOGLOBIN (BEAKER) (test 28.1 pg 25.6-32.2 hgjy=377) MEAN CORPUSCULAR HEMOGLOBIN CONC (BEAKER) (test 31.7 GM/DL 32.2-35.5 wptl=556) RED CELL DISTRIBUTION WIDTH (BEAKER) (test 18.3 % 11.7-14.4 xqkh=198) PLATELET COUNT (BEAKER) (test mrnr=299) 513 K/CU MM 150-450 MEAN PLATELET VOLUME (BEAKER) (test fcmj=660) 10.0 fL 9.4-12.3 NUCLEATED RED BLOOD CELLS (BEAKER) (test 0 /100 WBC 0-0 uehb=033) NEUTROPHILS RELATIVE PERCENT (BEAKER) (test 69 % kfbi=701) LYMPHOCYTES RELATIVE PERCENT (BEAKER) (test 17 % jaao=284) MONOCYTES RELATIVE PERCENT (BEAKER) (test 9 % kvcm=197) EOSINOPHILS RELATIVE PERCENT (BEAKER) (test 3 % yine=791) BASOPHILS RELATIVE PERCENT (BEAKER) (test 1 % bcxo=850) NEUTROPHILS ABSOLUTE COUNT (BEAKER) (test 5.94 K/ L 1.56-6.13 jtbf=635) LYMPHOCYTES ABSOLUTE COUNT (BEAKER) (test 1.48 K/ L 1.18-3.74 byya=623) MONOCYTES ABSOLUTE COUNT (BEAKER) (test 0.81 K/ L 0.24-0.36 zrrr=795) EOSINOPHILS ABSOLUTE COUNT (BEAKER) (test 0.28 K/ L 0.04-0.36 hiek=649) BASOPHILS ABSOLUTE COUNT (BEAKER) (test 0.07 K/ L 0.01-0.08 pdsh=430) IMMATURE GRANULOCYTES-RELATIVE PERCENT (BEAKER) 0 % 0-1 (test mjpx=1418) POCT-GLUCOSE [id number] 03:51:00 Test Item Value Reference Range Comments POC-GLUCOSE METER (BEAKER) 87 mg/dL 70-110 TESTED AT [address] (test nnwy=6075) [place] [id number] POCT-GLUCOSE [id number] 17:54:00 Test Item Value Reference Range Comments POC-GLUCOSE METER (BEAKER) 83 mg/dL 70-110 TESTED AT [address] (test eesc=9558) [place] [id number] POCT-GLUCOSE [id number] 12:33:00 Test Item Value Reference Range Comments POC-GLUCOSE METER (BEAKER) 87 mg/dL 70-110 TESTED AT [address] (test mkbs=8952) [facility] [id number] POCT-GLUCOSE [id number] 07:50:00 Test Item Value Reference Range Comments POC-GLUCOSE METER (BEAKER) 84 mg/dL 70-110 TESTED AT [address] (test hlfc=1219) [place] [id number] POCT-GLUCOSE [id number] 06:16:00 Test Item Value Reference Range Comments POC-GLUCOSE METER (BEAKER) 79 mg/dL 70-110 TESTED AT [address] (test nkbq=9480) [place] [address] [id number] 03:54:00 Test Item Value Reference Range Comments PHOSPHORUS (BEAKER) (test evpf=333) 3.0 mg/dL 2.3-4.7 Once on admission and Daily AM afterwardsOnce on admission and Daily AM afterwardsOnce on admission and Daily AM [id number] 03:54:00 Test Item Value Reference Range Comments MAGNESIUM (BEAKER) (test qmtv=643) 1.7 mg/dL 1.6-2.6 Once on admission and Daily AM afterwardsOnce on admission and Daily AM afterwardsOnce on admission and Daily AM afterwardsBASIC METABOLIC [id number] 03:54:00 Test Item Value Reference Range Comments SODIUM (BEAKER) (test 137 meq/L 136-145 quln=095) POTASSIUM (BEAKER) (test 3.9 meq/L 3.5-5.1 ujlm=385) CHLORIDE (BEAKER) (test 104 meq/L 98-107 jhjo=837) CO2 (BEAKER) (test 24 meq/L 22-29 psqi=458) BLOOD UREA NITROGEN 10 mg/dL 7-21 (BEAKER) (test qfna=550) CREATININE (BEAKER) (test 0.65 mg/dL 0.57-1.25 upnr=725) GLUCOSE RANDOM (BEAKER) 77 mg/dL 70-105 (test jule=483) CALCIUM (BEAKER) (test 9.7 mg/dL 8.4-10.2 koqn=691) EGFR (BEAKER) (test 93 mL/min/1.73 sq m ESTIMATED GFR IS NOT wnsd=2438) ACCURATE CREATININE CLEARANCE IN PREDICTING GLOMERULAR FILTRATION RATE. ESTIMATED GFR IS NOT APPLICABLE FOR DIALYSIS PATIENTS. Once on admission and Daily AM afterwardsOnce on admission and Daily AM afterwardsOnce on admission and Daily AM afterwardsCBC W/PLT COUNT & AUTO [id number] 03:36:00 Test Item Value Reference Range Comments WHITE BLOOD CELL COUNT (BEAKER) (test hmih=699) 10.9 K/ L 3.5-10.5 RED BLOOD CELL COUNT (BEAKER) (test iwmw=086) 3.77 M/ L 3.93-5.22 HEMOGLOBIN (BEAKER) (test zypo=316) 10.5 GM/DL 11.2-15.7 HEMATOCRIT (BEAKER) (test hwxi=114) 32.9 % 34.1-44.9 MEAN CORPUSCULAR VOLUME (BEAKER) (test ksvl=476) 87.3 fL 79.4-94.8 MEAN CORPUSCULAR HEMOGLOBIN (BEAKER) (test 27.9 pg 25.6-32.2 iqzo=606) MEAN CORPUSCULAR HEMOGLOBIN CONC (BEAKER) (test 31.9 GM/DL 32.2-35.5 nbcq=679) RED CELL DISTRIBUTION WIDTH (BEAKER) (test 18.2 % 11.7-14.4 gzei=404) PLATELET COUNT (BEAKER) (test szgc=981) 581 K/CU MM 150-450 MEAN PLATELET VOLUME (BEAKER) (test nqbu=530) 10.0 fL 9.4-12.3 NUCLEATED RED BLOOD CELLS (BEAKER) (test 0 /100 WBC 0-0 sagu=393) NEUTROPHILS RELATIVE PERCENT (BEAKER) (test 74 % llyx=717) LYMPHOCYTES RELATIVE PERCENT (BEAKER) (test 16 % htmn=443) MONOCYTES RELATIVE PERCENT (BEAKER) (test 8 % ormw=464) EOSINOPHILS RELATIVE PERCENT (BEAKER) (test 2 % tyoi=675) BASOPHILS RELATIVE PERCENT (BEAKER) (test 1 % kece=968) NEUTROPHILS ABSOLUTE COUNT (BEAKER) (test 8.10 K/ L 1.56-6.13 pngh=438) LYMPHOCYTES ABSOLUTE COUNT (BEAKER) (test 1.72 K/ L 1.18-3.74 alqq=500) MONOCYTES ABSOLUTE COUNT (BEAKER) (test 0.86 K/ L 0.24-0.36 xgrx=654) EOSINOPHILS ABSOLUTE COUNT (BEAKER) (test 0.16 K/ L 0.04-0.36 igyx=393) BASOPHILS ABSOLUTE COUNT (BEAKER) (test 0.06 K/ L 0.01-0.08 sduw=186) IMMATURE GRANULOCYTES-RELATIVE PERCENT (BEAKER) 0 % 0-1 (test uxsd=4221) CT, BRAIN, WITHOUT [id number] 01:21:00FINAL REPORT CT, BRAIN, WITHOUT CONTRAST CLINICAL [...] Verified Date/Time: 12/21/2018 01: 21:22 Reading Location: [facility] Neuro Reading Room POCT-GLUCOSE [id number] 00:17:00 Test Item Value Reference Range Comments POC-GLUCOSE METER (BEAKER) 82 mg/dL 70-110 TESTED AT [address] (test qrvu=9511) [place] [id number] POCT-GLUCOSE [id number] 18:53:00 Test Item Value Reference Range Comments POC-GLUCOSE METER (BEAKER) 101 mg/dL 70-110 TESTED AT [address] (test xbkw=1216) [place] [address] [id number] 17:31:00 Test Item Value Reference Range Comments MAGNESIUM (BEAKER) (test 1.8 mg/dL 1.6-2.6 Specimen slightly hemolyzed uiwt=937) [id number] 17:31:00 Test Item Value Reference Range Comments PHOSPHORUS (BEAKER) (test 3.5 mg/dL 2.3-4.7 Specimen slightly hemolyzed frhl=519) BASIC METABOLIC [id number] 17:31:00 Test Item Value Reference Range Comments SODIUM (BEAKER) (test 137 meq/L 136-145 ivlq=052) POTASSIUM (BEAKER) (test 3.9 meq/L 3.5-5.1 Specimen slightly ywgj=662) hemolyzed CHLORIDE (BEAKER) (test 101 meq/L 98-107 uqog=997) CO2 (BEAKER) (test 24 meq/L 22-29 ppww=660) BLOOD UREA NITROGEN 11 mg/dL 7-21 (BEAKER) (test dgdf=835) CREATININE (BEAKER) (test 0.66 mg/dL 0.57-1.25 Specimen slightly dnhp=605) hemolyzed GLUCOSE RANDOM (BEAKER) 102 mg/dL 70-105 (test btrc=892) CALCIUM (BEAKER) (test 10.0 mg/dL 8.4-10.2 dhiz=367) EGFR (BEAKER) (test 92 mL/min/1.73 sq m ESTIMATED GFR IS NOT yipe=6305) ACCURATE CREATININE CLEARANCE IN PREDICTING GLOMERULAR FILTRATION RATE. ESTIMATED GFR IS NOT APPLICABLE FOR DIALYSIS PATIENTS. HEPATIC FUNCTION [id number] 17:31:00 Test Item Value Reference Range Comments TOTAL PROTEIN (BEAKER) (test 7.5 gm/dL 6.0-8.3 Specimen slightly hemolyzed ozmr=582) ALBUMIN (BEAKER) (test 3.8 g/dL 3.5-5.0 Specimen slightly hemolyzed pcls=8302) BILIRUBIN TOTAL (BEAKER) (test 0.7 mg/dL 0.2-1.2 Specimen slightly hemolyzed ksmj=589) BILIRUBIN DIRECT (BEAKER) (test 0.4 mg/dL 0.1-0.5 Specimen slightly hemolyzed xpdf=393) ALKALINE PHOSPHATASE (BEAKER) 74 U/L 40-150 (test swbf=247) AST (SGOT) (BEAKER) (test 30 U/L 5-34 Specimen slightly hemolyzed zzcy=514) ALT (SGPT) (BEAKER) (test 15 U/L 6-55 Specimen slightly hemolyzed tuad=147) PROTHROMBIN [id number] 17:24:00 Test Item Value Reference Range Comments PROTIME (BEAKER) (test rxjf=166) 13.8 seconds 11.7-14.7 INR (BEAKER) (test xmcz=520) 1.1 <=5.9 RECOMMENDED COUMADIN/WARFARIN INR THERAPY RANGESSTANDARD DOSE: 2.0 - 3.0 Includes: PROPHYLAXIS forvenous thrombosis, systemic embolization; TREATMENT for venous thrombosis and/or pulmonary embolus.HIGH RISK: Target INR is 2.5-3.5 for patients with mechanical heart valves.[id number] 17:24:00 Test Item Value Reference Range Comments PARTIAL THROMBOPLASTIN TIME (BEAKER) (test 37.3 seconds 22.5-36.0 qmxx=056)
[2019-04-26] MEDS ORDERED: HYDROMORPHONE HCL 0.5 MG/0.5 ML INJ ONE (14:27)
--- NOTE | 2019-04-26 16:14 | EDPHYS ---
Physician Documentation [facility] Name: Julissa Hicks Age: 58 yrs Sex: Female : 1960 Arrival Date: 04/26/2019 Time: 13:11 Bed 27 Private MD: ED Physician David Brooks HPI: 04/26 16:00 This 58 yrs old Female presents to ER via EMS with complaints of Displaced gs G-tube. 16:00 Onset: The symptoms/episode began/occurred 5 day(s) ago. Severity of symptoms: At their gs worst the symptoms were moderate in the emergency department the symptoms are unchanged. The patient has experienced a previous episode. 16:00 EATING MECHANICAL SOFT DIET. gs Historical: - Allergies: 13:25 No Known Allergies; ae4 - PSHx: 13:25 trachestomy; PEG tube; ae4 - Immunization history:: Adult Immunizations up to date. - Social history:: Smoking status: Patient uses tobacco products, denies chronic smoking, but will smoke occasionally. - Ebola Screening: : Patient denies travel to an Ebola-affected area in the 21 days before illness onset. ROS: 16:00 All other systems are negative. gs Exam: 16:00 Constitutional: The patient appears alert, awake. gs 16:00 ENT: Exam is negative for acute changes. 16:00 Cardiovascular: Exam negative for acute changes. 16:00 Respiratory: the patient does not display signs of respiratory distress. 16:00 Abdomen/GI: STOMA INTACT ERYTHEMA OVERLYING SKIN. Vital Signs: 13:19 BP 143 / 102; Pulse 78; Resp 17; Pulse Ox 96% on R/A; Weight 49.9 kg (R); Pain 8/10; ae4 13:34 BP 151 / 96; Pulse 79; Resp 18; Temp 97.5(A); Pulse Ox 96% on R/A; Pain 8/10; ae4 14:18 BP 154 / 90; Pulse 84; Resp 16; Pulse Ox 97% on R/A; Pain 8/10; ae4 15:52 BP 154 / 85; Pulse 86; Resp 17; Pulse Ox 95% on R/A; ae4 MDM: 13:31 Patient medically screened. gs 16:00 Data reviewed: vital signs, nurses notes. Response to treatment: the patient's symptoms gs have mildly improved after treatment. Physician consultation: Alpesh Medina MD. Physician consultation: and will see patient in ED. ED course: PLAN IS TO DISCHARGE HOME, WOUND CARE, CALORIE COUNTS, DISCUSSED WITH TITO CLEMENT INTERVIEWING CLERK.. 04/26 13:32 Order name: Corry. Order: TAKE TEMPERATURE; Complete Time: 13:36 gs 04/26 16:23 Order name: Corry. Order: DUODERM TO GSTUBE SITE; Complete Time: 16:53 gs Administered Medications: 14:16 Drug: Dilaudid 0.5 mg Route: IM; Site: right deltoid; ae4 16:28 Follow up: Response: Pain is decreased ae4 Disposition: 04/26/19 16:13 Discharged to Home. Impression: Gastrostomy complications. - Condition is Stable. - Discharge Instructions: Gastrostomy Tube Home Guide, Adult. - Prescriptions for Cipro 250 mg Oral Tablet - take 1 tablet by ORAL route every 12 hours; 14 tablet. - Medication Reconciliation Form, Thank You Letter, Antibiotic Education, Prescription Opioid Use form. - Follow up: Alpesh Medina MD; When: 1 week; Reason: Recheck today's complaints. Signatures: David Brooks MD MD Anup Stewart RN RN ae4 Corrections: (The following items were deleted from the chart) 17:14 16:13 04/26/2019 16:13 Discharged to Home. Impression: Gastrostomy complications. ae4 Condition is Stable. Forms are Medication Reconciliation Form, Thank You Letter, Antibiotic Education, Prescription Opioid Use. Follow up: Alpesh Medina; When: 1 week; Reason: Recheck today's complaints. gs
--- NOTE | 2019-04-26 16:14 | ER ---
Nurse's Notes [facility] Name: Julissa Hicks Age: 58 yrs Sex: Female : 1960 Arrival Date: 04/26/2019 Time: 13:11 Bed 27 Private MD: Diagnosis: Gastrostomy complications Presentation: 04/26 13:22 Presenting complaint: Patient states her doctor was "messing with the PEG tube and it ae4 just came out". Transition of care: [facility]. 13:22 Method Of Arrival: EMS ae4 13:22 Acuity: KHOA 3 ae4 13:32 Onset of symptoms was April 21, 2019. Risk Assessment: Do you want to hurt yourself or ae4 someone else? Patient reports no desire to harm self or others. Initial Sepsis Screen: Does the patient meet any 2 criteria? No. Patient's initial sepsis screen is negative. Does the patient have a suspected source of infection? Yes: Skin breakdown/wound Other: at PEG tube insertion site to left upper quadrant of abdomen. Care prior to arrival: unknown. Triage Assessment: 13:25 General: Appears in no apparent distress. uncomfortable, slender, Behavior is calm, ae4 cooperative. Pain: Complains of pain in left upper quadrant Pain currently is 8 out of 10 on a pain scale. Neuro: Level of Consciousness is awake, alert, obeys commands, Oriented to person, place, time, situation, Appropriate for age. Respiratory: Airway is patent Respiratory effort is even, unlabored, Respiratory pattern is regular, symmetrical, Tracheostomy present. GI: Abdomen is round is reddened. Site surrounding PEG insertion site is reddened and mildly swollen. Patient report pain to the insertion site. Tube is not inserted, it is on bedside counter. Historical: - Allergies: 13:25 No Known Allergies; ae4 - PSHx: 13:25 trachestomy; PEG tube; ae4 - Immunization history:: Adult Immunizations up to date. - Social history:: Smoking status: Patient uses tobacco products, denies chronic smoking, but will smoke occasionally. - Ebola Screening: : Patient denies travel to an Ebola-affected area in the 21 days before illness onset. Screenin:33 Abuse screen: Denies threats or abuse. Nutritional screening: No deficits noted. ae4 Tuberculosis screening: No symptoms or risk factors identified. Fall Risk None identified. Assessment: 14:17 Reassessment: Patient requests pain medication. Provider notified, new orders received. ae4 14:44 Reassessment: Patient got up to use restroom ambulated with steady gait. ae4 15:51 Reassessment: Provider and surgeon both at bedside discussing plan of care. ae4 16:35 Reassessment: Awaiting DUODERM from med/surg floor, ordered from Adriana. Called [facility] [address] [place] [address] and spoke to Terese who will be the receiving nurse, report given to Terese Gudino states she is arranging transportation for the patient. Vital Signs: 13:19 BP 143 / 102; Pulse 78; Resp 17; Pulse Ox 96% on R/A; Weight 49.9 kg (R); Pain 8/10; ae4 13:34 BP 151 / 96; Pulse 79; Resp 18; Temp 97.5(A); Pulse Ox 96% on R/A; Pain 8/10; ae4 14:18 BP 154 / 90; Pulse 84; Resp 16; Pulse Ox 97% on R/A; Pain 8/10; ae4 15:52 BP 154 / 85; Pulse 86; Resp 17; Pulse Ox 95% on R/A; ae4 ED Course: 13:11 Patient arrived in ED. dm5 13:16 David Brooks MD is Attending Physician. gs 13:19 Anup Stewart, RN is Primary Nurse. ae4 13:24 Triage completed. ae4 13:25 Arm band placed on right wrist. ae4 13:32 Placed in gown. Bed in low position. Call light in reach. Side rails up X 1. Pulse ox ae4 on. NIBP on. Warm blanket given. 16:12 Alpesh Medina MD is Referral Physician. gs 16:57 Dressings: DUODERM bandage applied to stoma per provider. ae4 17:13 Provider attempted to insert new PEG tube to no avail. Patient did not have IV access ae4 during this emergency room visit. Administered Medications: 14:16 Drug: Dilaudid 0.5 mg Route: IM; Site: right deltoid; ae4 16:28 Follow up: Response: Pain is decreased ae4 Outcome: 16:13 Discharge ordered by . gs 17:14 Discharged to intermediate. Report called to Terese ae4 17:14 Condition: stable 17:14 Discharge instructions given to patient, intermediate, Instructed on discharge instructions, follow up and referral plans. medication usage, Demonstrated understanding of instructions, Prescriptions given X 1. 17:14 Patient left the ED. ae4 Signatures: Ester Leal, RN RN dm5 David Brooks MD MD gs Elliott, Andrea, RN RN ae4 Corrections: (The following items were deleted from the chart) 13:36 13:34 BP 151 / 96; Pulse 79bpm; Resp 18bpm; Pulse Ox 96% RA; Pain 8/10; ae4 ae4
[2019-04-26 17:51] VITALS: TEMP 97.5
[2019-04-26 17:57] VITALS: BP 154/85; O2SAT 95
== END 2019-04-26 17:14 | disposition home or self-care (01) ==
LOC: ER 13:10
DX: K94.23 Gastrostomy malfunction (principal); Z72.0 Tobacco use
CPT/HCPCS: 96372; 99284; J1170

== ENCOUNTER 2019-07-15 09:17 | Day surgery (SDC) | payer OTHER ==
--- NOTE | 2019-07-15 08:43 | EKG ---
Test Date: 2019-07-13 Test Time: 11:25:58 Senior Media Director: SHANNAN MEASUREMENT RESULTS: Intervals: Rate: 64 VA: 160 QRSD: 72 QT: 416 QTc: 429 [place]: P: 41 VA: 160 QRS: 42 T: 47 INTERPRETIVE STATEMENTS: Normal sinus rhythm Normal ECG Compared to ECG 03/02/2019 23:45:18 No significant changes Electronically Signed On 07-15-19 08:41:47 CDT by Gee Esquivel
[2019-07-15] MEDS ORDERED: Ringers Lactate 1,000 ML IV ONE (09:46)
[2019-07-15] MEDS ORDERED: EPINEPHRINE/PF 1 MG/ML AMP ONE (10:24)
[2019-07-15] MEDS ORDERED: LIDOCAINE 1% W/EPI 1:100,000 MDV 20 ML VIAL ONE (10:24)
[2019-07-15] MEDS ORDERED: OXYMETAZOLINE HCL 0.05% 15ML NAS ONE (11:00)
[2019-07-15] MEDS ORDERED: FENTANYL CITR 100 MCG/2 ML ONE (11:03)
[2019-07-15] MEDS ORDERED: PROPOFOL 200 MG/20 ML VIAL IV ONE (11:03)
[2019-07-15] MEDS ORDERED: MIDAZOLAM HCL 2 MG/2 ML INJ ONE (11:03)
[2019-07-15] MEDS ORDERED: ONDANSETRON 4 MG/2 ML VIAL ONE (11:04)
[2019-07-15] MEDS ORDERED: LIDOCAINE 2% MPF 5 ML VIAL ONE (11:04)
[2019-07-15] MEDS: MORPHINE 4 MG/ML SYR ONE ×3 (11:49→12:13)
[2019-07-15] MEDS ORDERED: MORPHINE 4 MG/ML SYR ONE (12:23)
[2019-07-15 12:51] VITALS: BP 136/66; TEMP 98; O2SAT 96
--- NOTE | 2019-07-15 22:03 | OP ---
Date of Procedure: 07/15/2019 Surgeon: Trice Wilson MD Preoperative Diagnoses: Dysphagia, esophageal stenosis, status post radiation and laryngectomy. Postoperative Diagnoses: Dysphagia, esophageal stenosis, status post radiation and laryngectomy. Procedure: Esophageal dilation using Savary-Joseline dilators. Indication For Procedure: Ms. Julissa Hicks is a 58-year-old, who has a history of laryngeal cancer . She was diagnosed with laryngeal cancer in 2017, treated with radiation at [facility] and subsequent ly developed dysphagia and airway obstruction. She underwent a total laryngectomy by Dr. Burkett. Ov er the last year, she had a feeding tube which fell out and she began having progressive dysphagia an d weight loss. She was seen in February of 2019 with GI, Dr. Zendejas, and noted to have significant sten osis at the level of the oropharynx. He deferred dilation and was unable to replace the PEG tube. S he subsequently underwent a surgical G-tube with Dr. Medina later that month. In March of 2019, the tube fell out and she had trouble obtaining appropriate followup. She has been able to maintain her weight over the last 2 months on soft diet and protein shake, but is continuing to have difficulty s wallowing and strongly desired attempted esophageal dilation to improve her swallowing. I discussed with the patient the high risk of esophageal perforation due to history of radiation as contributing factor to her dysphagia. She agreed with the risks and desired to proceed. Description Of Procedure: The patient was brought to the operating room. She was placed under gener al anesthesia. Her laryngectomy tube was removed and a 6.5 endotracheal tube was placed in the laryn geal stoma. 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 She was e dentulous. A Sweet 2 blade on a laryngoscope was used to elevate the tongue and expose the esophage al introitus. Due to the limitations of neck extension, a formal rigid esophagoscopy was not feasibl e. Under direct visualization of the esophageal introitus, a 10 mm Savary dilator was passed with mi nimal resistance. It was left in place for approximately 1 minute and then removed. The 11 mm Savar y dilator was then placed with minimal resistance. After approximately 1 minute, it was removed. A size 12 mm Savary dilator was then passed with mild resistance. It was left in place for approximate ly 1 minute and then removed. There was a small amount of blood noted upon removal. This was suctio cecilio and the area was observed. Decision was made to forego additional dilation, but the size 12 mm S avary dilator was replaced with ease, left in place for approximately 1 minute and then removed. The esophageal introitus was carefully examined. There was no active bleeding and the amount of residua l blood was very minimal. The procedure was then concluded and the [facility] room. After return of spontaneous ventilation, the endotrac heal tube was removed and her laryngectomy tube was replaced, and patient was transported to the [facility] very room in stable condition. JUAN/ASHOK Voice ID: [id number] Report ID: [id number]
== END 2019-07-15 13:14 | disposition home or self-care (01) ==
LOC: OR 09:17
PROVIDERS: ATTEND Otolaryngology
PROC: 0D757ZZ Dilation of Esophagus, Via Natural or Artificial Opening (ICD-10-PCS; principal; 2019-07-15 10:45)
DX: R13.10 Dysphagia, unspecified (principal); K22.2 Esophageal obstruction; R49.1 Aphonia; E46 Unspecified protein-calorie malnutrition; E03.9 Hypothyroidism, unspecified; J44.9 Chronic obstructive pulmonary disease, unspecified; Z72.0 Tobacco use; E07.9 Disorder of thyroid, unspecified; F32.9 Major depressive disorder, single episode, unspecified; Z90.02 Acquired absence of larynx; Z85.21 Personal history of malignant neoplasm of larynx; Z92.3 Personal history of irradiation; Z80.9 Family history of malignant neoplasm, unspecified; Z82.49 Family history of ischemic heart disease and other diseases of the circulatory system
CPT/HCPCS: 93005; 43453; J2704; J2250; J2405; J0171; J3010

== ENCOUNTER 2019-08-22 23:55 | Emergency (ER) | payer OTHER ==
--- NOTE | 2019-08-23 00:41 | EDPHYS ---
Physician Documentation [facility] Name: Julissa Hicks Age: 58 yrs Sex: Female : 1960 Arrival Date: 08/23/2019 Time: 00:01 Bed 5 Private MD: ED Physician Ganesh Abrams HPI: 08/23 06:23 This 58 yrs old Female presents to ER via EMS with complaints of trach came tw4 out. 06:23 The symptoms are located on the neck. Onset: The symptoms/episode began/occurred today. tw4 Context: piece of trach and voice stimulator came out. Associated signs and symptoms: The patient has no apparent associated signs or symptoms. Severity of symptoms: At their worst the symptoms were very mild, in the emergency department the symptoms are unchanged. Pt tracheostomy has a voice stimulator that has been displace from the trachea. Pt has no complaints of SOB difficultly breathing or handling secretions . Historical: - Allergies: 00:15 No Known Allergies; lp1 - Home Meds: 00:15 Benadryl 25 mg Oral cap every 6 hours [Active]; Claritin 10 mg Oral tab 1 tab once lp1 daily [Active]; Cymbalta 30 mg oral cpDR 1 cap once daily [Active]; diazepam 2 mg Oral tab daily [Active]; docusate sodium 100 mg Oral tab 1 tab 2 times per day [Active]; gabapentin 600 mg oral tab 1 tab twice a day [Active]; ipratropium-albuterol 0.5 mg-3 mg(2.5 mg base)/3 mL Inhl nebu 3 mL every 8 hours [Active]; levothyroxine 75 mcg tab 1 tab once daily [Active]; [place] 10-325 mg Oral tab 1 tab three times a day [Active]; ranitidine HCl 15 mg/mL Oral syrp 10 mL once daily [Active]; Senokot 8.6 mg Oral tab twice a day [Active]; trazodone 100 mg Oral tab nightly [Active]; - PMHx: 00:15 COPD; GERD; Aphonia; Hypothyroidism; Dysphagia; Depression; lp1 - PSHx: 00:15 Unable to obtain; lp1 - Immunization history:: Adult Immunizations up to date. - Social history:: Smoking status: Patient uses tobacco products. - Ebola Screening: : No symptoms or risks identified at this time. ROS: 06:23 Constitutional: Negative for fever, chills, and weight loss, Eyes: Negative for injury, tw4 pain, redness, and discharge, Cardiovascular: Negative for chest pain, palpitations, and edema, Respiratory: Negative for shortness of breath, cough, wheezing, and pleuritic chest pain, Abdomen/GI: Negative for abdominal pain, nausea, vomiting, diarrhea, and constipation. 06:23 MS/Extremity: Negative for injury and deformity, Skin: Negative for injury, rash, and discoloration, Neuro: Negative for headache, weakness, numbness, tingling, and seizure. 06:23 Neck: Negative for injury or acute deformity, mass, pain at rest, rash, swelling, swollen nodes, tenderness, acute changes. Exam: 06:23 Constitutional: This is a well developed, well nourished patient who is awake, alert, tw4 and in no acute distress. Head/Face: Normocephalic, atraumatic. 06:23 Neck: External neck: trach in place, after removal stroma appears with out obstruction or erythema. Vital Signs: 00:06 BP 103 / 78; Pulse 88; Resp 18; Temp 98; Pulse Ox 95% on R/A; Weight 52.16 kg (R); Pain lp1 710; 01:00 BP 103 / 75; Pulse 90; Resp 18; Pulse Ox 96% on R/A; lp1 02:00 BP 118 / 75; Pulse 93; Resp 18; Pulse Ox 95% on R/A; lp1 MDM: 00:14 Patient medically screened. tw4 06:23 Differential diagnosis: Thoracic Outlet Syndrome Unstable Vertebral Fracture Vertical tw4 Compression Injury. Data reviewed: vital signs, nurses notes. Counseling: I had a detailed discussion with the patient and/or guardian regarding: the historical points, exam findings, and any diagnostic results supporting the discharge/admit diagnosis, the presence of at least one elevated blood pressure reading (>120/80) during this emergency department visit. 08/23 00:19 Order name: Chest Single View XRAY tw4 Administered Medications: 01:03 Drug: TORadol 60 mg Route: IM; Site: right gluteus; lp1 02:00 Follow up: Response: No adverse reaction lp1 Disposition: 08/23/19 00:40 Discharged to Home. Impression: Tracheostomy complications. - Condition is Stable. - Discharge Instructions: Tracheostomy, Tracheostomy and Tracheostomy Tube Safety and Care, Adult, Tracheostomy, Care After, How to Change a Cuffed or Cuffless Tracheostomy Tube, . - Medication Reconciliation Form, Thank You Letter, Antibiotic Education, Prescription Opioid Use form. - Follow up: Private Physician; When: Upon discharge from the Emergency Department; Reason: Recheck today's complaints, Continuance of care. - Problem is new. - Symptoms have improved. Signatures: Dispatcher [employer] EDGrace Frye RN RN lp1 Ganesh Abrams MD MD tw4 Corrections: (The following items were deleted from the chart) 03:03 00:40 08/23/2019 00:40 Discharged to Home. Impression: Tracheostomy complications. lp1 Condition is Stable. Forms are Medication Reconciliation Form, Thank You Letter, Antibiotic Education, Prescription Opioid Use. Follow up: Private Physician; When: Upon discharge from the Emergency Department; Reason: Recheck today's complaints, Continuance of care. Problem is new. Symptoms have improved. tw4
--- NOTE | 2019-08-23 00:41 | ER ---
Nurse's Notes [facility] Name: Julissa Hicks Age: 58 yrs Sex: Female : 1960 Arrival Date: 08/23/2019 Time: 00:01 Bed 5 Private MD: Diagnosis: Tracheostomy complications Presentation: 08/23 00:04 Presenting complaint: EMS states: Called for patient with piece that fell out of trach lp1 while she was eating, states she coughed and it popped out; Airway patent, unable to talk due to piece that fell out of device. Transition of care: patient was received from another setting of care (long-term care facility), [facility]. Onset of symptoms was August 23, 2019. Risk Assessment: Do you want to hurt yourself or someone else? Patient reports no desire to harm self or others. Initial Sepsis Screen: Does the patient meet any 2 criteria? No. Patient's initial sepsis screen is negative. Does the patient have a suspected source of infection? No. Patient's initial sepsis screen is negative. Care prior to arrival: None. 00:04 Method Of Arrival: EMS: [facility] lp1 00:04 Acuity: KHOA 3 lp1 Historical: - Allergies: 00:15 No Known Allergies; lp1 - Home Meds: 00:15 Benadryl 25 mg Oral cap every 6 hours [Active]; Claritin 10 mg Oral tab 1 tab once lp1 daily [Active]; Cymbalta 30 mg oral cpDR 1 cap once daily [Active]; diazepam 2 mg Oral tab daily [Active]; docusate sodium 100 mg Oral tab 1 tab 2 times per day [Active]; gabapentin 600 mg oral tab 1 tab twice a day [Active]; ipratropium-albuterol 0.5 mg-3 mg(2.5 mg base)/3 mL Inhl nebu 3 mL every 8 hours [Active]; levothyroxine 75 mcg tab 1 tab once daily [Active]; [place] Jose 10-325 mg Oral tab 1 tab three times a day [Active]; ranitidine HCl 15 mg/mL Oral syrp 10 mL once daily [Active]; Senokot 8.6 mg Oral tab twice a day [Active]; trazodone 100 mg Oral tab nightly [Active]; - PMHx: 00:15 COPD; GERD; Aphonia; Hypothyroidism; Dysphagia; Depression; lp1 - PSHx: 00:15 Unable to obtain; lp1 - Immunization history:: Adult Immunizations up to date. - Social history:: Smoking status: Patient uses tobacco products. - Ebola Screening: : No symptoms or risks identified at this time. Screenin:16 Abuse screen: Denies threats or abuse. Denies injuries from another. Nutritional lp1 screening: No deficits noted. Tuberculosis screening: No symptoms or risk factors identified. Fall Risk None identified. Assessment: 00:15 General: Appears in no apparent distress. Behavior is calm, appropriate for age. Pain: 1 Complains of pain in right shoulder Pain currently is 7 out of 10 on a pain scale. Neuro: Level of Consciousness is awake, alert, obeys commands, Oriented to person, place, situation. Cardiovascular: Patient's skin is warm and dry. Respiratory: Airway is patent Respiratory effort is even, unlabored, Trach device in place Breath sounds are clear bilaterally. GI: Abdomen is flat. : No signs and/or symptoms were reported regarding the genitourinary system. EENT: Throat trach site clean, . Derm: Skin is intact, is thin, Skin is dry, Skin is normal. Musculoskeletal: No deficits noted. 00:30 Reassessment: Spoke with nurse from [place] about plan of care for patient; Dr. galdamez Jose Alberto updated nurse on plan of care for patient. 00:39 Reassessment: Patient complaint of pain to right shoulder; Verbal order from Provider [facility] for Toradol 60 mg IM. 01:07 Reassessment: Patient aware of discharge, waiting for call back for ride back to [address] [facility]. 02:00 Reassessment: Patient appears in no apparent distress at this time. Patient is alert, [facility] oriented x 3, equal unlabored respirations, skin warm/dry/pink. Vital Signs: 00:06 BP 103 / 78; Pulse 88; Resp 18; Temp 98; Pulse Ox 95% on R/A; Weight 52.16 kg (R); Pain lp1 04/27; 01:00 BP 103 / 75; Pulse 90; Resp 18; Pulse Ox 96% on R/A; lp1 02:00 BP 118 / 75; Pulse 93; Resp 18; Pulse Ox 95% on R/A; 1 ED Course: 00:01 Patient arrived in ED. bb 00:04 Grace Tian, RN is Primary Nurse. lp1 00:06 Triage completed. lp1 00:06 Arm band placed on right wrist. lp1 00:14 Ganesh Abrams MD is Attending Physician. tw4 00:16 Patient has correct armband on for positive identification. lp1 01:04 No provider procedures requiring assistance completed. Patient did not have IV access lp1 during this emergency room visit. 01:35 Chest Single View XRAY In Process Unspecified. EDMS Administered Medications: 01:03 Drug: TORadol 60 mg Route: IM; Site: right gluteus; lp1 02:00 Follow up: Response: No adverse reaction lp1 Outcome: 00:40 Discharge ordered by . tw4 02:30 Discharged to home ambulatory, to Taxi cab back to [place] lp1 02:30 Condition: good 02:30 Discharge instructions given to patient, Instructed on discharge instructions, follow up and referral plans. Demonstrated understanding of instructions, follow-up care. 02:40 Patient left the ED. lp1 Signatures: Dispatcher [employer] EDMS Ximena Bentley RN RN bb Grace Tian, RN RN lp1 Ganesh Abrams MD MD tw4 Corrections: (The following items were deleted from the chart) 00:17 00:04 Transition of care: patient was not received from another setting of care. lp1 lp1 00:39 00:17 Reassessment: Complaint of pain to right shoulder; Verbal order from Provider for lp1 La Jose 5-325 1 tab PO lp1 03:04 03:03 Patient left the ED. lp1 lp1
[2019-08-23] MEDS ORDERED: KETOROLAC 30 MG/ML INJ ONE (00:42)
[2019-08-23 03:09] VITALS: TEMP 98
[2019-08-23 03:12] VITALS: BP 118/75; O2SAT 95
--- NOTE | 2019-08-23 05:44 | RAD REPORT ---
EXAM DESCRIPTION: Michael Single View08/23/2019 1:35 am CLINICAL HISTORY: Chest pain COMPARISON: February 2019 FINDINGS: The lungs appear clear of acute infiltrate. The heart is normal size IMPRESSION: No acute abnormalities displayed
--- OUTSIDE RECORDS SUMMARY | 2019-08-28 22:10 | XMS REPORT ---
:1960 [facility] Address [address] [place] [address] Care Team Providers Name Role Phone ANASTASIYA WATSON Unavailable Unavailable Problems This patient has no known problems. Allergies, Adverse Reactions, Alerts This patient has no known allergies or adverse reactions. Medications This patient has no known medications. Results Test Description Test Time Test Comments Text Results Atomic Results Result Comments CT, BRAIN, WITHOUT 2019-01-19 11:41:00 FINAL REPORT PATIENT ID: CONTRAST [id number] CT Head without contrast CLINICAL HISTORY: S06.5X9A [...] Midline shift has resolved. Signed: [place] MDReport Verified Date/Time: 01/19/2019 11:41:54 Reading Location: [facility] C013V Neuro Reading Room , EMBOLIZATION, 2018-12-31 06:47:00 Reason for FINAL REPORT PATIENT ID: EXTENSIVE exam:->left MMA [id number] DATE: December embolization for SDH 2018 ATTENDING: Jaci Roberts MD CABLE ASSEMBLER AND SWAGER: Merlin Novak PREOPERATIVE DIAGNOSIS: Left chronic subdural [...] femoral artery was performed and a 6 [place] short sheath was inserted into the right common femoral artery and maintained on heparinized flush. Using coaxial technique a 5 [place] Envoy catheter was advanced into the descending [...] were removed. Hemostasis achieved with a 6 [place] AngioSeal and manual compression. The patient tolerated [...] MDReport Verified Date/Time: 12/31/2018 06:47:20 Reading Location: [facility] Y026 Neuro Angio Reading Room W/PLT COUNT & AUTO DIFFERENTIAL 2018-12-29 06:02:00 Test Item Value Reference Range Comments WHITE BLOOD CELL COUNT (BEAKER) (test voer=636) 9.7 K/ L 3.5-10.5 RED BLOOD CELL COUNT (BEAKER) (test xswu=093) 3.14 M/ L 3.93-5.22 HEMOGLOBIN (BEAKER) (test peqr=959) 8.8 GM/DL 11.2-15.7 HEMATOCRIT (BEAKER) (test unga=591) 27.5 % 34.1-44.9 MEAN CORPUSCULAR VOLUME (BEAKER) (test zsbb=317) 87.6 fL 79.4-94.8 MEAN CORPUSCULAR HEMOGLOBIN (BEAKER) (test ynfw=062) 28.0 pg 25.6-32.2 MEAN CORPUSCULAR HEMOGLOBIN CONC (BEAKER) (test vqoq=582) 32.0 GM/DL 32.2- 35.5 RED CELL DISTRIBUTION WIDTH (BEAKER) (test sesw=607) 18.3 % 11.7-14.4 PLATELET COUNT (BEAKER) (test ftiy=168) 585 K/CU MM 150-450 MEAN PLATELET VOLUME (BEAKER) (test siie=629) 9.3 fL 9.4-12.3 NUCLEATED RED BLOOD CELLS (BEAKER) (test fezo=758) 0 /100 WBC 0-0 NEUTROPHILS RELATIVE PERCENT (BEAKER) (test ipmm=077) 68 % LYMPHOCYTES RELATIVE PERCENT (BEAKER) (test zszy=486) 16 % MONOCYTES RELATIVE PERCENT (BEAKER) (test ugru=636) 9 % EOSINOPHILS RELATIVE PERCENT (BEAKER) (test kbod=658) 4 % BASOPHILS RELATIVE PERCENT (BEAKER) (test demm=951) 1 % NEUTROPHILS ABSOLUTE COUNT (BEAKER) (test udej=197) 6.54 K/ L 1.56-6.13 LYMPHOCYTES ABSOLUTE COUNT (BEAKER) (test rbbt=291) 1.55 K/ L 1.18-3.74 MONOCYTES ABSOLUTE COUNT (BEAKER) (test gpbg=363) 0.87 K/ L 0.24-0.36 EOSINOPHILS ABSOLUTE COUNT (BEAKER) (test adkj=453) 0.40 K/ L 0.04-0.36 BASOPHILS ABSOLUTE COUNT (BEAKER) (test mncj=949) 0.06 K/ L 0.01-0.08 IMMATURE GRANULOCYTES-RELATIVE PERCENT (BEAKER) (test 2 % 0-1 nblh=7550) [id number] 05:45:00 Test Item Value Reference Range Comments PHOSPHORUS (BEAKER) (test ynly=237) 4.3 mg/dL 2.3-4.7 [id number] 05:45:00 Test Item Value Reference Range Comments MAGNESIUM (BEAKER) (test wjom=841) 1.9 mg/dL 1.6-2.6 BASIC METABOLIC [id number] 05:45:00 Test Item Value Reference Range Comments SODIUM (BEAKER) (test 135 meq/L 136-145 yesl=048) POTASSIUM (BEAKER) (test 4.4 meq/L 3.5-5.1 ptox=003) CHLORIDE (BEAKER) (test 98 meq/L 98-107 ontt=857) CO2 (BEAKER) (test 27 meq/L 22-29 uzpd=150) BLOOD UREA NITROGEN 11 mg/dL 7-21 (BEAKER) (test swog=647) CREATININE (BEAKER) (test 0.67 mg/dL 0.57-1.25 yfpi=974) GLUCOSE RANDOM (BEAKER) 89 mg/dL 70-105 (test nbzc=512) CALCIUM (BEAKER) (test 9.8 mg/dL 8.4-10.2 gklg=506) EGFR (BEAKER) (test 90 mL/min/1.73 sq m ESTIMATED GFR IS NOT byex=9661) ACCURATE CREATININE CLEARANCE IN PREDICTING GLOMERULAR FILTRATION RATE. ESTIMATED GFR IS NOT APPLICABLE FOR DIALYSIS PATIENTS. CALCIUM, [id number] 05:31:00 Test Item Value Reference Range Comments CALCIUM IONIZED (BEAKER) (test cpwc=772) 1.08 mmol/L 1.12-1.27 PH, BLOOD (BEAKER) (test gmpr=1141) 7.47 SPUTUM CULTURE + GRAM [id number] 10:36:00 Test Item Value Reference Range Comments CULTURE (BEAKER) (test PSEUDOMONAS 4+ Pseudomonas kebn=0955) AERUGINOSA aeruginosa Amikacin (test code=1) Susceptible 0-16 [...] CULTURE (BEAKER) (test SERRATIA MARCESCENS 3+ Serratia vydi=1564) marcescensof a second type Amikacin (test code=1) Aztreonam (test code=32) Cefepime (test code=51) Cefoxitin (test code=68) Ceftazidime (test code=27) Ceftriaxone (test code=52) Ertapenem (test code=38) Gentamicin (test code=18) Levofloxacin (test code=22) Meropenem (test code=34) Nitrofurantoin (test code=23) Tetracycline (test code=2) Tobramycin (test code=25) Trimethoprim + Sulfamethoxazole (test code=47) GRAM STAIN RESULT 2+ White blood cells (BEAKER) (test legh=6534) seen GRAM STAIN RESULT 0-5 epithelial cells (BEAKER) (test ngno=992371) GRAM STAIN RESULT <1+ gram negative (BEAKER) (test rods myel=008730) GRAM STAIN RESULT 2+ yeast (BEAKER) (test tuxx=635438) 2+ yeast1+ Normal respiratory anita presentCALCIUM, [id number] 05:30:00 Test Item Value Reference Range Comments CALCIUM IONIZED (BEAKER) (test cxhw=443) 1.16 mmol/L 1.12-1.27 PH, BLOOD (BEAKER) (test yhge=3748) 7.35 [id number] 05:02:00 Test Item Value Reference Range Comments PHOSPHORUS (BEAKER) (test neqb=655) 3.2 mg/dL 2.3-4.7 [id number] 05:02:00 Test Item Value Reference Range Comments MAGNESIUM (BEAKER) (test stdi=138) 1.7 mg/dL 1.6-2.6 BASIC METABOLIC [id number] 05:02:00 Test Item Value Reference Range Comments SODIUM (BEAKER) (test 136 meq/L 136-145 jkxr=022) POTASSIUM (BEAKER) (test 4.7 meq/L 3.5-5.1 vtrg=028) CHLORIDE (BEAKER) (test 100 meq/L 98-107 vhlt=399) CO2 (BEAKER) (test 30 meq/L 22-29 vpqv=065) BLOOD UREA NITROGEN 11 mg/dL 7-21 (BEAKER) (test jszg=022) CREATININE (BEAKER) (test 0.65 mg/dL 0.57-1.25 jzkj=974) GLUCOSE RANDOM (BEAKER) 91 mg/dL 70-105 (test hlll=461) CALCIUM (BEAKER) (test 9.4 mg/dL 8.4-10.2 cvlg=864) EGFR (BEAKER) (test 93 mL/min/1.73 sq m ESTIMATED GFR IS NOT ozag=8571) ACCURATE CREATININE CLEARANCE IN PREDICTING GLOMERULAR FILTRATION RATE. ESTIMATED GFR IS NOT APPLICABLE FOR DIALYSIS PATIENTS. CALCIUM, [id number] 05:46:00 Test Item Value Reference Range Comments CALCIUM IONIZED (BEAKER) (test jzur=397) 1.16 mmol/L 1.12-1.27 PH, BLOOD (BEAKER) (test bbge=3626) 7.39 BASIC METABOLIC [id number] 05:26:00 Test Item Value Reference Range Comments SODIUM (BEAKER) (test 136 meq/L 136-145 firr=134) POTASSIUM (BEAKER) (test 4.6 meq/L 3.5-5.1 aohj=313) CHLORIDE (BEAKER) (test 101 meq/L 98-107 fbdm=211) CO2 (BEAKER) (test 28 meq/L 22-29 gxro=119) BLOOD UREA NITROGEN 9 mg/dL 7-21 (BEAKER) (test kwlj=349) CREATININE (BEAKER) (test 0.63 mg/dL 0.57-1.25 qdhx=338) GLUCOSE RANDOM (BEAKER) 103 mg/dL 70-105 (test gwds=195) CALCIUM (BEAKER) (test 9.3 mg/dL 8.4-10.2 jmsh=476) EGFR (BEAKER) (test 97 mL/min/1.73 sq m ESTIMATED GFR IS NOT grok=7042) ACCURATE CREATININE CLEARANCE IN PREDICTING GLOMERULAR FILTRATION RATE. ESTIMATED GFR IS NOT APPLICABLE FOR DIALYSIS PATIENTS. CBC W/PLT COUNT & AUTO [id number] 05:10:00 Test Item Value Reference Range Comments WHITE BLOOD CELL COUNT (BEAKER) (test ftij=324) 10.7 K/ L 3.5-10.5 RED BLOOD CELL COUNT (BEAKER) (test qefa=228) 3.16 M/ L 3.93-5.22 HEMOGLOBIN (BEAKER) (test itqz=872) 9.0 GM/DL 11.2-15.7 HEMATOCRIT (BEAKER) (test kodh=472) 27.6 % 34.1-44.9 MEAN CORPUSCULAR VOLUME (BEAKER) (test zbxr=567) 87.3 fL 79.4-94.8 MEAN CORPUSCULAR HEMOGLOBIN (BEAKER) (test 28.5 pg 25.6-32.2 ljch=401) MEAN CORPUSCULAR HEMOGLOBIN CONC (BEAKER) (test 32.6 GM/DL 32.2-35.5 yzge=345) RED CELL DISTRIBUTION WIDTH (BEAKER) (test 18.2 % 11.7-14.4 vfcp=612) PLATELET COUNT (BEAKER) (test yemk=602) 478 K/CU MM 150-450 MEAN PLATELET VOLUME (BEAKER) (test hcrh=927) 9.8 fL 9.4-12.3 NUCLEATED RED BLOOD CELLS (BEAKER) (test 0 /100 WBC 0-0 fope=269) NEUTROPHILS RELATIVE PERCENT (BEAKER) (test 70 % gdso=593) LYMPHOCYTES RELATIVE PERCENT (BEAKER) (test 17 % xhew=282) MONOCYTES RELATIVE PERCENT (BEAKER) (test 8 % ieji=251) EOSINOPHILS RELATIVE PERCENT (BEAKER) (test 3 % mame=871) BASOPHILS RELATIVE PERCENT (BEAKER) (test 1 % vwri=231) NEUTROPHILS ABSOLUTE COUNT (BEAKER) (test 7.51 K/ L 1.56-6.13 dmil=645) LYMPHOCYTES ABSOLUTE COUNT (BEAKER) (test 1.86 K/ L 1.18-3.74 wnpz=295) MONOCYTES ABSOLUTE COUNT (BEAKER) (test 0.86 K/ L 0.24-0.36 nrre=158) EOSINOPHILS ABSOLUTE COUNT (BEAKER) (test 0.33 K/ L 0.04-0.36 dwni=542) BASOPHILS ABSOLUTE COUNT (BEAKER) (test 0.07 K/ L 0.01-0.08 zlvf=092) IMMATURE GRANULOCYTES-RELATIVE PERCENT (BEAKER) 1 % 0-1 (test noiw=1014) CT, BRAIN, WITHOUT [id number] 01:51:00FINAL REPORT EXAM: CT head without contrast. [...] the left lateral ventricle. There is a nypr-ia-lxqio midline shift measuring 6 mm at the [...] density subdural hematoma. Associated mass effect. Mildly ofhjggptmwmpl-op-kjvtr midline shift. Signed: Gideon Stephens Verified Date/Time: 12/26/2018 01:51:10Reading Location: [address] Body Reading Room Electronically signed by: GIDEON STEPHENS MD on 2018 01:51 AMPOCT-GLUCOSE [id number] 18:19:00 Test Item Value Reference Range Comments POC-GLUCOSE METER (BEAKER) 137 mg/dL 70-110 TESTED AT [address] (test yulm=7559) [facility] [address] RAD, CHEST, 1 VIEW, NON [id number] 14:28:00Reason for exam:->C/f PNA/ bronchitisShould this be performed at the bedside?->YesFINAL REPORT Chest, AP view. History: Bronchitis. Comparison: None available. Discussion: The cardiomediastinal silhouette and pulmonary vasculature are within normal limits. The lungs are clear without evidence of consolidation or effusion. There are no acute osseous abnormalities. The soft tissues are unremarkable. IMPRESSION: No acute cardiopulmonary abnormality. Signed: Phillip Cintron Verified Date/Time: 12/25/2018 14:28:42 Reading Location: [address] Transitional Reading Room BASIC METABOLIC [id number] 09:01:00 Test Item Value Reference Range Comments SODIUM (BEAKER) (test 133 meq/L 136-145 pozf=414) POTASSIUM (BEAKER) (test 4.2 meq/L 3.5-5.1 lhdi=650) CHLORIDE (BEAKER) (test 98 meq/L 98-107 zjas=108) CO2 (BEAKER) (test 27 meq/L 22-29 unzj=646) BLOOD UREA NITROGEN 7 mg/dL 7-21 (BEAKER) (test jsph=403) CREATININE (BEAKER) (test 0.68 mg/dL 0.57-1.25 jpzh=646) GLUCOSE RANDOM (BEAKER) 88 mg/dL 70-105 (test ojzm=068) CALCIUM (BEAKER) (test 9.1 mg/dL 8.4-10.2 oyfq=858) EGFR (BEAKER) (test 89 mL/min/1.73 sq m ESTIMATED GFR IS NOT mfmg=7815) ACCURATE CREATININE CLEARANCE IN PREDICTING GLOMERULAR FILTRATION RATE. ESTIMATED GFR IS NOT APPLICABLE FOR DIALYSIS PATIENTS. CBC W/PLT COUNT & AUTO [id number] 08:51:00 Test Item Value Reference Range Comments WHITE BLOOD CELL COUNT (BEAKER) (test lzji=316) 14.7 K/ L 3.5-10.5 RED BLOOD CELL COUNT (BEAKER) (test yhwt=419) 3.68 M/ L 3.93-5.22 HEMOGLOBIN (BEAKER) (test mqnr=199) 10.5 GM/DL 11.2-15.7 HEMATOCRIT (BEAKER) (test litr=670) 32.3 % 34.1-44.9 MEAN CORPUSCULAR VOLUME (BEAKER) (test jijd=675) 87.8 fL 79.4-94.8 MEAN CORPUSCULAR HEMOGLOBIN (BEAKER) (test 28.5 pg 25.6-32.2 zkbn=072) MEAN CORPUSCULAR HEMOGLOBIN CONC (BEAKER) (test 32.5 GM/DL 32.2-35.5 nnxb=621) RED CELL DISTRIBUTION WIDTH (BEAKER) (test 18.2 % 11.7-14.4 fefc=673) PLATELET COUNT (BEAKER) (test arms=181) 563 K/CU MM 150-450 MEAN PLATELET VOLUME (BEAKER) (test lxam=066) 9.6 fL 9.4-12.3 NUCLEATED RED BLOOD CELLS (BEAKER) (test 0 /100 WBC 0-0 cagl=793) NEUTROPHILS RELATIVE PERCENT (BEAKER) (test 77 % szsd=217) LYMPHOCYTES RELATIVE PERCENT (BEAKER) (test 12 % yeih=482) MONOCYTES RELATIVE PERCENT (BEAKER) (test 9 % olrq=089) EOSINOPHILS RELATIVE PERCENT (BEAKER) (test 2 % mtkk=899) BASOPHILS RELATIVE PERCENT (BEAKER) (test 0 % djry=383) NEUTROPHILS ABSOLUTE COUNT (BEAKER) (test 11.32 K/ L 1.56-6.13 rpnq=521) LYMPHOCYTES ABSOLUTE COUNT (BEAKER) (test 1.77 K/ L 1.18-3.74 vqsz=574) MONOCYTES ABSOLUTE COUNT (BEAKER) (test 1.25 K/ L 0.24-0.36 jybh=399) EOSINOPHILS ABSOLUTE COUNT (BEAKER) (test 0.25 K/ L 0.04-0.36 yclr=140) BASOPHILS ABSOLUTE COUNT (BEAKER) (test 0.06 K/ L 0.01-0.08 ihve=270) IMMATURE GRANULOCYTES-RELATIVE PERCENT (BEAKER) 0 % 0-1 (test ckzl=1198) POCT-GLUCOSE [id number] 08:26:00 Test Item Value Reference Range Comments POC-GLUCOSE METER (BEAKER) 100 mg/dL 70-110 TESTED AT [address] (test zmiv=9641) [place] [address] POCT-GLUCOSE [id number] 17:11:00 Test Item Value Reference Range Comments POC-GLUCOSE METER (BEAKER) 141 mg/dL 70-110 TESTED AT [address] (test dofe=5487) [place] [address] [id number] 16:51:00 Test Item Value Reference Range Comments POTASSIUM (BEAKER) (test qegs=344) 3.9 meq/L 3.5-5.1 Check Serum Potassium level 2 hours after oral potassium replacement completed or 30 min after intravenous potassium replacement.[id number] 16:51:00 Test Item Value Reference Range Comments MAGNESIUM (BEAKER) (test umkn=311) 2.0 mg/dL 1.6-2.6 Check Serum Potassium level 2 hours after oral potassium replacement completed or 30 min after intravenous potassium replacement.POCT-GLUCOSE [id number] 13:05:00 Test Item Value Reference Range Comments POC-GLUCOSE METER (BEAKER) 142 mg/dL 70-110 TESTED AT [facility] [address] (test qrgv=4556) [facility] [address] POCT-GLUCOSE [id number] 07:51:00 Test Item Value Reference Range Comments POC-GLUCOSE METER (BEAKER) 100 mg/dL 70-110 TESTED AT [facility] [address] (test exab=9330) [facility] [address] [id number] 05:07:00 Test Item Value Reference Range Comments PHOSPHORUS (BEAKER) (test myng=626) 3.0 mg/dL 2.3-4.7 [id number] 05:07:00 Test Item Value Reference Range Comments MAGNESIUM (BEAKER) (test zmoe=864) 1.7 mg/dL 1.6-2.6 BASIC METABOLIC [id number] 05:07:00 Test Item Value Reference Range Comments SODIUM (BEAKER) (test 135 meq/L 136-145 dcds=726) POTASSIUM (BEAKER) (test 3.6 meq/L 3.5-5.1 xgsj=221) CHLORIDE (BEAKER) (test 103 meq/L 98-107 jkns=529) CO2 (BEAKER) (test 25 meq/L 22-29 ecyy=615) BLOOD UREA NITROGEN 7 mg/dL 7-21 (BEAKER) (test lnho=162) CREATININE (BEAKER) (test 0.63 mg/dL 0.57-1.25 sudn=419) GLUCOSE RANDOM (BEAKER) 114 mg/dL 70-105 (test nxve=285) CALCIUM (BEAKER) (test 8.7 mg/dL 8.4-10.2 fbxk=029) EGFR (BEAKER) (test 97 mL/min/1.73 sq m ESTIMATED GFR IS NOT widk=8851) ACCURATE CREATININE CLEARANCE IN PREDICTING GLOMERULAR FILTRATION RATE. ESTIMATED GFR IS NOT APPLICABLE FOR DIALYSIS PATIENTS. CBC W/PLT COUNT & AUTO [id number] 04:52:00 Test Item Value Reference Range Comments WHITE BLOOD CELL COUNT (BEAKER) (test uvpk=887) 11.1 K/ L 3.5-10.5 RED BLOOD CELL COUNT (BEAKER) (test ztrf=910) 3.34 M/ L 3.93-5.22 HEMOGLOBIN (BEAKER) (test uzvo=908) 9.4 GM/DL 11.2-15.7 HEMATOCRIT (BEAKER) (test izkc=121) 28.9 % 34.1-44.9 MEAN CORPUSCULAR VOLUME (BEAKER) (test hywg=508) 86.5 fL 79.4-94.8 MEAN CORPUSCULAR HEMOGLOBIN (BEAKER) (test 28.1 pg 25.6-32.2 zdwh=440) MEAN CORPUSCULAR HEMOGLOBIN CONC (BEAKER) (test 32.5 GM/DL 32.2-35.5 tiid=153) RED CELL DISTRIBUTION WIDTH (BEAKER) (test 18.2 % 11.7-14.4 czrw=197) PLATELET COUNT (BEAKER) (test xizy=450) 477 K/CU MM 150-450 MEAN PLATELET VOLUME (BEAKER) (test namu=020) 9.9 fL 9.4-12.3 NUCLEATED RED BLOOD CELLS (BEAKER) (test 0 /100 WBC 0-0 hgcj=642) NEUTROPHILS RELATIVE PERCENT (BEAKER) (test 76 % hcfi=314) LYMPHOCYTES RELATIVE PERCENT (BEAKER) (test 12 % ifnc=548) MONOCYTES RELATIVE PERCENT (BEAKER) (test 10 % ftjq=715) EOSINOPHILS RELATIVE PERCENT (BEAKER) (test 2 % hykh=348) BASOPHILS RELATIVE PERCENT (BEAKER) (test 1 % nmys=468) NEUTROPHILS ABSOLUTE COUNT (BEAKER) (test 8.40 K/ L 1.56-6.13 zgli=914) LYMPHOCYTES ABSOLUTE COUNT (BEAKER) (test 1.28 K/ L 1.18-3.74 iosp=488) MONOCYTES ABSOLUTE COUNT (BEAKER) (test 1.07 K/ L 0.24-0.36 kkwf=858) EOSINOPHILS ABSOLUTE COUNT (BEAKER) (test 0.24 K/ L 0.04-0.36 abml=539) BASOPHILS ABSOLUTE COUNT (BEAKER) (test 0.05 K/ L 0.01-0.08 ykyl=963) IMMATURE GRANULOCYTES-RELATIVE PERCENT (BEAKER) 1 % 0-1 (test vjpp=9445) CT, BRAIN, WITHOUT [id number] 03:07:00FINAL REPORT CT Head without contrast CLINICAL [...] Proctor Verified Date/Time: 12/24/2018 03:07:47 Reading Location: [address] Reading Room Electronically signed by: CONNER PROCTOR MD on 2018 03:07 AMPOCT-GLUCOSE [id number] 22:00:00 Test Item Value Reference Range Comments POC-GLUCOSE METER (BEAKER) 186 mg/dL 70-110 TESTED AT [address] (test riaq=3053) [facility] [address] POCT-GLUCOSE [id number] 21:49:00 Test Item Value Reference Range Comments POC-GLUCOSE METER (BEAKER) 137 mg/dL 70-110 TESTED AT [place] [id number] (test kret=3141) [facility] [address] TISSUE [id number] 18:03:00Surgical Pathology Report Case: [id number] Authorizing Provider: Oswaldo Hu MD Collected: 12/21/2018 1532 Ordering Location: [place] [address] ICU Received: 2018 0801 Pathologist: Ad Carlson MD Specimen: Soft Tissue, Other, left subdural clot BRAIN, SUBDURAL REGION, LEFT, CRANIOTOMY AND EVACUATION:GRANULATION TISSUE AND FIBRIN, CONSISTENT WITH ORGANIZING HEMATOMA Signing Pathologist Direct Phone Line: [phone] signed by Ad Carlson MD on 12/23/2018 at 6:03 [id number] subdural hematoma Left subdural clotThe specimen is receivedin a formalin-filled container labeled with the patient's information and labeled "left subdural clot" and consists of three fragments of red-brown soft tissue measuring 0.5 to 0.6 cm, submitted entirely in A1. CG/ew PerformedPOCT-GLUCOSE [id number] 12:15:00 Test Item Value Reference Range Comments POC-GLUCOSE METER (BEAKER) 154 mg/dL 70-110 TESTED AT [address] (test kvfc=3872) [place] [address] POCT-GLUCOSE [id number] 08:25:00 Test Item Value Reference Range Comments POC-GLUCOSE METER (BEAKER) 109 mg/dL 70-110 TESTED AT [address] (test ouky=6536) [place] [id number] CBC W/PLT COUNT & AUTO [id number] 03:51:00 Test Item Value Reference Range Comments WHITE BLOOD CELL COUNT (BEAKER) (test uxvt=618) 10.2 K/ L 3.5-10.5 RED BLOOD CELL COUNT (BEAKER) (test ijci=098) 3.65 M/ L 3.93-5.22 HEMOGLOBIN (BEAKER) (test vinu=990) 10.2 GM/DL 11.2-15.7 HEMATOCRIT (BEAKER) (test hdrc=537) 32.2 % 34.1-44.9 MEAN CORPUSCULAR VOLUME (BEAKER) (test htwg=697) 88.2 fL 79.4-94.8 MEAN CORPUSCULAR HEMOGLOBIN (BEAKER) (test 27.9 pg 25.6-32.2 pyvn=489) MEAN CORPUSCULAR HEMOGLOBIN CONC (BEAKER) (test 31.7 GM/DL 32.2-35.5 aorn=861) RED CELL DISTRIBUTION WIDTH (BEAKER) (test 18.0 % 11.7-14.4 atdk=434) PLATELET COUNT (BEAKER) (test bnaj=380) 543 K/CU MM 150-450 MEAN PLATELET VOLUME (BEAKER) (test mnam=597) 10.3 fL 9.4-12.3 NUCLEATED RED BLOOD CELLS (BEAKER) (test 0 /100 WBC 0-0 pwlv=456) NEUTROPHILS RELATIVE PERCENT (BEAKER) (test 75 % muvk=050) LYMPHOCYTES RELATIVE PERCENT (BEAKER) (test 12 % bgmt=671) MONOCYTES RELATIVE PERCENT (BEAKER) (test 9 % zwsn=249) EOSINOPHILS RELATIVE PERCENT (BEAKER) (test 4 % wcqz=279) BASOPHILS RELATIVE PERCENT (BEAKER) (test 1 % abzu=964) NEUTROPHILS ABSOLUTE COUNT (BEAKER) (test 7.56 K/ L 1.56-6.13 bheq=323) LYMPHOCYTES ABSOLUTE COUNT (BEAKER) (test 1.19 K/ L 1.18-3.74 jeee=289) MONOCYTES ABSOLUTE COUNT (BEAKER) (test 0.95 K/ L 0.24-0.36 rqko=013) EOSINOPHILS ABSOLUTE COUNT (BEAKER) (test 0.37 K/ L 0.04-0.36 tvii=116) BASOPHILS ABSOLUTE COUNT (BEAKER) (test 0.05 K/ L 0.01-0.08 lcng=619) IMMATURE GRANULOCYTES-RELATIVE PERCENT (BEAKER) 0 % 0-1 (test bmei=0900) BASIC METABOLIC [id number] 03:47:00 Test Item Value Reference Range Comments SODIUM (BEAKER) (test 135 meq/L 136-145 myql=709) POTASSIUM (BEAKER) (test 3.8 meq/L 3.5-5.1 bktc=947) CHLORIDE (BEAKER) (test 104 meq/L 98-107 uzsa=293) CO2 (BEAKER) (test 23 meq/L 22-29 nutp=612) BLOOD UREA NITROGEN 5 mg/dL 7-21 (BEAKER) (test xqhv=220) CREATININE (BEAKER) (test 0.68 mg/dL 0.57-1.25 plja=700) GLUCOSE RANDOM (BEAKER) 118 mg/dL 70-105 (test pbfn=361) CALCIUM (BEAKER) (test 8.8 mg/dL 8.4-10.2 xrjq=393) EGFR (BEAKER) (test 89 mL/min/1.73 sq m ESTIMATED GFR IS NOT stss=1123) ACCURATE CREATININE CLEARANCE IN PREDICTING GLOMERULAR FILTRATION RATE. ESTIMATED GFR IS NOT APPLICABLE FOR DIALYSIS PATIENTS. POCT-GLUCOSE [id number] 01:02:00 Test Item Value Reference Range Comments POC-GLUCOSE METER (BEAKER) 82 mg/dL 70-110 TESTED AT [address] (test uexq=8346) [place] [address] POCT-GLUCOSE [id number] 19:58:00 Test Item Value Reference Range Comments POC-GLUCOSE METER (BEAKER) 75 mg/dL 70-110 TESTED AT [address] (test huqt=3580) [place] [address] BASIC METABOLIC [id number] 13:29:00 Test Item Value Reference Range Comments SODIUM (BEAKER) (test 134 meq/L 136-145 vrxg=390) POTASSIUM (BEAKER) (test 3.9 meq/L 3.5-5.1 Specimen slightly qmrl=443) hemolyzed CHLORIDE (BEAKER) (test 107 meq/L 98-107 fksi=004) CO2 (BEAKER) (test 19 meq/L 22-29 fmhe=468) BLOOD UREA NITROGEN 5 mg/dL 7-21 (BEAKER) (test ocyp=945) CREATININE (BEAKER) (test 0.61 mg/dL 0.57-1.25 Specimen slightly ttjc=657) hemolyzed GLUCOSE RANDOM (BEAKER) 87 mg/dL 70-105 (test zkxn=127) CALCIUM (BEAKER) (test 7.4 mg/dL 8.4-10.2 kamu=411) EGFR (BEAKER) (test 100 mL/min/1.73 sq m ESTIMATED GFR IS NOT qcij=8313) ACCURATE CREATININE CLEARANCE IN PREDICTING GLOMERULAR FILTRATION RATE. ESTIMATED GFR IS NOT APPLICABLE FOR DIALYSIS PATIENTS. POCT-GLUCOSE [id number] 12:37:00 Test Item Value Reference Range Comments POC-GLUCOSE METER (BEAKER) 85 mg/dL 70-110 TESTED AT [address] (test zskm=4769) [place] [address] [id number] 08:07:00 Test Item Value Reference Range Comments PROTIME (BEAKER) (test ndfr=835) 13.1 seconds 11.7-14.7 INR (BEAKER) (test ryrz=769) 1.0 <=5.9 PARTIAL THROMBOPLASTIN TIME (BEAKER) (test 35.5 seconds 22.5-36.0 oogf=946) RECOMMENDED COUMADIN/WARFARIN INR THERAPY RANGESSTANDARD DOSE: 2.0 - 3.0 Includes: PROPHYLAXIS forvenous thrombosis, systemic embolization; TREATMENT for venous thrombosis and/or pulmonary embolus.HIGH RISK: Target INR is 2.5-3.5 for patients with mechanical heart valves.POCT-GLUCOSE [id number] 06:58:00 Test Item Value Reference Range Comments POC-GLUCOSE METER (BEAKER) 87 mg/dL 70-110 TESTED AT [facility] [address] (test plww=3257) [facility] [address] [address], BRAIN, WITHOUT [id number] 06:57:00FINAL REPORT CT, BRAIN, WITHOUT CONTRAST CLINICAL [...] left cerebral convexity subdural hematoma. Signed: Jose Jones MDReport Verified Date/Time: 12/22/2018 06:57:56 Reading Location: [address] Neuro Reading Room 06: 57 AMBASIC METABOLIC [id number] 04:23:00 Test Item Value Reference Range Comments SODIUM (BEAKER) (test 134 meq/L 136-145 zhdg=452) POTASSIUM (BEAKER) (test 4.3 meq/L 3.5-5.1 vujq=687) CHLORIDE (BEAKER) (test 106 meq/L 98-107 crje=361) CO2 (BEAKER) (test 19 meq/L 22-29 czvo=029) BLOOD UREA NITROGEN 7 mg/dL 7-21 (BEAKER) (test ivdl=740) CREATININE (BEAKER) (test 0.64 mg/dL 0.57-1.25 exrs=604) GLUCOSE RANDOM (BEAKER) 77 mg/dL 70-105 (test sezc=769) CALCIUM (BEAKER) (test 8.2 mg/dL 8.4-10.2 cbdf=684) EGFR (BEAKER) (test 95 mL/min/1.73 sq m ESTIMATED GFR IS NOT qoiq=1313) ACCURATE CREATININE CLEARANCE IN PREDICTING GLOMERULAR FILTRATION RATE. ESTIMATED GFR IS NOT APPLICABLE FOR DIALYSIS PATIENTS. CBC W/PLT COUNT & AUTO [id number] 04:19:00 Test Item Value Reference Range Comments WHITE BLOOD CELL COUNT (BEAKER) (test dxxc=662) 8.6 K/ L 3.5-10.5 RED BLOOD CELL COUNT (BEAKER) (test petm=761) 3.42 M/ L 3.93-5.22 HEMOGLOBIN (BEAKER) (test itcp=126) 9.6 GM/DL 11.2-15.7 HEMATOCRIT (BEAKER) (test hmgr=547) 30.3 % 34.1-44.9 MEAN CORPUSCULAR VOLUME (BEAKER) (test dwen=055) 88.6 fL 79.4-94.8 MEAN CORPUSCULAR HEMOGLOBIN (BEAKER) (test 28.1 pg 25.6-32.2 vfnk=818) MEAN CORPUSCULAR HEMOGLOBIN CONC (BEAKER) (test 31.7 GM/DL 32.2-35.5 omie=431) RED CELL DISTRIBUTION WIDTH (BEAKER) (test 18.3 % 11.7-14.4 njfi=582) PLATELET COUNT (BEAKER) (test rvho=485) 513 K/CU MM 150-450 MEAN PLATELET VOLUME (BEAKER) (test paxq=466) 10.0 fL 9.4-12.3 NUCLEATED RED BLOOD CELLS (BEAKER) (test 0 /100 WBC 0-0 lxcl=613) NEUTROPHILS RELATIVE PERCENT (BEAKER) (test 69 % byof=328) LYMPHOCYTES RELATIVE PERCENT (BEAKER) (test 17 % wnmn=298) MONOCYTES RELATIVE PERCENT (BEAKER) (test 9 % tqxv=443) EOSINOPHILS RELATIVE PERCENT (BEAKER) (test 3 % iamu=103) BASOPHILS RELATIVE PERCENT (BEAKER) (test 1 % awfj=104) NEUTROPHILS ABSOLUTE COUNT (BEAKER) (test 5.94 K/ L 1.56-6.13 ueeh=529) LYMPHOCYTES ABSOLUTE COUNT (BEAKER) (test 1.48 K/ L 1.18-3.74 jfaj=697) MONOCYTES ABSOLUTE COUNT (BEAKER) (test 0.81 K/ L 0.24-0.36 nqfu=861) EOSINOPHILS ABSOLUTE COUNT (BEAKER) (test 0.28 K/ L 0.04-0.36 anqj=063) BASOPHILS ABSOLUTE COUNT (BEAKER) (test 0.07 K/ L 0.01-0.08 wpth=856) IMMATURE GRANULOCYTES-RELATIVE PERCENT (BEAKER) 0 % 0-1 (test falu=1636) POCT-GLUCOSE [id number] 03:51:00 Test Item Value Reference Range Comments POC-GLUCOSE METER (BEAKER) 87 mg/dL 70-110 TESTED AT [address] (test vtls=9576) [place] [id number] POCT-GLUCOSE [id number] 17:54:00 Test Item Value Reference Range Comments POC-GLUCOSE METER (BEAKER) 83 mg/dL 70-110 TESTED AT [address] (test sgdr=4920) [place] [address] POCT-GLUCOSE [id number] 12:33:00 Test Item Value Reference Range Comments POC-GLUCOSE METER (BEAKER) 87 mg/dL 70-110 TESTED AT [address] (test xzcr=7286) [place] [address] POCT-GLUCOSE [id number] 07:50:00 Test Item Value Reference Range Comments POC-GLUCOSE METER (BEAKER) 84 mg/dL 70-110 TESTED AT [address] (test jlag=4230) [place] [id number] POCT-GLUCOSE [id number] 06:16:00 Test Item Value Reference Range Comments POC-GLUCOSE METER (BEAKER) 79 mg/dL 70-110 TESTED AT [address] (test kkxv=1626) [place] [id number] [id number] 03:54:00 Test Item Value Reference Range Comments PHOSPHORUS (BEAKER) (test obsd=743) 3.0 mg/dL 2.3-4.7 Once on admission and Daily AM afterwardsOnce on admission and Daily AM afterwardsOnce on admission and Daily AM [id number] 03:54:00 Test Item Value Reference Range Comments MAGNESIUM (BEAKER) (test fmlw=669) 1.7 mg/dL 1.6-2.6 Once on admission and Daily AM afterwardsOnce on admission and Daily AM afterwardsOnce on admission and Daily AM afterwardsBASIC METABOLIC [id number] 03:54:00 Test Item Value Reference Range Comments SODIUM (BEAKER) (test 137 meq/L 136-145 zmbf=688) POTASSIUM (BEAKER) (test 3.9 meq/L 3.5-5.1 szsx=098) CHLORIDE (BEAKER) (test 104 meq/L 98-107 xqze=336) CO2 (BEAKER) (test 24 meq/L 22-29 oivq=291) BLOOD UREA NITROGEN 10 mg/dL 7-21 (BEAKER) (test ewrn=596) CREATININE (BEAKER) (test 0.65 mg/dL 0.57-1.25 ixaw=209) GLUCOSE RANDOM (BEAKER) 77 mg/dL 70-105 (test zwud=758) CALCIUM (BEAKER) (test 9.7 mg/dL 8.4-10.2 gffb=415) EGFR (BEAKER) (test 93 mL/min/1.73 sq m ESTIMATED GFR IS NOT qayy=2073) ACCURATE CREATININE CLEARANCE IN PREDICTING GLOMERULAR FILTRATION RATE. ESTIMATED GFR IS NOT APPLICABLE FOR DIALYSIS PATIENTS. Once on admission and Daily AM afterwardsOnce on admission and Daily AM afterwardsOnce on admission and Daily AM afterwardsCBC W/PLT COUNT & AUTO [id number] 03:36:00 Test Item Value Reference Range Comments WHITE BLOOD CELL COUNT (BEAKER) (test cuwp=492) 10.9 K/ L 3.5-10.5 RED BLOOD CELL COUNT (BEAKER) (test dfvj=838) 3.77 M/ L 3.93-5.22 HEMOGLOBIN (BEAKER) (test hpfd=575) 10.5 GM/DL 11.2-15.7 HEMATOCRIT (BEAKER) (test pgjm=800) 32.9 % 34.1-44.9 MEAN CORPUSCULAR VOLUME (BEAKER) (test fafb=690) 87.3 fL 79.4-94.8 MEAN CORPUSCULAR HEMOGLOBIN (BEAKER) (test 27.9 pg 25.6-32.2 pqjd=704) MEAN CORPUSCULAR HEMOGLOBIN CONC (BEAKER) (test 31.9 GM/DL 32.2-35.5 bhgr=083) RED CELL DISTRIBUTION WIDTH (BEAKER) (test 18.2 % 11.7-14.4 vedr=649) PLATELET COUNT (BEAKER) (test uxgc=701) 581 K/CU MM 150-450 MEAN PLATELET VOLUME (BEAKER) (test jcle=323) 10.0 fL 9.4-12.3 NUCLEATED RED BLOOD CELLS (BEAKER) (test 0 /100 WBC 0-0 gjar=405) NEUTROPHILS RELATIVE PERCENT (BEAKER) (test 74 % vmho=234) LYMPHOCYTES RELATIVE PERCENT (BEAKER) (test 16 % idax=882) MONOCYTES RELATIVE PERCENT (BEAKER) (test 8 % rgti=075) EOSINOPHILS RELATIVE PERCENT (BEAKER) (test 2 % fdua=933) BASOPHILS RELATIVE PERCENT (BEAKER) (test 1 % xsld=708) NEUTROPHILS ABSOLUTE COUNT (BEAKER) (test 8.10 K/ L 1.56-6.13 tpnx=599) LYMPHOCYTES ABSOLUTE COUNT (BEAKER) (test 1.72 K/ L 1.18-3.74 gukv=280) MONOCYTES ABSOLUTE COUNT (BEAKER) (test 0.86 K/ L 0.24-0.36 fehi=589) EOSINOPHILS ABSOLUTE COUNT (BEAKER) (test 0.16 K/ L 0.04-0.36 ctvw=056) BASOPHILS ABSOLUTE COUNT (BEAKER) (test 0.06 K/ L 0.01-0.08 hsrw=422) IMMATURE GRANULOCYTES-RELATIVE PERCENT (BEAKER) 0 % 0-1 (test lgxe=8136) CT, BRAIN, WITHOUT [id number] 01:21:00FINAL REPORT CT, BRAIN, WITHOUT CONTRAST CLINICAL [...] hematoma time of this dictation. Signed: Jose Jones MDReport Verified Date/Time: 12/21/2018 01: 21:22 Reading Location: [facility] [id number] Neuro Reading Room POCT-GLUCOSE [id number] 00:17:00 Test Item Value Reference Range Comments POC-GLUCOSE METER (BEAKER) 82 mg/dL 70-110 TESTED AT [address] (test nwdy=6657) [place] [id number] POCT-GLUCOSE [id number] 18:53:00 Test Item Value Reference Range Comments POC-GLUCOSE METER (BEAKER) 101 mg/dL 70-110 TESTED AT [address] (test uvfl=6678) [place] [address] [id number] 17:31:00 Test Item Value Reference Range Comments MAGNESIUM (BEAKER) (test 1.8 mg/dL 1.6-2.6 Specimen slightly hemolyzed tsfy=923) [id number] 17:31:00 Test Item Value Reference Range Comments PHOSPHORUS (BEAKER) (test 3.5 mg/dL 2.3-4.7 Specimen slightly hemolyzed trnq=786) BASIC METABOLIC [id number] 17:31:00 Test Item Value Reference Range Comments SODIUM (BEAKER) (test 137 meq/L 136-145 lgta=602) POTASSIUM (BEAKER) (test 3.9 meq/L 3.5-5.1 Specimen slightly cyrb=070) hemolyzed CHLORIDE (BEAKER) (test 101 meq/L 98-107 wnml=234) CO2 (BEAKER) (test 24 meq/L 22-29 ucgm=621) BLOOD UREA NITROGEN 11 mg/dL 7-21 (BEAKER) (test bpkn=188) CREATININE (BEAKER) (test 0.66 mg/dL 0.57-1.25 Specimen slightly csge=609) hemolyzed GLUCOSE RANDOM (BEAKER) 102 mg/dL 70-105 (test ydib=806) CALCIUM (BEAKER) (test 10.0 mg/dL 8.4-10.2 ljkr=062) EGFR (BEAKER) (test 92 mL/min/1.73 sq m ESTIMATED GFR IS NOT uxwg=1726) ACCURATE CREATININE CLEARANCE IN PREDICTING GLOMERULAR FILTRATION RATE. ESTIMATED GFR IS NOT APPLICABLE FOR DIALYSIS PATIENTS. HEPATIC FUNCTION [id number] 17:31:00 Test Item Value Reference Range Comments TOTAL PROTEIN (BEAKER) (test 7.5 gm/dL 6.0-8.3 Specimen slightly hemolyzed izqb=561) ALBUMIN (BEAKER) (test 3.8 g/dL 3.5-5.0 Specimen slightly hemolyzed uivw=4130) BILIRUBIN TOTAL (BEAKER) (test 0.7 mg/dL 0.2-1.2 Specimen slightly hemolyzed pana=659) BILIRUBIN DIRECT (BEAKER) (test 0.4 mg/dL 0.1-0.5 Specimen slightly hemolyzed aink=066) ALKALINE PHOSPHATASE (BEAKER) 74 U/L 40-150 (test hosy=540) AST (SGOT) (BEAKER) (test 30 U/L 5-34 Specimen slightly hemolyzed ngpd=801) ALT (SGPT) (BEAKER) (test 15 U/L 6-55 Specimen slightly hemolyzed xkee=854) PROTHROMBIN [id number] 17:24:00 Test Item Value Reference Range Comments PROTIME (BEAKER) (test lxwh=513) 13.8 seconds 11.7-14.7 INR (BEAKER) (test toev=837) 1.1 <=5.9 RECOMMENDED COUMADIN/WARFARIN INR THERAPY RANGESSTANDARD DOSE: 2.0 - 3.0 Includes: PROPHYLAXIS forvenous thrombosis, systemic embolization; TREATMENT for venous thrombosis and/or pulmonary embolus.HIGH RISK: Target INR is 2.5-3.5 for patients with mechanical heart valves.[id number] 17:24:00 Test Item Value Reference Range Comments PARTIAL THROMBOPLASTIN TIME (BEAKER) (test 37.3 seconds 22.5-36.0 duki=673)
== END 2019-08-23 03:03 | disposition home or self-care (01) ==
LOC: ER 23:55
DX: J95.09 Other tracheostomy complication (principal); J44.9 Chronic obstructive pulmonary disease, unspecified; E03.9 Hypothyroidism, unspecified; F32.9 Major depressive disorder, single episode, unspecified; R49.1 Aphonia; Z72.0 Tobacco use
CPT/HCPCS: 71045; 96372; 99283

== ENCOUNTER 2019-08-23 12:56 | Emergency (ER) | payer OTHER ==
[2019-08-23] MEDS ORDERED: FENTANYL CITR 100 MCG/2 ML ONE ×2 (13:53→17:00)
[2019-08-23] MEDS ORDERED: NA CHLORIDE 0.9% 500 ML ONE (14:18)
--- NOTE | 2019-08-23 14:36 | RAD REPORT ---
EXAM DESCRIPTION: Michael Single View08/23/2019 2:16 pm CLINICAL HISTORY: Chest pain COMPARISON: August 23, 2019 FINDINGS: The lungs appear clear of acute infiltrate. The heart is normal size IMPRESSION: No acute abnormalities displayed
[2019-08-23] MEDS ORDERED: LORazepam 2 MG/ML VIAL ONE (15:19)
--- NOTE | 2019-08-23 16:59 | ER ---
Nurse's Notes [facility] Name: Julissa Hicks Age: 58 yrs Sex: Female : 1960 Arrival Date: 08/23/2019 Time: 12:38 Bed 8 Private MD: Diagnosis: Dislodged Tracheostomy Prosthesis;Chest Pain Presentation: 08/23 12:46 Presenting complaint: EMS states: R sided chest pain and shoulder pain that began ss yesterday. Patient was seen in ER last night because trache device had come out that is supposed to help her speak and eat came out and was unable to get it back in. Transition of care: patient was not received from another setting of care. Onset of symptoms was August 22, 2019. Risk Assessment: Do you want to hurt yourself or someone else? Patient reports no desire to harm self or others. Initial Sepsis Screen: Does the patient meet any 2 criteria? No. Patient's initial sepsis screen is negative. Does the patient have a suspected source of infection? No. Patient's initial sepsis screen is negative. Care prior to arrival: None. 12:46 Method Of Arrival: EMS: [facility] ss 12:46 Acuity: KHOA 3 ss Triage Assessment: 12:50 General: Appears in no apparent distress. comfortable, Behavior is calm, cooperative, sv appropriate for age. Pain: Complains of pain in right clavicle, anterior aspect of right upper chest and anterior aspect of right shoulder. Neuro: Level of Consciousness is awake, alert, obeys commands, Oriented to person, place, time, situation, Gait is steady. Cardiovascular: Patient's skin is warm and dry. Pulses are palpable in right radial artery and left radial artery. Respiratory: Respiratory effort is even, unlabored, Respiratory pattern is regular, symmetrical. Respiratory: Pt has a trach. Derm: Skin is normal. Historical: - Allergies: 12:50 No Known Allergies; ss - PMHx: 12:50 COPD; larynx CA; aphonia; Depression; dysphagia; Pneumonia; Traumatic subarachnoid ss hemorrhage; - Immunization history:: Adult Immunizations up to date. - Ebola Screening: : Patient denies exposure to infectious person Patient denies travel to an Ebola-affected area in the 21 days before illness onset. - Family history:: not pertinent. - Hospitalizations: : No recent hospitalization is reported. Screenin:11 Abuse screen: Denies threats or abuse. Denies injuries from another. Nutritional sv screening: No deficits noted. Tuberculosis screening: No symptoms or risk factors identified. Fall Risk None identified. Assessment: 14:26 Reassessment: Spoke with in house speech pathologist who reports that she will assess patients' trache prosthesis. 14:37 Reassessment: Speech Ana alvarez at bedside. ss 15:54 Reassessment: Patient appears in no apparent distress at this time. No changes from previously documented assessment. Patient and/or family updated on plan of care and expected duration. Pain level reassessed. 17:10 Reassessment: Patient appears in no apparent distress at this time. Patient and/or sv family updated on plan of care and expected duration. Pain level reassessed. Patient is alert, oriented x 3, equal unlabored respirations, skin warm/dry/pink. Informed Dr Nieot that pt's pain returned, medication ordered. See MAR. 17:30 Reassessment: Report given to EMS. sv 17:32 Reassessment: Patient appears in no apparent distress at this time. Patient and/or sv family updated on plan of care and expected duration. Pain level reassessed. Patient is alert, oriented x 3, equal unlabored respirations, skin warm/dry/pink. Vital Signs: 12:50 BP 139 / 75; Pulse 71; Resp 16; Temp 98.0(A); Pulse Ox 100% on R/A; Pain 9/10; ss 14:14 BP 163 / 88; Pulse 73; Resp 18; Pulse Ox 97% on R/A; sv 15:04 BP 154 / 81; Pulse 80; Resp 14; Pulse Ox 100% ; sv 15:52 BP 132 / 87; Pulse 98; Resp 22; Pulse Ox 99% ; sv 16:55 BP 156 / 87; Pulse 95; Resp 21; Pulse Ox 97% ; sv 17:32 BP 148 / 77; Pulse 92; Resp 18; Pulse Ox 99% ; sv ED Course: 12:38 Patient arrived in ED. sv 12:48 Triage completed. ss 12:50 Arm band placed on right wrist. ss 12:54 Prem Nieto MD is Attending Physician. wa 12:56 EKG done, by medical office technology instructor. reviewed by Meir Teran MD. tc 13:00 guard manager on. Pulse ox on. NIBP on. sv 13:00 Patient maintains SpO2 saturation greater than 95% on room air. sv 13:03 Trice Adamson, RN is Primary Nurse. sv 13:11 Patient has correct armband on for positive identification. Bed in low position. Side sv rails up X2. 13:35 ED physician to see patient. sv 14:05 Missed attempt(s): 22 gauge in left forearm. Bleeding controlled, band aid applied, sv catheter tip intact. 14:08 Inserted saline lock: 24 gauge in right wrist, using aseptic technique. ,using aseptic sv technique. diffusics Flushed right with 5 ml normal saline. 14:18 Chest Single View In Process Unspecified. EDMS 16:04 attempted transfer to [facility], pt was denied due to lack of capacity. bd 16:16 pt was accepted at [facility] er by Dr Cabello. bd 17:29 No provider procedures requiring assistance completed. Patient transferred, IV remains sv in place. intact. Administered Medications: 14:12 Drug: fentaNYL (PF) 50 mcg {Note: RASS1.} Route: IVP; Site: right wrist; sv 15:25 Follow up: Response: Pain is decreased; RASS 0 ss 14:30 Drug: NS 0.9% 500 ml Route: IV; Rate: bolus; Site: right wrist; sv 15:15 Follow up: Response: No adverse reaction; IV Status: Completed infusion; IV Intake: sv 500ml 15:25 Drug: Ativan 1 mg Route: IVP; Site: right wrist; ss 16:30 Follow up: Response: No adverse reaction; Marked relief of symptoms sv 17:15 Drug: fentaNYL (PF) 50 mcg Route: IVP; Site: right wrist; sv 17:36 Follow up: Response: No adverse reaction; RASS: Alert and Calm (0) sv Intake: 15:15 IV: 500ml; Total: 500ml. sv Outcome: 16:35 Transferred by ground EMS to [facility], Transfer form sv completed. Note: Report called to January RN 16:35 Condition: stable 16:35 Instructed on the need for transfer. 16:58 ER care complete, transfer ordered by . wa 17:35 Patient left the ED. sv Signatures: Dispatcher [employer] EDMS Petra Matias bd Trice Adamson, Bina Amin RN, RN RN ss Nereyda Knowles, fiberglass technician EKG Ttc Prem Nieto MD MD wa
--- NOTE | 2019-08-23 16:59 | EDPHYS ---
Physician Documentation [facility] Name: Julissa Hicks Age: 58 yrs Sex: Female : 1960 Arrival Date: 08/23/2019 Time: 12:38 Bed 8 Private MD: ED Physician Prem Nieto HPI: 08/23 14:15 This 58 yrs old Female presents to ER via EMS with complaints of Chest Pain > wa 29 y/o. 14:15 The patient or guardian reports chest pain that is located primarily in the right side. wa Onset: c/o R side chest pain. says a chronic, daily issue but worse today. seen here yesterday as trach piece that help with speech and feeding came out. has not been replaced. need replaced to help speak and or eat. denies SOB. denies fever or chills. states piece came out when she coughed yesterday. Usually has to go to [facility] ER to get replaced. h/o laryngeal CA s/p laryngectomy at [facility]. states gets seen at [facility] for f/u since her insurance run out. Usually gets uber paid for by the [employer] but she is out of rides at the moment. per pt the [facility] unwilling to organize transport for her. The pain does not radiate. Associated signs and symptoms: Pertinent negatives: abdominal pain, cough, dizziness, headache, lightheadedness, palpitations, shortness of breath, vomiting. The chest pain is described as sharp. Duration: The patient or guardian reports a single episode, that is still ongoing, and worsening. Modifying factors: The symptoms are alleviated by nothing. the symptoms are aggravated by breathing, cough, movement. Severity of pain: At its worst the pain was moderate in the emergency department the pain is unchanged. The patient has experienced similar episodes in the past, chronically. The patient has been recently seen by a physician: in this ED, last night. . states was told last night by MD not to eat or drink until piece is replaced. as usch has not had a meal or drunk anything since yesterday. Historical: - Allergies: 12:50 No Known Allergies; ss - PMHx: 12:50 COPD; larynx CA; aphonia; Depression; dysphagia; Pneumonia; Traumatic subarachnoid ss hemorrhage; - Immunization history:: Adult Immunizations up to date. - Ebola Screening: : Patient denies exposure to infectious person Patient denies travel to an Ebola-affected area in the 21 days before illness onset. - Family history:: not pertinent. - Hospitalizations: : No recent hospitalization is reported. ROS: 14:25 Constitutional: Negative for fever, chills, and weight loss, Eyes: Negative for injury, wa pain, redness, and discharge, Respiratory: Negative for shortness of breath, cough, wheezing, and pleuritic chest pain, Abdomen/GI: Negative for abdominal pain, nausea, vomiting, diarrhea, and constipation, Back: Negative for injury and pain, : Negative for injury, bleeding, discharge, and swelling, MS/Extremity: Negative for injury and deformity, Skin: Negative for injury, rash, and discoloration, Neuro: Negative for headache, weakness, numbness, tingling, and seizure, Psych: Negative for depression, anxiety, suicide ideation, homicidal ideation, and hallucinations. 14:25 ENT: Positive for trach collar. 14:25 Neck: Positive for trach collar. 14:25 Cardiovascular: Positive for chest pain, of the right side. 14:25 All other systems are negative. Exam: 14:28 Constitutional: This is a well developed, well nourished patient who is awake, alert, wa and in no acute distress. Head/Face: Normocephalic, atraumatic. Eyes: Pupils equal round and reactive to light, extra-ocular motions intact. Lids and lashes normal. Conjunctiva and sclera are non-icteric and not injected. Cornea within normal limits. Periorbital areas with no swelling, redness, or edema. Respiratory: Lungs have equal breath sounds bilaterally, clear to auscultation and percussion. No rales, rhonchi or wheezes noted. No increased work of breathing, no retractions or nasal flaring. Abdomen/GI: Soft, non-tender, with normal bowel sounds. No distension or tympany. No guarding or rebound. No evidence of tenderness throughout. Back: No spinal tenderness. No costovertebral tenderness. Full range of motion. Skin: Warm, dry with normal turgor. Normal color with no rashes, no lesions, and no evidence of cellulitis. MS/ Extremity: Pulses equal, no cyanosis. Neurovascular intact. Full, normal range of motion. Neuro: Awake and alert, GCS 15, oriented to person, place, time, and situation. Cranial nerves II-XII grossly intact. Motor strength 5/5 in all extremities. Sensory grossly intact. Cerebellar exam normal. Normal gait. Psych: Awake, alert, with orientation to person, place and time. Behavior, mood, and affect are within normal limits. 14:28 ENT: noted for trach piece with collar. no exudate or redness at site. 14:28 Neck: Trachea: noted collar. . 14:28 Chest/axilla: Inspection: normal, Palpation: tenderness, that is moderate, of the diffuse. 16:58 Cardiovascular: Rate: normal, Rhythm: regular, Pulses: no pulse deficits are wa appreciated, Heart sounds: normal, Edema: is not appreciated. Vital Signs: 12:50 BP 139 / 75; Pulse 71; Resp 16; Temp 98.0(A); Pulse Ox 100% on R/A; Pain 9/10; ss 14:14 BP 163 / 88; Pulse 73; Resp 18; Pulse Ox 97% on R/A; sv 15:04 BP 154 / 81; Pulse 80; Resp 14; Pulse Ox 100% ; sv 15:52 BP 132 / 87; Pulse 98; Resp 22; Pulse Ox 99% ; sv 16:55 BP 156 / 87; Pulse 95; Resp 21; Pulse Ox 97% ; sv 17:32 BP 148 / 77; Pulse 92; Resp 18; Pulse Ox 99% ; sv MDM: 12:54 Patient medically screened. ks 14:32 Differential diagnosis: chronic chest pain. will check EKG and CXR. pain control. per ks Resp therapist, they are not equipped to replace. i am told speech therapist upstairs may know about this particular device. will consult. 15:19 ED course: our speech therapist attempted to replace prosthetic device. so far not ks successful. will attempt transfer to [facility] for replacement. 15:32 Data reviewed: vital signs, nurses notes, radiologic studies. Test interpretation: by ks ED physician or midlevel provider: CXR: no acute process. EKG: Interp by me: HR 73. sinus. nml axis. no zonal ischemic changes or dysrhythmias. nml study. Special discussion: [place] declined to organize transport for pt. our Speech Therapist thus far has been unsuccessful in getting device in. [facility] has declined to accept pt for transfer sighting capacity issue. I understand that at the moment, the speech pathology dept may be gone at [facility]. will attempt transfer to [facility]. 08/23 14:18 Order name: Chest Single View; Complete Time: 15:29 EDMS 08/23 12:52 Order name: EKG; Complete Time: 12:58 ss 08/23 12:52 Order name: EKG - Nurse/Tech; Complete Time: 12:52 ss 08/23 13:43 Order name: IV Start; Complete Time: 14:12 ks 08/23 16:37 Order name: Speech Therapy Consult; Complete Time: 17:36 EDMS Administered Medications: 14:12 Drug: fentaNYL (PF) 50 mcg {Note: RASS1.} Route: IVP; Site: right wrist; sv 15:25 Follow up: Response: Pain is decreased; RASS 0 ss 14:30 Drug: NS 0.9% 500 ml Route: IV; Rate: bolus; Site: right wrist; sv 15:15 Follow up: Response: No adverse reaction; IV Status: Completed infusion; IV Intake: sv 500ml 15:25 Drug: Ativan 1 mg Route: IVP; Site: right wrist; ss 16:30 Follow up: Response: No adverse reaction; Marked relief of symptoms sv 17:15 Drug: fentaNYL (PF) 50 mcg Route: IVP; Site: right wrist; sv 17:36 Follow up: Response: No adverse reaction; RASS: Alert and Calm (0) sv Disposition: 08/23/19 16:58 Transfer ordered to [facility] ([facility]3]. Diagnosis are Dislodged Tracheostomy Prosthesis, Chest Pain. - Reason for transfer: Higher level of care. - Accepting physician is Destiney Paul. ENT at [facility]. - Condition is Stable. - Problem is new. - Symptoms are unchanged. Signatures: Dispatcher [employer] EDGA Trice Adamson RN RN Bina Angulo RN RN Prem Nieto MD MD wa Corrections: (The following items were deleted from the chart) 14:18 13:19 Chest Pa And Lat (2 Views)+[email or web address] ordered. EDGA EDMS 17:35 16:58 08/23/2019 16:58 Transfer ordered to [facility] ([facility]3]. Diagnosis is Dislodged sv Tracheostomy Prosthesis; Chest Pain. Reason for transfer: Higher level of care. Accepting physician is Destiney Paul. ENT at [facility]. Condition is Stable. Problem is new. Symptoms are unchanged. wa
[2019-08-23 19:03] VITALS: BP 148/77; O2SAT 99
--- NOTE | 2019-08-24 06:38 | EKG ---
Test Date: 2019-08-23 Test Time: 12:50:34 Histology Tech: TC MEASUREMENT RESULTS: Intervals: Rate: 73 WI: 166 QRSD: 82 QT: 408 QTc: 449 [place]: P: 66 WI: 166 QRS: 67 T: 63 INTERPRETIVE STATEMENTS: Normal sinus rhythm Normal ECG Compared to ECG 07/13/2019 11:25:58 No significant changes Electronically Signed On 08-24-19 06:37:33 LOCAL COORDINATOR by Gee Esquivel
--- OUTSIDE RECORDS SUMMARY | 2019-08-28 23:41 | XMS REPORT ---
:1960 [facility] Address [address] [place] [address] Care Team Providers Name Role Phone ANASTASIYA WATSON Unavailable Unavailable Problems This patient has no known problems. Allergies, Adverse Reactions, Alerts This patient has no known allergies or adverse reactions. Medications This patient has no known medications. 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 Using coaxial technique a 5 [place] Envoy catheter was advanced into the descending [...] were removed. Hemostasis achieved with a 6 Argentine AngioSeal and manual compression. The patient tolerated [...] MDReport Verified Date/Time: 12/31/2018 06:47:20 Reading Location: [facility] Y026 Neuro Angio Reading Room W/PLT COUNT & AUTO DIFFERENTIAL 2018-12-29 06:02:00 Test Item Value Reference Range Comments WHITE BLOOD CELL COUNT (BEAKER) (test izhv=106) 9.7 K/ L 3.5-10.5 RED BLOOD CELL COUNT (BEAKER) (test gstn=773) 3.14 M/ L 3.93-5.22 HEMOGLOBIN (BEAKER) (test pagw=977) 8.8 GM/DL 11.2-15.7 HEMATOCRIT (BEAKER) (test naih=853) 27.5 % 34.1-44.9 MEAN CORPUSCULAR VOLUME (BEAKER) (test yaut=025) 87.6 fL 79.4-94.8 MEAN CORPUSCULAR HEMOGLOBIN (BEAKER) (test hzef=815) 28.0 pg 25.6-32.2 MEAN CORPUSCULAR HEMOGLOBIN CONC (BEAKER) (test oclk=815) 32.0 GM/DL 32.2- 35.5 RED CELL DISTRIBUTION WIDTH (BEAKER) (test pxak=659) 18.3 % 11.7-14.4 PLATELET COUNT (BEAKER) (test fviy=598) 585 K/CU MM 150-450 MEAN PLATELET VOLUME (BEAKER) (test bxzg=408) 9.3 fL 9.4-12.3 NUCLEATED RED BLOOD CELLS (BEAKER) (test ioiv=272) 0 /100 WBC 0-0 NEUTROPHILS RELATIVE PERCENT (BEAKER) (test cqid=767) 68 % LYMPHOCYTES RELATIVE PERCENT (BEAKER) (test grwu=617) 16 % MONOCYTES RELATIVE PERCENT (BEAKER) (test epga=376) 9 % EOSINOPHILS RELATIVE PERCENT (BEAKER) (test kems=363) 4 % BASOPHILS RELATIVE PERCENT (BEAKER) (test ircz=938) 1 % NEUTROPHILS ABSOLUTE COUNT (BEAKER) (test ptbw=439) 6.54 K/ L 1.56-6.13 LYMPHOCYTES ABSOLUTE COUNT (BEAKER) (test nhos=666) 1.55 K/ L 1.18-3.74 MONOCYTES ABSOLUTE COUNT (BEAKER) (test lurc=272) 0.87 K/ L 0.24-0.36 EOSINOPHILS ABSOLUTE COUNT (BEAKER) (test ubsy=831) 0.40 K/ L 0.04-0.36 BASOPHILS ABSOLUTE COUNT (BEAKER) (test cwto=190) 0.06 K/ L 0.01-0.08 IMMATURE GRANULOCYTES-RELATIVE PERCENT (BEAKER) (test 2 % 0-1 ulhe=7674) [id number] 05:45:00 Test Item Value Reference Range Comments PHOSPHORUS (BEAKER) (test hfcj=454) 4.3 mg/dL 2.3-4.7 [id number] 05:45:00 Test Item Value Reference Range Comments MAGNESIUM (BEAKER) (test bldx=925) 1.9 mg/dL 1.6-2.6 BASIC METABOLIC [id number] 05:45:00 Test Item Value Reference Range Comments SODIUM (BEAKER) (test 135 meq/L 136-145 acvz=976) POTASSIUM (BEAKER) (test 4.4 meq/L 3.5-5.1 kcmp=883) CHLORIDE (BEAKER) (test 98 meq/L 98-107 ofuf=798) CO2 (BEAKER) (test 27 meq/L 22-29 gjxp=191) BLOOD UREA NITROGEN 11 mg/dL 7-21 (BEAKER) (test xbdn=921) CREATININE (BEAKER) (test 0.67 mg/dL 0.57-1.25 upza=579) GLUCOSE RANDOM (BEAKER) 89 mg/dL 70-105 (test latt=239) CALCIUM (BEAKER) (test 9.8 mg/dL 8.4-10.2 mvpf=115) EGFR (BEAKER) (test 90 mL/min/1.73 sq m ESTIMATED GFR IS NOT yfhn=4257) ACCURATE CREATININE CLEARANCE IN PREDICTING GLOMERULAR FILTRATION RATE. ESTIMATED GFR IS NOT APPLICABLE FOR DIALYSIS PATIENTS. CALCIUM, [id number] 05:31:00 Test Item Value Reference Range Comments CALCIUM IONIZED (BEAKER) (test tdci=155) 1.08 mmol/L 1.12-1.27 PH, BLOOD (BEAKER) (test eltg=1718) 7.47 SPUTUM CULTURE + GRAM [id number] 10:36:00 Test Item Value Reference Range Comments CULTURE (BEAKER) (test PSEUDOMONAS 4+ Pseudomonas jpnm=4551) AERUGINOSA aeruginosa Amikacin (test code=1) Susceptible 0-16 [...] CULTURE (BEAKER) (test SERRATIA MARCESCENS 3+ Serratia nbpr=6016) marcescensof a second type Amikacin (test code=1) Aztreonam (test code=32) Cefepime (test code=51) Cefoxitin (test code=68) Ceftazidime (test code=27) Ceftriaxone (test code=52) Ertapenem (test code=38) Gentamicin (test code=18) Levofloxacin (test code=22) Meropenem (test code=34) Nitrofurantoin (test code=23) Tetracycline (test code=2) Tobramycin (test code=25) Trimethoprim + Sulfamethoxazole (test code=47) GRAM STAIN RESULT 2+ White blood cells (BEAKER) (test bkii=2818) seen GRAM STAIN RESULT 0-5 epithelial cells (BEAKER) (test pdlv=652484) GRAM STAIN RESULT <1+ gram negative (BEAKER) (test rods pdxr=511244) GRAM STAIN RESULT 2+ yeast (BEAKER) (test zkxq=308357) 2+ yeast1+ Normal respiratory anita presentCALCIUM, [id number] 05:30:00 Test Item Value Reference Range Comments CALCIUM IONIZED (BEAKER) (test btvt=516) 1.16 mmol/L 1.12-1.27 PH, BLOOD (BEAKER) (test nrri=1881) 7.35 [id number] 05:02:00 Test Item Value Reference Range Comments PHOSPHORUS (BEAKER) (test ifur=548) 3.2 mg/dL 2.3-4.7 [id number] 05:02:00 Test Item Value Reference Range Comments MAGNESIUM (BEAKER) (test ioct=546) 1.7 mg/dL 1.6-2.6 BASIC METABOLIC [id number] 05:02:00 Test Item Value Reference Range Comments SODIUM (BEAKER) (test 136 meq/L 136-145 amvc=660) POTASSIUM (BEAKER) (test 4.7 meq/L 3.5-5.1 ziuz=548) CHLORIDE (BEAKER) (test 100 meq/L 98-107 zhqa=262) CO2 (BEAKER) (test 30 meq/L 22-29 mzen=996) BLOOD UREA NITROGEN 11 mg/dL 7-21 (BEAKER) (test kxrs=719) CREATININE (BEAKER) (test 0.65 mg/dL 0.57-1.25 acbc=297) GLUCOSE RANDOM (BEAKER) 91 mg/dL 70-105 (test llov=814) CALCIUM (BEAKER) (test 9.4 mg/dL 8.4-10.2 ptbc=552) EGFR (BEAKER) (test 93 mL/min/1.73 sq m ESTIMATED GFR IS NOT uuqx=3156) ACCURATE CREATININE CLEARANCE IN PREDICTING GLOMERULAR FILTRATION RATE. ESTIMATED GFR IS NOT APPLICABLE FOR DIALYSIS PATIENTS. CALCIUM, [id number] 05:46:00 Test Item Value Reference Range Comments CALCIUM IONIZED (BEAKER) (test xypw=824) 1.16 mmol/L 1.12-1.27 PH, BLOOD (BEAKER) (test evlw=5363) 7.39 BASIC METABOLIC [id number] 05:26:00 Test Item Value Reference Range Comments SODIUM (BEAKER) (test 136 meq/L 136-145 vfmq=797) POTASSIUM (BEAKER) (test 4.6 meq/L 3.5-5.1 truo=575) CHLORIDE (BEAKER) (test 101 meq/L 98-107 gcli=812) CO2 (BEAKER) (test 28 meq/L 22-29 dpid=937) BLOOD UREA NITROGEN 9 mg/dL 7-21 (BEAKER) (test ddse=889) CREATININE (BEAKER) (test 0.63 mg/dL 0.57-1.25 xvll=995) GLUCOSE RANDOM (BEAKER) 103 mg/dL 70-105 (test bprp=668) CALCIUM (BEAKER) (test 9.3 mg/dL 8.4-10.2 juej=707) EGFR (BEAKER) (test 97 mL/min/1.73 sq m ESTIMATED GFR IS NOT wrop=3954) ACCURATE CREATININE CLEARANCE IN PREDICTING GLOMERULAR FILTRATION RATE. ESTIMATED GFR IS NOT APPLICABLE FOR DIALYSIS PATIENTS. CBC W/PLT COUNT & AUTO [id number] 05:10:00 Test Item Value Reference Range Comments WHITE BLOOD CELL COUNT (BEAKER) (test vnlz=336) 10.7 K/ L 3.5-10.5 RED BLOOD CELL COUNT (BEAKER) (test sfpg=881) 3.16 M/ L 3.93-5.22 HEMOGLOBIN (BEAKER) (test pevm=881) 9.0 GM/DL 11.2-15.7 HEMATOCRIT (BEAKER) (test bvjy=924) 27.6 % 34.1-44.9 MEAN CORPUSCULAR VOLUME (BEAKER) (test thjt=983) 87.3 fL 79.4-94.8 MEAN CORPUSCULAR HEMOGLOBIN (BEAKER) (test 28.5 pg 25.6-32.2 rsrf=115) MEAN CORPUSCULAR HEMOGLOBIN CONC (BEAKER) (test 32.6 GM/DL 32.2-35.5 cemp=701) RED CELL DISTRIBUTION WIDTH (BEAKER) (test 18.2 % 11.7-14.4 jepg=677) PLATELET COUNT (BEAKER) (test ygrj=344) 478 K/CU MM 150-450 MEAN PLATELET VOLUME (BEAKER) (test wrfy=159) 9.8 fL 9.4-12.3 NUCLEATED RED BLOOD CELLS (BEAKER) (test 0 /100 WBC 0-0 dqbb=966) NEUTROPHILS RELATIVE PERCENT (BEAKER) (test 70 % ijtl=880) LYMPHOCYTES RELATIVE PERCENT (BEAKER) (test 17 % wfba=316) MONOCYTES RELATIVE PERCENT (BEAKER) (test 8 % vlgz=177) EOSINOPHILS RELATIVE PERCENT (BEAKER) (test 3 % pkws=665) BASOPHILS RELATIVE PERCENT (BEAKER) (test 1 % ztlc=435) NEUTROPHILS ABSOLUTE COUNT (BEAKER) (test 7.51 K/ L 1.56-6.13 ohrl=046) LYMPHOCYTES ABSOLUTE COUNT (BEAKER) (test 1.86 K/ L 1.18-3.74 cemu=937) MONOCYTES ABSOLUTE COUNT (BEAKER) (test 0.86 K/ L 0.24-0.36 kpnm=289) EOSINOPHILS ABSOLUTE COUNT (BEAKER) (test 0.33 K/ L 0.04-0.36 fvmk=036) BASOPHILS ABSOLUTE COUNT (BEAKER) (test 0.07 K/ L 0.01-0.08 pqau=760) IMMATURE GRANULOCYTES-RELATIVE PERCENT (BEAKER) 1 % 0-1 (test fkgy=7922) CT, BRAIN, WITHOUT [id number] 01:51:00FINAL REPORT EXAM: CT head without contrast. [...] the left lateral ventricle. There is a ercf-tj-owhbq midline shift measuring 6 mm at the [...] density subdural hematoma. Associated mass effect. Mildly mmdzinjbguudt-vd-ukghh midline shift. Signed: Gideon Stephens Verified Date/Time: 12/26/2018 01:51:10Reading Location: [address] Body Reading Room Electronically signed by: GIDEON STEPHENS MD on 2018 01:51 AMPOCT-GLUCOSE [id number] 18:19:00 Test Item Value Reference Range Comments POC-GLUCOSE METER (BEAKER) 137 mg/dL 70-110 TESTED AT [address] (test zjze=9126) [facility] [address] RAD, CHEST, 1 VIEW, NON [id number] 14:28:00Reason for exam:->C/f PNA/ bronchitisShould this be [...] Cintron Verified Date/Time: 12/25/2018 14:28:42 Reading Location: [address] Transitional Reading Room BASIC METABOLIC [id number] 09:01:00 Test Item Value Reference Range Comments SODIUM (BEAKER) (test 133 meq/L 136-145 gndb=777) POTASSIUM (BEAKER) (test 4.2 meq/L 3.5-5.1 wqlq=645) CHLORIDE (BEAKER) (test 98 meq/L 98-107 sbwa=874) CO2 (BEAKER) (test 27 meq/L 22-29 sjya=985) BLOOD UREA NITROGEN 7 mg/dL 7-21 (BEAKER) (test bymi=168) CREATININE (BEAKER) (test 0.68 mg/dL 0.57-1.25 ntag=677) GLUCOSE RANDOM (BEAKER) 88 mg/dL 70-105 (test yfls=203) CALCIUM (BEAKER) (test 9.1 mg/dL 8.4-10.2 wsxl=061) EGFR (BEAKER) (test 89 mL/min/1.73 sq m ESTIMATED GFR IS NOT kfms=0821) ACCURATE CREATININE CLEARANCE IN PREDICTING GLOMERULAR FILTRATION RATE. ESTIMATED GFR IS NOT APPLICABLE FOR DIALYSIS PATIENTS. CBC W/PLT COUNT & AUTO [id number] 08:51:00 Test Item Value Reference Range Comments WHITE BLOOD CELL COUNT (BEAKER) (test kwoj=477) 14.7 K/ L 3.5-10.5 RED BLOOD CELL COUNT (BEAKER) (test drvs=537) 3.68 M/ L 3.93-5.22 HEMOGLOBIN (BEAKER) (test xbhv=914) 10.5 GM/DL 11.2-15.7 HEMATOCRIT (BEAKER) (test mrij=035) 32.3 % 34.1-44.9 MEAN CORPUSCULAR VOLUME (BEAKER) (test rekb=779) 87.8 fL 79.4-94.8 MEAN CORPUSCULAR HEMOGLOBIN (BEAKER) (test 28.5 pg 25.6-32.2 imsj=407) MEAN CORPUSCULAR HEMOGLOBIN CONC (BEAKER) (test 32.5 GM/DL 32.2-35.5 fgan=683) RED CELL DISTRIBUTION WIDTH (BEAKER) (test 18.2 % 11.7-14.4 cfbp=582) PLATELET COUNT (BEAKER) (test jllo=577) 563 K/CU MM 150-450 MEAN PLATELET VOLUME (BEAKER) (test uzti=484) 9.6 fL 9.4-12.3 NUCLEATED RED BLOOD CELLS (BEAKER) (test 0 /100 WBC 0-0 vmks=592) NEUTROPHILS RELATIVE PERCENT (BEAKER) (test 77 % cvcn=091) LYMPHOCYTES RELATIVE PERCENT (BEAKER) (test 12 % lsug=425) MONOCYTES RELATIVE PERCENT (BEAKER) (test 9 % ghhp=082) EOSINOPHILS RELATIVE PERCENT (BEAKER) (test 2 % ugts=362) BASOPHILS RELATIVE PERCENT (BEAKER) (test 0 % aqeq=249) NEUTROPHILS ABSOLUTE COUNT (BEAKER) (test 11.32 K/ L 1.56-6.13 ywbs=511) LYMPHOCYTES ABSOLUTE COUNT (BEAKER) (test 1.77 K/ L 1.18-3.74 qfaf=025) MONOCYTES ABSOLUTE COUNT (BEAKER) (test 1.25 K/ L 0.24-0.36 ifdb=472) EOSINOPHILS ABSOLUTE COUNT (BEAKER) (test 0.25 K/ L 0.04-0.36 yaga=661) BASOPHILS ABSOLUTE COUNT (BEAKER) (test 0.06 K/ L 0.01-0.08 icmp=408) IMMATURE GRANULOCYTES-RELATIVE PERCENT (BEAKER) 0 % 0-1 (test yaiu=3792) POCT-GLUCOSE [id number] 08:26:00 Test Item Value Reference Range Comments POC-GLUCOSE METER (BEAKER) 100 mg/dL 70-110 TESTED AT [address] (test kzxy=1605) [place] [address] POCT-GLUCOSE [id number] 17:11:00 Test Item Value Reference Range Comments POC-GLUCOSE METER (BEAKER) 141 mg/dL 70-110 TESTED AT [address] (test xmph=9629) [place] [address] [id number] 16:51:00 Test Item Value Reference Range Comments POTASSIUM (BEAKER) (test gkmd=886) 3.9 meq/L 3.5-5.1 Check Serum Potassium level 2 hours after oral potassium replacement completed or 30 min after intravenous potassium replacement.[id number] 16:51:00 Test Item Value Reference Range Comments MAGNESIUM (BEAKER) (test pxdv=315) 2.0 mg/dL 1.6-2.6 Check Serum Potassium level 2 hours after oral potassium replacement completed or 30 min after intravenous potassium replacement.POCT-GLUCOSE [id number] 13:05:00 Test Item Value Reference Range Comments POC-GLUCOSE METER (BEAKER) 142 mg/dL 70-110 TESTED AT [facility] [address] [facility] (test kzmu=0942) [facility] [address] POCT-GLUCOSE [id number] 07:51:00 Test Item Value Reference Range Comments POC-GLUCOSE METER (BEAKER) 100 mg/dL 70-110 TESTED AT [facility] [address] [facility] (test dxfd=6485) [facility] [address] [id number] 05:07:00 Test Item Value Reference Range Comments PHOSPHORUS (BEAKER) (test bkzm=156) 3.0 mg/dL 2.3-4.7 [id number] 05:07:00 Test Item Value Reference Range Comments MAGNESIUM (BEAKER) (test vyaw=152) 1.7 mg/dL 1.6-2.6 BASIC METABOLIC [id number] 05:07:00 Test Item Value Reference Range Comments SODIUM (BEAKER) (test 135 meq/L 136-145 hfmn=765) POTASSIUM (BEAKER) (test 3.6 meq/L 3.5-5.1 unfx=249) CHLORIDE (BEAKER) (test 103 meq/L 98-107 gzxo=812) CO2 (BEAKER) (test 25 meq/L 22-29 zomt=283) BLOOD UREA NITROGEN 7 mg/dL 7-21 (BEAKER) (test nrnx=504) CREATININE (BEAKER) (test 0.63 mg/dL 0.57-1.25 vlpd=030) GLUCOSE RANDOM (BEAKER) 114 mg/dL 70-105 (test htyt=625) CALCIUM (BEAKER) (test 8.7 mg/dL 8.4-10.2 bzhk=684) EGFR (BEAKER) (test 97 mL/min/1.73 sq m ESTIMATED GFR IS NOT eizr=9026) ACCURATE CREATININE CLEARANCE IN PREDICTING GLOMERULAR FILTRATION RATE. ESTIMATED GFR IS NOT APPLICABLE FOR DIALYSIS PATIENTS. CBC W/PLT COUNT & AUTO [id number] 04:52:00 Test Item Value Reference Range Comments WHITE BLOOD CELL COUNT (BEAKER) (test keht=596) 11.1 K/ L 3.5-10.5 RED BLOOD CELL COUNT (BEAKER) (test liih=408) 3.34 M/ L 3.93-5.22 HEMOGLOBIN (BEAKER) (test rhqj=082) 9.4 GM/DL 11.2-15.7 HEMATOCRIT (BEAKER) (test zgfg=028) 28.9 % 34.1-44.9 MEAN CORPUSCULAR VOLUME (BEAKER) (test lcyl=886) 86.5 fL 79.4-94.8 MEAN CORPUSCULAR HEMOGLOBIN (BEAKER) (test 28.1 pg 25.6-32.2 adzp=445) MEAN CORPUSCULAR HEMOGLOBIN CONC (BEAKER) (test 32.5 GM/DL 32.2-35.5 drju=257) RED CELL DISTRIBUTION WIDTH (BEAKER) (test 18.2 % 11.7-14.4 aysn=853) PLATELET COUNT (BEAKER) (test ncgo=913) 477 K/CU MM 150-450 MEAN PLATELET VOLUME (BEAKER) (test xnpv=047) 9.9 fL 9.4-12.3 NUCLEATED RED BLOOD CELLS (BEAKER) (test 0 /100 WBC 0-0 zhvc=725) NEUTROPHILS RELATIVE PERCENT (BEAKER) (test 76 % ldds=453) LYMPHOCYTES RELATIVE PERCENT (BEAKER) (test 12 % umvb=321) MONOCYTES RELATIVE PERCENT (BEAKER) (test 10 % vwkr=733) EOSINOPHILS RELATIVE PERCENT (BEAKER) (test 2 % uyib=481) BASOPHILS RELATIVE PERCENT (BEAKER) (test 1 % frcd=866) NEUTROPHILS ABSOLUTE COUNT (BEAKER) (test 8.40 K/ L 1.56-6.13 cxka=440) LYMPHOCYTES ABSOLUTE COUNT (BEAKER) (test 1.28 K/ L 1.18-3.74 heqe=217) MONOCYTES ABSOLUTE COUNT (BEAKER) (test 1.07 K/ L 0.24-0.36 ague=442) EOSINOPHILS ABSOLUTE COUNT (BEAKER) (test 0.24 K/ L 0.04-0.36 zxng=094) BASOPHILS ABSOLUTE COUNT (BEAKER) (test 0.05 K/ L 0.01-0.08 lsoq=773) IMMATURE GRANULOCYTES-RELATIVE PERCENT (BEAKER) 1 % 0-1 (test rcel=1775) CT, BRAIN, WITHOUT [id number] 03:07:00FINAL REPORT CT Head without contrast CLINICAL [...] Proctor Verified Date/Time: 12/24/2018 03:07:47 Reading Location: [address] Reading Room Electronically signed by: CONNER PROCTOR MD on 2018 03:07 AMPOCT-GLUCOSE [id number] 22:00:00 Test Item Value Reference Range Comments POC-GLUCOSE METER (BEAKER) 186 mg/dL 70-110 TESTED AT [address] (test cpjf=9003) [facility] [address] POCT-GLUCOSE [id number] 21:49:00 Test Item Value Reference Range Comments POC-GLUCOSE METER (BEAKER) 137 mg/dL 70-110 TESTED AT [place] [id number] [facility] (test umpn=6856) [facility] [address] TISSUE [id number] 18:03:00Surgical Pathology Report Case: [id number] Authorizing Provider: Oswaldo Hu MD Collected: 12/21/2018 1532 Ordering Location: [place] [address] ICU Received: 2018 0801 Pathologist: Ad Carlson MD Specimen: Soft Tissue, Other, left subdural clot BRAIN, SUBDURAL REGION, LEFT, CRANIOTOMY AND EVACUATION:GRANULATION TISSUE AND FIBRIN, CONSISTENT WITH ORGANIZING HEMATOMA Signing Pathologist Direct Phone Line: [phone] signed by Ad Carlson MD on 12/23/2018 at 6:03 [id number] subdural hematoma Left subdural clotThe specimen is receivedin a formalin-filled container labeled with the patient's information and labeled "left subdural clot" and consists of three fragments of red-brown soft tissue measuring 0.5 to 0.6 cm, submitted entirely in A1. CG/ew PerformedPOCT-GLUCOSE [id number] 12:15:00 Test Item Value Reference Range Comments POC-GLUCOSE METER (BEAKER) 154 mg/dL 70-110 TESTED AT [address] (test atvb=7740) [place] [address] POCT-GLUCOSE [id number] 08:25:00 Test Item Value Reference Range Comments POC-GLUCOSE METER (BEAKER) 109 mg/dL 70-110 TESTED AT [address] (test srzb=9967) [place] [id number] CBC W/PLT COUNT & AUTO [id number] 03:51:00 Test Item Value Reference Range Comments WHITE BLOOD CELL COUNT (BEAKER) (test trqi=899) 10.2 K/ L 3.5-10.5 RED BLOOD CELL COUNT (BEAKER) (test gwaw=945) 3.65 M/ L 3.93-5.22 HEMOGLOBIN (BEAKER) (test yxwx=690) 10.2 GM/DL 11.2-15.7 HEMATOCRIT (BEAKER) (test agrg=322) 32.2 % 34.1-44.9 MEAN CORPUSCULAR VOLUME (BEAKER) (test yeik=866) 88.2 fL 79.4-94.8 MEAN CORPUSCULAR HEMOGLOBIN (BEAKER) (test 27.9 pg 25.6-32.2 phvy=848) MEAN CORPUSCULAR HEMOGLOBIN CONC (BEAKER) (test 31.7 GM/DL 32.2-35.5 zbxh=518) RED CELL DISTRIBUTION WIDTH (BEAKER) (test 18.0 % 11.7-14.4 iebh=034) PLATELET COUNT (BEAKER) (test zpbc=184) 543 K/CU MM 150-450 MEAN PLATELET VOLUME (BEAKER) (test knvf=218) 10.3 fL 9.4-12.3 NUCLEATED RED BLOOD CELLS (BEAKER) (test 0 /100 WBC 0-0 fphy=952) NEUTROPHILS RELATIVE PERCENT (BEAKER) (test 75 % xrar=977) LYMPHOCYTES RELATIVE PERCENT (BEAKER) (test 12 % nrnr=759) MONOCYTES RELATIVE PERCENT (BEAKER) (test 9 % ipbd=410) EOSINOPHILS RELATIVE PERCENT (BEAKER) (test 4 % lhkq=567) BASOPHILS RELATIVE PERCENT (BEAKER) (test 1 % ryqt=650) NEUTROPHILS ABSOLUTE COUNT (BEAKER) (test 7.56 K/ L 1.56-6.13 vkgj=930) LYMPHOCYTES ABSOLUTE COUNT (BEAKER) (test 1.19 K/ L 1.18-3.74 iesh=695) MONOCYTES ABSOLUTE COUNT (BEAKER) (test 0.95 K/ L 0.24-0.36 xhej=938) EOSINOPHILS ABSOLUTE COUNT (BEAKER) (test 0.37 K/ L 0.04-0.36 ejlo=601) BASOPHILS ABSOLUTE COUNT (BEAKER) (test 0.05 K/ L 0.01-0.08 oiqx=384) IMMATURE GRANULOCYTES-RELATIVE PERCENT (BEAKER) 0 % 0-1 (test qgme=4575) BASIC METABOLIC [id number] 03:47:00 Test Item Value Reference Range Comments SODIUM (BEAKER) (test 135 meq/L 136-145 rszl=595) POTASSIUM (BEAKER) (test 3.8 meq/L 3.5-5.1 niin=666) CHLORIDE (BEAKER) (test 104 meq/L 98-107 nzpl=613) CO2 (BEAKER) (test 23 meq/L 22-29 tewl=614) BLOOD UREA NITROGEN 5 mg/dL 7-21 (BEAKER) (test cnte=708) CREATININE (BEAKER) (test 0.68 mg/dL 0.57-1.25 lexn=925) GLUCOSE RANDOM (BEAKER) 118 mg/dL 70-105 (test bskk=405) CALCIUM (BEAKER) (test 8.8 mg/dL 8.4-10.2 kzjo=956) EGFR (BEAKER) (test 89 mL/min/1.73 sq m ESTIMATED GFR IS NOT odsk=3491) ACCURATE CREATININE CLEARANCE IN PREDICTING GLOMERULAR FILTRATION RATE. ESTIMATED GFR IS NOT APPLICABLE FOR DIALYSIS PATIENTS. POCT-GLUCOSE [id number] 01:02:00 Test Item Value Reference Range Comments POC-GLUCOSE METER (BEAKER) 82 mg/dL 70-110 TESTED AT [address] (test pilp=8617) [place] [address] POCT-GLUCOSE [id number] 19:58:00 Test Item Value Reference Range Comments POC-GLUCOSE METER (BEAKER) 75 mg/dL 70-110 TESTED AT [address] (test dldh=9471) [place] [address] BASIC METABOLIC [id number] 13:29:00 Test Item Value Reference Range Comments SODIUM (BEAKER) (test 134 meq/L 136-145 pypl=754) POTASSIUM (BEAKER) (test 3.9 meq/L 3.5-5.1 Specimen slightly bfri=912) hemolyzed CHLORIDE (BEAKER) (test 107 meq/L 98-107 wmff=969) CO2 (BEAKER) (test 19 meq/L 22-29 vqsx=744) BLOOD UREA NITROGEN 5 mg/dL 7-21 (BEAKER) (test tsdy=117) CREATININE (BEAKER) (test 0.61 mg/dL 0.57-1.25 Specimen slightly pxmu=309) hemolyzed GLUCOSE RANDOM (BEAKER) 87 mg/dL 70-105 (test qqyt=007) CALCIUM (BEAKER) (test 7.4 mg/dL 8.4-10.2 fuid=337) EGFR (BEAKER) (test 100 mL/min/1.73 sq m ESTIMATED GFR IS NOT sbjt=0282) ACCURATE CREATININE CLEARANCE IN PREDICTING GLOMERULAR FILTRATION RATE. ESTIMATED GFR IS NOT APPLICABLE FOR DIALYSIS PATIENTS. POCT-GLUCOSE [id number] 12:37:00 Test Item Value Reference Range Comments POC-GLUCOSE METER (BEAKER) 85 mg/dL 70-110 TESTED AT [address] (test etcj=8401) [place] [address] [id number] 08:07:00 Test Item Value Reference Range Comments PROTIME (BEAKER) (test wxjy=729) 13.1 seconds 11.7-14.7 INR (BEAKER) (test vvyj=443) 1.0 <=5.9 PARTIAL THROMBOPLASTIN TIME (BEAKER) (test 35.5 seconds 22.5-36.0 asxs=917) RECOMMENDED COUMADIN/WARFARIN INR THERAPY RANGESSTANDARD DOSE: 2.0 - 3.0 Includes: PROPHYLAXIS forvenous thrombosis, systemic embolization; TREATMENT for venous thrombosis and/or pulmonary embolus.HIGH RISK: Target INR is 2.5-3.5 for patients with mechanical heart valves.POCT-GLUCOSE [id number] 06:58:00 Test Item Value Reference Range Comments POC-GLUCOSE METER (BEAKER) 87 mg/dL 70-110 TESTED AT [facility] [address] [facility] (test htnd=7737) [facility] [address] [address], BRAIN, WITHOUT [id number] 06:57:00FINAL REPORT CT, BRAIN, WITHOUT CONTRAST CLINICAL [...] MDReport Verified Date/Time: 12/22/2018 06:57:56 Reading Location: [address] Neuro Reading Room 06: 57 AMBASIC METABOLIC [id number] 04:23:00 Test Item Value Reference Range Comments SODIUM (BEAKER) (test 134 meq/L 136-145 obnt=533) POTASSIUM (BEAKER) (test 4.3 meq/L 3.5-5.1 qvzc=474) CHLORIDE (BEAKER) (test 106 meq/L 98-107 txvf=936) CO2 (BEAKER) (test 19 meq/L 22-29 ydcz=781) BLOOD UREA NITROGEN 7 mg/dL 7-21 (BEAKER) (test nopg=625) CREATININE (BEAKER) (test 0.64 mg/dL 0.57-1.25 weal=936) GLUCOSE RANDOM (BEAKER) 77 mg/dL 70-105 (test hcfa=982) CALCIUM (BEAKER) (test 8.2 mg/dL 8.4-10.2 epgk=995) EGFR (BEAKER) (test 95 mL/min/1.73 sq m ESTIMATED GFR IS NOT aflv=0758) ACCURATE CREATININE CLEARANCE IN PREDICTING GLOMERULAR FILTRATION RATE. ESTIMATED GFR IS NOT APPLICABLE FOR DIALYSIS PATIENTS. CBC W/PLT COUNT & AUTO [id number] 04:19:00 Test Item Value Reference Range Comments WHITE BLOOD CELL COUNT (BEAKER) (test vscy=496) 8.6 K/ L 3.5-10.5 RED BLOOD CELL COUNT (BEAKER) (test nzjb=754) 3.42 M/ L 3.93-5.22 HEMOGLOBIN (BEAKER) (test tegh=506) 9.6 GM/DL 11.2-15.7 HEMATOCRIT (BEAKER) (test rihn=102) 30.3 % 34.1-44.9 MEAN CORPUSCULAR VOLUME (BEAKER) (test gcch=832) 88.6 fL 79.4-94.8 MEAN CORPUSCULAR HEMOGLOBIN (BEAKER) (test 28.1 pg 25.6-32.2 cwxk=036) MEAN CORPUSCULAR HEMOGLOBIN CONC (BEAKER) (test 31.7 GM/DL 32.2-35.5 nlth=958) RED CELL DISTRIBUTION WIDTH (BEAKER) (test 18.3 % 11.7-14.4 fahc=564) PLATELET COUNT (BEAKER) (test seib=125) 513 K/CU MM 150-450 MEAN PLATELET VOLUME (BEAKER) (test rlxw=140) 10.0 fL 9.4-12.3 NUCLEATED RED BLOOD CELLS (BEAKER) (test 0 /100 WBC 0-0 lzwd=423) NEUTROPHILS RELATIVE PERCENT (BEAKER) (test 69 % vflj=443) LYMPHOCYTES RELATIVE PERCENT (BEAKER) (test 17 % sxnt=318) MONOCYTES RELATIVE PERCENT (BEAKER) (test 9 % rgvb=032) EOSINOPHILS RELATIVE PERCENT (BEAKER) (test 3 % pqol=832) BASOPHILS RELATIVE PERCENT (BEAKER) (test 1 % jndy=361) NEUTROPHILS ABSOLUTE COUNT (BEAKER) (test 5.94 K/ L 1.56-6.13 idbz=873) LYMPHOCYTES ABSOLUTE COUNT (BEAKER) (test 1.48 K/ L 1.18-3.74 cxxk=665) MONOCYTES ABSOLUTE COUNT (BEAKER) (test 0.81 K/ L 0.24-0.36 yqxt=605) EOSINOPHILS ABSOLUTE COUNT (BEAKER) (test 0.28 K/ L 0.04-0.36 kkef=453) BASOPHILS ABSOLUTE COUNT (BEAKER) (test 0.07 K/ L 0.01-0.08 sqmj=049) IMMATURE GRANULOCYTES-RELATIVE PERCENT (BEAKER) 0 % 0-1 (test ftkr=8318) POCT-GLUCOSE [id number] 03:51:00 Test Item Value Reference Range Comments POC-GLUCOSE METER (BEAKER) 87 mg/dL 70-110 TESTED AT [address] (test phkn=3919) [place] [id number] POCT-GLUCOSE [id number] 17:54:00 Test Item Value Reference Range Comments POC-GLUCOSE METER (BEAKER) 83 mg/dL 70-110 TESTED AT [address] (test pthp=5786) [place] [address] POCT-GLUCOSE [id number] 12:33:00 Test Item Value Reference Range Comments POC-GLUCOSE METER (BEAKER) 87 mg/dL 70-110 TESTED AT [address] (test wsio=3555) [place] [address] POCT-GLUCOSE [id number] 07:50:00 Test Item Value Reference Range Comments POC-GLUCOSE METER (BEAKER) 84 mg/dL 70-110 TESTED AT [address] (test xtxx=1586) [place] [id number] POCT-GLUCOSE [id number] 06:16:00 Test Item Value Reference Range Comments POC-GLUCOSE METER (BEAKER) 79 mg/dL 70-110 TESTED AT [address] (test lthu=4795) [place] [id number] 03:54:00 Test Item Value Reference Range Comments PHOSPHORUS (BEAKER) (test bcme=732) 3.0 mg/dL 2.3-4.7 Once on admission and Daily AM afterwardsOnce on admission and Daily AM afterwardsOnce on admission and Daily AM [id number] 03:54:00 Test Item Value Reference Range Comments MAGNESIUM (BEAKER) (test szcb=215) 1.7 mg/dL 1.6-2.6 Once on admission and Daily AM afterwardsOnce on admission and Daily AM afterwardsOnce on admission and Daily AM afterwardsBASIC METABOLIC [id number] 03:54:00 Test Item Value Reference Range Comments SODIUM (BEAKER) (test 137 meq/L 136-145 ydzl=364) POTASSIUM (BEAKER) (test 3.9 meq/L 3.5-5.1 dhew=145) CHLORIDE (BEAKER) (test 104 meq/L 98-107 neqc=868) CO2 (BEAKER) (test 24 meq/L 22-29 lghe=747) BLOOD UREA NITROGEN 10 mg/dL 7-21 (BEAKER) (test sarx=308) CREATININE (BEAKER) (test 0.65 mg/dL 0.57-1.25 teht=639) GLUCOSE RANDOM (BEAKER) 77 mg/dL 70-105 (test yrvs=272) CALCIUM (BEAKER) (test 9.7 mg/dL 8.4-10.2 ffnq=751) EGFR (BEAKER) (test 93 mL/min/1.73 sq m ESTIMATED GFR IS NOT btwl=4625) ACCURATE CREATININE CLEARANCE IN PREDICTING GLOMERULAR FILTRATION RATE. ESTIMATED GFR IS NOT APPLICABLE FOR DIALYSIS PATIENTS. Once on admission and Daily AM afterwardsOnce on admission and Daily AM afterwardsOnce on admission and Daily AM afterwardsCBC W/PLT COUNT & AUTO [id number] 03:36:00 Test Item Value Reference Range Comments WHITE BLOOD CELL COUNT (BEAKER) (test suwr=618) 10.9 K/ L 3.5-10.5 RED BLOOD CELL COUNT (BEAKER) (test noga=759) 3.77 M/ L 3.93-5.22 HEMOGLOBIN (BEAKER) (test wrna=815) 10.5 GM/DL 11.2-15.7 HEMATOCRIT (BEAKER) (test wvtx=290) 32.9 % 34.1-44.9 MEAN CORPUSCULAR VOLUME (BEAKER) (test xxdd=442) 87.3 fL 79.4-94.8 MEAN CORPUSCULAR HEMOGLOBIN (BEAKER) (test 27.9 pg 25.6-32.2 xulf=590) MEAN CORPUSCULAR HEMOGLOBIN CONC (BEAKER) (test 31.9 GM/DL 32.2-35.5 bosz=816) RED CELL DISTRIBUTION WIDTH (BEAKER) (test 18.2 % 11.7-14.4 fhie=903) PLATELET COUNT (BEAKER) (test mvri=079) 581 K/CU MM 150-450 MEAN PLATELET VOLUME (BEAKER) (test alew=205) 10.0 fL 9.4-12.3 NUCLEATED RED BLOOD CELLS (BEAKER) (test 0 /100 WBC 0-0 tpcs=929) NEUTROPHILS RELATIVE PERCENT (BEAKER) (test 74 % gfmn=041) LYMPHOCYTES RELATIVE PERCENT (BEAKER) (test 16 % jxok=275) MONOCYTES RELATIVE PERCENT (BEAKER) (test 8 % ssts=763) EOSINOPHILS RELATIVE PERCENT (BEAKER) (test 2 % qpkt=786) BASOPHILS RELATIVE PERCENT (BEAKER) (test 1 % qgaw=770) NEUTROPHILS ABSOLUTE COUNT (BEAKER) (test 8.10 K/ L 1.56-6.13 umth=075) LYMPHOCYTES ABSOLUTE COUNT (BEAKER) (test 1.72 K/ L 1.18-3.74 lwep=677) MONOCYTES ABSOLUTE COUNT (BEAKER) (test 0.86 K/ L 0.24-0.36 nmgi=115) EOSINOPHILS ABSOLUTE COUNT (BEAKER) (test 0.16 K/ L 0.04-0.36 mljt=447) BASOPHILS ABSOLUTE COUNT (BEAKER) (test 0.06 K/ L 0.01-0.08 dvkj=096) IMMATURE GRANULOCYTES-RELATIVE PERCENT (BEAKER) 0 % 0-1 (test kscp=1443) CT, BRAIN, WITHOUT [id number] 01:21:00FINAL REPORT CT, BRAIN, WITHOUT CONTRAST CLINICAL [...] Verified Date/Time: 12/21/2018 01: 21:22 Reading Location: [facility] [id number] Neuro Reading Room POCT-GLUCOSE [id number] 00:17:00 Test Item Value Reference Range Comments POC-GLUCOSE METER (BEAKER) 82 mg/dL 70-110 TESTED AT [address] (test devg=2650) [place] [id number] POCT-GLUCOSE [id number] 18:53:00 Test Item Value Reference Range Comments POC-GLUCOSE METER (BEAKER) 101 mg/dL 70-110 TESTED AT [address] (test vsnh=8441) [place] [id number] 17:31:00 Test Item Value Reference Range Comments MAGNESIUM (BEAKER) (test 1.8 mg/dL 1.6-2.6 Specimen slightly hemolyzed uroz=899) [id number] 17:31:00 Test Item Value Reference Range Comments PHOSPHORUS (BEAKER) (test 3.5 mg/dL 2.3-4.7 Specimen slightly hemolyzed ibck=415) BASIC METABOLIC [id number] 17:31:00 Test Item Value Reference Range Comments SODIUM (BEAKER) (test 137 meq/L 136-145 obvh=985) POTASSIUM (BEAKER) (test 3.9 meq/L 3.5-5.1 Specimen slightly rvgu=934) hemolyzed CHLORIDE (BEAKER) (test 101 meq/L 98-107 lypk=993) CO2 (BEAKER) (test 24 meq/L 22-29 bgmy=555) BLOOD UREA NITROGEN 11 mg/dL 7-21 (BEAKER) (test slof=869) CREATININE (BEAKER) (test 0.66 mg/dL 0.57-1.25 Specimen slightly cdxb=997) hemolyzed GLUCOSE RANDOM (BEAKER) 102 mg/dL 70-105 (test bxto=690) CALCIUM (BEAKER) (test 10.0 mg/dL 8.4-10.2 vwhr=639) EGFR (BEAKER) (test 92 mL/min/1.73 sq m ESTIMATED GFR IS NOT hvuh=6306) ACCURATE CREATININE CLEARANCE IN PREDICTING GLOMERULAR FILTRATION RATE. ESTIMATED GFR IS NOT APPLICABLE FOR DIALYSIS PATIENTS. HEPATIC FUNCTION [id number] 17:31:00 Test Item Value Reference Range Comments TOTAL PROTEIN (BEAKER) (test 7.5 gm/dL 6.0-8.3 Specimen slightly hemolyzed ehcl=636) ALBUMIN (BEAKER) (test 3.8 g/dL 3.5-5.0 Specimen slightly hemolyzed loda=1190) BILIRUBIN TOTAL (BEAKER) (test 0.7 mg/dL 0.2-1.2 Specimen slightly hemolyzed wijm=226) BILIRUBIN DIRECT (BEAKER) (test 0.4 mg/dL 0.1-0.5 Specimen slightly hemolyzed ykpq=426) ALKALINE PHOSPHATASE (BEAKER) 74 U/L 40-150 (test cfuk=228) AST (SGOT) (BEAKER) (test 30 U/L 5-34 Specimen slightly hemolyzed zmkk=666) ALT (SGPT) (BEAKER) (test 15 U/L 6-55 Specimen slightly hemolyzed lset=659) PROTHROMBIN [id number] 17:24:00 Test Item Value Reference Range Comments PROTIME (BEAKER) (test gnsg=449) 13.8 seconds 11.7-14.7 INR (BEAKER) (test mvtg=304) 1.1 <=5.9 RECOMMENDED COUMADIN/WARFARIN INR THERAPY RANGESSTANDARD DOSE: 2.0 - 3.0 Includes: PROPHYLAXIS forvenous thrombosis, systemic embolization; TREATMENT for venous thrombosis and/or pulmonary embolus.HIGH RISK: Target INR is 2.5-3.5 for patients with mechanical heart valves.[id number] 17:24:00 Test Item Value Reference Range Comments PARTIAL THROMBOPLASTIN TIME (BEAKER) (test 37.3 seconds 22.5-36.0 zayt=708)
== END 2019-08-23 17:35 | disposition short-term general hospital (02) ==
LOC: ER 12:56
DX: J95.09 Other tracheostomy complication (principal); J44.9 Chronic obstructive pulmonary disease, unspecified; F32.9 Major depressive disorder, single episode, unspecified; R49.1 Aphonia; Z85.21 Personal history of malignant neoplasm of larynx
CPT/HCPCS: 96361; 93005; 71045; 96375; 96374; 99285; J3010 ×2; J7040

== ENCOUNTER 2019-08-24 12:15 | Emergency (ER) | payer OTHER ==
[2019-08-24] MEDS ORDERED: MORPHINE 4 MG/ML SYR ONE (13:52)
[2019-08-24 14:09] LABS: Basophils % 1.3 % (0-1.3); Hematocrit 29.9 % (36.0-45.0); Lymphocytes % 34.9 % (15.3-44.8); RBC Red Blood Cell Count 3.65 M/uL (3.86-4.86)
[2019-08-24 14:23] LABS: Potassium 4.1 mmol/L (3.5-5.1)
--- NOTE | 2019-08-24 14:24 | RAD REPORT ---
EXAM DESCRIPTION: RAD - Chest Single View - 08/24/2019 1:59 pm CLINICAL HISTORY: Abdominal pain, right upper quadrant pain COMPARISON: August 23 chest film TECHNIQUE: AP portable chest image was obtained 1350 hours . FINDINGS: Mild chronic interstitial lung pattern noted. No new or progressive lung parenchymal proce ss. No failure or volume overload. Heart and vasculature are normal. No measurable pleural effusion a nd no pneumothorax. No acute bony abnormality seen. Trach tube is in place. Trachea is midline. IMPRESSION: No acute cardiopulmonary process. No significant change from comparison.
--- NOTE | 2019-08-24 14:59 | RAD REPORT ---
EXAM DESCRIPTION: US - Abdomen Exam Limited - 08/24/2019 2:50 pm CLINICAL HISTORY: ABD PAIN COMPARISON: No comparison FINDINGS: No gallstones, sludge or other abnormalities within the gallbladder lumen. There is no wal l thickening or pericholecystic fluid. No common duct stone or biliary tree dilatation identified. IMPRESSION: Normal gallbladder and biliary tree ultrasound.
--- NOTE | 2019-08-24 16:36 | EDPHYS ---
Physician Documentation [facility] Name: Julissa Hicks Age: 58 yrs Sex: Female : 1960 Arrival Date: 08/24/2019 Time: 12:24 Bed 17 Private MD: ED Physician Meir Teran HPI: 08/24 17:41 This 58 yrs old Female presents to ER via EMS with complaints of Tracheostomy kdr problem. 17:41 The patient has shortness of breath at rest, with light activity. Onset: The kdr symptoms/episode began/occurred. Historical: - Allergies: 12:30 No Known Allergies; aj1 - Home Meds: 12:30 Benadryl 25 mg Oral cap every 6 hours [Active]; Claritin 10 mg Oral tab 1 tab once aj1 daily [Active]; Cymbalta 30 mg Oral cpDR 1 cap once daily [Active]; diazepam 2 mg Oral tab daily [Active]; docusate sodium 100 mg Oral tab 1 tab 2 times per day [Active]; gabapentin 600 mg Oral tab 1 tab twice a day [Active]; ipratropium-albuterol 0.5 mg-3 mg(2.5 mg base)/3 mL Inhl nebu 3 mL every 8 hours [Active]; levothyroxine 75 mcg tab 1 tab once daily [Active]; [place] 10-325 mg Oral tab 1 tab three times a day [Active]; Zofran (as hydrochloride) 4 mg Oral tab 1 tabs as needed [Active]; ranitidine HCl 15 mg/mL Oral syrp 10 mL once daily [Active]; Senokot 8.6 mg Oral tab twice a day [Active]; trazodone 100 mg Oral tab nightly [Active]; - PMHx: 12:30 Aphonia; COPD; Depression; DYSPHAGIA; GERD; Hypothyroidism; larynx CA; Pneumonia; aj1 traumatic subarachnoid hemorrhage; rajat tube; - Immunization history:: Adult Immunizations up to date. - Social history:: Smoking status: Patient/guardian denies using tobacco. - Ebola Screening: : Patient denies travel to an Ebola-affected area in the 21 days before illness onset. ROS: 18:17 Constitutional: Negative for fever, chills, and weight loss, Eyes: Negative for injury, kdr pain, redness, and discharge, Cardiovascular: Negative for chest pain, palpitations, and edema, Abdomen/GI: Negative for abdominal pain, nausea, vomiting, diarrhea, and constipation, Back: Negative for injury and pain, : Negative for injury, bleeding, discharge, and swelling, MS/Extremity: Negative for injury and deformity, Skin: Negative for injury, rash, and discoloration, Neuro: Negative for headache, weakness, numbness, tingling, and seizure activity. Psych: Negative for depression, anxiety, suicide ideation, homicidal ideation, and hallucinations, Allergy/Immunology: Negative for hives, rash, and allergies, Endocrine: Negative for neck swelling, polydipsia, polyuria, polyphagia, and marked weight changes. 18:17 Cardiovascular: Positive for chest pain, Right anterior, inferior chest pain. 18:17 Respiratory: Positive for dyspnea on exertion, shortness of breath, at rest. Exam: 18:17 Constitutional: This is a well developed, well nourished patient who is awake, alert, kdr and in no acute distress. Head/Face: Normocephalic, atraumatic. Eyes: Pupils equal round and reactive to light, extra-ocular motions intact. Lids and lashes normal. Conjunctiva and sclera are non-icteric and not injected. Cornea within normal limits. Periorbital areas with no swelling, redness, or edema. Chest/axilla: Normal chest wall appearance and motion. Nontender with no deformity. No lesions are appreciated. Cardiovascular: Regular rate and rhythm with a normal S1 and S2. No gallops, murmurs, or rubs. Normal PMI, no JVD. No pulse deficits. Respiratory: Lungs have equal breath sounds bilaterally, clear to auscultation and percussion. No rales, rhonchi or wheezes noted. No increased work of breathing, no retractions or nasal flaring. Abdomen/GI: Soft, non-tender, with normal bowel sounds. No distension or tympany. No guarding or rebound. No evidence of tenderness throughout. Back: No spinal tenderness. No costovertebral tenderness. Full range of motion. Neuro: Awake and alert, GCS 15, oriented to person, place, time, and situation. Cranial nerves II-XII grossly intact. Motor strength 5/5 in all extremities. Sensory grossly intact. Cerebellar exam normal. Normal gait. Psych: Awake, alert, with orientation to person, place and time. Behavior, mood, and affect are within normal limits. 18:17 Neck: There is a patent airway in the tracheostomy site. It appears to be appropriately in place without any bleeding or sign of infection. There is no drainage. There is also a rubber tube alongside the airway the purpose of which is unknown. Vital Signs: 12:30 BP 111 / 64; Pulse 66; Resp 18; Temp 97.2(TE); Pulse Ox 99% on R/A; aj1 13:57 BP 115 / 73; Pulse 72; Resp 16; Pulse Ox 98% ; mh5 15:10 BP 149 / 85; Pulse 77; Resp 18; Pulse Ox 97% on R/A; aj1 MDM: 16:34 Patient medically screened. [facility] 18:17 Data reviewed: vital signs, nurses notes. ED course: D/w Dr. Sumanth Self at [facility] - they will see the patient in the ED for further evaluation. 08/24 13:25 Order name: CBC with Diff; Complete Time: 16:30 [facility] 08/24 13:25 Order name: Chem 7; Complete Time: 16:30 [facility] 08/24 13:25 Order name: Abdomen Limited US; Complete Time: 16:30 [facility] 08/24 13:25 Order name: CXR XRAY; Complete Time: 16:30 [facility] 08/24 16:31 Order name: CT Chest Wo Con [facility] 08/24 15:15 Order name: Diet Clear Liquid; Complete Time: 15:16 bd Administered Medications: 13:57 Drug: morphine 2 mg {Note: RASS score 0, patient is alert.} Route: IVP; Site: right aj1 antecubital; 17:03 Follow up: Response: No adverse reaction; Pain is decreased [facility] 16:52 Drug: fentaNYL (PF) 25 mcg Route: IVP; Site: right antecubital; aj1 17:04 Follow up: Response: No adverse reaction; Pain is decreased [facility] 18:15 Drug: Ativan 1 mg Route: PO; aj1 Disposition: 08/24/19 16:34 Transfer ordered to [facility]. Diagnosis is Dyspnea - Secondary to tracheostomy device malfuntion. - Reason for transfer: Higher level of care. - Accepting physician is Dr. Parker/Clair. - Condition is Fair. - Problem is an acute exacerbation. - Symptoms are unchanged. Signatures: Dispatcher [employer] EDAna Heath RN RN aj1 Meir Teran MD MD kdr Veda Blanco RN RN iw Corrections: (The following items were deleted from the chart) 18:31 16:34 08/24/2019 16:34 Transfer ordered to [facility]. Diagnosis is Dyspnea - iw Secondary to tracheostomy device malfuntion. Reason for transfer: Higher level of care. Accepting physician is Dr. Parker/Clair. Condition is Fair. Problem is an acute exacerbation. Symptoms are unchanged. kdr
--- NOTE | 2019-08-24 16:36 | ER ---
Nurse's Notes [facility] Name: Julissa Hicks Age: 58 yrs Sex: Female : 1960 Arrival Date: 08/24/2019 Time: 12:24 Bed 17 Private MD: Diagnosis: Dyspnea-Secondary to tracheostomy device malfuntion Presentation: 08/24 12:24 Presenting complaint: EMS states: "was seen here yesterday for problem with the aa5 tracheostomy, today pt reports feeling tightness to tracheostomy site". EMS reports pt's O2 sat 97% RA. 12:24 Transition of care: patient was not received from another setting of care. Onset of aa5 symptoms was 2018. 12:24 Acuity: KHOA 3 aa5 12:24 Method Of Arrival: EMS: [facility] aa5 12:30 Risk Assessment: Do you want to hurt yourself or someone else? Patient reports no aj1 desire to harm self or others. Initial Sepsis Screen: Does the patient meet any 2 criteria? No. Patient's initial sepsis screen is negative. Does the patient have a suspected source of infection? No. Patient's initial sepsis screen is negative. Care prior to arrival: None. Triage Assessment: 12:30 General: Appears in no apparent distress. comfortable, Behavior is calm, cooperative, aj1 appropriate for age. Pain: Pain currently is 7 out of 10 on a pain scale. Historical: - Allergies: 12:30 No Known Allergies; aj1 - Home Meds: 12:30 Benadryl 25 mg Oral cap every 6 hours [Active]; Claritin 10 mg Oral tab 1 tab once aj1 daily [Active]; Cymbalta 30 mg Oral cpDR 1 cap once daily [Active]; diazepam 2 mg Oral tab daily [Active]; docusate sodium 100 mg Oral tab 1 tab 2 times per day [Active]; gabapentin 600 mg Oral tab 1 tab twice a day [Active]; ipratropium-albuterol 0.5 mg-3 mg(2.5 mg base)/3 mL Inhl nebu 3 mL every 8 hours [Active]; levothyroxine 75 mcg tab 1 tab once daily [Active]; [place] 10-325 mg Oral tab 1 tab three times a day [Active]; Zofran (as hydrochloride) 4 mg Oral tab 1 tabs as needed [Active]; ranitidine HCl 15 mg/mL Oral syrp 10 mL once daily [Active]; Senokot 8.6 mg Oral tab twice a day [Active]; trazodone 100 mg Oral tab nightly [Active]; - PMHx: 12:30 Aphonia; COPD; Depression; DYSPHAGIA; GERD; Hypothyroidism; larynx CA; Pneumonia; aj1 traumatic subarachnoid hemorrhage; rajat tube; - Immunization history:: Adult Immunizations up to date. - Social history:: Smoking status: Patient/guardian denies using tobacco. - Ebola Screening: : Patient denies travel to an Ebola-affected area in the 21 days before illness onset. Screenin:02 Abuse screen: Denies threats or abuse. Denies injuries from another. Nutritional aj1 screening: No deficits noted. Tuberculosis screening: No symptoms or risk factors identified. 17:03 Fall Risk None identified. aj1 Assessment: 13:02 General: Appears in no apparent distress. comfortable, Behavior is calm, cooperative, aj1 appropriate for age. Pain: Complains of pain in face Pain currently is 7 out of 10 on a pain scale. Quality of pain is described as aching. Neuro: Level of Consciousness is awake, alert, obeys commands. Cardiovascular: Patient's skin is warm and dry. Respiratory: Airway is patent Respiratory effort is even, unlabored, Respiratory pattern is regular, symmetrical, Breath sounds are clear bilaterally. GI: No signs and/or symptoms were reported involving the gastrointestinal system. : No signs and/or symptoms were reported regarding the genitourinary system. EENT: No signs and/or symptoms were reported regarding the EENT system. Derm: No signs and/or symptoms reported regarding the dermatologic system. Skin is pink, warm \\T\\ dry. normal. Musculoskeletal: No signs and/or symptoms reported regarding the musculoskeletal system. Circulation, motion, and sensation intact. 14:05 Reassessment: Patient appears in no apparent distress at this time. No changes from aj1 previously documented assessment. Patient and/or family updated on plan of care and expected duration. Pain level reassessed. Patient is alert, oriented x 3, equal unlabored respirations, skin warm/dry/pink. 15:10 Reassessment: Patient appears in no apparent distress at this time. No changes from aj1 previously documented assessment. Patient and/or family updated on plan of care and expected duration. Pain level reassessed. Patient is alert, oriented x 3, equal unlabored respirations, skin warm/dry/pink. 16:10 Reassessment: Patient and/or family updated on plan of care and expected duration. Pain aj1 level reassessed. General: Appears in no apparent distress. comfortable, Behavior is calm, cooperative, appropriate for age. Neuro: Level of Consciousness is awake, alert, obeys commands. Cardiovascular: Patient's skin is warm and dry. Respiratory: Airway is patent Respiratory effort is even, unlabored, Respiratory pattern is regular, symmetrical. GI: No signs and/or symptoms were reported involving the gastrointestinal system. Derm: No signs and/or symptoms reported regarding the dermatologic system. Skin is pink, warm \\T\\ dry. normal. Musculoskeletal: No signs and/or symptoms reported regarding the musculoskeletal system. Circulation, motion, and sensation intact. 17:03 Reassessment: Patient appears in no apparent distress at this time. No changes from aj1 previously documented assessment. Patient and/or family updated on plan of care and expected duration. Pain level reassessed. Patient is alert, oriented x 3, equal unlabored respirations, skin warm/dry/pink. 17:19 Reassessment: Discussion of plan of care occurred with Leydi - [facility] and the dm5 social services counselor at [facility]. Pt is not in distress and oxygen saturation is good at this time. Initially they stated that they felt they could not care for the patient any longer and could not "clinically accept her back to the facility". Daughter Leydi was updated on situation with correction and on plan of care. Dr. Teran was able to speak to the ENT at [facility] as the patient has been seen in the past at a [facility] specialty clinic. Pt will go to [facility] ER for evaluation by ENT. [facility] called back and stated that they have found alternative placement for the pt to be moved in the morning so they would take her back tonight if we were to discharge the patient. I informed them that we received acceptance to [facility] ER but did not know if the patient would be admitted or discharged from [facility]. If pt is discharged from [facility] this evening, pt is able to return to [facility] and will then be moved to [facility] in [place] tomorrow. This was confirmed with Terese the nurse at [facility] at 1700 this evening. . Vital Signs: 12:30 BP 111 / 64; Pulse 66; Resp 18; Temp 97.2(TE); Pulse Ox 99% on R/A; aj1 13:57 BP 115 / 73; Pulse 72; Resp 16; Pulse Ox 98% ; mh5 15:10 BP 149 / 85; Pulse 77; Resp 18; Pulse Ox 97% on R/A; aj1 ED Course: 12:24 Patient arrived in ED. iw 12:24 Arm band placed on Patient placed in an exam room, on a stretcher. aa5 12:29 Triage completed. aa5 12:43 Ana Rizo, RN is Primary Nurse. aj1 12:46 Meir Teran MD is Attending Physician. kdr 13:02 Patient has correct armband on for positive identification. Bed in low position. Call aj1 light in reach. Side rails up X 1. 13:02 No provider procedures requiring assistance completed. aj1 14:02 CXR XRAY In Process Unspecified. EDMS 14:44 Abdomen Limited US In Process Unspecified. EDMS 17:01 CT Chest Wo Con In Process Unspecified. EDMS 17:02 Report given to SONU Esquivel at [facility]. aj1 17:03 Patient transferred, IV remains in place. aj1 17:14 pt accepted in transfer to [facility] er by dr Meir Parker. bd Administered Medications: 13:57 Drug: morphine 2 mg {Note: RASS score 0, patient is alert.} Route: IVP; Site: right aj1 antecubital; 17:03 Follow up: Response: No adverse reaction; Pain is decreased aj1 16:52 Drug: fentaNYL (PF) 25 mcg Route: IVP; Site: right antecubital; aj1 17:04 Follow up: Response: No adverse reaction; Pain is decreased aj1 18:15 Drug: Ativan 1 mg Route: PO; aj1 Outcome: 16:34 ER care complete, transfer ordered by . kdr 18:31 Patient left the ED. iw Signatures: Dispatcher [employer] EDMS Petra Matias bd Ana Rizo, SONU ASCENCIO aj1 Ester Leal RN RN 5 Meir Teran MD MD [facility] Veda Blanco RN RN Sangeetha Sanchez RN RN aa5 [place] 5 Corrections: (The following items were deleted from the chart) 12:29 12:24 Presenting complaint: EMS states: "was seen here yesterday for problem with the aa5 tracheostomy, today pt reports feeling tightness to tracheostomy". [email or web address]
[2019-08-24] MEDS ORDERED: FENTANYL CITR 100 MCG/2 ML ONE (16:46)
--- NOTE | 2019-08-24 17:38 | RAD REPORT ---
EXAM DESCRIPTION: CT - Thorax Wo Con - 08/24/2019 5:00 pm CLINICAL HISTORY: Chest pain COMPARISON: none TECHNIQUE: Computed axial tomography of the chest was obtained. Contrast was not requested. All CT scans are performed using dose optimization technique as appropriate and may include automated exposure control or mA/KV adjustment according to patient size. FINDINGS: The evaluation of mediastinum, carlos alberto and vessels is limited secondary to lack of IV contras t administration. A tracheostomy tube measuring 5 centimeters in cranial caudal length is present within the trachea. An additional tube has been inserted to the left of the tracheostomy tube which enters the upper thor acic esophagus. The tip of the tube lies within the mid to upper esophagus. A few areas of scarring or subsegmental atelectasis are present within the lungs No mediastinal or hilar lymphadenopathy is seen. A pleural effusion is not present. No pericardial effusion IMPRESSION: A tracheostomy tube measuring 5 centimeters in cranial caudal length is present within t he trachea. An additional tube has been inserted to the left of the tracheostomy tube which enters the upper thor acic esophagus. The tip of the tube lies within the mid to upper esophagus.
[2019-08-24] MEDS ORDERED: LORAZEPAM 1 MG TABLET ONE (18:13)
[2019-08-24 18:56] VITALS: TEMP 97.2
[2019-08-24 18:57] VITALS: BP 149/85; O2SAT 97
--- OUTSIDE RECORDS SUMMARY | 2019-08-29 01:06 | XMS REPORT ---
:1960 [facility] Address [address] [place] [address] Care Team Providers Name Role Phone ANASTASIYA WATSON Unavailable Unavailable Problems This patient has no known problems. Allergies, Adverse Reactions, Alerts This patient has no known allergies or adverse reactions. Medications This patient has no known medications. Results Test Description Test Time Test Comments Text Results Atomic Results Result Comments CT, BRAIN, WITHOUT 2019-01-19 11:41:00 FINAL REPORT PATIENT ID: CONTRAST [id number] CT Head without contrast CLINICAL HISTORY: S06.5X9A [...] MDReport Verified Date/Time: 01/19/2019 11:41:54 Reading Location: [facility] C013V Neuro Reading Room , EMBOLIZATION, 2018-12-31 06:47:00 Reason for FINAL REPORT PATIENT ID: EXTENSIVE exam:->left MMA [id number] DATE: December embolization for SDH 2018 ATTENDING: Jaci Roberts MD SENIOR ARCHITECT: Merlin Novak PREOPERATIVE DIAGNOSIS: Left chronic subdural [...] femoral artery was performed and a 6 Estonian short sheath was inserted into the right common femoral artery and maintained on heparinized flush. Using coaxial technique a 5 Estonian Envoy catheter was advanced into the descending [...] were removed. Hemostasis achieved with a 6 Estonian AngioSeal and manual compression. The patient tolerated [...] MDReport Verified Date/Time: 12/31/2018 06:47:20 Reading Location: [facility] Y026 Neuro Angio Reading Room W/PLT COUNT & AUTO DIFFERENTIAL 2018-12-29 06:02:00 Test Item Value Reference Range Comments WHITE BLOOD CELL COUNT (BEAKER) (test ljca=355) 9.7 K/ L 3.5-10.5 RED BLOOD CELL COUNT (BEAKER) (test izlj=494) 3.14 M/ L 3.93-5.22 HEMOGLOBIN (BEAKER) (test ncog=940) 8.8 GM/DL 11.2-15.7 HEMATOCRIT (BEAKER) (test necs=579) 27.5 % 34.1-44.9 MEAN CORPUSCULAR VOLUME (BEAKER) (test xomx=883) 87.6 fL 79.4-94.8 MEAN CORPUSCULAR HEMOGLOBIN (BEAKER) (test evfq=154) 28.0 pg 25.6-32.2 MEAN CORPUSCULAR HEMOGLOBIN CONC (BEAKER) (test leyl=157) 32.0 GM/DL 32.2- 35.5 RED CELL DISTRIBUTION WIDTH (BEAKER) (test bqqr=166) 18.3 % 11.7-14.4 PLATELET COUNT (BEAKER) (test vwtl=658) 585 K/CU MM 150-450 MEAN PLATELET VOLUME (BEAKER) (test iffg=907) 9.3 fL 9.4-12.3 NUCLEATED RED BLOOD CELLS (BEAKER) (test tnax=632) 0 /100 WBC 0-0 NEUTROPHILS RELATIVE PERCENT (BEAKER) (test tobq=082) 68 % LYMPHOCYTES RELATIVE PERCENT (BEAKER) (test ghfw=973) 16 % MONOCYTES RELATIVE PERCENT (BEAKER) (test wfpd=500) 9 % EOSINOPHILS RELATIVE PERCENT (BEAKER) (test llwo=856) 4 % BASOPHILS RELATIVE PERCENT (BEAKER) (test tijz=578) 1 % NEUTROPHILS ABSOLUTE COUNT (BEAKER) (test ixns=817) 6.54 K/ L 1.56-6.13 LYMPHOCYTES ABSOLUTE COUNT (BEAKER) (test qpyb=130) 1.55 K/ L 1.18-3.74 MONOCYTES ABSOLUTE COUNT (BEAKER) (test sfpt=446) 0.87 K/ L 0.24-0.36 EOSINOPHILS ABSOLUTE COUNT (BEAKER) (test vdjt=668) 0.40 K/ L 0.04-0.36 BASOPHILS ABSOLUTE COUNT (BEAKER) (test tffp=394) 0.06 K/ L 0.01-0.08 IMMATURE GRANULOCYTES-RELATIVE PERCENT (BEAKER) (test 2 % 0-1 jihg=4018) [id number] 05:45:00 Test Item Value Reference Range Comments PHOSPHORUS (BEAKER) (test nvys=861) 4.3 mg/dL 2.3-4.7 [id number] 05:45:00 Test Item Value Reference Range Comments MAGNESIUM (BEAKER) (test ylxs=128) 1.9 mg/dL 1.6-2.6 BASIC METABOLIC [id number] 05:45:00 Test Item Value Reference Range Comments SODIUM (BEAKER) (test 135 meq/L 136-145 gtgl=335) POTASSIUM (BEAKER) (test 4.4 meq/L 3.5-5.1 iynj=603) CHLORIDE (BEAKER) (test 98 meq/L 98-107 krhf=186) CO2 (BEAKER) (test 27 meq/L 22-29 lopn=427) BLOOD UREA NITROGEN 11 mg/dL 7-21 (BEAKER) (test gjft=747) CREATININE (BEAKER) (test 0.67 mg/dL 0.57-1.25 ypzq=380) GLUCOSE RANDOM (BEAKER) 89 mg/dL 70-105 (test tlzz=776) CALCIUM (BEAKER) (test 9.8 mg/dL 8.4-10.2 gztl=193) EGFR (BEAKER) (test 90 mL/min/1.73 sq m ESTIMATED GFR IS NOT ugop=8081) ACCURATE CREATININE CLEARANCE IN PREDICTING GLOMERULAR FILTRATION RATE. ESTIMATED GFR IS NOT APPLICABLE FOR DIALYSIS PATIENTS. CALCIUM, [id number] 05:31:00 Test Item Value Reference Range Comments CALCIUM IONIZED (BEAKER) (test cwox=454) 1.08 mmol/L 1.12-1.27 PH, BLOOD (BEAKER) (test codb=4812) 7.47 SPUTUM CULTURE + GRAM [id number] 10:36:00 Test Item Value Reference Range Comments CULTURE (BEAKER) (test PSEUDOMONAS 4+ Pseudomonas fzhx=2461) AERUGINOSA aeruginosa Amikacin (test code=1) Susceptible 0-16 [...] CULTURE (BEAKER) (test SERRATIA MARCESCENS 3+ Serratia jbtr=5411) marcescensof a second type Amikacin (test code=1) Aztreonam (test code=32) Cefepime (test code=51) Cefoxitin (test code=68) Ceftazidime (test code=27) Ceftriaxone (test code=52) Ertapenem (test code=38) Gentamicin (test code=18) Levofloxacin (test code=22) Meropenem (test code=34) Nitrofurantoin (test code=23) Tetracycline (test code=2) Tobramycin (test code=25) Trimethoprim + Sulfamethoxazole (test code=47) GRAM STAIN RESULT 2+ White blood cells (BEAKER) (test wklf=3843) seen GRAM STAIN RESULT 0-5 epithelial cells (BEAKER) (test vmqx=803445) GRAM STAIN RESULT <1+ gram negative (BEAKER) (test rods kmtt=460588) GRAM STAIN RESULT 2+ yeast (BEAKER) (test nsvs=068949) 2+ yeast1+ Normal respiratory anita presentCALCIUM, [id number] 05:30:00 Test Item Value Reference Range Comments CALCIUM IONIZED (BEAKER) (test lzcy=663) 1.16 mmol/L 1.12-1.27 PH, BLOOD (BEAKER) (test iytp=1729) 7.35 [id number] 05:02:00 Test Item Value Reference Range Comments PHOSPHORUS (BEAKER) (test tdox=304) 3.2 mg/dL 2.3-4.7 [id number] 05:02:00 Test Item Value Reference Range Comments MAGNESIUM (BEAKER) (test yzjx=221) 1.7 mg/dL 1.6-2.6 BASIC METABOLIC [id number] 05:02:00 Test Item Value Reference Range Comments SODIUM (BEAKER) (test 136 meq/L 136-145 uvyh=275) POTASSIUM (BEAKER) (test 4.7 meq/L 3.5-5.1 egrs=654) CHLORIDE (BEAKER) (test 100 meq/L 98-107 mlpg=417) CO2 (BEAKER) (test 30 meq/L 22-29 tosy=513) BLOOD UREA NITROGEN 11 mg/dL 7-21 (BEAKER) (test buxo=352) CREATININE (BEAKER) (test 0.65 mg/dL 0.57-1.25 uyfo=284) GLUCOSE RANDOM (BEAKER) 91 mg/dL 70-105 (test qqss=845) CALCIUM (BEAKER) (test 9.4 mg/dL 8.4-10.2 kdmv=135) EGFR (BEAKER) (test 93 mL/min/1.73 sq m ESTIMATED GFR IS NOT tfem=4960) ACCURATE CREATININE CLEARANCE IN PREDICTING GLOMERULAR FILTRATION RATE. ESTIMATED GFR IS NOT APPLICABLE FOR DIALYSIS PATIENTS. CALCIUM, [id number] 05:46:00 Test Item Value Reference Range Comments CALCIUM IONIZED (BEAKER) (test anpi=276) 1.16 mmol/L 1.12-1.27 PH, BLOOD (BEAKER) (test gorl=1788) 7.39 BASIC METABOLIC [id number] 05:26:00 Test Item Value Reference Range Comments SODIUM (BEAKER) (test 136 meq/L 136-145 xuyo=950) POTASSIUM (BEAKER) (test 4.6 meq/L 3.5-5.1 xlqi=492) CHLORIDE (BEAKER) (test 101 meq/L 98-107 amev=119) CO2 (BEAKER) (test 28 meq/L 22-29 lljk=135) BLOOD UREA NITROGEN 9 mg/dL 7-21 (BEAKER) (test jjcf=551) CREATININE (BEAKER) (test 0.63 mg/dL 0.57-1.25 irwy=616) GLUCOSE RANDOM (BEAKER) 103 mg/dL 70-105 (test rswq=987) CALCIUM (BEAKER) (test 9.3 mg/dL 8.4-10.2 kolf=740) EGFR (BEAKER) (test 97 mL/min/1.73 sq m ESTIMATED GFR IS NOT ctnq=3602) ACCURATE CREATININE CLEARANCE IN PREDICTING GLOMERULAR FILTRATION RATE. ESTIMATED GFR IS NOT APPLICABLE FOR DIALYSIS PATIENTS. CBC W/PLT COUNT & AUTO [id number] 05:10:00 Test Item Value Reference Range Comments WHITE BLOOD CELL COUNT (BEAKER) (test aaji=236) 10.7 K/ L 3.5-10.5 RED BLOOD CELL COUNT (BEAKER) (test tiub=505) 3.16 M/ L 3.93-5.22 HEMOGLOBIN (BEAKER) (test cmrp=776) 9.0 GM/DL 11.2-15.7 HEMATOCRIT (BEAKER) (test nkof=128) 27.6 % 34.1-44.9 MEAN CORPUSCULAR VOLUME (BEAKER) (test pthy=182) 87.3 fL 79.4-94.8 MEAN CORPUSCULAR HEMOGLOBIN (BEAKER) (test 28.5 pg 25.6-32.2 bxag=622) MEAN CORPUSCULAR HEMOGLOBIN CONC (BEAKER) (test 32.6 GM/DL 32.2-35.5 idww=812) RED CELL DISTRIBUTION WIDTH (BEAKER) (test 18.2 % 11.7-14.4 keku=733) PLATELET COUNT (BEAKER) (test urkg=725) 478 K/CU MM 150-450 MEAN PLATELET VOLUME (BEAKER) (test iclv=516) 9.8 fL 9.4-12.3 NUCLEATED RED BLOOD CELLS (BEAKER) (test 0 /100 WBC 0-0 xwdh=123) NEUTROPHILS RELATIVE PERCENT (BEAKER) (test 70 % mnff=428) LYMPHOCYTES RELATIVE PERCENT (BEAKER) (test 17 % qjkt=789) MONOCYTES RELATIVE PERCENT (BEAKER) (test 8 % irtg=834) EOSINOPHILS RELATIVE PERCENT (BEAKER) (test 3 % xlpn=010) BASOPHILS RELATIVE PERCENT (BEAKER) (test 1 % ibfo=413) NEUTROPHILS ABSOLUTE COUNT (BEAKER) (test 7.51 K/ L 1.56-6.13 grok=775) LYMPHOCYTES ABSOLUTE COUNT (BEAKER) (test 1.86 K/ L 1.18-3.74 aqnn=262) MONOCYTES ABSOLUTE COUNT (BEAKER) (test 0.86 K/ L 0.24-0.36 eqgw=495) EOSINOPHILS ABSOLUTE COUNT (BEAKER) (test 0.33 K/ L 0.04-0.36 huwr=068) BASOPHILS ABSOLUTE COUNT (BEAKER) (test 0.07 K/ L 0.01-0.08 uttd=217) IMMATURE GRANULOCYTES-RELATIVE PERCENT (BEAKER) 1 % 0-1 (test tcsw=1996) CT, BRAIN, WITHOUT [id number] 01:51:00FINAL REPORT EXAM: CT head without contrast. [...] the left lateral ventricle. There is a hwwh-az-cxahv midline shift measuring 6 mm at the [...] density subdural hematoma. Associated mass effect. Mildly woegmapwowamj-zb-yysvz midline shift. Signed: Gideon Stephens Verified Date/Time: 12/26/2018 01:51:10Reading Location: [address] Body Reading Room Electronically signed by: GIDEON STEPHENS MD on 2018 01:51 AMPOCT-GLUCOSE [id number] 18:19:00 Test Item Value Reference Range Comments POC-GLUCOSE METER (BEAKER) 137 mg/dL 70-110 TESTED AT [address] (test cinv=5930) [facility] [address] RAD, CHEST, 1 VIEW, NON [id number] 14:28:00Reason for exam:->C/f PNA/ bronchitisShould this be [...] Cintron Verified Date/Time: 12/25/2018 14:28:42 Reading Location: [address] Transitional Reading Room BASIC METABOLIC [id number] 09:01:00 Test Item Value Reference Range Comments SODIUM (BEAKER) (test 133 meq/L 136-145 beyl=933) POTASSIUM (BEAKER) (test 4.2 meq/L 3.5-5.1 ahou=086) CHLORIDE (BEAKER) (test 98 meq/L 98-107 bvff=311) CO2 (BEAKER) (test 27 meq/L 22-29 wubp=109) BLOOD UREA NITROGEN 7 mg/dL 7-21 (BEAKER) (test ggdj=642) CREATININE (BEAKER) (test 0.68 mg/dL 0.57-1.25 nxtb=660) GLUCOSE RANDOM (BEAKER) 88 mg/dL 70-105 (test mxfk=557) CALCIUM (BEAKER) (test 9.1 mg/dL 8.4-10.2 grni=261) EGFR (BEAKER) (test 89 mL/min/1.73 sq m ESTIMATED GFR IS NOT rdbu=7702) ACCURATE CREATININE CLEARANCE IN PREDICTING GLOMERULAR FILTRATION RATE. ESTIMATED GFR IS NOT APPLICABLE FOR DIALYSIS PATIENTS. CBC W/PLT COUNT & AUTO [id number] 08:51:00 Test Item Value Reference Range Comments WHITE BLOOD CELL COUNT (BEAKER) (test wbuu=980) 14.7 K/ L 3.5-10.5 RED BLOOD CELL COUNT (BEAKER) (test lxrw=529) 3.68 M/ L 3.93-5.22 HEMOGLOBIN (BEAKER) (test rvxp=418) 10.5 GM/DL 11.2-15.7 HEMATOCRIT (BEAKER) (test kyae=159) 32.3 % 34.1-44.9 MEAN CORPUSCULAR VOLUME (BEAKER) (test nnir=473) 87.8 fL 79.4-94.8 MEAN CORPUSCULAR HEMOGLOBIN (BEAKER) (test 28.5 pg 25.6-32.2 vczi=901) MEAN CORPUSCULAR HEMOGLOBIN CONC (BEAKER) (test 32.5 GM/DL 32.2-35.5 llix=541) RED CELL DISTRIBUTION WIDTH (BEAKER) (test 18.2 % 11.7-14.4 dwew=057) PLATELET COUNT (BEAKER) (test ruya=217) 563 K/CU MM 150-450 MEAN PLATELET VOLUME (BEAKER) (test ulwc=957) 9.6 fL 9.4-12.3 NUCLEATED RED BLOOD CELLS (BEAKER) (test 0 /100 WBC 0-0 bwlw=099) NEUTROPHILS RELATIVE PERCENT (BEAKER) (test 77 % ysrv=887) LYMPHOCYTES RELATIVE PERCENT (BEAKER) (test 12 % rkde=894) MONOCYTES RELATIVE PERCENT (BEAKER) (test 9 % qxon=172) EOSINOPHILS RELATIVE PERCENT (BEAKER) (test 2 % xnul=125) BASOPHILS RELATIVE PERCENT (BEAKER) (test 0 % xngk=939) NEUTROPHILS ABSOLUTE COUNT (BEAKER) (test 11.32 K/ L 1.56-6.13 odew=984) LYMPHOCYTES ABSOLUTE COUNT (BEAKER) (test 1.77 K/ L 1.18-3.74 sedt=208) MONOCYTES ABSOLUTE COUNT (BEAKER) (test 1.25 K/ L 0.24-0.36 nciu=479) EOSINOPHILS ABSOLUTE COUNT (BEAKER) (test 0.25 K/ L 0.04-0.36 nbfm=165) BASOPHILS ABSOLUTE COUNT (BEAKER) (test 0.06 K/ L 0.01-0.08 bieo=484) IMMATURE GRANULOCYTES-RELATIVE PERCENT (BEAKER) 0 % 0-1 (test wcrc=9371) POCT-GLUCOSE [id number] 08:26:00 Test Item Value Reference Range Comments POC-GLUCOSE METER (BEAKER) 100 mg/dL 70-110 TESTED AT [address] (test awqj=6354) [place] [address] POCT-GLUCOSE [id number] 17:11:00 Test Item Value Reference Range Comments POC-GLUCOSE METER (BEAKER) 141 mg/dL 70-110 TESTED AT [address] (test mijz=6474) [place] [address] [id number] 16:51:00 Test Item Value Reference Range Comments POTASSIUM (BEAKER) (test hqhb=921) 3.9 meq/L 3.5-5.1 Check Serum Potassium level 2 hours after oral potassium replacement completed or 30 min after intravenous potassium replacement.[id number] 16:51:00 Test Item Value Reference Range Comments MAGNESIUM (BEAKER) (test vsjc=720) 2.0 mg/dL 1.6-2.6 Check Serum Potassium level 2 hours after oral potassium replacement completed or 30 min after intravenous potassium replacement.POCT-GLUCOSE [id number] 13:05:00 Test Item Value Reference Range Comments POC-GLUCOSE METER (BEAKER) 142 mg/dL 70-110 TESTED AT [facility] [address] [facility] (test efdq=3479) [facility] [address] POCT-GLUCOSE [id number] 07:51:00 Test Item Value Reference Range Comments POC-GLUCOSE METER (BEAKER) 100 mg/dL 70-110 TESTED AT [facility] [address] [facility] (test zzry=4774) [facility] [address] [id number] 05:07:00 Test Item Value Reference Range Comments PHOSPHORUS (BEAKER) (test kdtu=075) 3.0 mg/dL 2.3-4.7 [id number] 05:07:00 Test Item Value Reference Range Comments MAGNESIUM (BEAKER) (test qggo=552) 1.7 mg/dL 1.6-2.6 BASIC METABOLIC [id number] 05:07:00 Test Item Value Reference Range Comments SODIUM (BEAKER) (test 135 meq/L 136-145 fwym=080) POTASSIUM (BEAKER) (test 3.6 meq/L 3.5-5.1 zjzt=853) CHLORIDE (BEAKER) (test 103 meq/L 98-107 ortp=177) CO2 (BEAKER) (test 25 meq/L 22-29 eewr=049) BLOOD UREA NITROGEN 7 mg/dL 7-21 (BEAKER) (test mtzb=804) CREATININE (BEAKER) (test 0.63 mg/dL 0.57-1.25 mzsx=083) GLUCOSE RANDOM (BEAKER) 114 mg/dL 70-105 (test huka=513) CALCIUM (BEAKER) (test 8.7 mg/dL 8.4-10.2 adei=319) EGFR (BEAKER) (test 97 mL/min/1.73 sq m ESTIMATED GFR IS NOT kqgr=4904) ACCURATE CREATININE CLEARANCE IN PREDICTING GLOMERULAR FILTRATION RATE. ESTIMATED GFR IS NOT APPLICABLE FOR DIALYSIS PATIENTS. CBC W/PLT COUNT & AUTO [id number] 04:52:00 Test Item Value Reference Range Comments WHITE BLOOD CELL COUNT (BEAKER) (test krka=685) 11.1 K/ L 3.5-10.5 RED BLOOD CELL COUNT (BEAKER) (test zxpi=267) 3.34 M/ L 3.93-5.22 HEMOGLOBIN (BEAKER) (test wnqq=256) 9.4 GM/DL 11.2-15.7 HEMATOCRIT (BEAKER) (test eooh=125) 28.9 % 34.1-44.9 MEAN CORPUSCULAR VOLUME (BEAKER) (test iwnj=147) 86.5 fL 79.4-94.8 MEAN CORPUSCULAR HEMOGLOBIN (BEAKER) (test 28.1 pg 25.6-32.2 whsq=199) MEAN CORPUSCULAR HEMOGLOBIN CONC (BEAKER) (test 32.5 GM/DL 32.2-35.5 wyqy=940) RED CELL DISTRIBUTION WIDTH (BEAKER) (test 18.2 % 11.7-14.4 hibk=444) PLATELET COUNT (BEAKER) (test tujr=921) 477 K/CU MM 150-450 MEAN PLATELET VOLUME (BEAKER) (test nwqs=269) 9.9 fL 9.4-12.3 NUCLEATED RED BLOOD CELLS (BEAKER) (test 0 /100 WBC 0-0 njkd=774) NEUTROPHILS RELATIVE PERCENT (BEAKER) (test 76 % qexc=685) LYMPHOCYTES RELATIVE PERCENT (BEAKER) (test 12 % wkie=015) MONOCYTES RELATIVE PERCENT (BEAKER) (test 10 % sqfo=760) EOSINOPHILS RELATIVE PERCENT (BEAKER) (test 2 % yeit=281) BASOPHILS RELATIVE PERCENT (BEAKER) (test 1 % rkhh=700) NEUTROPHILS ABSOLUTE COUNT (BEAKER) (test 8.40 K/ L 1.56-6.13 uyoy=191) LYMPHOCYTES ABSOLUTE COUNT (BEAKER) (test 1.28 K/ L 1.18-3.74 uolu=218) MONOCYTES ABSOLUTE COUNT (BEAKER) (test 1.07 K/ L 0.24-0.36 agzt=652) EOSINOPHILS ABSOLUTE COUNT (BEAKER) (test 0.24 K/ L 0.04-0.36 fjey=640) BASOPHILS ABSOLUTE COUNT (BEAKER) (test 0.05 K/ L 0.01-0.08 ijpd=535) IMMATURE GRANULOCYTES-RELATIVE PERCENT (BEAKER) 1 % 0-1 (test ykrp=3172) CT, BRAIN, WITHOUT [id number] 03:07:00FINAL REPORT CT Head without contrast CLINICAL [...] Proctor Verified Date/Time: 12/24/2018 03:07:47 Reading Location: [address] Reading Room Electronically signed by: CONNER PROCTOR MD on 2018 03:07 AMPOCT-GLUCOSE [id number] 22:00:00 Test Item Value Reference Range Comments POC-GLUCOSE METER (BEAKER) 186 mg/dL 70-110 TESTED AT [address] (test wkyq=6883) [facility] [address] POCT-GLUCOSE [id number] 21:49:00 Test Item Value Reference Range Comments POC-GLUCOSE METER (BEAKER) 137 mg/dL 70-110 TESTED AT [place] [id number] [facility] (test jcmd=1943) [facility] [address] TISSUE [id number] 18:03:00Surgical Pathology Report Case: [id number] Authorizing Provider: Oswaldo Hu MD Collected: 12/21/2018 1532 Ordering Location: [place] [address] ICU Received: 2018 0801 Pathologist: Ad Carlson MD Specimen: Soft Tissue, Other, left subdural clot BRAIN, SUBDURAL REGION, LEFT, CRANIOTOMY AND EVACUATION:GRANULATION TISSUE AND FIBRIN, CONSISTENT WITH ORGANIZING HEMATOMA Signing Pathologist Direct Phone Line: [phone] signed by Ad Carlson MD on 12/23/2018 at 6:03 [id number] subdural hematoma Left subdural clotThe specimen is receivedin a formalin-filled container labeled with the patient's information and labeled "left subdural clot" and consists of three fragments of red-brown soft tissue measuring 0.5 to 0.6 cm, submitted entirely in A1. CG/ew PerformedPOCT-GLUCOSE [id number] 12:15:00 Test Item Value Reference Range Comments POC-GLUCOSE METER (BEAKER) 154 mg/dL 70-110 TESTED AT [address] (test fsoa=2634) [place] [address] POCT-GLUCOSE [id number] 08:25:00 Test Item Value Reference Range Comments POC-GLUCOSE METER (BEAKER) 109 mg/dL 70-110 TESTED AT [address] (test jlub=3739) [place] [id number] CBC W/PLT COUNT & AUTO [id number] 03:51:00 Test Item Value Reference Range Comments WHITE BLOOD CELL COUNT (BEAKER) (test aifh=439) 10.2 K/ L 3.5-10.5 RED BLOOD CELL COUNT (BEAKER) (test cjpv=594) 3.65 M/ L 3.93-5.22 HEMOGLOBIN (BEAKER) (test ulzl=498) 10.2 GM/DL 11.2-15.7 HEMATOCRIT (BEAKER) (test tuzf=094) 32.2 % 34.1-44.9 MEAN CORPUSCULAR VOLUME (BEAKER) (test nvlp=588) 88.2 fL 79.4-94.8 MEAN CORPUSCULAR HEMOGLOBIN (BEAKER) (test 27.9 pg 25.6-32.2 wkjc=537) MEAN CORPUSCULAR HEMOGLOBIN CONC (BEAKER) (test 31.7 GM/DL 32.2-35.5 decl=290) RED CELL DISTRIBUTION WIDTH (BEAKER) (test 18.0 % 11.7-14.4 nzmv=085) PLATELET COUNT (BEAKER) (test oemf=557) 543 K/CU MM 150-450 MEAN PLATELET VOLUME (BEAKER) (test dtse=004) 10.3 fL 9.4-12.3 NUCLEATED RED BLOOD CELLS (BEAKER) (test 0 /100 WBC 0-0 gpmo=089) NEUTROPHILS RELATIVE PERCENT (BEAKER) (test 75 % rhii=988) LYMPHOCYTES RELATIVE PERCENT (BEAKER) (test 12 % nauu=413) MONOCYTES RELATIVE PERCENT (BEAKER) (test 9 % gapj=273) EOSINOPHILS RELATIVE PERCENT (BEAKER) (test 4 % dgdp=733) BASOPHILS RELATIVE PERCENT (BEAKER) (test 1 % yree=228) NEUTROPHILS ABSOLUTE COUNT (BEAKER) (test 7.56 K/ L 1.56-6.13 dyii=829) LYMPHOCYTES ABSOLUTE COUNT (BEAKER) (test 1.19 K/ L 1.18-3.74 smxz=922) MONOCYTES ABSOLUTE COUNT (BEAKER) (test 0.95 K/ L 0.24-0.36 tctd=155) EOSINOPHILS ABSOLUTE COUNT (BEAKER) (test 0.37 K/ L 0.04-0.36 yuyi=511) BASOPHILS ABSOLUTE COUNT (BEAKER) (test 0.05 K/ L 0.01-0.08 cykx=622) IMMATURE GRANULOCYTES-RELATIVE PERCENT (BEAKER) 0 % 0-1 (test ivzb=4016) BASIC METABOLIC [id number] 03:47:00 Test Item Value Reference Range Comments SODIUM (BEAKER) (test 135 meq/L 136-145 wshq=913) POTASSIUM (BEAKER) (test 3.8 meq/L 3.5-5.1 jkjs=170) CHLORIDE (BEAKER) (test 104 meq/L 98-107 fdwe=540) CO2 (BEAKER) (test 23 meq/L 22-29 lpnf=021) BLOOD UREA NITROGEN 5 mg/dL 7-21 (BEAKER) (test usqy=039) CREATININE (BEAKER) (test 0.68 mg/dL 0.57-1.25 wryl=291) GLUCOSE RANDOM (BEAKER) 118 mg/dL 70-105 (test wqhy=292) CALCIUM (BEAKER) (test 8.8 mg/dL 8.4-10.2 poze=800) EGFR (BEAKER) (test 89 mL/min/1.73 sq m ESTIMATED GFR IS NOT tcjs=6854) ACCURATE CREATININE CLEARANCE IN PREDICTING GLOMERULAR FILTRATION RATE. ESTIMATED GFR IS NOT APPLICABLE FOR DIALYSIS PATIENTS. POCT-GLUCOSE [id number] 01:02:00 Test Item Value Reference Range Comments POC-GLUCOSE METER (BEAKER) 82 mg/dL 70-110 TESTED AT [address] (test rfqf=4095) [place] [address] POCT-GLUCOSE [id number] 19:58:00 Test Item Value Reference Range Comments POC-GLUCOSE METER (BEAKER) 75 mg/dL 70-110 TESTED AT [address] (test nqkj=8331) [place] [address] BASIC METABOLIC [id number] 13:29:00 Test Item Value Reference Range Comments SODIUM (BEAKER) (test 134 meq/L 136-145 dmjt=987) POTASSIUM (BEAKER) (test 3.9 meq/L 3.5-5.1 Specimen slightly srtz=649) hemolyzed CHLORIDE (BEAKER) (test 107 meq/L 98-107 gobh=199) CO2 (BEAKER) (test 19 meq/L 22-29 faoc=943) BLOOD UREA NITROGEN 5 mg/dL 7-21 (BEAKER) (test jjfg=216) CREATININE (BEAKER) (test 0.61 mg/dL 0.57-1.25 Specimen slightly cjqz=792) hemolyzed GLUCOSE RANDOM (BEAKER) 87 mg/dL 70-105 (test bhpg=019) CALCIUM (BEAKER) (test 7.4 mg/dL 8.4-10.2 nerr=348) EGFR (BEAKER) (test 100 mL/min/1.73 sq m ESTIMATED GFR IS NOT ukcv=6321) ACCURATE CREATININE CLEARANCE IN PREDICTING GLOMERULAR FILTRATION RATE. ESTIMATED GFR IS NOT APPLICABLE FOR DIALYSIS PATIENTS. POCT-GLUCOSE [id number] 12:37:00 Test Item Value Reference Range Comments POC-GLUCOSE METER (BEAKER) 85 mg/dL 70-110 TESTED AT [address] (test pevs=3534) [place] [address] [id number] 08:07:00 Test Item Value Reference Range Comments PROTIME (BEAKER) (test putv=475) 13.1 seconds 11.7-14.7 INR (BEAKER) (test msyo=535) 1.0 <=5.9 PARTIAL THROMBOPLASTIN TIME (BEAKER) (test 35.5 seconds 22.5-36.0 mwht=132) RECOMMENDED COUMADIN/WARFARIN INR THERAPY RANGESSTANDARD DOSE: 2.0 - 3.0 Includes: PROPHYLAXIS forvenous thrombosis, systemic embolization; TREATMENT for venous thrombosis and/or pulmonary embolus.HIGH RISK: Target INR is 2.5-3.5 for patients with mechanical heart valves.POCT-GLUCOSE [id number] 06:58:00 Test Item Value Reference Range Comments POC-GLUCOSE METER (BEAKER) 87 mg/dL 70-110 TESTED AT [facility] [address] [facility] (test tkzk=0179) [facility] [address] [address], BRAIN, WITHOUT [id number] 06:57:00FINAL REPORT CT, BRAIN, WITHOUT CONTRAST CLINICAL [...] MDReport Verified Date/Time: 12/22/2018 06:57:56 Reading Location: [address] Neuro Reading Room 06: 57 AMBASIC METABOLIC [id number] 04:23:00 Test Item Value Reference Range Comments SODIUM (BEAKER) (test 134 meq/L 136-145 gryf=542) POTASSIUM (BEAKER) (test 4.3 meq/L 3.5-5.1 jqzn=167) CHLORIDE (BEAKER) (test 106 meq/L 98-107 uvia=880) CO2 (BEAKER) (test 19 meq/L 22-29 zful=872) BLOOD UREA NITROGEN 7 mg/dL 7-21 (BEAKER) (test empj=733) CREATININE (BEAKER) (test 0.64 mg/dL 0.57-1.25 zhyb=301) GLUCOSE RANDOM (BEAKER) 77 mg/dL 70-105 (test itlv=770) CALCIUM (BEAKER) (test 8.2 mg/dL 8.4-10.2 xtyy=645) EGFR (BEAKER) (test 95 mL/min/1.73 sq m ESTIMATED GFR IS NOT btzm=5158) ACCURATE CREATININE CLEARANCE IN PREDICTING GLOMERULAR FILTRATION RATE. ESTIMATED GFR IS NOT APPLICABLE FOR DIALYSIS PATIENTS. CBC W/PLT COUNT & AUTO [id number] 04:19:00 Test Item Value Reference Range Comments WHITE BLOOD CELL COUNT (BEAKER) (test mmyu=329) 8.6 K/ L 3.5-10.5 RED BLOOD CELL COUNT (BEAKER) (test qyjq=934) 3.42 M/ L 3.93-5.22 HEMOGLOBIN (BEAKER) (test gasm=658) 9.6 GM/DL 11.2-15.7 HEMATOCRIT (BEAKER) (test wswd=076) 30.3 % 34.1-44.9 MEAN CORPUSCULAR VOLUME (BEAKER) (test pamn=691) 88.6 fL 79.4-94.8 MEAN CORPUSCULAR HEMOGLOBIN (BEAKER) (test 28.1 pg 25.6-32.2 ouht=568) MEAN CORPUSCULAR HEMOGLOBIN CONC (BEAKER) (test 31.7 GM/DL 32.2-35.5 hdqk=613) RED CELL DISTRIBUTION WIDTH (BEAKER) (test 18.3 % 11.7-14.4 dwzz=846) PLATELET COUNT (BEAKER) (test iepz=288) 513 K/CU MM 150-450 MEAN PLATELET VOLUME (BEAKER) (test bhde=733) 10.0 fL 9.4-12.3 NUCLEATED RED BLOOD CELLS (BEAKER) (test 0 /100 WBC 0-0 eght=757) NEUTROPHILS RELATIVE PERCENT (BEAKER) (test 69 % eset=579) LYMPHOCYTES RELATIVE PERCENT (BEAKER) (test 17 % thcy=087) MONOCYTES RELATIVE PERCENT (BEAKER) (test 9 % gvim=841) EOSINOPHILS RELATIVE PERCENT (BEAKER) (test 3 % vayo=875) BASOPHILS RELATIVE PERCENT (BEAKER) (test 1 % sojc=304) NEUTROPHILS ABSOLUTE COUNT (BEAKER) (test 5.94 K/ L 1.56-6.13 jipa=625) LYMPHOCYTES ABSOLUTE COUNT (BEAKER) (test 1.48 K/ L 1.18-3.74 gder=746) MONOCYTES ABSOLUTE COUNT (BEAKER) (test 0.81 K/ L 0.24-0.36 uihc=615) EOSINOPHILS ABSOLUTE COUNT (BEAKER) (test 0.28 K/ L 0.04-0.36 flpr=977) BASOPHILS ABSOLUTE COUNT (BEAKER) (test 0.07 K/ L 0.01-0.08 wles=931) IMMATURE GRANULOCYTES-RELATIVE PERCENT (BEAKER) 0 % 0-1 (test okzt=8907) POCT-GLUCOSE [id number] 03:51:00 Test Item Value Reference Range Comments POC-GLUCOSE METER (BEAKER) 87 mg/dL 70-110 TESTED AT [address] (test znez=2056) [place] [id number] POCT-GLUCOSE [id number] 17:54:00 Test Item Value Reference Range Comments POC-GLUCOSE METER (BEAKER) 83 mg/dL 70-110 TESTED AT [address] (test mznq=3715) [place] [address] POCT-GLUCOSE [id number] 12:33:00 Test Item Value Reference Range Comments POC-GLUCOSE METER (BEAKER) 87 mg/dL 70-110 TESTED AT [address] (test culs=2717) [place] [address] POCT-GLUCOSE [id number] 07:50:00 Test Item Value Reference Range Comments POC-GLUCOSE METER (BEAKER) 84 mg/dL 70-110 TESTED AT [address] (test sznq=6547) [place] [id number] POCT-GLUCOSE [id number] 06:16:00 Test Item Value Reference Range Comments POC-GLUCOSE METER (BEAKER) 79 mg/dL 70-110 TESTED AT [address] (test wiwb=1256) [place] [id number] 03:54:00 Test Item Value Reference Range Comments PHOSPHORUS (BEAKER) (test ajzd=025) 3.0 mg/dL 2.3-4.7 Once on admission and Daily AM afterwardsOnce on admission and Daily AM afterwardsOnce on admission and Daily AM [id number] 03:54:00 Test Item Value Reference Range Comments MAGNESIUM (BEAKER) (test deqz=405) 1.7 mg/dL 1.6-2.6 Once on admission and Daily AM afterwardsOnce on admission and Daily AM afterwardsOnce on admission and Daily AM afterwardsBASIC METABOLIC [id number] 03:54:00 Test Item Value Reference Range Comments SODIUM (BEAKER) (test 137 meq/L 136-145 gmmv=606) POTASSIUM (BEAKER) (test 3.9 meq/L 3.5-5.1 ebsd=729) CHLORIDE (BEAKER) (test 104 meq/L 98-107 gfus=857) CO2 (BEAKER) (test 24 meq/L 22-29 dguz=385) BLOOD UREA NITROGEN 10 mg/dL 7-21 (BEAKER) (test mjjl=722) CREATININE (BEAKER) (test 0.65 mg/dL 0.57-1.25 nvfu=716) GLUCOSE RANDOM (BEAKER) 77 mg/dL 70-105 (test suml=000) CALCIUM (BEAKER) (test 9.7 mg/dL 8.4-10.2 tjce=989) EGFR (BEAKER) (test 93 mL/min/1.73 sq m ESTIMATED GFR IS NOT lcmd=3101) ACCURATE CREATININE CLEARANCE IN PREDICTING GLOMERULAR FILTRATION RATE. ESTIMATED GFR IS NOT APPLICABLE FOR DIALYSIS PATIENTS. Once on admission and Daily AM afterwardsOnce on admission and Daily AM afterwardsOnce on admission and Daily AM afterwardsCBC W/PLT COUNT & AUTO [id number] 03:36:00 Test Item Value Reference Range Comments WHITE BLOOD CELL COUNT (BEAKER) (test rbuy=588) 10.9 K/ L 3.5-10.5 RED BLOOD CELL COUNT (BEAKER) (test wclb=629) 3.77 M/ L 3.93-5.22 HEMOGLOBIN (BEAKER) (test dwzm=429) 10.5 GM/DL 11.2-15.7 HEMATOCRIT (BEAKER) (test zhfc=482) 32.9 % 34.1-44.9 MEAN CORPUSCULAR VOLUME (BEAKER) (test fyaz=252) 87.3 fL 79.4-94.8 MEAN CORPUSCULAR HEMOGLOBIN (BEAKER) (test 27.9 pg 25.6-32.2 fbwq=912) MEAN CORPUSCULAR HEMOGLOBIN CONC (BEAKER) (test 31.9 GM/DL 32.2-35.5 mvju=987) RED CELL DISTRIBUTION WIDTH (BEAKER) (test 18.2 % 11.7-14.4 wnyl=738) PLATELET COUNT (BEAKER) (test fzgd=142) 581 K/CU MM 150-450 MEAN PLATELET VOLUME (BEAKER) (test wkch=710) 10.0 fL 9.4-12.3 NUCLEATED RED BLOOD CELLS (BEAKER) (test 0 /100 WBC 0-0 vksh=201) NEUTROPHILS RELATIVE PERCENT (BEAKER) (test 74 % eusr=194) LYMPHOCYTES RELATIVE PERCENT (BEAKER) (test 16 % bvhn=631) MONOCYTES RELATIVE PERCENT (BEAKER) (test 8 % aydf=750) EOSINOPHILS RELATIVE PERCENT (BEAKER) (test 2 % wtwh=584) BASOPHILS RELATIVE PERCENT (BEAKER) (test 1 % tvqh=189) NEUTROPHILS ABSOLUTE COUNT (BEAKER) (test 8.10 K/ L 1.56-6.13 zxml=472) LYMPHOCYTES ABSOLUTE COUNT (BEAKER) (test 1.72 K/ L 1.18-3.74 vzxz=203) MONOCYTES ABSOLUTE COUNT (BEAKER) (test 0.86 K/ L 0.24-0.36 vvgo=599) EOSINOPHILS ABSOLUTE COUNT (BEAKER) (test 0.16 K/ L 0.04-0.36 isfj=941) BASOPHILS ABSOLUTE COUNT (BEAKER) (test 0.06 K/ L 0.01-0.08 dnzb=873) IMMATURE GRANULOCYTES-RELATIVE PERCENT (BEAKER) 0 % 0-1 (test krhe=4472) CT, BRAIN, WITHOUT [id number] 01:21:00FINAL REPORT CT, BRAIN, WITHOUT CONTRAST CLINICAL [...] Verified Date/Time: 12/21/2018 01: 21:22 Reading Location: [facility] [id number] Neuro Reading Room POCT-GLUCOSE [id number] 00:17:00 Test Item Value Reference Range Comments POC-GLUCOSE METER (BEAKER) 82 mg/dL 70-110 TESTED AT [address] (test dxwo=0924) [place] [id number] POCT-GLUCOSE [id number] 18:53:00 Test Item Value Reference Range Comments POC-GLUCOSE METER (BEAKER) 101 mg/dL 70-110 TESTED AT [address] (test wvpj=4477) [place] [id number] 17:31:00 Test Item Value Reference Range Comments MAGNESIUM (BEAKER) (test 1.8 mg/dL 1.6-2.6 Specimen slightly hemolyzed zpha=108) [id number] 17:31:00 Test Item Value Reference Range Comments PHOSPHORUS (BEAKER) (test 3.5 mg/dL 2.3-4.7 Specimen slightly hemolyzed oqdv=930) BASIC METABOLIC [id number] 17:31:00 Test Item Value Reference Range Comments SODIUM (BEAKER) (test 137 meq/L 136-145 hbce=206) POTASSIUM (BEAKER) (test 3.9 meq/L 3.5-5.1 Specimen slightly sbok=664) hemolyzed CHLORIDE (BEAKER) (test 101 meq/L 98-107 bavc=349) CO2 (BEAKER) (test 24 meq/L 22-29 yiqf=154) BLOOD UREA NITROGEN 11 mg/dL 7-21 (BEAKER) (test mkxj=965) CREATININE (BEAKER) (test 0.66 mg/dL 0.57-1.25 Specimen slightly hpoc=563) hemolyzed GLUCOSE RANDOM (BEAKER) 102 mg/dL 70-105 (test sval=733) CALCIUM (BEAKER) (test 10.0 mg/dL 8.4-10.2 kega=044) EGFR (BEAKER) (test 92 mL/min/1.73 sq m ESTIMATED GFR IS NOT uunw=9523) ACCURATE CREATININE CLEARANCE IN PREDICTING GLOMERULAR FILTRATION RATE. ESTIMATED GFR IS NOT APPLICABLE FOR DIALYSIS PATIENTS. HEPATIC FUNCTION [id number] 17:31:00 Test Item Value Reference Range Comments TOTAL PROTEIN (BEAKER) (test 7.5 gm/dL 6.0-8.3 Specimen slightly hemolyzed evuf=036) ALBUMIN (BEAKER) (test 3.8 g/dL 3.5-5.0 Specimen slightly hemolyzed vtxv=8573) BILIRUBIN TOTAL (BEAKER) (test 0.7 mg/dL 0.2-1.2 Specimen slightly hemolyzed udol=474) BILIRUBIN DIRECT (BEAKER) (test 0.4 mg/dL 0.1-0.5 Specimen slightly hemolyzed bigw=701) ALKALINE PHOSPHATASE (BEAKER) 74 U/L 40-150 (test asmw=690) AST (SGOT) (BEAKER) (test 30 U/L 5-34 Specimen slightly hemolyzed hsky=525) ALT (SGPT) (BEAKER) (test 15 U/L 6-55 Specimen slightly hemolyzed cjjc=259) PROTHROMBIN [id number] 17:24:00 Test Item Value Reference Range Comments PROTIME (BEAKER) (test tnan=709) 13.8 seconds 11.7-14.7 INR (BEAKER) (test uuhn=238) 1.1 <=5.9 RECOMMENDED COUMADIN/WARFARIN INR THERAPY RANGESSTANDARD DOSE: 2.0 - 3.0 Includes: PROPHYLAXIS forvenous thrombosis, systemic embolization; TREATMENT for venous thrombosis and/or pulmonary embolus.HIGH RISK: Target INR is 2.5-3.5 for patients with mechanical heart valves.[id number] 17:24:00 Test Item Value Reference Range Comments PARTIAL THROMBOPLASTIN TIME (BEAKER) (test 37.3 seconds 22.5-36.0 ioek=983)
== END 2019-08-24 18:31 | disposition short-term general hospital (02) ==
LOC: ER 12:15
DX: J95.03 Malfunction of tracheostomy stoma (principal); E03.9 Hypothyroidism, unspecified; J44.9 Chronic obstructive pulmonary disease, unspecified; F32.9 Major depressive disorder, single episode, unspecified; Z85.21 Personal history of malignant neoplasm of larynx
CPT/HCPCS: 85025; 80048; 36415; 71250; 71045; 76705; 96375; 96374; 99283; J3010